=== PATIENT | female | born 1965 | race African-American/Black ===

== ENCOUNTER 2016-07-20 10:35 | Day surgery (SDC) | payer MEDICARE ==
[~2016-07-20] VITALS: Ht 175.3 cm; Wt 120.0 kg
[~2016-07-20 10:35] MED LIST: ADVAIR 100/501 DISK INH; BAYER CHEWABLE81 MG PO; CARDIZEM CD240 MG PO; CATAPRES0.1 MG PO; CELEXA20 MG PO; COLCRYS0.6 MG PO; COREG25 MG PO; CRESTOR10 MG PO; ELIQUIS2.5 MG PO; FUROSEMIDE40 MG PO; HYDROCODONE-APA1 TAB PO; ISOSORBIDE MONO60 M1 PO; LANTUS SOL100 UNIT/1 SC; LANTUS SOL100 UNIT/1 SQ; LASIX40 MG PO; METOLAZONE2.5 MG PO; MIRALAX17 GM PO; NASONEX NASAL S17 GM NS; NOVOLOG100 U/M1 SC; PEPCID20 MG PO; PHENERGAN DM SYR5 ML PO; POTASSIUM20 MEQ/11 PO; PROAIR HFA8.5 GM INH; PROTONIX40 MG PO; QUESTRAN PACK4 G/PKT PO; RENAGEL800 MG PO; ROCALTROL0.5 MCG PO; ZYLOPRIM100 MG PO
[2016-07-20 12:24] VITALS: BP 125/67; Ht 175.3 cm; Wt 120.0 kg
[2016-07-20 12:57] LABS: HCG SERUM NEGATIVE (NEGATIVE)
--- NOTE | 2016-07-20 14:13 | NUR ---
1335 BACK FROM EGD. WAKING UP AND RESP EVEN AND NONLABORED HOB ELEVATED NO COS OF PAIN.
--- NOTE | 2016-07-20 14:14 | NUR ---
1400 DR. BLACK ROUNDING ON PATIENT.
--- NOTE | 2016-07-20 15:27 | NUR ---
1435 DISCHARGE INSTRUCTIONS GIVEN AND VERBALLY UNDERSTANDS. IV DCD CATHETER INTACT.
--- NOTE | 2016-07-20 15:28 | NUR ---
1445 TO HOME VIA W/C WITH FAMILY.
--- NOTE | 2016-07-21 20:18 | OP ---
PATIENT NAME: MAKENNA WALLACE MEDICAL RECORD: [id number] :61 LOCATION:[place] ADMISSION DATE: SURGEON: JESSENIA BLACK MD DATE OF OPERATION: 07/20/2016 PROCEDURE: EGD with biopsy. REFERRING PHYSICIAN: Gil Cho MD INDICATIONS: Ms. Makenna Cho is a very pleasant 50-year-old woman who has had symptoms of heartburn, nausea, postprandial epigastric pain. She has had a cholecystectomy in the past. She had a colonoscopy to further evaluate symptoms of changes in bowel habits with alternating diarrhea, constipation, hematochezia. She had a colonoscopy on 06/16/2016 that showed a small transverse colon polyp (hyperplastic) minimal nonspecific erythema involving the ascending colon, mild sigmoid diverticulosis and mild internal hemorrhoids. She presents for outpatient EGD. PREMEDICATIONS: Total IV anesthesia (ASA 4, end-stage renal disease, obstructive sleep apnea on CPAP) propofol 160 mg. INSTRUMENT: Olympus video gastroscope. PROCEDURE AND FINDINGS: After receiving informed consent, Ms. Maribel Cho's posterior pharynx was anesthetized with Cetacaine spray. She was placed in left lateral decubitus position, sedated as per anesthesia. After achieving adequate level of sedation, gastroscope was introduced per orally and advanced to the duodenum without difficulty. The esophageal mucosa was without erythema, ulcers, strictures or masses, appeared normal down the GE junction. Small hiatal hernia was noted. Gastric mucosa was notable for [id number] patchy antral erythema and antral biopsies were obtained to rule out Helicobacter pylori. There were no lesions seen in the body of stomach or in the cardia or fundus. Pylorus was patent and competent. There was patchy erythema in the proximal duodenal bulb and biopsies were obtained. The second portion of duodenal mucosa appeared normal. Gastroscope was then withdrawn. Ms. Maribel Cho tolerated the procedure well, no immediate complications. ASSESSMENT: 1. Small hiatal hernia. 2. Mild to moderate gastritis, rule out Helicobacter pylori. 3. Duodenitis. RECOMMENDATIONS: 1. Follow up histopathology. 2. Reflux precautions. 3. Omeprazole 20 mg p.o. daily. TRANSINT:[id number] Voice Confirmation ID: [id number] DOCUMENT ID: [id number] CC: Rae Mane APN OPERATIVE REPORT [id number] MARIANA WALLACEJESSENIA DOMINGUEZ MD at 2018 CC: PAMELA CHO MD [id number] DICTATION DATE: 07/20/16 1337 HAUL DRIVER: 07/20/16 1357 DEP SDC 07/20/16 [id number] [place] [address]
== END 2016-07-20 14:45 | disposition home or self-care (01) ==
LOC: D.OPS 10:35
PROVIDERS: Anesthesiology
DX: K29.70 Gastritis, unspecified, without bleeding (principal); K44.9 Diaphragmatic hernia without obstruction or gangrene; K29.80 Duodenitis without bleeding; J44.9 Chronic obstructive pulmonary disease, unspecified; G47.30 Sleep apnea, unspecified; K21.9 Gastro-esophageal reflux disease without esophagitis; I12.0 Hypertensive chronic kidney disease with stage 5 chronic kidney disease or end stage renal disease; E11.22 Type 2 diabetes mellitus with diabetic chronic kidney disease; N18.6 End stage renal disease; J45.909 Unspecified asthma, uncomplicated

== ENCOUNTER 2016-07-30 13:13 | Emergency (ER) | payer MEDICARE ==
[2016-07-20 12:24] VITALS: BMI 39.0
[2016-07-30 14:44] LABS: BASOPHILS 0.3 % (0.0-2.0); EOSINOPHILS 0.5 % (0-7); HEMATOCRIT 46.9 % (36.0-48.0); HEMOGLOBIN 14.9 g/dL (12-16); IMMATURE GRANULOCYTES 0.3 % (0-5); LYMPHOCYTES 19.5 % (15-50); MCH 29.6 pg (26.0-34.0); MCHC 31.8 g/dL (31.0-37.0); MCV 93.1 fL (80.0-100.0); MONOCYTES 6.7 % (2-11); NEUTROPHILS 72.7 % (40-80); PLATELET COUNT 134 10x3/uL (130-400); RBC 5.04 10x6/uL (4.00-5.40); RDW 16.1 % (11.5-14.5); WBC 7.3 10x3/uL (4.8-10.8)
[2016-07-30 15:01] LABS: ALBUMIN 2.9 g/dL (3.4-5.0); BILIRUBIN - TOTAL 0.46 mg/dL (0.2-1.3); CALCIUM 9.4 mg/dL (8.5-10.1); CARBON DIOXIDE 27.1 mmol/L (21.0-32.0); CREATININE - SERUM 8.3 mg/dL (0.6-1.3); POTASSIUM - SERUM 4.1 mmol/L (3.5-5.1); PROTEIN - SERUM 6.9 g/dL (6.4-8.2)
[2016-07-30 16:08] LABS: MAGNESIUM - SERUM 1.9 mg/dL (1.8-2.4); TROPONIN-I 0.035 ng/mL (0.000-0.060)
== END 2016-07-30 17:41 | disposition home or self-care (01) ==
LOC: D.ER 13:13
PROVIDERS: Emergency Medicine
DX: F41.9 Anxiety disorder, unspecified (principal); I48.91 Unspecified atrial fibrillation; E66.09 Other obesity due to excess calories; I50.9 Heart failure, unspecified; E21.3 Hyperparathyroidism, unspecified; I12.9 Hypertensive chronic kidney disease with stage 1 through stage 4 chronic kidney disease, or unspecified chronic kidney disease; N18.9 Chronic kidney disease, unspecified; E11.9 Type 2 diabetes mellitus without complications; Z79.4 Long term (current) use of insulin; Z99.2 Dependence on renal dialysis

== ENCOUNTER 2016-08-03 13:01 | Inpatient (IN) | payer MEDICARE ==
[~2016-08-03] VITALS: Ht 175.3 cm; Wt 128.4 kg
--- NOTE | ~2016-08-03 | HEMODYNAMI ---
PATIENT:CASA WALLACE MEDICAL RECORD: [id number] : 61 LOCATION:[place] [address] ADMISSION DATE: 08/03/16 Generatedon:08/09/201612:53 Patient name: CASA LEYVA Patient #: [id number] SN: : 1965 Date of study: 08/09/2016 Page: Of Hemodynamic Procedure Report Patient Data Patient Demographics Procedure consent was obtained First Name: CASA Gender: Female Last Name: IGNACIO LEYVA : 1965 Patient #: [id number] Age: 50 year(s) Race: Black Additional ID: [id number] Contact details [address]: [address] [place] [address] DRIVE State: [place] City: [place] Zip code: [address] Past Medical History Allergies Allergen Reaction Date Comments Reported Penicillins 08/09/2016 Admission Admission Data Admission Date: 08/03/2016 Admission Time: 17:49 Room #: [facility] Weight (lbs.): 276 Weight (kg.): 125.19 Procedure Procedure Types Cath Procedure Peripheral Cath Diagnostic Procedure Cath Peripheral Fistula Mechanical Thrombectomy with Plasty Procedure Description Procedure Date Procedure Date: 08/09/2016 Procedure Start Time: 10:30 Procedure Staff Name Function Rosalind Savage RN Nurse Carolyn Covington RT Cable Tower Operator Carolyn Covington RT Monitor Sven Gallego RT Scrub Gil Jain MD Performing Physician Procedure Data Cath Procedure Fluoroscopy Diagnostic fluoroscopy Total fluoroscopy Time: time: 18.6 min 18.6 min Diagnostic fluoroscopy Total fluoroscopy dose: dose: 307.23 mGy 307.23 mGy Contrast Material Contrast Material Type Amount (ml) Isovue 300 100 Diagnostic catheters Device Type Used For End Catheter Placement Merit Impress KA2 5Fr 65CM catheter Procedure Medications Medication Administration Route Dosage Oxygen NC 3 l/min Lidocaine 1% added to field 20 Heparin Flush Bag added to field 2 bags (1000units/500ml NS) Versed I.V. 1 mg Fentanyl I.V. 50 mcg Versed I.V. 1 mg Fentanyl I.V. 50 mcg Versed I.V. 0.5 mg Fentanyl I.V. 50 mcg Versed I.V. 1 mg Heparin Bolus I.V. 3000 units Fentanyl I.V. 50 mcg Heparin Bolus I.V. 2000 units Versed I.V. 0.5 mg Fentanyl I.V. 50 mcg Versed I.V. 1 mg Hemodynamics Rest Heart Rate: 108 (bpm) Snapshots Pre Cath Intra NCS Post Cath Vital Signs Time Heart Resp SPO2 NIBP (mmHg) Rhythm Pain Sedation Rate (ipm) (%) Status Level (bpm) 10:16:09 110 19 98 140/105(127) A-Fib 0 (11) 10(A) , No pain 10:20:27 119 11 98 143/101(113) A-Fib 0 (11) 10(A) , No pain 10:25:55 121 20 97 133/91(125) A-Fib 0 (11) 10(A) , No pain 10:30:11 115 11 96 124/98(106) A-Fib 0 (11) 10(A) , No pain 10:34:25 124 10 94 117/84(97) A-Fib 0 (11) 9(A) , No pain 10:38:37 110 11 93 118/82(103) A-Fib 0 (11) 9(A) , No pain 10:42:51 117 11 94 116/81(101) A-Fib 0 (11) 9(A) , No pain 10:47:03 107 10 94 114/84(97) A-Fib 0 (11) 9(A) , No pain 10:51:13 107 14 95 113/89(110) A-Fib 0 (11) 9(A) , No pain 10:55:22 104 10 92 123/86(107) A-Fib 0 (11) 9(A) , No pain 10:59:36 97 10 93 113/89(95) A-Fib 0 (11) 9(A) , No pain 11:03:48 115 11 93 115/80(88) A-Fib 0 (11) 9(A) , No pain 11:07:58 120 11 93 107/81(93) A-Fib 0 (11) 9(A) , No pain 11:12:13 109 12 93 101/69(86) A-Fib 0 (11) 9(A) , No pain 11:16:18 115 11 93 112/81(98) A-Fib 0 (11) 9(A) , No pain 11:20:32 95 10 94 109/75(104) A-Fib 0 (11) 9(A) , No pain 11:24:40 96 10 92 108/85(92) A-Fib 0 (11) 9(A) , No pain 11:28:52 105 10 92 111/73(102) A-Fib 0 (11) 10(A) , No pain 11:33:04 113 10 92 117/79(85) A-Fib 0 (11) 9(A) , No pain 11:37:16 104 11 92 106/82(100) A-Fib 0 (11) 9(A) , No pain 11:41:24 94 11 93 114/84(97) A-Fib 0 (11) 9(A) , No pain 11:45:34 108 12 94 109/90(107) A-Fib 0 (11) 9(A) , No pain 11:49:41 104 10 93 117/85(111) A-Fib 0 (11) 9(A) , No pain 11:53:56 101 11 93 112/77(90) A-Fib 0 (11) 9(A) , No pain 11:58:01 104 11 95 118/94(114) A-Fib 0 (11) 9(A) , No pain 12:02:11 106 11 98 135/95(126) A-Fib 0 (11) 9(A) , No pain 12:06:27 108 10 96 136/95(101) A-Fib 0 (11) 10(A) , No pain 12:10:43 109 13 96 129/98(114) A-Fib 0 (11) 9(A) , No pain 12:14:57 114 11 94 129/91(107) A-Fib 0 (11) 9(A) , No pain 12:19:13 101 10 93 121/86(104) A-Fib 0 (11) 9(A) , No pain 12:23:25 100 11 94 120/80(98) A-Fib 0 (11) 9(A) , No pain 12:27:37 95 10 96 122/90(96) A-Fib 0 (11) 9(A) , No pain 12:31:51 111 11 94 117/84(101) A-Fib 0 (11) 10(A) , No pain 12:36:03 99 11 96 126/86(111) A-Fib 0 (11) 10(A) , No pain 12:40:15 107 10 97 124/94(112) A-Fib 0 (11) 10(A) , No pain Medications Time Medication Route Dose Verified Delivered Reason No jimena Effectiveness by by 10:21:46 Oxygen NC 3 l/min Rosalind Rosalind Per protocol King RUBEN Savage RN 10:21:56 Lidocaine 1% added 20ml vial Rosalind Rosalind for local to King RUBEN Savage RN anesthetic field 10:22:07 Heparin Flush added 2 bags Rosalind Rosalind used for Bag to King RUBEN Savaeg RN procedure (1000units/500ml field NS) 10:28:32 Versed I.V. 1 mg Rosalind Rosalind for sedation King RUBEN Savage RN 10:28:39 Fentanyl I.V. 50 mcg Rosalind Rosalind for sedation King RUBEN Savage RN 10:31:15 Versed I.V. 1 mg Rosalind Rosalind for sedation King RUBEN Savage RN 10:31:20 Fentanyl I.V. 50 mcg Rosalnid Rosalind for sedation King RUBEN Savage RN 10:38:28 Versed I.V. 0.5 mg Rosalind Rosalind for sedation King RUBEN Savage RN 10:48:59 Fentanyl I.V. 50 mcg Rosalind Rosalind for sedation King RUBEN Savage RN 10:49:44 Versed I.V. 1 mg Rosalind Rosalind for sedation King RUBEN Savage RN 10:57:56 Heparin Bolus I.V. 3000units Rosalind Rosalind for King RUBEN Savage RN anticoagulation 11:19:48 Fentanyl I.V. 50 mcg Rosalind Rosalind for sedation King RUBEN Savage RN 11:28:35 Heparin Bolus I.V. 2000units Rosalind Rosalind for King RUBEN Savage RN anticoagulation 11:33:04 Versed I.V. 0.5 mg Rosalind Rosalind for sedation King RUBEN Savage RN 12:01:15 Fentanyl I.V. 50 mcg Rosalind Rosalind for sedation King RUBEN Savage RN 12:10:08 Versed I.V. 1 mg Rosalind Rosalind for sedation King RUBEN Savage class a lineman Log Time Note 10:05:47 Time tracking: Regular hours 10:12:42 Patient Weight : 276 lbs 10:14:26 Plan of Care:Hemodynamics will remain stable., Cardiac rhythm will remain stable., Comfort level will be maintained., Respiratory function will remain adequate., Patient/ family verbilizes understanding of procedure., Procedure tolerated without complication., Recovers from procedure without complications.. 10:14:33 Patient received from Med II to IR Alert and oriented. Tansferred to table in Supine position. 10:14:37 Correct patient and procedure confirmed by team. 10:14:39 Signed procedure consent form obtained from patient. 10:14:42 ECG and BP/O2 sat monitors applied to patient. 10:14:45 Dr Jain arrived. Talking with patient and examining fistula 10:14:53 Vital chart was started 10:14:56 Baseline sample Acquired. 10:14:59 Full Disclosure recording started 10:15:01 - 10:15:07 H&P Date Dictated: 08/09/2016 Within 30 days and on chart.. 10:15:10 Pre-procedure instructions explained to patient. 10:15:11 Pre-op teaching completed and patient verbalized understanding. 10:15:13 Family unavailable. 10:15:18 Patient NPO since Midnight. 10:15:52 Patient allergic to Penicillins 10:16:51 Is the patient allergic to Iodine/contrast media? No. 10:16:53 Is patient on blood thinner?Yes 10:16:57 Patient diabetic? Yes. 10:17:01 - 10:17:04 ----Pre-sedation anethsthesia assessment.---- 10:17:08 Previous problem with sedation/anesthesia? No ? 10:17:12 Snore? Yes 10:17:14 Sleep apnea? Yes 10:17:16 Deviated septum? No 10:17:19 Opens mouth fully? Yes 10:17:22 Sticks out tongue? Yes 10:17:37 Airway obstruction? Yes copd, a fib 10:17:43 Dentures? No ? 10:17:46 - 10:17:59 IV patent on arrival in left IJ with 0.9% NaCl at O. 10:18:16 Right Arm area was prepped with chlora-prep and draped in sterile fashion 10:18:21 Alarms reviewed by Lydia Lima 10:18:23 - 10:18:29 Use device set IR Diagnostic 10:18:31 Sterile Angiographic Pack opened to sterile field. 10:18:33 Bag Decanter opened to sterile field. 10:19:09 Micropuncture VSI 4FR kit opened to sterile field. 10:19:10 Cook SYEDSON 145cm guide wire opened to sterile field. 10:19:30 Arrow 6Fr TREROTOLA thrombectomy opened to sterile field. 10:21:46 Oxygen 3 l/min NC was given by Rosalind Savage RN; Per protocol; 10:21:56 Lidocaine 1% 20ml vial added to field was given by Rosalind Savage RN; for local anesthetic; 10:22:07 Heparin Flush Bag (1000units/500ml NS) 2 bags added to field was given by Rosalind Savage RN; used for procedure; 10:23:40 BasixTOUCH Inflation Syringe opened to sterile field. 10:27:24 Physician arrived 10:27:25 --------ALL STOP TIME OUT------ 10:27:26 Final Timeout: patient, procedure, and site verified with staff and physician. All members of the team are in agreement. 10:27:31 Right Arm site verified by team. 10:27:37 Physical assessment completed. ASA score P 3 - A patient with severe systemic disease as per Gil Jain MD. 10:27:53 Sedation plan: IV Moderate Sedation Versed, Fentanyl, Lidocaine 10:28:32 Versed 1 mg I.V. was given by Rosalind Savage RN; for sedation; 10:28:39 Fentanyl 50 mcg I.V. was given by Rosalind Savage RN; for sedation; 10:30:19 Procedure started. 10:30:29 Local anesthetic to right arm with Lidocaine 1% by Gil Jain MD.INITIAL ACCESS ONLY 10:30:32 Venous access obtained using ultrasound guidance. 10:31:15 Versed 1 mg I.V. was given by Rosalind Savage RN; for sedation; 10:31:20 Fentanyl 50 mcg I.V. was given by Rosalind Savage RN; for sedation; 10:38:28 Versed 0.5 mg I.V. was given by Rosalind Savage RN; for sedation; 10:38:38 PERCUTANEOUS ENTRY 19GA needle opened to sterile field. 10:48:59 Fentanyl 50 mcg I.V. was given by oRsalind Savage RN; for sedation; 10:49:44 Versed 1 mg I.V. was given by Rosalind Savage RN; for sedation; 10:53:11 A Digital Trowel KA2 5Fr 65CM catheter was advanced over the wire and used for . 10:57:56 Heparin Bolus 3000units I.V. was given by Rosalind Savage RN; for anticoagulation; 10:59:00 Inflation number: 1 A Cordis Powerflex Pro 6.0 x 40 x 80cm balloon was prepped and advanced across the Undefined1, then inflated to 12 GRISELDA for 0:16 (min:sec). 11:04:52 Inflation number: 2 A Cordis Powerflex Pro 8.0 X 60 X 135 balloon was prepped and advanced across the Undefined1, then inflated to 10 GRISELDA for 0:11 (min:sec). 11:19:48 Fentanyl 50 mcg I.V. was given by Rosalind Savage RN; for sedation; 11:28:35 Heparin Bolus 2000units I.V. was given by Rosalind Savage RN; for anticoagulation; 11:33:04 Versed 0.5 mg I.V. was given by Rosalind Savage RN; for sedation; 11:37:56 Terumo TORQUE DEVICE PLASTIC .038 opened to sterile field. 11:38:08 Terumo ANGLE 180L glide wire opened to sterile field. 11:40:30 Live 5Fr OTW embolectomy catheter opened to sterile field. 11:51:46 Cook BENTSON 145cm guide wire opened to sterile field. 11:57:14 Live 5Fr OTW embolectomy catheter opened to sterile field. 12:01:15 Fentanyl 50 mcg I.V. was given by Rosalind Savage RN; for sedation; 12:10:08 Versed 1 mg I.V. was given by Rosalind Savage RN; for sedation; 12:19:26 SUTURE L27IN 2-0 MCRYL STEPHIE MO opened to sterile field. 12:25:22 Inflation number: 1 A Cordis Powerflex Pro 10.0 x 40 x 80cm balloon was prepped and advanced across the Undefined2, then inflated to 10 GRISELDA for 0:11 (min:sec). 12:33:08 Procedure ended.(Physican Out) 12:38:04 Fluoroscopy time 18.60 minutes. 12:38:12 Fluoroscopy dose: 307.23 mGy 12:38:12 Flurop Dose total: 307.23 12:38:18 Contrast amount:Isovue 300 100ml. 12:38:22 Sharps counted by scrub and verified by R.N. 12:38:42 Procedure and supply charges have been captured, reviewed, submitted an d are correct. 12:43:03 Vital chart was stopped 12:43:07 Full Disclosure recording stopped Intervention Summary Intervention Notes Time ActionType Lesion and Equipment Action# Pressure Duration Attributes Used 10:59:00 Inflate Undefined1 Cordis 1 12 00:16 balloon Powerflex Pro 6.0 x 40 x 80cm balloon 11:04:52 Inflate Undefined1 Cordis 2 10 00:11 balloon Powerflex Pro 8.0 X 60 X 135 balloon 12:25:22 Inflate Undefined2 Cordis 1 10 00:11 balloon Powerflex Pro 10.0 x 40 x 80cm balloon Device Usage Item Name Manufacture Quantity Catalog Hospital Part Current Mini mal Lot# / Number Charge Number Stock Stock Serial# Code Sterile Cardinal 1 [id number] 160251 251008 5 Angiographic Health Pack Bag Decanter Microtek 1 [id number] 74993 189373 5 Medical Inc. Micropuncture VSI VASCULAR 1 [id number] 041178 016937 5 VSI 4FR kit SOLUTIONS Cook [facility] Medical 2 [id number] 782145 5 [id number] 145cm guide [id number] wire Arrow 6Fr Teleflex 1 [id number] 575677 674904 793748 5 TREROTOLA thrombectomy BasixTOUCH Merit 1 [id number] 368147 325609 592110 5 Inflation Medical Syringe PERCUTANEOUS Cook Medical 1 [id number] 989748 893509 5 ENTRY 19GA needle Merit Impress Merit 1 [id number] 093201 822099 5 KA2 5Fr 65CM Medical catheter Cordis Cardinal 1 [id number] 199723 295058 798630 5 Powerflex Pro Health 6.0 x 40 x 80cm balloon Cordis Cardinal 1 [id number] 454286 144737 5 Powerflex Pro Health 8.0 X 60 X 135 balloon Terumo TORQUE [place] 1 [id number] 425339 485364 447863 5 DEVICE Scientific PLASTIC .038 Terumo ANGLE Terumo 1 [id number] 087094 129579 5 180L glide wire Live 5Fr Sebastian 1 [id number] 183826 749298 421120 5 [facility] [employer]iences embolectomy catheter SUTURE L27IN Ethicon 1 [id number] 076548 321512 5 2-0 MCRYL STEPHIE [place] Cordis Cardinal 1 [id number] 462421 800948 509529 5 Powerflex Pro Health 10.0 x 40 x 80cm balloon Signature Audit Leola Stage Time Signature Unsigned Intra-Procedure 08/09/2016 Carolyn Covington RT(R) 12:42:52 PM RT(R) 08/09/2016 12:50:14 PM Intra-Procedure 08/09/2016 Carolyn Covington 12:53:05 PM RT(R) Signatures Monitor : Carolyn Covington RT Signature : Date : Time : [facility] [address] [place] [address]
[2016-08-03 14:06] LABS: BASOPHILS 0.9 % (0.0-2.0); EOSINOPHILS 0.8 % (0-7); HEMATOCRIT 46.6 % (36.0-48.0); HEMOGLOBIN 14.9 g/dL (12-16); IMMATURE GRANULOCYTES 0.7 % (0-5); LYMPHOCYTES 26.3 % (15-50); MCH 29.7 pg (26.0-34.0); MEAN PLATELET VOLUME 10.6 fL (7.4-10.4); MONOCYTES 8.5 % (2-11); NEUTROPHILS 62.8 % (40-80); PLATELET COUNT 122 10x3/uL (130-400); RBC 5.01 10x6/uL (4.00-5.40); RDW 16.3 % (11.5-14.5); WBC 7.5 10x3/uL (4.8-10.8)
[2016-08-03 14:19] LABS: ALBUMIN 2.9 g/dL (3.4-5.0); ALKALINE PHOSPHATASE 160 U/L (46-116); ALT (SGPT) 28 U/L (10-68); BILIRUBIN - TOTAL 0.35 mg/dL (0.2-1.3); CALC OSMOLALITY 283 mosm/kg (275-300); CALCIUM 8.8 mg/dL (8.5-10.1); CARBON DIOXIDE 28.2 mmol/L (21.0-32.0); CHLORIDE - SERUM 94 mmol/L (98-107); CREATININE - SERUM 5.8 mg/dL (0.6-1.3); POTASSIUM - SERUM 4.2 mmol/L (3.5-5.1); PROTEIN - SERUM 6.9 g/dL (6.4-8.2); SODIUM 134 mmol/L (136-145); UREA NITROGEN 37 mg/dL (7-18); eGFR NON AFRICAN AMERICAN 8 mL/min (90-120)
[2016-08-03 14:21] LABS: CKMB 1.4 U/L (0.0-3.6); CREATINE KINASE 36 UL (21-215); MAGNESIUM - SERUM 1.7 mg/dL (1.8-2.4); PRO BNP 28804 pg/mL (0-125); TROPONIN-I 0.042 ng/mL (0.000-0.060)
[2016-08-03 14:25] LABS: GLUCOSE 224 mg/dL (74-106)
[2016-08-03 19:00] LABS: CREATINE KINASE 32 UL (21-215); TROPONIN-I 0.048 ng/mL (0.000-0.060)
[2016-08-03] MEDS ORDERED: LANOXIN125 MCG PO (21:35)
[2016-08-03 22:54] VITALS: BP 131/85
[2016-08-04 00:30] VITALS: BP 146/98
[2016-08-04 01:22] LABS: CKMB 1.1 U/L (0.0-3.6); CREATINE KINASE 38 UL (21-215); TROPONIN-I 0.037 ng/mL (0.000-0.060)
[2016-08-04 05:23] VITALS: BP 154/99
--- NOTE | 2016-08-04 07:20 | NUR ---
PT SITTING UP ON SIDE OF BED DENIES NEEDS WILL CONT TO MONITOR.
[2016-08-04 07:51] LABS: CKMB 1.2 U/L (0.0-3.6); CREATINE KINASE 34 UL (21-215)
[2016-08-04 08:00] VITALS: BP 135/46
--- NOTE | 2016-08-04 10:36 | NUR ---
PT CO PAIN 02/16. PT TAKES NORCO 10 Q4 HOURS AT HOME. HERE SHE IS ONLY ORDERED NORCO 5 Q8 HOURS. CALLED MAYITO SHE GAVE OK TO SWITCH IT BACK TO HER HOME MEDICATION NORCO 10 Q 4 HOURS. DONE.
[2016-08-04 12:00] VITALS: BP 148/93
--- NOTE | 2016-08-04 12:51 | NUR ---
TALKED WITH DR KIM ABOUT PT BS 391, NO MEDS HAVE BEEN RESTARTED FROM HOME MED LIST. ASKED HIM IF HE WANTED ME TO RESTART INSULINS HE GAVE OK. PT TAKES NOVOLOG AT HOME SLIDING SCALE. WE DONT DO SLIDING SCALE FOR NOVOLOG PER PHARM. DR KIM SAID TO DO HUMULIN LOW SCALE DONE AND ORDERED. TREATED PT FOR HIGH BLOOD SUGAR WITH HER LUNCH TRAY. PT DENIES NEEDS AT THIS TIME WILL CONTINUE TO MONITOR.
[2016-08-04 13:35] LABS: CKMB 1.7 U/L (0.0-3.6); CREATINE KINASE 53 UL (21-215)
--- NOTE | 2016-08-04 13:41 | NUR ---
PT SITTING UP IN BED DENIES NEEDS WILL CONT TO MONITOR.
[2016-08-04 13:48] VITALS: Ht 175.3 cm; Wt 128.4 kg
--- NOTE | 2016-08-04 14:32 | NUR ---
Patient Name: CASA LEYVA Admission Status: ER Accout number: [id number] Admission Date: 08-03-2016 : 1965 Admission Diagnosis: Attending: CARMENZA Current LOS: 1 Anticipated DC Date: 08-05-2016 Planned Disposition: Home Health Service Primary Insurance: MEDICARE A & B Discharge Planning Comments: CM MET WITH PATIENT REGARDING D/C NEEDS AND PLANS. PATIENT STATED HER DAUGHTER DENISE LIVES WITH PATIENT AND HELPS HER WHEN NEEDED. PATIENTS OTHER DAUGHTER (HOSSEIN) IS HER CAREGIVER THROUGH [facility]-SHE IS THERE M-F (2-3 HRS DAILY). PATIENT STATED ONE OF HER DAUGHTERS WILL DRIVE HER HOME AT DISCHARGE. PATIENT STATED SHE NEEDS HELP BATHING AND DRESSING AT TIMES. PATIENT HAS OXYGEN 24/7 ON 2L, NEBULIZER, PORTABLE 02, CPAP AT NIGHT, GLUCOMETER, BS COMMODE, SHOWER CHAIR, WALKER, AND HOSPITAL BED. PATIENT IS A DIABETIC AND CHECKS SUGAR REGULARLY. PATIENT HAS DIALYSIS M-W- AT [facility]. PATIENTS PCP IS DR. LEWIS BUT SEES THE [facility]. PATIENTS PHARMACY IS [facility] ON [address]. PATIENT REFUSED HOME HEALTH AT THIS TIME. CM WILL CONTINUE TO FOLLOW PATIENT WITH D/C NEEDS AND PLANS. PCP DR. LEWIS ([facility]) [facility] [address]- [phone][address][phone] HOSSEIN (DAUGHTER) [phone] DENISE (DAUGHTER) [phone] Shake Packer: Jennifer Clemons Is the patient Alert and Oriented? Yes 0 * How many steps to enter\exit or inside your home? 0 0 * PCP DR. LEWIS SEES [facility] 0 * Pharmacy [facility] [address] 0 * Preadmission Environment Home with Family 0 * ADLs Partial Dependent 0 * Partial ADLs (Assistance needed) Ambulation Bathing 0 * Equipment Bedside Commode CPAP Glucometer Hospital Bed Nebulizer Oxygen Shower Chair Walker 0 * List name and contact numbers for known caregivers / representatives who currently or will assist patient after discharge: DENISE (DAUGHTER) [phone] JENIFFER (DAUGHTER) [phone] 0 * Community resources currently utilized Meals on Wheels Private Duty Care 0 * Please name any agencies selected above. [facility] ([place]) 0 * Additional services required to return to the preadmission environment? Yes 0 * Can the patient safely return to the preadmission environment? Yes 0 * Has this patient been hospitalized within the prior 30 days at any hospital? No 0 Grand Total: 0
[2016-08-04 16:00] VITALS: BP 129/87
--- NOTE | 2016-08-04 16:36 | NUR ---
PT FSBS 449. TREATED WITH SLIDING SCALE. ORDERED STAT GLUCOSE AND PAGED MAYITO. PT ALERT AND ORIENTED NO ADVERSE S/S OF HIGH BLOOD SUGAR. WILL AWAIT CALL BACK
--- NOTE | 2016-08-04 16:41 | NUR ---
MAYITO CALLED BACK AND SAID TO CHANGE PT TO INTERMEDIATE SCALE DONE.
--- NOTE | 2016-08-04 17:48 | NUR ---
PT SITTING UP TO CHAIR WAITING ON DINNER TRAY. I HAVE CALLED DIETARY TWICE FOR IT?? THERE WAS ORDER ALREADY PUT IN FOR TRAY UNSURE WHERE TRAY WENT. THEY ARE SUPPOSED TO BE BRINGING IT UP.
[2016-08-04 21:18] VITALS: BP 133/87
[2016-08-05 01:12] VITALS: BP 164/73
[2016-08-05 04:58] LABS: BASOPHILS 0.1 % (0.0-2.0); EOSINOPHILS 0 % (0-7); HEMATOCRIT 42.6 % (36.0-48.0); IMMATURE GRANULOCYTES 0.3 % (0-5); LYMPHOCYTES 9.2 % (15-50); MCHC 32.9 g/dL (31.0-37.0); MCV 91.2 fL (80.0-100.0); MEAN PLATELET VOLUME 10.2 fL (7.4-10.4); MONOCYTES 3.4 % (2-11); PLATELET COUNT 134 10x3/uL (130-400); RBC 4.67 10x6/uL (4.00-5.40); RDW 15.7 % (11.5-14.5); WBC 9.1 10x3/uL (4.8-10.8)
[2016-08-05 05:01] VITALS: BP 125/67
--- NOTE | 2016-08-05 07:14 | NUR ---
0710-SITTING UP IN THE BED TALKING ON PHONE WHEN AM ROUNDS ARE MADE. DENIES NEEDS AT THIS TIME. QUESTIONING WHEN DIALYSIS IS GOING TO BE, UNABLE TO GIVE HER INFO AT THIS TIME. ON HEART MONITOR SHOWING UCAF, HR 127. RIGHT AVF TO UPPER ARM, + BRUIT AND THRILL. DIALYSIS IS ON MWF PER PATIENT. LEFT HAND SEEN WITH SALINE LOCK. ON 2L PER NC AT THIS TIME. WILL CONTINUE TO MONITOR.
[2016-08-05 07:25] LABS: ANION GAP 23.3 mmol/L (8-16); CALCIUM 9.4 mg/dL (8.5-10.1); CARBON DIOXIDE 23.8 mmol/L (21.0-32.0)
[2016-08-05 07:26] LABS: CREATININE - SERUM 9.4 mg/dL (0.6-1.3); POTASSIUM - SERUM 6.1 mmol/L (3.5-5.1)
[2016-08-05 08:00] VITALS: BP 132/94
--- NOTE | 2016-08-05 08:48 | NUR ---
TALKED TO RITA IN PHARMACY TO RE-TIME CRESTOR TO BEDTIME.
[2016-08-05 12:00] VITALS: BP 135/88
--- NOTE | 2016-08-05 15:22 | NUR ---
CALLED AND LEFT MAXX (WITH DIALYSIS) A VOICE MAIL ON HER PHONE AT [phone] TO SEE WHEN DIALYSIS WILL BE FOR PATIENT TODAY. AWAITING CALL BACK.
[2016-08-05 16:00] VITALS: BP 151/75
--- NOTE | 2016-08-05 18:02 | NUR ---
DENIES NEEDS AT PRESENT TIME. STILL AWAITING DIALYSIS. WILL CONTINUE TO MONITOR.
[2016-08-05 22:07] VITALS: BP 148/81
--- NOTE | 2016-08-05 22:16 | NUR ---
initial rounds completed at 1915 hrs. pt denied any discomfort. assesment completed AT 1940 HRS. VSS. IV TO L HADN SL. UPPER R ARM FISTUA WITH A FAINT BRUIT HEARD. O2 2LNC. LUNGS DIMINISHED INBASES BILAT. 1+ PEDAL EDEMA NOTED BILAT. DIALYSIS NURSE AT BEDSIDE. PM FSBS 331. INFORMED UNABLE TO ACCESS FISTULAR AND DR KIM NOTIFIED. PM MEDS GIVEN. WELL PM LANTUS AND INSULIN PER S/S. NORCO GIVEN FOR C/O CHRONIC PAIN. PT AJAYETNLY EATING A SNACK, CALL LIGHT WITHIN [facility]. SR UP X2, CALL LIGHT WITHIN [facility].
--- NOTE | 2016-08-06 00:49 | NUR ---
UCAF PER CM HR 116. PT RESTING WITH EYES CLOSED. RESP EVEN AND REGULAR. SR UP X2, CALL LIGHT WITHIN REACH.
[2016-08-06 01:00] VITALS: BP 103/45
--- NOTE | 2016-08-06 02:19 | NUR ---
PT RESTING WITH EYES CLOSED. RESP EVEN AND REGULAR. SR UP X2, CALL LIGHT WITHIN REACH.
--- NOTE | 2016-08-06 04:00 | NUR ---
PT AWAKE; DENIES ANY DISCOMFORT. WILL CONTINUE TO MONITOR.
[2016-08-06 04:31] VITALS: BP 186/116
[2016-08-06 06:30] VITALS: BP 157/104
--- NOTE | 2016-08-06 06:32 | NUR ---
UCAF PER CM DURING SHIFT. BP ELEVATED THIS AM. PT STATED ZINACO HELPD CHRONIC PAIN. AM FSBS 279. 10 UNITS REG INSULIN GIVEN PER S/S. NEEDS MET; WILL CONTINUE TO MONITOR.
--- NOTE | 2016-08-06 07:10 | NUR ---
LAB HERE TO DRAW BLOOD. ON 2L PER NC WITH LIGHT WHEEZES HEARD THROUGHOUT LUNG CHAPMAN. ON HEART MONITOR SHOWING UCAF, HR 118. LEFT HAND SEEN WITH SALINE LOCK, RT AVF WITH + BRUIT AND THRILL. IN REPORT, UNABLE TO DIALYSIS LAST NIGHT, WILL TRY TODAY THEY SAID. WILL CONTINUE TO MONITOR.
[2016-08-06 07:20] LABS: BASOPHILS 0 % (0.0-2.0); EOSINOPHILS 0 % (0-7); HEMOGLOBIN 14.4 g/dL (12-16); IMMATURE GRANULOCYTES 0.2 % (0-5); LYMPHOCYTES 7.3 % (15-50); MCH 30.3 pg (26.0-34.0); MCHC 33.5 g/dL (31.0-37.0); MCV 90.3 fL (80.0-100.0); MEAN PLATELET VOLUME 10.3 fL (7.4-10.4); MONOCYTES 3.1 % (2-11); NEUTROPHILS 89.4 % (40-80); PLATELET COUNT 139 10x3/uL (130-400); RBC 4.76 10x6/uL (4.00-5.40); RDW 15.7 % (11.5-14.5); WBC 9.4 10x3/uL (4.8-10.8)
[2016-08-06 07:30] LABS: ANION GAP 24.4 mmol/L (8-16); CALCIUM 8.4 mg/dL (8.5-10.1); CARBON DIOXIDE 22.9 mmol/L (21.0-32.0); CREATININE - SERUM 10.9 mg/dL (0.6-1.3)
[2016-08-06 07:32] LABS: POTASSIUM - SERUM 6.3 mmol/L (3.5-5.1)
[2016-08-06 08:00] VITALS: BP 158/99
--- NOTE | 2016-08-06 08:00 | NUR ---
LAB TO CALL FOR CRITICAL OF K+ 6.3. FOR DIALYSIS TODAY THIS WAS NOT DONE YESTERDAY.
--- NOTE | 2016-08-06 08:30 | NUR ---
0830-PER PATIENT THAT SHE WILL TAKE A SHOWER AND SHE REFUSED TO LET US CHANGE HER BED LINENS. SHE STATES "PLEASE DON'T TAKE THAT AWAY FROM ME, IT IS THE ONLY THING LEFT I CAN DO ON MY OWN".
--- NOTE | 2016-08-06 09:55 | NUR ---
0945-PATIENT PULLED OUT SALINE LOCK WHEN TAKING GLOVE OFF FROM SHOWER. 2 NURSES HAVE ATTEMPTED RE-SITING WITH NO LUCK. TALKED TO [facility] AND WILL LEAVE IV OUT AT PRESENT TIME AND SWITCH IV ANTIBIOTIC TO ORAL. MAY HAVE ICU NURSE ATTEMPT.
[2016-08-06 12:00] VITALS: BP 140/87
--- NOTE | 2016-08-06 12:24 | NUR ---
NEW ORDERS RECEIVED VIA DR THOMAS. DR ROJAS HERE FOR TRIALYSIS LINE PLACEMENT. CONSENT IS SIGNED.
--- NOTE | 2016-08-06 13:06 | NUR ---
PATIENT STARTED ON CARDIZEM 60MG PO ORDERED.
--- NOTE | 2016-08-06 13:15 | NUR ---
PORTABLE CXR DONE ORDERED.
--- NOTE | 2016-08-06 14:24 | NUR ---
1325-STILL NO REPORT FROM CXR AND CAN NOT GET ANYONE TO ANSWER IN RADIOLOGY. CALL PLACED TO [facility] TO SEE IF WE CAN GO AHEAD AND USE TRIALYSIS FOR DIALYSIS. AWAITING CALL BACK.
--- NOTE | 2016-08-06 14:39 | NUR ---
MI TO CALL BACK AND TELL ME TO GO AHEAD AND USE THE TRIALYSIS. TO DIALYSIS VIA WHEELCHAIR AND PORTABLE O2.
--- NOTE | 2016-08-06 17:57 | NUR ---
STILL IN DIALYSIS.
--- NOTE | 2016-08-06 19:28 | NUR ---
Mrs. Garcia had hemodialysis today via her Right IJ Trialysis from 1451 until 1851. Average blood flow was 300 mls. Kept blood flow lower to reduce chances of disequalibrium syndrome. Net fluid removed was 2500 mls. Post vital signs were: B/P: 109/59, HR:114, Temp: 98.0, Resps: 20.
--- NOTE | 2016-08-06 19:38 | NUR ---
PT BACK FOR DIALYSIS. NO DISTRESS NOTED. WILL CONITNUE TO MONITOR.
[2016-08-06 21:20] VITALS: BP 105/59
--- NOTE | 2016-08-06 23:32 | NUR ---
ASSESSMENT COMPLETED AT 2004 HRS. VSS. CAF PER CM HR 96. LIJ TRIALYSIS CLEAN, DRY AND INTACT. LUNGS DIMINISHED IN BASES BILAT. RAVF WITH NO BRUIT OR THRILL. PM FSBS 204. 8 UNITS REG INSULIN GIVEN SUB-Q PER S/S. SCHEDULED LANTUS GIVEN. PM MEDS INCLUDING NORCO FOR C/O L NECK PAIN ADMINISTERED. PT CURRENTLY PLAYIN A GAME ON HER PHONE. WILL CONTINUE TO MONITOR. SR UP X2, CALL LIGHT WITHIN REACH.
[2016-08-07 00:30] VITALS: BP 138/96
--- NOTE | 2016-08-07 01:18 | NUR ---
PT RESTING WITH EYES CLOSED. RESP EVEN AND REGULAR. SR UP X2, CALL LIGHT WITHIN REACH.
--- NOTE | 2016-08-07 02:34 | NUR ---
PT RESTINGWITH EYES CLOSED. RESP EVEN AND REGULAR. SR UP X2, CALL LIGHT WITHIN REACH.
[2016-08-07 04:30] VITALS: BP 155/94
--- NOTE | 2016-08-07 04:41 | NUR ---
PT AWAKE; DENIES ANY DISCOMFORT. WILL CONTINUE TO MONITOR.
[2016-08-07 05:35] LABS: BASOPHILS 0 % (0.0-2.0); EOSINOPHILS 0 % (0-7); HEMATOCRIT 46.4 % (36.0-48.0); HEMOGLOBIN 15.5 g/dL (12-16); IMMATURE GRANULOCYTES 1.2 % (0-5); LYMPHOCYTES 5.9 % (15-50); MCH 30.5 pg (26.0-34.0); MCHC 33.4 g/dL (31.0-37.0); MCV 91.2 fL (80.0-100.0); MEAN PLATELET VOLUME 10.7 fL (7.4-10.4); NEUTROPHILS 89.9 % (40-80); RBC 5.09 10x6/uL (4.00-5.40); WBC 9.1 10x3/uL (4.8-10.8)
[2016-08-07 05:46] LABS: PLATELET COUNT 187 10x3/uL (130-400)
[2016-08-07 06:00] LABS: ANION GAP 22.5 mmol/L (8-16); CARBON DIOXIDE 24.6 mmol/L (21.0-32.0)
[2016-08-07 06:07] LABS: CREATININE - SERUM 7.3 mg/dL (0.6-1.3); POTASSIUM - SERUM 5.1 mmol/L (3.5-5.1)
--- NOTE | 2016-08-07 06:36 | NUR ---
VSS THROUGHOUT NIGHT. CAF PER CM. PT STATED NORCO ALLEVIATED NECK PAIN. AM FSBS 340. 12 UNITS REG INSULIN GIVEN SUB-Q TO UPPER L ARM. NEES MET; WILL CONITNUE TO MONITOR.
--- NOTE | 2016-08-07 07:22 | NUR ---
AM ROUNDING DONE, PATIENT IS ON CELL PHONE PLAYING A GAME. STATES THAT SHE FEELS SO MUCH BETTER TODAY THAN YESTERDAY. ON HEART MONITOR SHOWING UCAF, HR 112. LEFT TRIALYSIS SEEN WITH DRY, INTACT DRESSING. ON 2L PER NC. WILL CONTINUE TO MONITOR.
--- NOTE | 2016-08-07 08:59 | NUR ---
PATIENT UP IN CHAIR WHILE AM MEDS GIVEN. REPORTS THAT SHE FEELS "SO MUCH BETTER". LEFT TRIALYSIS SEEN WTIH DRY, INTACT DRESSING. BILATERAL LUNGS ARE DIMINISHED, COUGHING SOME. REPORTS THAT HER THROAT FEELS "A LITTLE BETTER", ON NYSTATION S/S. WILL CONTINUE TO MONITOR.
[2016-08-07 09:10] VITALS: BP 145/101
[2016-08-07 12:00] VITALS: BP 124/60
--- NOTE | 2016-08-07 14:55 | NUR ---
I SPOKE WITH DR JUAREZ R/T CONSULT FOR THROMOECTOMY. HE STATES THAT HE TALKED TO MI [facility] APN THIS AM ABOUT THIS. HE SAID THAT HE TOLD HER THEY WOULD DO THIS IN THE AM BUT AT THIS PRESENT TIME I HAVE NO ORDERS.
[2016-08-07 16:00] VITALS: BP 157/95
--- NOTE | 2016-08-07 16:39 | OP ---
PATIENT NAME: CASA WALLACE MEDICAL RECORD: [id number] :61 LOCATION:D.M2 D.2133 ADMISSION DATE:08/03/16 SURGEON: ORLANDO ROJAS MD DATE OF OPERATION: 08/06/2016 SURGEON: Orlando Rojas MD PREOPERATIVE DIAGNOSIS: End-stage renal disease. POSTOPERATIVE DIAGNOSIS: End-stage renal disease. PROCEDURE PERFORMED Ultrasound-guided insertion of left internal jugular Trialysis catheter. ANESTHESIA: Local. COMPLICATIONS: None. SPECIMENS: None. ESTIMATED BLOOD LOSS: 10 cc. Case was clean. OPERATIVE COURSE: After consent was obtained, the patient was placed in the supine position on her hospital bed. A shoulder roll was placed. The bed was placed into Trendelenburg position. The left chest and neck were prepped and draped in typical sterile fashion. Timeout was taken to confirm the correct patient and procedure. A 10 cc of local anesthetic was injected in the subcutaneous tissue in the left neck. The left internal jugular vein and left common carotid artery were identified on the ultrasound. Under ultrasound guidance, the left internal jugular vein was cannulated, blood was aspirated. The wire was advanced and it was removed. A skin incision was made with an 11-blade scalpel. The dilator was then passed over the wire in a standard Seldinger fashion. The Trialysis catheter was then passed over the wire in a standard Seldinger fashion. The wire was removed. All 3 ports were accessed, were aspirated and flushed. The port was secured to the skin using 2-0 nylon suture and a sterile Tegaderm dressing. At the end of procedure, all needle and instrument counts were correct. No complications occurred. Immediate postoperative chest x-ray was performed, which showed no pneumothorax. The Trialysis catheter is in good position for use. TRANSINT:[id number] Voice Confirmation ID: [id number] DOCUMENT ID: [id number] ORLANDO ROJAS MD at 1639 CC: [id number] DICTATION DATE: 08/07/16 1152 FRONT OFFICE AGENT: 08/07/16 1229 [place] [address]
--- NOTE | 2016-08-07 16:39 | CN ---
PATIENT NAME:CASA WALLACE MEDICAL RECORD: [id number] : 61 LOCATION:D. D.2133 ADMIT DATE: 08/03/16 ACCOUNT: [id number] CONSULTING PHYSICIAN: ORLANDO ROJAS MD REFERRING PHYSICIAN: NATHANIEL KIM MD DATE OF CONSULTATION: 08/06/2016 Surgical Consultation SURGEON: Orlando Rojas MD REASON FOR CONSULTATION: Trialysis access. HISTORY OF PRESENT ILLNESS: A 50-year-old female, who was admitted to the hospital with end-stage renal disease, for hypotension and shortness of breath. She had been in the ER a couple of days ago and continued to feel worse. Her AV fistula had clotted off and she was sent over from the dialysis unit. She also has COPD. PAST MEDICAL HISTORY: End-stage renal disease, COPD, coronary artery disease, congestive heart failure, hypertension, morbid obesity, neuropathy, diabetes, congestive heart failure, home O2 dependent, sleep apnea. PAST SURGICAL HISTORY: Gallbladder, , multiple right upper extremity grafts and fistulas. ALLERGIES: PENICILLIN, CEPHALEXIN, LATEX AND JANUVIA. HOME MEDICATIONS: Include Imdur, Advair, aspirin, citalopram, Crestor, Eliquis, insulin, carvedilol, diltiazem, albuterol, insulin, clonidine, Protonix, sevelamer, and Lasix. FAMILY HISTORY: She has a family history of lung disease, diabetes, cardiovascular disease and stroke. SOCIAL HISTORY: Denies alcohol or smoking. REVIEW OF SYSTEMS: A 12-point review of systems was obtained, pertinent positives and negatives as per the HPI. PHYSICAL EXAMINATION: VITAL SIGNS: Temperature 97.5, heart rate 101, respirations 19, blood pressure 140/87, and saturating 93%. GENERAL: Well-developed, well-nourished, obese female in moderate distress. EYES: Extraocular muscles intact. EAR, NOSE, AND THROAT: Poor dentition. CARDIOVASCULAR: Normal sinus rhythm. PULMONARY: She has got decreased breath sounds bilaterally with wheezing. ABDOMEN: Soft, nontender, and nondistended. SKIN: Warm and dry with normal turgor. EXTREMITIES: She has got a clotted right upper extremity AV fistula. She got lower extremity edema. NEUROLOGIC: She is neurovascularly intact. GCS of 15 with no focal deficits. LABORATORY DATA: Reviewed. Please see the electronic medical record for full CONSULT REPORT [id number] CASA WALLACE list of laboratory results. IMPRESSION: A 50-year-old female with end-stage renal disease, has not received dialysis in the last 4-5 days with a clotted AV fistula access. PLAN: Obtain consent for ultrasound-guided Trialysis catheter placement. Risks and benefits were discussed with the patient. I will talk to Dr. Spear and/or Dr. Evangelista concerning AV fistula revision on Monday or Monday. TRANSINT:[id number] Voice Confirmation ID: [id number] DOCUMENT ID: [id number] ORLANDO ROJAS MD at 1639 CC: [id number] DICTATION DATE: 08/07/16 1152 UPPER LINING CEMENTER: 08/07/16 1222 ADM IN [place] [id number]
[2016-08-07 20:19] VITALS: BP 139/90
--- NOTE | 2016-08-07 22:57 | NUR ---
INITIAL ROUNDS COMPLETED AT 1920 HRS. PT DENIED ANY DISCOMFORT. ASSESSMENT COMPLETED AT 2010 HRS. VSS. CAF PER CM HR 92. LIJ TRIALYSIS NOTED. O2 2LNC. RAVF WITH NO BRUIT OR THRILL. LUNGS DIMINISHED IN BASES BILAT. PM FSBS 343. 12 UNITS REGULAR INSULIN GIVEN PER S/S. NPH HELD PT NPO AFTER MIDNIGHT. NORCO GIVEN WITH PM MEDS FOR C/O NECK PAIN. PT CURRENTLY RESTING WITH EYES CLOSED. RESP EVEN AND REGULAR. SR UP X2, CALL LIGHT WITHIN REACH.
[2016-08-08 00:06] VITALS: BP 163/100
--- NOTE | 2016-08-08 00:47 | NUR ---
PT ESTING WITH EYES CLOSED. RESP EVEN AND REGULAR. SR UP X2, CALL LIGHT WITHIN REACH.
--- NOTE | 2016-08-08 01:49 | NUR ---
PT RESTING WITH EYES CLOSED. RESP EVEN AND REGULAR. SR UP X2, CALL LIGHT WITHIN REACH.
--- NOTE | 2016-08-08 04:19 | NUR ---
PT RESTING WITH EYES CLOSED. RESP EVEN AND REGULAR. SR UP X2, CALL LIGHT WITHIN REACH AND BED ALARM ON.
--- NOTE | 2016-08-08 04:20 | NUR ---
PT WASHING UP. DENIES ANY DISCOMFORT. WILL CONTINUE TO MONITOR.
--- NOTE | 2016-08-08 05:09 | NUR ---
BEDBATH DONE; BED LINENS CHANGED. PT NPO FOR SURGERY TODAY. WILL CONTINUE TO MONITOR.
[2016-08-08 05:36] LABS: BASOPHILS 0.1 % (0.0-2.0); EOSINOPHILS 0 % (0-7); HEMATOCRIT 46.7 % (36.0-48.0); HEMOGLOBIN 15.4 g/dL (12-16); IMMATURE GRANULOCYTES 0.9 % (0-5); LYMPHOCYTES 6.9 % (15-50); MCH 29.7 pg (26.0-34.0); MEAN PLATELET VOLUME 10.6 fL (7.4-10.4); MONOCYTES 5.7 % (2-11); NEUTROPHILS 86.4 % (40-80); PLATELET COUNT 173 10x3/uL (130-400); RBC 5.19 10x6/uL (4.00-5.40); RDW 15.5 % (11.5-14.5); WBC 9.6 10x3/uL (4.8-10.8)
[2016-08-08 05:55] VITALS: BP 134/79
[2016-08-08 05:56] LABS: ANION GAP 24.8 mmol/L (8-16); CALCIUM 9.4 mg/dL (8.5-10.1); CARBON DIOXIDE 21.4 mmol/L (21.0-32.0); CREATININE - SERUM 8.9 mg/dL (0.6-1.3); POTASSIUM - SERUM 5.2 mmol/L (3.5-5.1)
--- NOTE | 2016-08-08 06:25 | NUR ---
AM FSBS 271. NO COVERAGE PT NPO. VSS THROUGJOUT NIGHT. NEEDS MET; WILL CONTINUE TO MONITOR.
--- NOTE | 2016-08-08 07:54 | NUR ---
VELMA FROM IR CALLED STATING PT WILL NOT BE HAVING HER PROCEDURE DONE WITH THEM R/T BEING ON ASA AND ELIQUIS AND THAT THEY WILL THEN DEFER PROCEDURE BACK TO WHOM IT WAS ORIGINALLY SCHEDULED WITH.
[2016-08-08 08:24] LABS: INR 1.05 (0.85-1.17); PROTIME 13.6 SECONDS (11.6-15.0)
[2016-08-08 08:25] VITALS: BP 157/82
--- NOTE | 2016-08-08 10:43 | NUR ---
PATIENT PATHWAYS - Patient admitted for intervention of clotted access. Trialysis placed last week, patient wait on surgical intervention. Patient's home unit of [facility] on MWF @ 6:30am (first shift) updated regarding patient's admission. Medical records regarding admit forwarded to the unit for their records. IRENE PRL
--- NOTE | 2016-08-08 11:28 | NUR ---
FSBS 402. PT REC'D 20 UNITS PER SS. PT MOST LIKELY THIS HIGH R/T NOT RECIEVING MORNING COVERAGE. PT C/O GENERALIZED CHRONIC PAIN REQUESTING AND PROVIDED WITH PRN PAIN MEDICATION. PT SITTING UP IN BED RESTING QUIETLY WITH DAUGHTER AT BEDSIDE. RR NONLABORED. CL IN REACH. WILL CPOC.
[2016-08-08 12:53] VITALS: BP 156/66
--- NOTE | 2016-08-08 15:39 | NUR ---
PT RECIEVING DIALYSIS AT BEDSIDE. RR NONLABORED. PT C/O PAIN THAT IS GENERALIZED REQUESTED AND PROVIDED WITH PRN PAIN MED. PT DENIES ANY FURTHER NEEDS AT THIS TIME. CL IN REACH. WILL CPOC.
--- NOTE | 2016-08-08 16:32 | NUR ---
FSBS 268. PT REC'D 10 UNITS PER SS INSULIN. PT RESTING QUIETLY IN BED WITH DIALYSIS NURSE AT BEDSIDE. NO CURRENT NEEDS. WILL CTM.
[2016-08-08 16:49] VITALS: BP 127/71
--- NOTE | 2016-08-08 19:30 | NUR ---
SITTING UP IN BED EATING SNACK. UNDERSTANDING VERBALIZED ABOUT NPO STATUS AFTER MN FOR AM PROCEDURE. HOB UP SR UP X2, C/L IN REACH, TELEMETRY SHOWING CAF TO UNCAF. RESP UNLAB WITH O2 @ 2L NC IN PLACE. RESERVING RIGHT ARM PER ORDERS. UP AD ADAM W/O DIFF. CONTINUE TO MONITOR.
[2016-08-08 21:47] VITALS: BP 149/95
[2016-08-09 01:44] VITALS: BP 164/103
--- NOTE | 2016-08-09 02:20 | NUR ---
EYES CLOSED, RESP EVEN AND UNLAB WITH NO S/S OF ACUTE DISTRESS NOTED. C/L IN REACH.
[2016-08-09 06:07] LABS: BASOPHILS 0 % (0.0-2.0); EOSINOPHILS 0 % (0-7); HEMATOCRIT 43.6 % (36.0-48.0); HEMOGLOBIN 14.3 g/dL (12-16); LYMPHOCYTES 3.5 % (15-50); MCH 29.5 pg (26.0-34.0); MCHC 32.8 g/dL (31.0-37.0); MCV 89.9 fL (80.0-100.0); MEAN PLATELET VOLUME 10.9 fL (7.4-10.4); MONOCYTES 4.9 % (2-11); NEUTROPHILS 90.6 % (40-80); PLATELET COUNT 163 10x3/uL (130-400); RBC 4.85 10x6/uL (4.00-5.40); RDW 15.5 % (11.5-14.5); WBC 7.9 10x3/uL (4.8-10.8)
[2016-08-09 06:10] VITALS: BP 163/101
[2016-08-09 06:19] LABS: ANION GAP 17.2 mmol/L (8-16); CALCIUM 9.6 mg/dL (8.5-10.1); CARBON DIOXIDE 26.7 mmol/L (21.0-32.0); POTASSIUM - SERUM 4.9 mmol/L (3.5-5.1)
[2016-08-09 06:22] LABS: CREATININE - SERUM 5.7 mg/dL (0.6-1.3)
--- NOTE | 2016-08-09 07:15 | NUR ---
RECEIVED REPORT. ASSUMED CARE OF PATIENT. CALL LIGHT WITH IN REACH. AWAKE, ALERT. RESP EVEN AND UNLABORED. KASEY FROM IR AT BEDSIDE. NO DISTRESS. DENIES NEEDS.
[2016-08-09 08:08] VITALS: BP 163/88
--- NOTE | 2016-08-09 08:33 | NUR ---
MEDICATED FOR PAIN AT THIS TIME. NO DISTRESS. AWAITING TO BE TAKEN TO IR FOR PROCEDURE.
--- NOTE | 2016-08-09 09:00 | NUR ---
PATIENT LEFT UNIT VIA BED WITH IR FOR PROCEDURE AT THIS TIME. NO DISTRESS UPON LEAVING UNIT.
--- NOTE | 2016-08-09 11:31 | NUR ---
REMAINS OFF UNIT IN IR FOR PROCEDURE.
--- NOTE | 2016-08-09 13:10 | NUR ---
PATIENT BROUGHT BACK TO ROOM FROM IR AT THIS TIME. CALL LIGHT WITHIN REACH. FEMALE VISITOR AT BEDSIDE. DRESSING CLEAN, DRY AND INTACT TO RIGHT UPPER ARM/SHOULDER AREA. THRILL AND BRUIT PALPATED AND AUSCULTATED TO RIGHT ARM. PATIENT READY FOR FOOD NOW. TRAY ORDERED FROM DIETARY. NO DISTRESS. RECEIVED REPORT FROM KASEY. KASEY STATES THAT FISTULA IS GOOD TO USE AND NEEDS TO BE USED BEFORE PATIENT IS DISCHARGED TO MAKE SURE THAT IT WORKS.
--- NOTE | 2016-08-09 15:24 | NUR ---
MEDICATED FOR PAIN AT THIS TIME. NO DISTRESS.
[2016-08-09 15:42] VITALS: BP 136/78
--- NOTE | 2016-08-09 16:22 | NUR ---
PATIENTS FSBS 458. SPOKE TO ZEE PERRY AND TOLD HER THAT PATIENT DID NOT GET HER LANTUS, HAD BEEN GONE ALL DAY FOR A PROCEDURE, EAT AND NOW HER FSBS IS ELEVATED AND ITS MEAL TIME AGAIN. ZEE GAVE ORDERS TO ADMINISTER 28 UNITS INSTEAD OF THE 20 UNITS FOR FSBS >400. ORDERS NOTED.
--- NOTE | 2016-08-09 18:48 | NUR ---
RECEIVED NEW ORDERS TO GIVE 15 UNITS NOW FOR CONTINUED ELEVATED FSBS OF 410. ORDERS NOTED AND PLACED IN COMPUTER AT THIS TIME.
--- NOTE | 2016-08-09 19:05 | NUR ---
REPORT GIVEN TO ONCOMING NURSE. NO DISTRESS.
--- NOTE | 2016-08-09 19:30 | NUR ---
ASSESSMENT COMPLETE, DENIES NEEDS AT THIS TIME. HIOB UP SRUP X2, C/L IN REACH. UP AD ADAM W/O DIFF. RESP UNLAB WITH O2 @ 2L NC IN PLACE. TELEMETRY SHOWING HR CAF. RT UPPER ARM FISTULA WITH + BRUIT AND THRILL NOTED,DRSG CDI. LEFT IJ TRIALYSIS INTACT AND LOCKED WITH DRSG CDI. CONTINUE TO MONITOR.
[2016-08-09 20:11] VITALS: BP 140/78
--- NOTE | 2016-08-10 01:27 | NUR ---
EYES CLOSED, RESP UNLAB WITH TELEMETRY IN PLACE SHOWING HR CAF PER PRESS OPERATOR [employer]. HOB UP SR UP X2, C/L IN REACH. CONTINUE TO MONITOR.
[2016-08-10 02:18] VITALS: BP 127/74
[2016-08-10 06:33] LABS: BASOPHILS 0 % (0.0-2.0); EOSINOPHILS 0 % (0-7); HEMATOCRIT 41.7 % (36.0-48.0); HEMOGLOBIN 13.6 g/dL (12-16); IMMATURE GRANULOCYTES 0.8 % (0-5); LYMPHOCYTES 3.7 % (15-50); MCH 29.5 pg (26.0-34.0); MCHC 32.6 g/dL (31.0-37.0); MCV 90.5 fL (80.0-100.0); MEAN PLATELET VOLUME 11.1 fL (7.4-10.4); MONOCYTES 3.1 % (2-11); NEUTROPHILS 92.4 % (40-80); PLATELET COUNT 158 10x3/uL (130-400); RBC 4.61 10x6/uL (4.00-5.40); RDW 15.5 % (11.5-14.5)
[2016-08-10 06:42] VITALS: BP 154/71
[2016-08-10 06:47] LABS: WBC 10.6 10x3/uL (4.8-10.8)
[2016-08-10 06:55] LABS: ANION GAP 19.6 mmol/L (8-16); MAGNESIUM - SERUM 1.9 mg/dL (1.8-2.4); POTASSIUM - SERUM 5.6 mmol/L (3.5-5.1)
[2016-08-10 06:56] LABS: CREATININE - SERUM 7.7 mg/dL (0.6-1.3)
[2016-08-10 08:56] VITALS: BP 125/87
--- NOTE | 2016-08-10 09:54 | NUR ---
PT CURRENTLY IN DIALYSIS
--- NOTE | 2016-08-10 10:17 | NUR ---
Patient Name: CASA LEYVA Encounter No: [id number] : 1965 Primary Insurance: MEDICARE A & B Anticipated DC Date: 08-05-2016 Planned Disposition: Home Health Service External Planned Provider: [facility] DCP follow-up note: CM SPOKE TO PT AT HER REQUEST IN THE DIALYSIS UNIT. PT REPORTS SHE IS GOING HOME TODAY AFTER DIALYSIS. PT WOULD LIKE TO RETURN AT SOME POINT, WHEN THE DOCTOR IS READY, TO OUTPATIENT CARDIAC REHAB. PT WILL RETURN HOME TODAY, FAMILY TO TRANSPORT. IMPORTANT MESSAGE FROM [employer] PROVIDED AND EXPLAINED. CM CALLED [facility], , SPOKE TO TIAN WHO REPORTS [facility] WILL ACCEPT PT BACK FOR NURSING AND CONTACT PT'S PRIMARY DOCTOR, DR. LEWIS, FOR ORDERS. CM TO FAX DISCHARGE INFORMATION TO [place] WHEN COMPLETED AT [phone]. Otilio Villarreal, CASE MANAGEMENT
--- NOTE | 2016-08-10 11:27 | NUR ---
PT STILL GONE TO DIALYSIS
--- NOTE | 2016-08-10 13:15 | NUR ---
PT BACK FROM DIALYSIS. ALERT ORIENTED CONVERSANT. PROVIDING NORCO PER REQUEST. WANTS TO GO HOME.
[2016-08-10] MEDS ORDERED: STERAPRED DS 1010 MG PO (15:15)
[2016-08-10] MEDS ORDERED: CARDIZEM60 MG PO (15:15)
[2016-08-10 15:44] VITALS: BP 117/76
--- NOTE | 2016-08-10 16:32 | NUR ---
Patient Name: CASA LEYVA Encounter No: [id number] : 1965 Primary Insurance: MEDICARE A & B Anticipated DC Date: 08-10-2016 Planned Disposition: Home Health Service External Planned Provider: [facility] DCP follow-up note: CM RECEIVED CALL FROM ELANA OF [facility], , PT ON FOLLOW UP FOR TOMORROW BY [facility]. CM FAXED DISCHARGE INFORMATION TO [place] AT [phone]. PT NOTIFIED. DAUGHTER HERE TO TRANSPORT PT HOME. PT'S DAUGHTER INFORMED CM THAT SHE HAS CHECKED INTO THE CARDIAC REHAB FOR PT BUT THEY NEED THE HOME HEALTH AT THIS TIME AND THEY ARE AWARE THAT INSURANCE WILL NOT COVER BOTH AT HOME TIME. NO FURHTER DISCHARGE NEEDS, FAMILY TO TRANSPORT HOME AT DISCHARGE, HOME HEALTH TO RESUME TOMORROW. Otilio Villarreal, CASE MANAGEMENT
--- NOTE | 2016-08-10 16:39 | NUR ---
DOMINIQUE DCD BY DARVIN OLMSTEAD DC.
== END 2016-08-10 17:15 | disposition home health service (06) | DRG 252 ==
LOC: D.ER 13:01 → D.M2 17:49 → D.SDCHOLD 08-04 14:55 → D.M2 08-10 17:15
PROVIDERS: Emergency Medicine; Internal Medicine Nephrology; Nurse Practitioner Acute Care; ADMIT Internal Medicine Nephrology
PROC: 05HN33Z Insertion of Infusion Device into Left Internal Jugular Vein, Percutaneous Approach (ICD-10-PCS; principal; 2016-08-06)
PROC: B544ZZA Ultrasonography of Left Jugular Veins, Guidance (ICD-10-PCS; 2016-08-06)
PROC: 05CD3ZZ Extirpation of Matter from Right Cephalic Vein, Percutaneous Approach (ICD-10-PCS; 2016-08-09)
PROC: 057D3ZZ Dilation of Right Cephalic Vein, Percutaneous Approach (ICD-10-PCS; 2016-08-09)
DX: I13.2 Hypertensive heart and chronic kidney disease with heart failure and with stage 5 chronic kidney disease, or end stage renal disease (principal); N18.6 End stage renal disease; E87.1 Hypo-osmolality and hyponatremia; T82.818A Embolism due to vascular prosthetic devices, implants and grafts, initial encounter; E11.22 Type 2 diabetes mellitus with diabetic chronic kidney disease; E11.65 Type 2 diabetes mellitus with hyperglycemia; I50.9 Heart failure, unspecified; J44.9 Chronic obstructive pulmonary disease, unspecified; I48.91 Unspecified atrial fibrillation; E66.01 Morbid (severe) obesity due to excess calories; E87.5 Hyperkalemia; I25.10 Atherosclerotic heart disease of native coronary artery without angina pectoris; Y83.8 Other surgical procedures as the cause of abnormal reaction of the patient, or of later complication, without mention of misadventure at the time of the procedure

== ENCOUNTER 2017-01-17 05:11 | Day surgery (SDC) | payer MEDICARE ==
[2017-01-16 16:47] LABS: BASOPHILS 0.1 % (0-2); EOSINOPHILS 0.4 % (0-7); HEMATOCRIT 41.3 % (36.0-48.0); HEMOGLOBIN 12.7 g/dL (12-16); IMMATURE GRANULOCYTES 0.4 % (0-5); LYMPHOCYTES 9.1 % (15-50); MCH 26.2 pg (26.0-34.0); MCHC 30.8 g/dL (31.0-37.0); MCV 85.2 fL (80.0-100.0); MEAN PLATELET VOLUME 9.3 fL (7.4-10.4); MONOCYTES 4.8 % (2-11); NEUTROPHILS 85.2 % (40-80); PLATELET COUNT 177 10x3/uL (130-400); RBC 4.85 10x6/uL (4.00-5.40)
[2017-01-16 16:51] LABS: INR 1.53 (0.85-1.17); PROTIME 18.4 SECONDS (11.6-15.0)
[2017-01-16 17:02] LABS: ALBUMIN 3.2 g/dL (3.4-5.0); BILIRUBIN - TOTAL 0.72 mg/dL (0.2-1.3); CALCIUM 8.1 mg/dL (8.5-10.1); CARBON DIOXIDE 26.4 mmol/L (21.0-32.0); CREATININE - SERUM 6.4 mg/dL (0.6-1.3); POTASSIUM - SERUM 3.4 mmol/L (3.5-5.1); PROTEIN - SERUM 7.5 g/dL (6.4-8.2)
[~2017-01-17] VITALS: Ht 175.3 cm; Wt 112.5 kg
[~2017-01-17 05:11] MED LIST changes: +CARDIZEM60 MG PO; +LANOXIN125 MCG PO; +LEVAQUIN250 MG PO; +MIDODRINE HCL5 MG PO; +SENSIPAR30 MG PO; +STERAPRED DS 1010 MG PO; +ZOFRAN4 MG PO
[2017-01-17] MEDS ORDERED: RENVELA800 MG PO (06:15)
[2017-01-17 06:23] VITALS: BP 88/53; Ht 175.3 cm; Wt 112.5 kg
[2017-01-17] MEDS ORDERED: HYDROCODON-ACE1 EAC7 PO (10:49)
--- NOTE | 2017-01-20 10:14 | OP ---
PATIENT NAME: CASA WALLACE MEDICAL RECORD: [id number] :61 LOCATION:D.OPS ADMISSION DATE: SURGEON: ORLANDO HARRINGTON MD OPERATION DATE: 01/17/17 SURGEON: Orlando Harrington MD REFERRING PHYSICIAN: Gil Cho MD PREOPERATIVE DIAGNOSIS: End-stage renal disease and dependence upon renal dialysis and other mechanical complication of surgically implanted AV shunt (graft). POSTOPERATIVE DIAGNOSIS: End-stage renal disease and dependence upon renal dialysis and other mechanical complication of surgically implanted AV shunt (graft). OPERATION PERFORMED: Open revision of right arm AV graft without thrombectomy. ANESTHESIA: General with LMA and local regional nerve block per Dr. Hand and COPY DIRECTOR. PREOPERATIVE NOTE: The patient is very pleasant 51-year-old -[place]ib[place] female with end-stage renal disease, coronary artery disease, and history of congestive heart failure. She is on chronic hemodialysis now via a right arm brachiocephalic AV graft. 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 She is brought to the hospital and to the operating room today as an outpatient with plans to revise her fistula with a new jump graft. The patient is hypercoagulable and is on Eliquis and Plavix routinely though she has been off of those drugs now for several days preoperatively. PROCEDURE: Under anesthesia in the supine position, the patient is prepped and draped in a sterile manner. An incision was made over the cephalic vein at the graft anastomosis in the upper arm and deltopectoral groove and the cephalic vein and the deltopectoral groove dissected and controlled with elastic loops and basically prepared for a new graft of end-to-end anastomosis. A distal incision was made to expose the cephalic vein AV graft anastomosis just above the antecubital space and here as well the vein was dissected and prepared for a new end-to-end graft to vein anastomosis. The patient was systemically heparinized and a 6 millimeter diameter new ACUSEAL graft was placed in a more lateral subcutaneous tunnel immediately beneath the skin so that it would be easily accessible. It was shortened and end-to-end anastomosis performed to the cephalic vein just above the antecubital space with running 6-0 Prolene. When completed, the suture line was hemostatic. The graft and artery where then flushed with heparinized saline and the graft clamped. The graft was then shortened and anastomosed end-to-end to the proximal cephalic vein in the deltopectoral groove again using running 6-0 Prolene and when that anastomosis was complete the occluding clamps and loops were released and excellent flow was established in the fistula and the suture line was hemostatic. Both suture lines had a small amount of fibrillar hemostatic material applied for good measure and I did not reverse the patient's 5000 units of heparin anticoagulation. The wounds were irrigated with Ancef/gentamicin solution and infiltrated and irrigated with 0.25% Marcaine with epinephrine. The wounds were closed with interrupted inverted 3-0 Vicryl and running intracuticular 4- 0 Monocryl and Dermabond glue. They were dressed with Maxorb AG, Tegaderm, and Cavilon skin prep. The patient was then taken to the recovery room in stable condition. OPERATIVE REPORT [id number] CASA WALLACE The patient will resume all of her usual home medications and resume her Plavix and Eliquis tomorrow. She will go home today, she lives in [place]. She will report for dialysis routinely tomorrow. Her new graft may be accessed tomorrow using ACUSEAL protocol. That involves the use of sterile gloves during the access and insertion of 17 gauge needles and flow kept under 400 milliliters per minute. This protocol should be followed for two weeks. Because the patient is on Eliquis as well as Plavix, extra care should be taken with local pressure following decannulation to prevent formation of perigraft hematoma. I will see her back in my office next week. She is given a prescription for hydrocodone 5/325, #20 one by mouth every four to six hours as needed for pain, no refills. CC: ORLANDO Celaya MD at 1014 CC: ORLANDO HARRINGTON MD [phone] DICTATION DATE: 01/17/17 1400 SANDFILL OPERATOR SURFACE: PAULA 01/18/17 0945 [facility] 01/17/17 [facility] [address] [place] [address]
== END 2017-01-17 12:53 | disposition home or self-care (01) ==
LOC: D.OPS 05:11 → D.PAN 07:30 → D.OPS 07:30 → D.PAN 08:00 → D.OPS 08:00
PROVIDERS: Anesthesiology; Surgery
DX: T82.590A Other mechanical complication of surgically created arteriovenous fistula, initial encounter (principal); N18.6 End stage renal disease; Z99.2 Dependence on renal dialysis; Z01.812 Encounter for preprocedural laboratory examination

== ENCOUNTER 2017-01-19 12:09 | Inpatient (IN) | payer MEDICARE ==
[~2017-01-19] VITALS: Ht 175.3 cm; Wt 115.2 kg
--- NOTE | ~2017-01-19 | HEMODYNAMI ---
PATIENT:CASA WALLACE MEDICAL RECORD: [id number] : 61 [id number] ADMISSION DATE: 01/19/17 Generatedon:01/20/201716:19 Patient name: CASA LEYVA Patient #: [id number] SN: : 1965 Date of study: 01/20/2017 Page: Of Hemodynamic Procedure Report Patient Data Patient Demographics Procedure consent was obtained First Name: CASA Gender: Female Last Name: IGNACIO LEYVA : 1965 [facility] Initial: JOSEPHINE Age: 51 year(s) Patient #: [id number] Race: Black Additional ID: [id number] Contact details Address: [address] [place] [address] [address]IVE State: [place] City: [place] Zip code: [address] Past Medical History Allergies Allergen Reaction Date Comments Reported Penicillins 08/09/2016 Natural rubber 01/20/2017 and latex Other allergy 01/20/2017 Lesley De Souza Admission Admission Data Admission Date: 01/19/2017 Admission Time: 17:52 Room #: D.2108 Lab Results Lab Result Date: 01/20/2017 Lab Result Time: 0:00 Biochemistry Name Units Result Min Max Creatinine mg/dl 7.2 --(----)-* 0.6 1.3 CBC Name Units Result Min Max Hemoglobin g/dl 11.5 *-(----)-- 13.5 17.5 Procedure Procedure Types Cath Procedure PCI Procedure Coronary Stent Initial Miscellaneous Procedures Moderate Sedation up to 15 minutes Procedure Description Procedure Date Procedure Date: 01/20/2017 Procedure Start Time: 16:03 Procedure End Time: 16:19 Procedure Staff Name Function Shawn Regalado MD Performing Physician Zac Ruiz RT Scrub Angeline Srivastava RN Nurse Mirian Raman RT Monitor Procedure Data Cath Procedure Fluoroscopy Diagnostic fluoroscopy Total fluoroscopy Time: 1.5 time: 1.5 min min Diagnostic fluoroscopy Total fluoroscopy dose: 345 dose: 345 mGy mGy Contrast Material Contrast Material Type Amount (ml) Isovue 300 44 Entry Location Entry Primary Successful Side Size Upsize Upsize Entry Closure Succes sful Closure Location (Fr) 1 (Fr) 2 (Fr) Remarks Device Remarks Femoral Right 6 Fr 7 Fr Exoseal artery Short Short Estimated blood loss: 10 ml Procedure Complications No complications Procedure Medications Medication Administration Route Dosage Oxygen NC 2 l/min Heparin Flush Bag added to field 2 bags (1000units/500ml NS) Lidocaine 2% added to field 20 Versed I.V. 1 mg Fentanyl I.V. 50 mcg Versed I.V. 1 mg Fentanyl I.V. 50 mcg Heparin Bolus I.V. 4000 units Integrilin (Bolus I.V. 10.2 ml 2mg/ml) Fentanyl I.V. 50 mcg Plavix P.O. 600 mg Hemodynamics Rest HGB: 11.5 (g/dl) Heart Rate: 63 (bpm) Snapshots Pre Cath Intra NCS Post Cath Vital Signs Time Heart Resp SPO2 NIBP Rhythm Pain Sedation Rate (ipm) (%) (mmHg) Status Level (bpm) 15:52:09 64 17 98 113/73(89) NSR 0 (11) 10(A) , No pain 15:56:25 77 19 98 116/70(90) NSR 0 (11) 10(A) , No pain 16:00:39 72 16 98 108/67(86) NSR 0 (11) 10(A) , No pain 16:04:55 79 15 99 99/59(77) NSR 0 (11) 10(A) , No pain 16:09:07 74 16 97 84/52(68) NSR 0 (11) 9(A) , No pain 16:13:13 77 16 99 95/57(76) NSR 0 (11) 9(A) , No pain 16:15:18 81 16 99 93/55(71) NSR 0 (11) 10(A) , No pain 16:19:28 80 17 100 103/63(83) NSR 0 (11) 10(A) , No pain Medications Time Medication Route Dose Verified Delivered Reason Notes Effectiveness by by 15:51:08 Oxygen NC 2 Shawn Angeline Per physician l/min Fabricio Srivastava RN 15:51:16 Heparin Flush added 2 Shawn Escobar used for Bag to bags Fabricio Regalado MD procedure (1000units/500ml field NS) 15:51:24 Lidocaine 2% added 20ml Shawn Escobar used for to vial Fabricio Regalado MD procedure field 15:58:00 Versed I.V. 1 mg Shawn Angeline for sedation Fabricio Srivastava RN 15:58:13 Fentanyl I.V. 50 Shawn Angeline for sedation mcg Fabricio Srivastava RN 16:01:04 Versed I.V. 1 mg Shawn Angeline for sedation Fabricio Srivastava RN 16:01:06 Fentanyl I.V. 50 Shawn Angeline for sedation mcg Fabricio Srivastava RN 16:04:45 Fentanyl I.V. 50 Shawn Angeline for sedation mcg Fabricio Srivastava RN 16:06:00 Heparin Bolus I.V. 4000 Shawn Salazarecca for dose units Fabricio Srivastava RN anticoagulation verified with dr regalado 16:10:05 Integrilin I.V. 10.2 Shawn Angeline for wasted (Bolus 2mg/ml) ml Fabricio Srivastava RN antiplatelet 9.8mL therapy 16:18:38 Plavix P.O. 600 Shawn Angeline for mg Fabricio Srivastava RN antiplatelet therapy Procedure Log Time Note 15:32:39 Zac Ruiz RT(R) sent for patient. Start room use. 15:32:40 Time tracking: Regular hours 15:32:44 Plan of Care:Hemodynamics will remain stable., Cardiac rhythm will remain stable., Comfort level will be maintained., Respiratory function will remain adequate., Patient/ family verbilizes understanding of procedure., Procedure tolerated without complication., Recovers from procedure without complications.. 15:47:47 Patient received from Pre/Post Procedure Room to CCL 2 Alert and oriented. Tansferred to table in Supine position. 15:47:48 Warm blankets applied, and cruzito hugger turned on for patient comfort. 15:47:48 Correct patient and procedure confirmed by team. 15:47:49 Signed procedure consent form obtained from patient. 15:47:50 ECG and BP/O2 sat monitors applied to patient. 15:51:00 Vital chart was started 15:51:08 Oxygen 2 l/min NC was administered by Angeline Srivastava RN; Per physician; 15:51:16 Heparin Flush Bag (1000units/500ml NS) 2 bags added to field was administered by Shawn Regalado MD; used for procedure; 15:51:24 Lidocaine 2% 20ml vial added to field was administered by Shawn Regalado MD; used for procedure; 15:52:06 Full Disclosure recording started 15:52:14 Rhythm: atrial fibrillation 15:52:42 H&P Date Dictated: 01/19/2017 Within 30 days and on chart., H&P Addendum completed by physician on day of procedure. (MUST COMPLETE FOR ALL OUTPATIENTS). 15:52:43 Pre-procedure instructions explained to patient. 15:52:44 Pre-op teaching completed and patient verbalized understanding. 15:52:45 Family in patients room. 15:52:50 Patient NPO since Midnight. 15:53:08 Patient allergic to Natural rubber and latex 15:53:21 Patient allergic to Other allergyJanuvia, Keflex 15:53:24 Is the patient allergic to Iodine/contrast media? No. 15:53:27 Is patient on blood thinner?Yes 15:53:33 ACC The patient was administered the following blood thiners within the last 24 hours: Eliquis 15:54:14 Patient diabetic? Yes. 15:54:22 If diabetic: On Metformin? No 15:54:26 Previous problem with sedation/anesthesia? No ? 15:54:26 Snore? Yes 15:54:27 Sleep apnea? Yes 15:54:28 Deviated septum? No 15:54:30 Opens mouth fully? Yes 15:54:30 Sticks out tongue? Yes 15:54:32 Airway obstruction? No ? 15:54:35 Dentures? Yes In 15:54:38 Pre procedure: right dorsailis pedis pulse 2+ Normal; easily identifiable; not easily obliterated 15:54:39 Patient pain scale 0/10 ?. 15:54:48 IV patent on arrival in left forearm with 0.9% NaCl at [facility]. 15:55:14 Lab Result : Creatinine 7.2 mg/dl 15:55:14 Lab Result : Hemoglobin 11.5 g/dl 15:55:42 Lab results completed and on chart. 15:55:45 Right groin area was prepped with chlora-prep and draped in sterile fashion 15:55:45 Alarms reviewed by R. N. 15:55:46 Sharps counted by scrub and verified by R.N. 15:55:50 Use device set Femoral Dx 15:55:51 Acist Syringe opened to sterile field. 15:55:52 Bag Decanter opened to sterile field. 15:55:52 Medline Cath Pack opened to sterile field. 15:55:54 St Vernon 260cm J .035 wire opened to sterile field. 15:55:55 Acist Hand Control opened to sterile field. 15:55:55 Acist Manifold opened to sterile field. 15:55:56 Tegaderm 4 x 4 opened to sterile field. 15:56:05 Terumo 6Fr Kent Sheath opened to sterile field. 15:57:07 Final Timeout: patient, procedure, and site verified with staff and physician. All members of the team are in agreement. 15:57:09 Right groin site verified by team. 15:57:11 Physical assessment completed. ASA score P 2 - A patient with mild systemic disease as per Shawn Regalado MD. 15:57:14 Sedation plan: IV Moderate Sedation Versed, Fentanyl 15:57:24 Baseline sample Acquired. 15:58:00 Versed 1 mg I.V. was administered by Angeline Srivastava RN; for sedation; 15:58:13 Fentanyl 50 mcg I.V. was administered by Angeline Srivastava RN; for sedation; 16:01:04 Versed 1 mg I.V. was administered by Angeline Srivastava RN; for sedation; 16:01:06 Fentanyl 50 mcg I.V. was administered by Angeline Srivastava RN; for sedation; 16:03:23 Procedure started. 16:03:25 Zero performed for pressure channel P1 16:03:35 Zero performed for pressure channel P1 16:03:40 Local anesthetic to right femoral artery with Lidocaine 2% by Shawn Regalado MD.INITIAL ACCESS ONLY 16:04:20 A 6 Fr Short sheath was inserted into the Right Femoral artery 16:04:45 Fentanyl 50 mcg I.V. was administered by Angeline Srivastava RN; for sedation; 16:05:36 6 Fr XBLAD 4.0 guide catheter was inserted over the wire 16:05:39 Guide Catheter removed. unable to cannulate vessel. 16:06:00 Heparin Bolus 4000 units I.V. was administered by Angeline Cross RN; for anticoagulation; dose verified with dr regalado 16:06:42 Sheath upsized to a 7 Fr Short. 16:06:52 7 Fr EBU 4.0 guide catheter was inserted over the wire 16:09:40 Choice PT ES wire advanced. 16:09:42 Inflation Number: 1 A Medtronic Integrity 4.0 X 12 stent was prepped and advanced across the Mid CX. The stent was deployed at 13 GRISELDA for 0:02 (min:sec). 16:10:05 Integrilin (Bolus 2mg/ml) 10.2 ml I.V. was administered by Angeline Srivastava RN; for antiplatelet therapy; wasted 9.8mL 16:10:29 Stent catheter was removed intact over wire. 16:10:30 Wire removed. 16:10:30 Guide catheter removed. 16:10:37 Sheath removed intact; hemostasis achieved with Exoseal to the Right Femoral artery. 16:10:50 Procedure ended.(Physican Out) 16:11:15 Cordis 7Fr Exoseal opened to sterile field. 16:12:58 Fluoroscopy time 01.50 minutes. 16:13:02 Flurop Dose total: 345 16:13:02 Fluoroscopy dose: 345 mGy 16:13:24 Contrast amount:Isovue 300 44ml. 16:13:25 Sharps counted by scrub and verified by R.N. 16:13:27 Insertion/operative site no bleeding no hematoma. 16:13:29 Post-op/insertion site Right Femoral artery dressed using a 4 x 4 and Tegaderm. 16:13:33 Post right femoral artery:stable, clean and dry 16:13:34 Post Procedure Pulses reassessed and unchanged 16:13:37 Post-procedure physical assessment completed. ASA score P 2 - A patient with mild systemic disease as per Shawn Regalado MD. 16:13:40 Post procedure rhythm: unchanged. 16:13:44 Estimated blood loss: 10 ml 16:13:45 Post procedure instruction explained to patient.Patient verbalizes understanding. 16:13:45 Patient needs reinforcement of post procedure teaching. 16:14:02 Procedure type changed to Cath procedure, PCI procedure, Coronary Stent Initial, Miscellaneous Procedures, Moderate Sedation up to 15 minutes 16:14:07 Procedure Complication : No complications 16:14:09 See physician's report for complete and final results. 16:14:35 Terumo 7Fr Kent Sheath opened to sterile field. 16:14:49 [place] Sci Choice PT Extra Support J 300cm .014 gu opened to sterile field. 16:15:07 Merit BasixCompak Inflation Kit opened to sterile field. 16:15:24 Medtronic Launcher 7Fr EBU 4.0 guide catheter opened to sterile field. 16:15:25 Cordis 6FR XBLAD 4.0 guide catheter opened to sterile field. 16:16:23 Procedure and supply charges have been captured, reviewed, submitted and are correct. 16:18:38 Plavix 600 mg P.O. was administered by Angeline Srivastava RN; for antiplatelet therapy; 16:19:06 Vital chart was stopped 16:19:09 Report given to PCU. 16:19:13 Patient transfered to PCU with Bed. 16:19:26 Procedure ended. 16:19:26 Full Disclosure recording stopped 16:19:30 End room use (Document Last) Intervention Summary Intervention Notes Time ActionType Lesion and Equipment Action# Pressure Duration Attributes Used 16:09:42 Place stent Mid CX Medtronic 1 13 00:02 Integrity 4.0 X 12 stent Device Usage Item Name Manufacture Quantity Catalog Number Hospital Part Current Minim al Lot# / Charge Number Stock Stock Serial# Code Acist Acist 1 30417 [id number] 722371 [id number] 20 Syringe Medical Systems Inc Bag Microtek 1 2002S [id number] 42080 [id number] 5 DecAPEPTICO [employer]orschung [employer] Entwick[employer] Medical Inc. Medline Cardinal 1 [id number] 824805 36461 756072 [address] [facility] [address] Vernon 1 384185 596588 057326 210133 30 260cm J .035 wire Acist Hand Acist 1 84855 539585 527851 631942 5 Control Medical Systems Inc Acist Acist 1 81170 718385 472775 340268 5 Manifold Medical Systems Inc Tegaderm 4 3M 1 1626W 468842 447718 505666 5 x 4 Terumo 6Fr Terumo 1 [id number] 292446 693722 121561 40 Kent Sheath Medtronic Medtronic 1 [id number] 840093 133439 4 [id number] Integrity 4.0 X 12 stent Cordis 7Fr Cardinal 1 EX700 325977 214361 347558 5 Exoseal Health Terumo 7Fr Terumo 1 [id number] 865634 051120 728994 5 Kent Sheath [place] [employer] [place] 1 [id number] 275231 996590 239213 5 Choice PT Scientific Extra Support J 300cm .014 gu Merit Merit 1 [id number] 225896 965695 122736 15 [facility] Medical Inflation Kit Medtronic Medtronic 1 [id number] 997633 354603 272551 0 Launcher 7Fr EBU 4.0 guide catheter Cordis 6FR Cardinal 1 [id number] 506645 641418 637832 3 XBLAD 4.0 Health guide catheter Signature Audit [place] Stage Time Signature Unsigned Intra-Procedure 01/20/2017 Mirian 4:19:41 PM Counts RT(R) Signatures Monitor : Mirian Signature : Counts RT Date : Time : [address] [place] [address]
--- NOTE | ~2017-01-19 | PRO ---
PATIENT:CASA WALLACE MEDICAL RECORD: [id number] : 61 LOCATION:D.M2 D.2108 ADMISSION DATE: 01/19/17 PROCEDURE PERFORMED BY: HANNA THOMAS MD PROCEDURE DATE: 01/20/17 PROCEDURES: 1. Percutaneous transluminal coronary angioplasty stent left circumflex. 2. Selective coronary angiography. INDICATION: 1. Angina. 2. Coronary artery disease. PROCEDURE IN DETAIL: After informed consent was obtained and after detailed explanation of risks, benefits, as well as alternative therapies, the patient elected to proceed with angiogram and angioplasty. The right femoral area was prepped and draped in a normal sterile fashion. The right femoral artery was cannulated via modified Seldinger technique with placement of 7-Martiniquais sheath. All catheters exchanged through this sheath. FINDINGS: The left circumflex has a 70-80% stenosis in the mid vessel. This was addressed with a 4.0 X 12 millimeter Integrity stent. The result was 0% residual stenosis. OVERALL IMPRESSION: Successful percutaneous transluminal coronary angioplasty stent of the left circumflex going from 70-80% initial stenosis to 0% residual stenosis. HANNA THOMAS MD CC: [id number] DICTATION DATE: 01/20/172212 DATA MANAGEMENT CONSULTANT: JNALLELY 01/20/172212 ADM IN [facility] [address] [id number]
[~2017-01-19 12:09] MED LIST changes: +HYDROCODON-ACE1 EAC7 PO; +RENVELA800 MG PO
[2017-01-19 13:44] LABS: BASOPHILS 0 % (0-2); EOSINOPHILS 0.2 % (0-7); HEMOGLOBIN 11.5 g/dL (12-16); IMMATURE GRANULOCYTES 0.5 % (0-5); LYMPHOCYTES 11.7 % (15-50); MCH 26.1 pg (26.0-34.0); MCHC 31.1 g/dL (31.0-37.0); MCV 84.1 fL (80.0-100.0); MEAN PLATELET VOLUME 9.1 fL (7.4-10.4); MONOCYTES 4.4 % (2-11); NEUTROPHILS 83.2 % (40-80); PLATELET COUNT 153 10x3/uL (130-400); RDW 17.3 % (11.5-14.5); WBC 12.9 10x3/uL (4.8-10.8)
[2017-01-19 14:02] LABS: ALBUMIN 2.8 g/dL (3.4-5.0); ANION GAP 15.5 mmol/L (8-16); BILIRUBIN - TOTAL 0.43 mg/dL (0.2-1.3); CALCIUM 8.6 mg/dL (8.5-10.1); CARBON DIOXIDE 27.9 mmol/L (21.0-32.0); CREATININE - SERUM 7.2 mg/dL (0.6-1.3); POTASSIUM - SERUM 3.4 mmol/L (3.5-5.1); PROTEIN - SERUM 7.4 g/dL (6.4-8.2)
[2017-01-19 14:27] LABS: TROPONIN-I 0.06 ng/mL (0.000-0.060)
--- NOTE | 2017-01-19 18:19 | NUR ---
TRANSFER FROM ER BY W/C. MARTININTED TO ROOM. CALL LIGHT IN REACH. WILL CONT. PLAN OF CARE.
[2017-01-19 19:00] VITALS: BP 100/69
--- NOTE | 2017-01-19 19:20 | NUR ---
RECEIVED REPORT, WILL ASSUME CARE OF PT, PT DENIES ANY NEEDS, BED IS LOW, CALL LIGHT IN REACH, WILL REVIEW HOME MEDS, WILL CONTINUE PLAN OF CARE
[2017-01-20] VITALS: BP 85/47
[2017-01-20 04:00] VITALS: BP 94/49
[2017-01-20 05:36] LABS: CALCIUM 8.2 mg/dL (8.5-10.1); CARBON DIOXIDE 28.4 mmol/L (21.0-32.0); CREATININE - SERUM 8.2 mg/dL (0.6-1.3); POTASSIUM - SERUM 3.4 mmol/L (3.5-5.1)
--- NOTE | 2017-01-20 07:17 | NUR ---
PT LAYING IN BED ON CELLPHONE. STATES "BERNARD BEEN HURTING ALL NIGHT. CAN YOU GET ME SOMETHING FOR PAIN?" NO MEDS ARE ORDERED PAGED MAYITO TRAFFIC ANALYSIS TECHNICIAN BLANKBOOK FORWARDER.
[2017-01-20 08:12] VITALS: BP 110/54
[2017-01-20 08:47] LABS: BASOPHILS 0.1 % (0-2); EOSINOPHILS 0.6 % (0-7); HEMATOCRIT 35.3 % (36.0-48.0); HEMOGLOBIN 10.9 g/dL (12-16); IMMATURE GRANULOCYTES 0.4 % (0-5); LYMPHOCYTES 13.6 % (15-50); MCHC 30.9 g/dL (31.0-37.0); MCV 84.2 fL (80.0-100.0); MEAN PLATELET VOLUME 9.9 fL (7.4-10.4); NEUTROPHILS 79.3 % (40-80); PLATELET COUNT 172 10x3/uL (130-400); RBC 4.19 10x6/uL (4.00-5.40); RDW 17.6 % (11.5-14.5); WBC 10.1 10x3/uL (4.8-10.8)
--- NOTE | 2017-01-20 09:36 | NUR ---
PT COMPLAINS OF CHEST PAIN AT 02/16 BP 104/60 PULSE 67 V FIB ON THE MONITOR UPON TAKING BLOOD PRESSURE PT STATES "I DONT FEEL THE PAIN ANYMORE" INSTRUCTED PATIENT TO PUSH BUTTON ON TELEMTRY AND TO CALL IF SHE FEELS ANY FURTHER CHEST DISCOMFORT PT SCHEDULED FOR HEART CATH TODAY
--- NOTE | 2017-01-20 10:32 | NUR ---
PT CURRENTLY IN DIALYSIS DIALYSIS NURSE TRISHA CALLED AND SAID PT COMPLAINING OF MORE CHEST PAIN PT CURRENTLY RUNNING AFIB 55 BPM MAYITO RENAL INSTITUTION DIRECTOR ON FLOOR SPOKE WITH TRISHA AND INSTRUCTED HER TO INCREASE K BATH TO INCRESE POTASSIUM LEVEL (K=3.4) IF PT CONTINUES TO HAVE CHEST PAIN FOLLWING K BATH WILL DC DIALYSIS
[2017-01-20 12:11] VITALS: Ht 175.3 cm; Wt 115.2 kg
[2017-01-20 12:23] LABS: CALC OSMOLALITY 292 mosm/kg (275-300); CALCIUM 8.6 mg/dL (8.5-10.1); CARBON DIOXIDE 29.7 mmol/L (21.0-32.0); CHLORIDE - SERUM 100 mmol/L (98-107); CKMB 0.6 U/L (0.0-3.6); CREATINE KINASE 36 UL (21-215); CREATININE - SERUM 8.1 mg/dL (0.6-1.3); POTASSIUM - SERUM 3.5 mmol/L (3.5-5.1); SODIUM 138 mmol/L (136-145); TROPONIN-I 0.055 ng/mL (0.000-0.060); UREA NITROGEN 46 mg/dL (7-18); eGFR NON AFRICAN AMERICAN 5 mL/min (90-120)
[2017-01-20 12:29] LABS: GLUCOSE 191 mg/dL (74-106)
--- NOTE | 2017-01-20 16:50 | NUR ---
PT BACK FROM BENCH WORKER BINDING ALERT AND ORIENTED VS ARE WNL. R GROIN SITE IS WNL. PT DENIES ANY NEEDS.
--- NOTE | 2017-01-20 16:57 | NUR ---
pt back from laboratory scientist right groin site wnl pt alert and oriented laying flat vitals wnl family at bedside will continue to monitor
[2017-01-20 19:00] VITALS: BP 89/51
--- NOTE | 2017-01-20 19:25 | NUR ---
RECEIVED REPORT, WILL ASSUME CARE OF PT, PT LAYING FLAT POST CATH, DRESSING TO R. GROIN, DCI,SOFT, BED IS LOW, SRX2, CALL LIGHT IN REACH, DAUGHTER AT BED SIDE, WILL CONTINUE PLAN OF CARE
--- NOTE | 2017-01-20 21:06 | NUR ---
PT REQUESTING NORCO FOR GENERLIZED PAIN, WILL GIVE
[2017-01-21] VITALS: BP 100/56
--- NOTE | 2017-01-21 00:16 | NUR ---
ASSESSMENT REMAINS UNCHANGED. PT RESTING SOUNDLY WITHOUT C/O OR DISTRESS NOTED. DENIES ANY CURRENT C/O PAIN. WILL CONT TO MONITOR
[2017-01-21 04:06] VITALS: BP 111/67
[2017-01-21 06:05] LABS: BASOPHILS 0.2 % (0-2); EOSINOPHILS 0.8 % (0-7); HEMATOCRIT 33.6 % (36.0-48.0); HEMOGLOBIN 10.4 g/dL (12-16); IMMATURE GRANULOCYTES 0.2 % (0-5); LYMPHOCYTES 14.8 % (15-50); MCH 25.7 pg (26.0-34.0); MEAN PLATELET VOLUME 9.1 fL (7.4-10.4); MONOCYTES 7.2 % (2-11); NEUTROPHILS 76.8 % (40-80); PLATELET COUNT 148 10x3/uL (130-400); RBC 4.05 10x6/uL (4.00-5.40); RDW 17.6 % (11.5-14.5); WBC 8.7 10x3/uL (4.8-10.8)
[2017-01-21 06:23] LABS: ANION GAP 16.5 mmol/L (8-16); CALCIUM 8.3 mg/dL (8.5-10.1); CARBON DIOXIDE 27.1 mmol/L (21.0-32.0); CREATININE - SERUM 9.4 mg/dL (0.6-1.3); POTASSIUM - SERUM 3.6 mmol/L (3.5-5.1)
--- NOTE | 2017-01-21 07:15 | NUR ---
PT SITTING UP IN BED ON CELL PHONE LOOKING AT PICTURES OF GRANDSON. DENIES ANY NEEDS AT THIS TIME WILL CONT TO MONITOR
[2017-01-21 07:42] VITALS: BP 96/59
--- NOTE | 2017-01-21 10:45 | NUR ---
PT ARRIVED TO HD SUITE VIA BED FROM MED 2. AAOX3. ACCESSED R AVG WITH SOME DIFFICULTY. WENT TO PRIM LINES TO GET TX STARTED AND ARTERIAL LINE WOULDN'T FLUSH. REMOVED TAPE AND TRIED TO REPOSITION NEEDLE. UNABLE TO GET INTO PROPER ALIGNMENT. RESTUCK X2 TO ARTERIAL SITE. PT NEARLY IN TEARS FROM PAIN FROM SITE. DID NOT WANT TO BE RECANNULATED AND STATED THAT "SHE COULD WAIT UNTIL MONDAY". LET IMPREGNATING MACHINE OPERATOR GENERAL DUTY NURSE KNOW OF SITUATION.
--- NOTE | 2017-01-21 11:05 | NUR ---
MAME FROM DIALYSIS CALLED AND SAID THAT SHE WAS UNABLE TO DRAW FROM ARTERIAL LINE. RESTUCK PT WITH NO SUCCESS. WENT TO PICK PT BACK UP PT IS SAYING "THAT NURSE DOES NOT NEED TO BE DOWN THERE, SHE DOES NOT KNOW WHAT SHE IS DOING! I WOULD RATHER GO HOME AND WAIT FOR DIALYSIS ON MONDAY!" DURING AM ASSESSMENT THIS AM BEFORE DIALYSIS BRUIT AND THRILL WAS PRESENT. AFTER I PICKED PT BACK UP SHE STILL HAD BRUIT AND THRILL PRESENT. MAME FROM DIALYSIS IS CALLING DR KIM
[2017-01-21 12:20] VITALS: BP 104/86
[2017-01-21] MEDS ORDERED: MIDODRINE HCL10 MG PO (15:43)
[2017-01-21 15:52] VITALS: BP 125/50
[2017-01-21] MEDS ORDERED: PLAVIX75 MG PO (16:36)
--- NOTE | 2017-01-21 16:56 | NUR ---
WENT OVER DC PAPERWORK WITH PT PT VERBALIZES UNDERSTANDING. DC PIV WITH CATH TIP INTACT. DC TELE AND RETURNED TO DIRECTOR BUSINESS TRAVEL. GIVEN PT SCRIPT FOR PLAVIX AND HEART STENT CARDS. WHEELED PT DOWN TO FRONT ENTRANCE. PICKED HER UP
== END 2017-01-21 16:58 | disposition home or self-care (01) | DRG 248 ==
LOC: D.ER 12:09 → D.M2 17:52
PROVIDERS: Emergency Medicine; Internal Medicine Interventional Cardiology; ADMIT Internal Medicine Nephrology
PROC: 4A023N7 Measurement of Cardiac Sampling and Pressure, Left Heart, Percutaneous Approach (ICD-10-PCS; 2017-01-20)
PROC: B2111ZZ Fluoroscopy of Multiple Coronary Arteries using Low Osmolar Contrast (ICD-10-PCS; 2017-01-20)
PROC: 5A1D60Z (ICD-10-PCS; 2017-01-20)
PROC: 02703DZ Dilation of Coronary Artery, One Artery with Intraluminal Device, Percutaneous Approach (ICD-10-PCS; principal; 2017-01-20 12:15)
DX: I25.119 Atherosclerotic heart disease of native coronary artery with unspecified angina pectoris (principal); N18.6 End stage renal disease; I13.2 Hypertensive heart and chronic kidney disease with heart failure and with stage 5 chronic kidney disease, or end stage renal disease; I95.9 Hypotension, unspecified; I42.9 Cardiomyopathy, unspecified; E11.22 Type 2 diabetes mellitus with diabetic chronic kidney disease; I50.9 Heart failure, unspecified; Z99.2 Dependence on renal dialysis; E66.01 Morbid (severe) obesity due to excess calories; Z68.36 Body mass index [BMI] 36.0-36.9, adult; I48.2 Chronic atrial fibrillation; J44.9 Chronic obstructive pulmonary disease, unspecified; E87.6 Hypokalemia

== ENCOUNTER 2017-03-03 06:39 | Emergency (ER) | payer MEDICARE ==
[2017-01-20 12:11] VITALS: BMI 36.8
[~2017-03-03 06:39] MED LIST changes: +MIDODRINE HCL10 MG PO; +PLAVIX75 MG PO
[2017-03-03 08:26] LABS: HEMATOCRIT 40.9 % (36.0-48.0); HEMOGLOBIN 12.4 g/dL (12-16); LYMPHOCYTES 11.6 % (15-50); MCH 24.2 pg (26.0-34.0); MCHC 30.3 g/dL (31.0-37.0); MCV 79.7 fL (80.0-100.0); MEAN PLATELET VOLUME 8.5 fL (7.4-10.4); PLATELET COUNT 244 10x3/uL (130-400); RBC 5.13 10x6/uL (4.00-5.40); RDW 20.3 % (11.5-14.5); WBC 12.7 10x3/uL (4.8-10.8)
[2017-03-03 08:44] LABS: ALBUMIN 3.2 g/dL (3.4-5.0); ANION GAP 19.3 mmol/L (8-16); BILIRUBIN - TOTAL 0.5 mg/dL (0.2-1.3); CARBON DIOXIDE 24.8 mmol/L (21.0-32.0); CREATININE - SERUM 8.5 mg/dL (0.6-1.3); POTASSIUM - SERUM 3.1 mmol/L (3.5-5.1); PROTEIN - SERUM 7.3 g/dL (6.4-8.2)
== END 2017-03-03 10:18 | disposition home or self-care (01) ==
LOC: D.ER 06:39
PROVIDERS: Emergency Medicine
DX: K52.9 Noninfective gastroenteritis and colitis, unspecified (principal); I50.9 Heart failure, unspecified; J44.9 Chronic obstructive pulmonary disease, unspecified; I12.9 Hypertensive chronic kidney disease with stage 1 through stage 4 chronic kidney disease, or unspecified chronic kidney disease; N18.9 Chronic kidney disease, unspecified; E11.9 Type 2 diabetes mellitus without complications; Z79.4 Long term (current) use of insulin; R19.7 Diarrhea, unspecified

== ENCOUNTER → 2017-04-27 18:47 | Outpatient (CLI) | payer MEDICARE ==
[2017-01-20 12:11] VITALS: BMI 36.8
[~2017-04-27 18:47] MED LIST changes: +CLEOCIN HCL300 MG PO; +Levaquin PREMIX IV; +TAMIFLU30 MG PO
== END | disposition home or self-care (01) ==
LOC: D.MAMMO 04-17 14:30
DX: Z12.31 Encounter for screening mammogram for malignant neoplasm of breast (principal)

== ENCOUNTER 2017-05-06 13:01 | Emergency (ER) | payer MEDICARE ==
[2017-01-20 12:11] VITALS: BMI 36.8
[~2017-05-06 13:01] MED LIST changes: -CLEOCIN HCL300 MG PO; -Levaquin PREMIX IV; -TAMIFLU30 MG PO
[2017-05-06 14:17] LABS: BASOPHILS 0.3 % (0-2); EOSINOPHILS 0.4 % (0-7); HEMATOCRIT 50.3 % (36.0-48.0); HEMOGLOBIN 15.9 g/dL (12-16); IMMATURE GRANULOCYTES 0.6 % (0-5); LYMPHOCYTES 16.9 % (15-50); MCHC 31.6 g/dL (31.0-37.0); MCV 88.6 fL (80.0-100.0); MEAN PLATELET VOLUME 10.1 fL (7.4-10.4); MONOCYTES 5.8 % (2-11); PLATELET COUNT 206 10x3/uL (130-400); RBC 5.68 10x6/uL (4.00-5.40); RDW 20.7 % (11.5-14.5); WBC 11.9 10x3/uL (4.8-10.8)
[2017-05-06 14:34] LABS: ALBUMIN 3.9 g/dL (3.4-5.0); BILIRUBIN - TOTAL 0.41 mg/dL (0.2-1.3); CALCIUM 8.5 mg/dL (8.5-10.1); CARBON DIOXIDE 26.5 mmol/L (21.0-32.0); CREATININE - SERUM 7.6 mg/dL (0.6-1.3); POTASSIUM - SERUM 5.5 mmol/L (3.5-5.1); PROTEIN - SERUM 8.7 g/dL (6.4-8.2)
[2017-05-06 14:43] LABS: MAGNESIUM - SERUM 2.3 mg/dL (1.8-2.4); TROPONIN-I 0.027 ng/mL (0.000-0.060)
== END 2017-05-06 15:45 | disposition home or self-care (01) ==
LOC: D.ER 13:01
PROVIDERS: Emergency Medicine
DX: R55 Syncope and collapse (principal); I95.1 Orthostatic hypotension; I50.9 Heart failure, unspecified; I12.9 Hypertensive chronic kidney disease with stage 1 through stage 4 chronic kidney disease, or unspecified chronic kidney disease; N18.9 Chronic kidney disease, unspecified; E11.9 Type 2 diabetes mellitus without complications; Z79.4 Long term (current) use of insulin; I48.91 Unspecified atrial fibrillation

== ENCOUNTER 2017-06-02 08:39 | Inpatient (IN) | payer MEDICARE ==
[~2017-06-02] VITALS: Ht 175.3 cm; Wt 104.3 kg
[2017-06-02 09:31] LABS: BASOPHILS 0.2 % (0-2); EOSINOPHILS 0.6 % (0-7); HEMATOCRIT 45.5 % (36.0-48.0); HEMOGLOBIN 14.7 g/dL (12-16); IMMATURE GRANULOCYTES 0.2 % (0-5); LYMPHOCYTES 17.1 % (15-50); MCH 28.9 pg (26.0-34.0); MCHC 32.3 g/dL (31.0-37.0); MCV 89.6 fL (80.0-100.0); MEAN PLATELET VOLUME 9.7 fL (7.4-10.4); MONOCYTES 5.1 % (2-11); NEUTROPHILS 76.8 % (40-80); PLATELET COUNT 165 10x3/uL (130-400); RBC 5.08 10x6/uL (4.00-5.40); RDW 18.1 % (11.5-14.5); WBC 12.2 10x3/uL (4.8-10.8)
[2017-06-02 09:35] LABS: ALBUMIN 3.2 g/dL (3.4-5.0); ALKALINE PHOSPHATASE 169 U/L (46-116); BILIRUBIN - TOTAL 0.45 mg/dL (0.2-1.3); CALC OSMOLALITY 287 mosm/kg (275-300); CARBON DIOXIDE 24.4 mmol/L (21.0-32.0); CHLORIDE - SERUM 96 mmol/L (98-107); CREATININE - SERUM 7.1 mg/dL (0.6-1.3); GLUCOSE 169 mg/dL (74-106); POTASSIUM - SERUM 4.1 mmol/L (3.5-5.1); PROTEIN - SERUM 7.9 g/dL (6.4-8.2); SODIUM 134 mmol/L (136-145); UREA NITROGEN 57 mg/dL (7-18); eGFR NON AFRICAN AMERICAN 6 mL/min (90-120)
[2017-06-02 09:44] LABS: ALT (SGPT) 5 U/L (10-68)
[2017-06-02 09:47] LABS: AMYLASE - SERUM 291 U/L (25-115); CKMB 1.2 U/L (0.0-3.6); CREATINE KINASE 39 UL (21-215); LIPASE 1001 U/L (73-393); TROPONIN-I 0.034 ng/mL (0.000-0.060)
--- NOTE | 2017-06-02 13:00 | NUR ---
REC'D PT FROM ER VIA . PT IS A STANDBY ASSIST FROM TO BED. PT IS NPO. PT HAS A 20G LFA SL. PT HAS A SMALL SACRAL ABRASION. PT IS A&O X3 AND DENIES NEEDS AT THIS TIME. TM.
[2017-06-02 13:21] VITALS: BP 90/50; BMI 32.8
[2017-06-02 16:15] VITALS: BP 90/54
[2017-06-02 21:38] VITALS: BP 91/49
--- NOTE | 2017-06-03 00:26 | NUR ---
PT IN BED RESTING QUIETLY. BREATHING EVEN AND UNLABORED. BED IN LOW POSITION, CALL LIGHT WITHIN REACH. WILL CPOC.
[2017-06-03 01:53] VITALS: BP 74/37
[2017-06-03 04:59] VITALS: BP 94/59
[2017-06-03 06:07] LABS: BASOPHILS 0.4 % (0-2); EOSINOPHILS 1.1 % (0-7); HEMATOCRIT 44.8 % (36.0-48.0); HEMOGLOBIN 14.5 g/dL (12-16); IMMATURE GRANULOCYTES 0.4 % (0-5); LYMPHOCYTES 23.7 % (15-50); MCH 29.2 pg (26.0-34.0); MCHC 32.4 g/dL (31.0-37.0); MCV 90.1 fL (80.0-100.0); MEAN PLATELET VOLUME 9.7 fL (7.4-10.4); MONOCYTES 5.8 % (2-11); NEUTROPHILS 68.6 % (40-80); PLATELET COUNT 141 10x3/uL (130-400); RBC 4.97 10x6/uL (4.00-5.40); RDW 17.9 % (11.5-14.5)
[2017-06-03 06:10] LABS: WBC 7.2 10x3/uL (4.8-10.8)
[2017-06-03 07:00] LABS: BILIRUBIN - TOTAL 0.55 mg/dL (0.2-1.3); CALCIUM 8.4 mg/dL (8.5-10.1); CARBON DIOXIDE 23.4 mmol/L (21.0-32.0); PROTEIN - SERUM 7.5 g/dL (6.4-8.2)
[2017-06-03 07:02] LABS: ANION GAP 20.6 mmol/L (8-16); CREATININE - SERUM 9.5 mg/dL (0.6-1.3)
--- NOTE | 2017-06-03 07:16 | NUR ---
RECIEVED REPORT ON PATIENT, PATIENT IS ALERT AND ORIENTED AT THIS TIME. PATIENT HAS A L FA IV WITH NS INFUSING AT KVO. PATIENT IS REQUESTING FOOD, PATIENT EDUCATED THAT SHE IS NPO DUE TO THE PANCREATITIS. PATIENT STATED THAT SHE IS WANTING TO TRY FOOD. WILL SPEAK WITH DOCTOR WHEN ROUNDS ARE MADE. PATIENT DENIES ANY OTHER NEEDS. BED LOW AND LOCKED. CPOC
[2017-06-03 08:35] VITALS: BP 90/56
--- NOTE | 2017-06-03 09:00 | NUR ---
MEPLIX DRESSING APPLIED TO COCCYX. PATIENT HAS 2 STAGE 2, PENCIL ERASER SIZE. WILL MONITOR. CPOC
--- NOTE | 2017-06-03 11:22 | NUR ---
PATIENT FSBS 65, PATIENT REFUSING TO TAKE THE GLUCOSE GEL. REQUESTING SURAGR PACKETS. WILL GIVE CPOC
[2017-06-03 12:12] VITALS: BP 90/50
[2017-06-03 12:21] VITALS: Ht 175.3 cm; Wt 104.3 kg
--- NOTE | 2017-06-03 13:00 | NUR ---
SPOKE WITH DR KIM, HE OKAYED FOR PATIENT TO EAT, SAID TO START WITH CLEAR LIQUIDS AND ADVANCE TOLERATED. CPOC
--- NOTE | 2017-06-03 14:43 | NUR ---
PATIENT EATING POPCICLES AND TOLERATING AT THIS TIME, WILL CONT TO MONITOR. CPOC
[2017-06-03 16:36] VITALS: BP 98/61
--- NOTE | 2017-06-03 17:27 | NUR ---
PATIENT IS EATING, TOLERATING SOFT FOODS. DENIES ANY NEEDS. CPOC
--- NOTE | 2017-06-03 17:40 | NUR ---
PATIENT SHOWERING AT THIS TIME. CPOC
--- NOTE | 2017-06-03 18:33 | NUR ---
INFORMED PATIENT, MY SHIFT IS ENDING. PATIENT DENIES ANY NEEDS AT THIS TIME. CPOC
[2017-06-03 21:15] VITALS: BP 110/61
[2017-06-04 00:50] VITALS: BP 94/46
[2017-06-04 05:16] VITALS: BP 103/76
[2017-06-04 05:40] LABS: ALBUMIN 2.7 g/dL (3.4-5.0); BILIRUBIN - DIRECT 0.11 mg/dL (0.00-0.30); BILIRUBIN - INDIRECT 0.19 mg/dL (0.00-1.00); BILIRUBIN - TOTAL 0.3 mg/dL (0.2-1.3); PROTEIN - SERUM 5.9 g/dL (6.4-8.2)
--- NOTE | 2017-06-04 06:45 | NUR ---
PT RESTING WELL, NO CHANGES NOTED. ASSESSMENTS UNCHANGED. CALL LIGHT WITHIN REACH. WILL MONITOR.
[2017-06-04 08:50] VITALS: BP 107/62
--- NOTE | 2017-06-04 09:28 | NUR ---
IV RESTARTED TO LEFT AC WITH 22 GAUGE CATH X 2 STICKS BY CATHERINE OBREGON. LINE IS PATENT.
[2017-06-04] MEDS ORDERED: CLEOCIN HCL300 MG PO (09:40)
[2017-06-04 09:42] LABS: ANION GAP 21.8 mmol/L (8-16); CALCIUM 7.3 mg/dL (8.5-10.1); CARBON DIOXIDE 22.6 mmol/L (21.0-32.0); CREATININE - SERUM 10.7 mg/dL (0.6-1.3); POTASSIUM - SERUM 5.4 mmol/L (3.5-5.1)
[2017-06-04 12:20] VITALS: BP 145/91
--- NOTE | 2017-06-04 12:25 | NUR ---
IV AND TELEMETRY DCD. DC PLANS GIVEN. UNDERSTADING VOICED. LEAVING HOSP WITH FAMILY MEMBER.
== END 2017-06-04 12:27 | disposition home or self-care (01) | DRG 438 ==
LOC: D.ER 08:39 → D.M2 12:19
PROVIDERS: Family Medicine; ADMIT Internal Medicine Nephrology
DX: K85.90 Acute pancreatitis without necrosis or infection, unspecified (principal); N18.6 End stage renal disease; K61.1 Rectal abscess; I13.2 Hypertensive heart and chronic kidney disease with heart failure and with stage 5 chronic kidney disease, or end stage renal disease; E11.40 Type 2 diabetes mellitus with diabetic neuropathy, unspecified; E11.22 Type 2 diabetes mellitus with diabetic chronic kidney disease; I50.9 Heart failure, unspecified; Z99.2 Dependence on renal dialysis; J44.9 Chronic obstructive pulmonary disease, unspecified; I48.91 Unspecified atrial fibrillation; E66.01 Morbid (severe) obesity due to excess calories; Z68.32 Body mass index [BMI] 32.0-32.9, adult; L29.9 Pruritus, unspecified

== ENCOUNTER 2017-08-15 14:08 | Inpatient (IN) | payer MEDICARE ==
[2017-08-15] VITALS (10 sets, daily range): BP systolic 81–102; BP diastolic 56–65; BMI 35.5
[~2017-08-15] VITALS: Ht 175.3 cm; Wt 107.5 kg
[~2017-08-15 14:08] MED LIST changes: +CLEOCIN HCL300 MG PO
[2017-08-15 15:22] LABS: HEMATOCRIT 45.2 % (36.0-48.0); HEMOGLOBIN 14.8 g/dL (12-16); MCH 29.8 pg (26.0-34.0); MCHC 32.7 g/dL (31.0-37.0); MCV 91.1 fL (80.0-100.0); MEAN PLATELET VOLUME 10.4 fL (7.4-10.4); PLATELET COUNT 141 10x3/uL (130-400); RBC 4.96 10x6/uL (4.00-5.40); RDW 15.7 % (11.5-14.5)
[2017-08-15 15:31] LABS: ALBUMIN 3.1 g/dL (3.4-5.0); ANION GAP 19.2 mmol/L (8-16); BILIRUBIN - TOTAL 0.71 mg/dL (0.2-1.3); CALCIUM 8.1 mg/dL (8.5-10.1); CARBON DIOXIDE 26.1 mmol/L (21.0-32.0); CREATININE - SERUM 11.6 mg/dL (0.6-1.3); POTASSIUM - SERUM 5.3 mmol/L (3.5-5.1); PROTEIN - SERUM 7.5 g/dL (6.4-8.2)
[2017-08-15 16:22] LABS: LYMPHOCYTES 8 % (15-50); MONOCYTES 2 % (2-11); NEUTROPHILS 90 % (40-80); PLATELET ESTIMATE NORMAL
[2017-08-16] VITALS (21 sets, daily range): BP systolic 84–117; BP diastolic 60–88; Ht 175.3 cm; Wt 107.5 kg
[2017-08-16 05:21] LABS: BASOPHILS 0.1 % (0-2); EOSINOPHILS 0 % (0-7); HEMATOCRIT 42.5 % (36.0-48.0); HEMOGLOBIN 13.9 g/dL (12-16); IMMATURE GRANULOCYTES 0.8 % (0-5); LYMPHOCYTES 4.8 % (15-50); MCH 29.8 pg (26.0-34.0); MCHC 32.7 g/dL (31.0-37.0); MCV 91.2 fL (80.0-100.0); MEAN PLATELET VOLUME 10.2 fL (7.4-10.4); MONOCYTES 4.1 % (2-11); NEUTROPHILS 90.2 % (40-80); PLATELET COUNT 134 10x3/uL (130-400); RBC 4.66 10x6/uL (4.00-5.40); RDW 15.9 % (11.5-14.5); WBC 24.4 10x3/uL (4.8-10.8)
[2017-08-16 05:40] LABS: CALCIUM 7.5 mg/dL (8.5-10.1); CARBON DIOXIDE 19.6 mmol/L (21.0-32.0); CREATININE - SERUM 12.2 mg/dL (0.6-1.3); POTASSIUM - SERUM 5.6 mmol/L (3.5-5.1)
[2017-08-17 05:44] LABS: BASOPHILS 0.1 % (0-2); EOSINOPHILS 0.6 % (0-7); HEMATOCRIT 41.7 % (36.0-48.0); HEMOGLOBIN 13.9 g/dL (12-16); IMMATURE GRANULOCYTES 0.4 % (0-5); LYMPHOCYTES 5.6 % (15-50); MCH 29.8 pg (26.0-34.0); MCHC 33.3 g/dL (31.0-37.0); MCV 89.3 fL (80.0-100.0); MEAN PLATELET VOLUME 11.6 fL (7.4-10.4); MONOCYTES 5.4 % (2-11); NEUTROPHILS 87.9 % (40-80); RBC 4.67 10x6/uL (4.00-5.40); RDW 15.8 % (11.5-14.5)
[2017-08-17 06:13] LABS: PLATELET COUNT 163 10x3/uL (130-400); WBC 17.8 10x3/uL (4.8-10.8)
[2017-08-17 06:17] VITALS: BP 118/81
[2017-08-17 06:22] LABS: ANION GAP 22.8 mmol/L (8-16); CALCIUM 8.2 mg/dL (8.5-10.1); CREATININE - SERUM 10.3 mg/dL (0.6-1.3); DIGOXIN 1.04 ng/mL (0.90-2.00); PHOSPHOROUS 8.5 mg/dL (2.5-4.9)
[2017-08-17 06:25] LABS: CARBON DIOXIDE 25.2 mmol/L (21.0-32.0)
[2017-08-17 07:50] VITALS: BP 122/76
[2017-08-17 15:19] VITALS: BP 120/78
[2017-08-17 20:00] VITALS: BP 122/75
[2017-08-18] VITALS: BP 108/75
[2017-08-18 04:00] VITALS: BP 119/77
[2017-08-18 05:07] LABS: BASOPHILS 0.2 % (0-2); EOSINOPHILS 1.4 % (0-7); HEMATOCRIT 42.5 % (36.0-48.0); HEMOGLOBIN 14.2 g/dL (12-16); IMMATURE GRANULOCYTES 0.5 % (0-5); LYMPHOCYTES 14.1 % (15-50); MCH 29.5 pg (26.0-34.0); MCHC 33.4 g/dL (31.0-37.0); MCV 88.4 fL (80.0-100.0); MEAN PLATELET VOLUME 11.1 fL (7.4-10.4); NEUTROPHILS 77.8 % (40-80); PLATELET COUNT 157 10x3/uL (130-400); RBC 4.81 10x6/uL (4.00-5.40); RDW 15.6 % (11.5-14.5)
[2017-08-18 05:08] LABS: WBC 11.5 10x3/uL (4.8-10.8)
[2017-08-18 05:22] LABS: ANION GAP 23.2 mmol/L (8-16); CALCIUM 8.5 mg/dL (8.5-10.1); CARBON DIOXIDE 24.1 mmol/L (21.0-32.0); CREATININE - SERUM 11.8 mg/dL (0.6-1.3); POTASSIUM - SERUM 5.3 mmol/L (3.5-5.1); VANCOMYCIN - RANDOM 11.1 ug/mL (10.0-20.0)
[2017-08-18 05:26] LABS: PHOSPHOROUS 9.6 mg/dL (2.5-4.9)
[2017-08-18] MEDS ORDERED: Levaquin PREMIX IV (07:49)
[2017-08-18] MEDS ORDERED: TAMIFLU30 MG PO (07:49)
[2017-08-18 09:10] VITALS: BP 112/66
[2017-08-18] MEDS ORDERED: LEVAQUIN250 MG PO (09:58)
== END 2017-08-18 16:21 | disposition home or self-care (01) | DRG 193 ==
LOC: D.ER 14:08 → D.ICU 17:22 → D.M2 08-16 22:50
PROVIDERS: Family Medicine; Internal Medicine Nephrology
DX: J11.08 Influenza due to unidentified influenza virus with specified pneumonia (principal); N18.6 End stage renal disease; I13.2 Hypertensive heart and chronic kidney disease with heart failure and with stage 5 chronic kidney disease, or end stage renal disease; J11.1 Influenza due to unidentified influenza virus with other respiratory manifestations; J12.9 Viral pneumonia, unspecified; E11.40 Type 2 diabetes mellitus with diabetic neuropathy, unspecified; E11.22 Type 2 diabetes mellitus with diabetic chronic kidney disease; I50.9 Heart failure, unspecified; Z99.2 Dependence on renal dialysis; I48.2 Chronic atrial fibrillation; J44.9 Chronic obstructive pulmonary disease, unspecified; F41.8 Other specified anxiety disorders; D63.1 Anemia in chronic kidney disease; E66.01 Morbid (severe) obesity due to excess calories; Z68.35 Body mass index [BMI] 35.0-35.9, adult; E83.39 Other disorders of phosphorus metabolism; I95.9 Hypotension, unspecified; Z87.891 Personal history of nicotine dependence

== ENCOUNTER 2017-09-04 09:08 | Observation (INO) | payer MEDICARE ==
--- NOTE | ~2017-09-04 | OP ---
PATIENT NAME: CASA WALLACE MEDICAL RECORD: [id number] :61 LOCATION:D.M2 D.2113 ADMISSION DATE:09/04/17 SURGEON: HANNA THOMAS MD DATE OF OPERATION: 09/05/2017 PROCEDURES: 1. Left heart catheterization. 2. Selective coronary angiography. 3. Left ventriculogram. 4. Intravascular ultrasound. INDICATION: Angina and coronary artery disease. PROCEDURE IN DETAIL: After informed consent was obtained and after a detailed explanation of risks, benefits as well as alternative therapies, the patient elected to proceed with angiogram and heart catheterization. The right femoral area was prepped and draped in normal sterile fashion. The right femoral artery was cannulated via modified Seldinger technique with placement of a 6-Mohawk sheath. All catheters exchanged through this sheath. FINDINGS: The left ventriculogram was performed in standard 30-degree ROGERS view, reveals good cardiac wall motion throughout all segments. Overall ejection fraction estimated at 60%. SELECTIVE CORONARY ANGIOGRAPHY: 1. Left main showed no significant angiographic disease. 2. Left anterior descending has mild irregularities, but no flow-limiting stenosis. Intravascular ultrasound reveals nothing greater than 30%. 3. Left circumflex has moderate irregularities, but no flow-limiting stenosis. 4. Right coronary artery has moderate irregularities, but no flow-limiting stenosis. OVERALL IMPRESSION: Minimal coronary artery disease is present. No flow limiting stenosis. Most likely symptomatology is secondary to the atrial fibrillation with rapid ventricular response. Center medical management on treatment of the atrial fibrillation. TRANSINT:[id number] Voice Confirmation ID: [id number] DOCUMENT ID: [id number] HANNA THOMAS MD at 1153 CC: [id number] DICTATION DATE: 09/05/17 1156 OIL LEASE BROKER: 09/05/17 1330 DIS IN 09/05/17 [id number] [place] [address]
--- NOTE | ~2017-09-04 | HEMODYNAMI ---
PATIENT:CASA WALLACE MEDICAL RECORD: [id number] : 61 [id number] ADMISSION DATE: 09/04/17 Generatedon:09/05/201711:53 Patient name: CASA LEYVA Patient #: [id number] SN: : 1965 Date of study: 09/05/2017 Page: Of Hemodynamic Procedure Report Patient Data Patient Demographics Procedure consent was obtained First Name: CASA Gender: Female Last Name: IGNACIO LEYVA : 1965 [facility] Initial: JOSEPHINE Age: 52 year(s) Patient #: [id number] Race: Black Additional ID: [id number] Contact details [address]: [address] [place] [address] [address]IVE State: [place] City: [place] Zip code: [address] Past Medical History Allergies Allergen Reaction Date Comments Reported Penicillins 08/09/2016 Natural rubber 01/20/2017 and latex Other allergy 01/20/2017 Lesley De Souza Admission Admission Data Admission Date: 09/04/2017 Admission Time: 16:07 Room #: D.2113 Procedure Procedure Types Cath Procedure Diagnostic Procedure [facility] w/Coronaries FFR/IVUS Intra-Coronary IVUS Initial Miscellaneous Procedures Moderate Sedation up to 15 minutes Procedure Description Procedure Date Procedure Date: 09/05/2017 Procedure Start Time: 11:34 Procedure End Time: 11:50 Procedure Staff Name Function Shawn Regalado MD Performing Physician Mirian Raman RT Monitor Jackson Lara RT Scrub Ronny Burris RN Nurse Procedure Data Cath Procedure Fluoroscopy Diagnostic fluoroscopy Total fluoroscopy Time: 3.2 time: 3.2 min min Diagnostic fluoroscopy Total fluoroscopy dose: dose: 417.58 mGy 417.58 mGy Contrast Material Contrast Material Type Amount (ml) Isovue 300 89 Entry Location Entry Primary Successful Side Size Upsize Upsize Entry Closure Succes sful Closure Location (Fr) 1 (Fr) 2 (Fr) Remarks Device Remarks Femoral Right 5 Fr 6 Fr Exoseal artery Short Estimated blood loss: 5 ml Diagnostic catheters Device Type Used For End Catheter Placement MULTIPACK Pigtail 5 Fr LV Angiography catheter MULTIPACK JL 4.0 5Fr Left Coronary catheter Angiography MULTIPACK 3DRC 5Fr Right Coronary catheter Angiography Procedure Complications No complications Procedure Medications Medication Administration Route Dosage Oxygen NC 2 l/min Lidocaine 2% added to field 20 Heparin Flush Bag added to field 2 bags (1000units/500ml NS) 0.9% NaCl I.V. 100 ml/hr Versed I.V. 1 mg Fentanyl I.V. 50 mcg Digoxin I.V. 0.5 mg Versed I.V. 1 mg Fentanyl I.V. 50 mcg Hemodynamics Rest Heart Rate: 106 (bpm) Snapshots Pre Cath Intra NCS Post Cath Vital Signs Time Heart Resp SPO2 etCO2 NIBP Rhythm Pain Sedation Rate (ipm) (%) (mmHg) (mmHg) Status Level (bpm) 11:08:26 102 20 96 35.4 111/73(99) A-Fib 0 (11) 10(A) , No pain 11:12:32 96 15 96 39.2 101/77(88) A-Fib 0 (11) 10(A) , No pain 11:16:41 110 13 96 30.2 94/65(74) A-Fib 0 (11) 10(A) , No pain 11:20:43 101 23 95 34.6 102/76(88) A-Fib 0 (11) 10(A) , No pain 11:24:53 111 13 94 37.7 88/64(76) A-Fib 0 (11) 10(A) , No pain 11:29:03 86 16 95 37.7 90/59(73) A-Fib 0 (11) 10(A) , No pain 11:33:21 108 16 95 1.5 71/51(60) A-Fib 0 (11) 10(A) , No pain 11:37:27 120 10 93 33.9 87/56(68) A-Fib 0 (11) 9(A) , No pain 11:41:37 103 16 95 32.4 94/61(77) A-Fib 0 (11) 9(A) , No pain 11:45:49 100 14 94 37.7 81/60(73) A-Fib 0 (11) 9(A) , No pain 11:49:28 103 12 94 27.1 79/64(72) A-Fib 0 (11) 9(A) , No pain Medications Time Medication Route Dose Verified Delivered Reason Notes Effe ctiveness by by 11:21:47 Oxygen NC 2 Shawn Buffie used for l/min Fabricio Burris RN procedure 11:22:13 Lidocaine 2% added 20ml Shawn Shawn for local to vial Fabricio Regalado MD anesthetic field 11:22:20 Heparin Flush added 2 Shawn Shawn used for Bag to bags Fabricio Regalado MD procedure (1000units/500ml field NS) 11:22:29 0.9% NaCl I.V. 100 Shawn Buffie Per ml/hr Fabricio Burris RN physician 11:30:30 Versed I.V. 1 mg Shawn Buffie for Fabricio Burris RN sedation 11:31:38 Fentanyl I.V. 50 Shawn Buffie for mcg Fabricio Burris RN sedation 11:35:31 Digoxin I.V. 0.5 Shawn Armasie for mg Fabricio Burris RN arrhythmia 11:40:51 Versed I.V. 1 mg Shawn Buffie for Fabricio Burris RN sedation 11:40:55 Fentanyl I.V. 50 Shawnruslan Armasie for mcg Fabricio Burris RN sedation Procedure Log Time Note 10:24:10 Jackson Lara RT(R) (CV) sent for patient. Start room use. 10:24:11 Time tracking: Regular hours 10:24:15 Plan of Care:Hemodynamics will remain stable., Cardiac rhythm will remain stable., Comfort level will be maintained., Respiratory function will remain adequate., Patient/ family verbilizes understanding of procedure., Procedure tolerated without complication., Recovers from procedure without complications.. 10:47:20 Patient received from PCU to CCL 3 Alert and oriented. Tansferred to table in Supine position. 10:47:21 Warm blankets applied, and cruzito hugger turned on for patient comfort. 10:47:21 Correct patient and procedure confirmed by team. 10:47:22 Signed procedure consent form obtained from patient. 10:47:23 ECG and BP/O2 sat monitors applied to patient. 10:47:25 Full Disclosure recording started 10:59:06 Zero performed for pressure channel P1 11:01:29 Vital chart was started 11:01:34 Rhythm: atrial fibrillation 11:02:17 Previous problem with sedation/anesthesia? No ? 11:02:17 Snore? Yes 11:02:18 Sleep apnea? Yes 11:02:19 Deviated septum? No 11:02:20 Opens mouth fully? Yes 11:02:21 Sticks out tongue? Yes 11:02:24 Airway obstruction? Yes COPD 11:02:27 Dentures? No ? 11:02:36 H&P Date Dictated: 09/04/2017 Within 30 days and on chart.. 11:02:37 Pre-procedure instructions explained to patient. 11:02:37 Pre-op teaching completed and patient verbalized understanding. 11:02:39 Family in patients room. 11:02:40 Patient NPO since Midnight. 11:02:46 Is the patient allergic to Iodine/contrast media? No. 11:02:50 Is patient on blood thinner?Yes 11:03:04 Eder 09-03-17 11:03:06 Patient diabetic? Yes. 11:03:08 If diabetic: On Metformin? No 11:03:12 Pre procedure: right dorsailis pedis pulse 2+ Normal; easily identifiable; not easily obliterated 11:03:14 Patient pain scale 0/10 ?. 11:03:21 IV patent on arrival in left forearm with 0.9% NaCl at O. 11:03:25 Lab results completed and on chart. 11:03:29 Right groin area was prepped with chlora-prep and draped in sterile fashion 11:12:36 Baseline sample Acquired. 11:12:40 Use device set Femoral Dx 11:12:41 ACIST Syringe (17492) opened to sterile field. 11:12:42 Bag Decanter (2002) opened to sterile field. 11:12:43 Medline Cath Pack ([id number]) opened to sterile field. 11:12:43 SHEATH 5FR [place] (KBH949) opened to sterile field. 11:12:44 DIAGNOSTIC WIRE .035 260cm J wire (042534) opened to sterile field. 11:12:45 ACIST Hand Control (50136) opened to sterile field. 11:12:46 ACIST Manifold (12756) opened to sterile field. 11:12:46 DIAGNOSTIC Multipack 5Fr catheter set (SM9935) opened to sterile field. 11:12:47 Tegaderm 4 x 4 (1626W) opened to sterile field. 11:12:48 PERCUTANEOUS ENTRY 19GA needle opened to sterile field. 11:12:49 Zero performed for pressure channel P1 11:12:53 Zero performed for pressure channel P1 11:21:47 Oxygen 2 l/min NC was administered by Ronny Burris RN; used for procedure; 11:22:13 Lidocaine 2% 20ml vial added to field was administered by Shawn Regalado MD; for local anesthetic; 11:22:20 Heparin Flush Bag (1000units/500ml NS) 2 bags added to field was administered by Shawn Regalado MD; used for procedure; 11:22:29 0.9% NaCl 100 ml/hr I.V. was administered by Ronny Burris RN; Per physician; 11:29:49 Final Timeout: patient, procedure, and site verified with staff and physician. All members of the team are in agreement. 11:29:51 Right groin site verified by team. 11:29:55 Physical assessment completed. ASA score P 2 - A patient with mild systemic disease as per Shawn Regalado MD. 11:29:58 Sedation plan: IV Moderate Sedation Medication:Versed, Fentanyl 11:30:30 Versed 1 mg I.V. was administered by Ronny Burris RN; for sedation; 11:31:38 Fentanyl 50 mcg I.V. was administered by Ronny Burris RN; for sedation; 11:34:50 Procedure started. 11:34:54 Local anesthetic to right femoral artery with Lidocaine 2% by Shawn Regalado MD.INITIAL ACCESS ONLY 11:35:05 A 5 Fr sheath was inserted into the Right Femoral artery 11:35:29 A MULTIPACK Pigtail 5 Fr catheter was advanced over the wire and used for LV Angiography. 11:35:31 Digoxin 0.5 mg I.V. was administered by Ronny Burris RN; for arrhythmia; 11:35:59 LV gram done using ROGERS 11:36:03 EF : 60 % 11:36:06 Injector settings: Ml/sec: 10, Volume: 20, 11:36:08 Catheter removed. 11:36:22 A MULTIPACK JL 4.0 5Fr catheter was advanced over the wire and used for Left Coronary Angiography. 11:37:39 Catheter removed. 11:37:53 A MULTIPACK 3DRC 5Fr catheter was advanced over the wire and used for Right Coronary Angiography. 11:38:29 Catheter removed. 11:38:43 Use device set TAU PCI 11:38:46 INFLATOR Merit BasixCompak (XA0558) opened to sterile field. 11:38:47 SHEATH 6FR [place] (MZY344) opened to sterile field. 11:38:53 WHISPER 300cm guide wire ([id number]) opened to sterile field. 11:39:54 [place] Eag[place] IVUS Catheter (61891Y) opened to sterile field. 11:40:00 GUIDE 6FR XBLAD 3.5 catheter ([id number]) opened to sterile field. 11:40:10 Sheath upsized to a 6 Fr Short. 11:40:39 6 Fr XBLAD 3.5 guide catheter was inserted over the wire 11:40:51 Versed 1 mg I.V. was administered by Ronny Burris RN; for sedation; 11:40:55 Fentanyl 50 mcg I.V. was administered by Ronny Burris RN; for sedation; 11:41:36 Guide Catheter removed. unable to cannulate vessel. 11:41:42 6 Fr XBLAD 4.0 guide catheter was inserted over the wire 11:41:45 GUIDE 6FR XBLAD 4.0 catheter ([id number]) opened to sterile field. 11:42:07 Whisper wire advanced. 11:43:47 IVUS catheter advanced over wire. 11:45:07 IVUS pass to LAD lesion performed. 11:45:07 IVUS catheter removed over wire. 11:45:19 Wire removed. 11:45:20 Guide catheter removed. 11:45:26 Sheath removed intact; hemostasis achieved with Exoseal to the Right Femoral artery. 11:45:28 Procedure ended.(Physican Out) 11:45:31 EXOSEAL 6Fr (EX600) opened to sterile field. 11:45:37 Fluoroscopy time 03.20 minutes. 11:45:43 Fluoroscopy dose: 417.58 mGy 11:45:43 Flurop Dose total: 417.58 11:45:46 Contrast amount:Isovue 300 89ml. 11:45:48 Sharps counted by scrub and verified by R.N. 11:45:49 Insertion/operative site no bleeding no hematoma. 11:45:51 Post-op/insertion site Right Femoral artery dressed using a 4 x 4 and Tegaderm. 11:45:55 Post right femoral artery:stable, clean and dry 11:45:56 Post Procedure Pulses reassessed and unchanged 11:45:58 Post-procedure physical assessment completed. ASA score P 2 - A patient with mild systemic disease as per Shawn Regalado MD. 11:46:01 Post procedure rhythm: unchanged. 11:46:04 Estimated blood loss: 5 ml 11:46:05 Post procedure instruction explained to patient.Patient verbalizes understanding. 11:46:06 Patient needs reinforcement of post procedure teaching. 11:47:39 Procedure type changed to Cath procedure, Diagnostic procedure, LHC, LHC w/Coronaries, FFR/IVUS, Intra-Coronary IVUS Initial, Miscellaneous Procedures, Moderate Sedation up to 15 minutes 11:48:02 Procedure Complication : No complications 11:48:04 See physician's report for complete and final results. 11:50:26 Procedure and supply charges have been captured, reviewed, submitted and are correct. 11:50:44 Vital chart was stopped 11:50:46 Report given to PCU. 11:50:56 Patient transfered to PCU with Bed. 11:50:58 Procedure ended. 11:50:58 Full Disclosure recording stopped 11:51:01 End room use (Document Last) Device Usage Item Name Manufacture Quantity Catalog Hospital Part Current Minimal Lot# / Number Charge Number Stock Stock Serial# Code ACIST Acist 1 05021 704828 032577 806005 20 Syringe Medical (68286) Systems Inc Bag Decanter Microtek 1 2001S 495233 11807 713798 5 () Medical Inc. Medline Cath Cardinal 1 [id number] 024235 88663 403832 5 Pack Health ([id number]) SHEATH 5FR Terumo 1 XHL936 243635 500646 841992 40 [place] (PFK794) DIAGNOSTIC [facility] [place] 1 302377 292683 656748 396165 30 WIRE .035 260cm J wire (717718) ACIST Hand Acist 1 75528 808486 174210 767141 5 Control Medical (01518) Systems Inc ACIST Acist 1 01806 237530 223677 126282 5 Manifold Medical (70735) Systems Inc DIAGNOSTIC Cardinal 1 SM7777 688095 36506 538638 30 Multipack Health 5Fr catheter set (RL7270) Tegaderm 4 x 3M 1 1626W 315354 401967 432576 5 4 (1626W) PERCUTANEOUS [place] Medical 1 O90702 021434 377500 5 ENTRY 19GA needle MULTIPACK Cardinal 1 379549 5 Pigtail 5 Fr Health catheter MULTIPACK JL Cardinal 1 433660 5 4.0 5Fr Health catheter MULTIPACK Cardinal 1 213086 5 3DRC 5Fr Health catheter INFLATOR Merit 1 SV7697 938436 942456 978322 15 [facility] Medical BasixCompak (UG0061) SHEATH 6FR Terumo 1 PET803 167306 595432 749192 40 [place] (GXH421) WHISPER Castañeda 1 [id number] 090801 899709 159357 5 300cm guide Vascular wire (7634304ZY) [place] 1 06656A 526043 039135 718935 8 [place] Eagleye IVUS Catheter (02279C) GUIDE 6FR Cardinal 1 96175584 015181 988543 801903 10 XBLAD 3.5 Health catheter (23755332) GUIDE 6FR Cardinal 1 [id number] 160071 882227 349913 3 XBLAD 4.0 Health catheter (02412540) EXOSEAL 6Fr Cardinal 1 EX600 850317 654224 774722 10 (EX600) Health Signature Audit [place] Stage Time Signature Unsigned Intra-Procedure 09/05/2017 Mirian 11:52:57 AM Counts RT(R) Signatures Monitor : Mirian Signature : Counts RT Date : Time : [facility] [address] [place] [address]
--- NOTE | ~2017-09-04 | DS ---
PATIENT:CASA WALLACE :61 MEDICAL RECORD: [id number] DISCHARGE SUMMARY ADMISSION DATE: 09/04/17 DISCHARGE DATE: 09/05/17 DATE OF DISCHARGE: 09/05/2017. DIAGNOSES: 1. Atrial fibrillation, chronic. 2. Eliquis anticoagulation. 3. Hypertension. 4. Hyperlipidemia. 5. End-stage renal failure on dialysis. 6. Angina. 7. Coronary artery disease. HOSPITAL COURSE: Ms. Maribel Cho presented with anginal symptomatology, on dialysis. Her atrial fibrillation rate was definitely over 100 and at times in the 130 range. She is on digoxin 0.125 Monday, Monday, and Monday. We increased this to 0.25, gave her a bolus of digoxin. She underwent cardiac catheterization revealing no significant new disease. Her symptomatology is secondary to the heart rate. She has a baseline low blood pressure, precluding other AV blocking agents that would lower the blood pressure further. She was discharged home with this change in her digoxin. Follow up with [facility] in 1 month. TRANSINT:[id number] Voice Confirmation ID: [id number] DOCUMENT ID: [id number] HANNA THOMAS MD at 1153 CC: [id number] DICTATION DATE: 09/05/17 1154 CONCERT PIANIST: 09/06/17 0025 DIS IN 09/05/[address] [address]
[~2017-09-04 09:08] MED LIST changes: +Levaquin PREMIX IV; +TAMIFLU30 MG PO
[2017-09-04 09:42] LABS: BASOPHILS 0.2 % (0-2); HEMATOCRIT 42.8 % (36.0-48.0); IMMATURE GRANULOCYTES 0.4 % (0-5); LYMPHOCYTES 16.5 % (15-50); MCH 29.1 pg (26.0-34.0); MCHC 32.7 g/dL (31.0-37.0); MEAN PLATELET VOLUME 10.1 fL (7.4-10.4); MONOCYTES 5.9 % (2-11); PLATELET COUNT 167 10x3/uL (130-400); RBC 4.81 10x6/uL (4.00-5.40); RDW 15.1 % (11.5-14.5)
[2017-09-04 09:55] LABS: ALBUMIN 2.8 g/dL (3.4-5.0); ALKALINE PHOSPHATASE 155 U/L (46-116); ALT (SGPT) 15 U/L (10-68); BILIRUBIN - TOTAL 0.49 mg/dL (0.2-1.3); CALC OSMOLALITY 297 mosm/kg (275-300); CALCIUM 8.2 mg/dL (8.5-10.1); CARBON DIOXIDE 27.1 mmol/L (21.0-32.0); CHLORIDE - SERUM 98 mmol/L (98-107); CREATININE - SERUM 8.5 mg/dL (0.6-1.3); POTASSIUM - SERUM 4.4 mmol/L (3.5-5.1); PROTEIN - SERUM 7.7 g/dL (6.4-8.2); SODIUM 137 mmol/L (136-145); UREA NITROGEN 65 mg/dL (7-18); eGFR NON AFRICAN AMERICAN 5 mL/min (90-120)
[2017-09-04 09:56] LABS: GLUCOSE 183 mg/dL (74-106)
[2017-09-04 10:07] LABS: CHOL - HDL RATIO 2.5 ratio (2.3-4.1); CHOLESTEROL, TOTAL 158 mg/dL (0-200); CKMB 1.1 U/L (0.0-3.6); CREATINE KINASE 24 UL (21-215); HDL CHOLESTEROL 64 mg/dL (32-96); LDL CHOLESTEROL 76 mg/dL (0-100); LDL-HDL RATIO 1.2 ratio (1.5-3.5); TRIGLYCERIDE 94 mg/dL (30-200); TROPONIN-I 0.017 ng/mL (0.000-0.060)
[2017-09-05] MEDS ORDERED: ATARAX 25 MG TA25 MG PO (00:10)
[2017-09-05 02:07] VITALS: BP 118/71; BMI 34.9
[2017-09-05 04:00] VITALS: BP 84/53
[2017-09-05 08:46] VITALS: BP 119/78
[2017-09-05 09:48] LABS: BASOPHILS 0.4 % (0-2); EOSINOPHILS 0.4 % (0-7); HEMATOCRIT 46.8 % (36.0-48.0); HEMOGLOBIN 15.2 g/dL (12-16); IMMATURE GRANULOCYTES 0.3 % (0-5); LYMPHOCYTES 15.6 % (15-50); MCH 28.8 pg (26.0-34.0); MCHC 32.5 g/dL (31.0-37.0); MCV 88.8 fL (80.0-100.0); MEAN PLATELET VOLUME 10.5 fL (7.4-10.4); MONOCYTES 5.7 % (2-11); NEUTROPHILS 77.6 % (40-80); PLATELET COUNT 127 10x3/uL (130-400); RBC 5.27 10x6/uL (4.00-5.40); RDW 15.2 % (11.5-14.5); WBC 7.8 10x3/uL (4.8-10.8)
[2017-09-05 09:57] LABS: ANION GAP 20.2 mmol/L (8-16); CALCIUM 7.7 mg/dL (8.5-10.1); CARBON DIOXIDE 24.7 mmol/L (21.0-32.0); POTASSIUM - SERUM 4.9 mmol/L (3.5-5.1)
[2017-09-05 10:06] LABS: CREATININE - SERUM 10.8 mg/dL (0.6-1.3)
[2017-09-05 10:36] LABS: INR 0.99 (0.85-1.17); PROTIME 12.7 SECONDS (11.6-15.0)
[2017-09-05 12:23] VITALS: BMI 34.8
== END 2017-09-05 18:45 | disposition home or self-care (01) ==
LOC: D.ER 09:08 → OBSVTIME 16:07 → D.M2 16:07 → D.EDHOLD 16:07 → D.M2 22:42
PROVIDERS: Family Medicine; Internal Medicine Interventional Cardiology
DX: I48.2 Chronic atrial fibrillation (principal); Z79.01 Long term (current) use of anticoagulants; I25.10 Atherosclerotic heart disease of native coronary artery without angina pectoris; E11.22 Type 2 diabetes mellitus with diabetic chronic kidney disease; I13.2 Hypertensive heart and chronic kidney disease with heart failure and with stage 5 chronic kidney disease, or end stage renal disease; I50.9 Heart failure, unspecified; N18.6 End stage renal disease; E78.5 Hyperlipidemia, unspecified; E66.01 Morbid (severe) obesity due to excess calories; Z68.35 Body mass index [BMI] 35.0-35.9, adult

== ENCOUNTER 2017-09-08 09:47 | Day surgery (SDC) | payer MEDICARE ==
--- NOTE | ~2017-09-08 | OP ---
PATIENT NAME: CASA WALLACE MEDICAL RECORD: [id number] :61 LOCATION:[facility] ADMISSION DATE: SURGEON: ORLANDO HARRINGTON MD DATE OF OPERATION: 09/08/2017 REFERRED BY: Rick Kim MD PREOPERATIVE DIAGNOSIS: Recurrent thrombosis of right upper extremity, proximal radial artery to proximal cephalic vein AV graft. POSTOPERATIVE DIAGNOSIS: Recurrent thrombosis of right upper extremity, proximal radial artery to proximal cephalic vein AV graft. OPERATION PERFORMED: Percutaneous fistulogram with AngioJet mechanical thrombolysis and balloon angioplasty of 60% vein stenosis in the mid or graft stenosis in the mid humeral area and dilatation of a series of 70% to 80% stenosis in juxta anastomotic segment and separate selectively catheterization of the superior vena cava and a pullback SVCO gram, and also selective catheterization of the proximal brachial artery with angiogram in the left upper extremity. SURGEON: Orlando Harrington MD ANESTHESIA: General per TWISTER IN with LMA. PREOPERATIVE NOTE: Ms. Cho is a 52-year-old -[place]ir[place] female with numerous medical problems, not the least of which has end-stage renal disease and required hemodialysis. She I think for a long while had a successful proximal brachial artery cephalic vein AV fistula, but then developed problems with aneurysms and stenoses and eventually the mid portion of the cephalic vein was replaced with an AV graft, later it was necessary to resect more of the aneurysmal JA segment and implant a new PTFE graft from the old cephalic vein fistula just above the antecubital space to the cephalic vein in the lateral deltopectoral groove. I believe, she may have had difficulties since that last operation and had at least 1 probably more interventions at [facility]. She is now on aspirin and Eliquis twice daily, has results of her recurrent problems, I am afraid I cannot get records of that outpatient treatment at [facility] because of now late Monday afternoon. At any rate, she presented for dialysis today and was found to thrombosed her graft again and Dr. Kim had her come to the operating room today with plans for me to perform a fistulogram with mechanical thrombolysis and other indicated procedures and also possible insertion of the dialysis catheter. DESCRIPTION OF PROCEDURE: Under general anesthesia per TWISTER IN, the patient was placed in supine position and the right arm prepped and draped in a sterile manner. I accessed her graft near the arterial anastomosis with micropuncture technique and this led up to placement of a 6-Stateless introducer. I then used a Glidewire and AngioJet to lyse thrombus in the body and venous outflow of the graft. Contrast injection demonstrated some mild perhaps stenosis, portion of the vein at the mid humeral level and with repeated contrast injections at that level, there was a possible stenosis of the brachiocephalic vein noted. I had given the patient 5000 units of heparin. I advanced a guidewire and glide catheter proximally into the brachiocephalic vein and superior vena cava and then performed a pullback superior venacavogram which demonstrated normal wide patency of the superior vena cava and brachiocephalic OPERATIVE REPORT [id number] CASA WALLACE. I introduced a second introducer sheath, another 6-Stateless introducer. This was introduced up in the proximal third of the humerus and directed towards the arterial anastomosis. I used a Glidewire and Roadrunner wire to pass a diagnostic catheter into the brachial artery and advanced the catheter up into the proximal brachial artery in upper third of the humerus. Contrast injection revealed free flow through the proximal brachial artery down to the bifurcation. The ulnar artery was large and carries the majority of blood distally to the forearm and hand, the radial artery appears to be chronically occluded just distal to the anastomosis. I used the AngioJet and a Live embolectomy catheter to remove thrombus from the arterial anastomosis and JA segment and repeated contrast injections revealed approximately 3 stenoses of the JA segment 70% to 80% diameter in a series, the body of the graft was dilated with a 7-mm diameter balloon. The JA stenoses were dilated first with the 5-mm balloon and later with the 7 mm balloon and repeated contrast injections revealed no residual stenosis and considerably improved flow now in the patent AV graft. The patient's heparin was not reversed. The hardware was removed and hemostasis obtained at the puncture sites with [id number] 4-0 Prolene sutures and some gentle direct pressure. When hemostasis was achieved, the puncture sites were dressed with Ultrafoam, Tegaderm, and Cavilon skin prep. Color duplex ultrasound examination was then performed, which revealed a good turbulent flow color pattern throughout the graft from the antecubital space to the deltopectoral groove. The patient was awakened and taken to the recovery room. PLAN: The patient will be discharged today and she will either have dialysis this evening or a probably more likely tomorrow at [facility]. If nephrology think she needs to be dialyzed sooner, she may need to be admitted to the hospital for dialysis here this evening. I have asked that she be continued on her aspirin and Eliquis and otherwise continue all of her same home medications. I have given her no new prescriptions. I will see if we can get her scheduled for followup angiogram in 3-4 weeks at [facility], hopefully on Monday so that I can perform the procedure. Blood loss during the operation was about 10 mL, none was replaced. All sponges, instruments, and needles were accounted for. No drain was used and no surgical specimen was submitted for histopathology. TRANSINT:[id number] Voice Confirmation ID: [id number] DOCUMENT ID: [id number] ORLANDO HARRINGTON MD at 1459 CC: RICK KIM [id number] DICTATION DATE: 09/08/17 1554 DELIVERY TECHNICIAN: 09/08/17 1923 [facility] 09/08/[address] [facility] [address] [place] [address]
[~2017-09-08 09:47] MED LIST changes: +ATARAX 25 MG TA25 MG PO
[2017-09-08] MEDS ORDERED: LANOXIN250 MCG (10:22)
[2017-09-08] MEDS ORDERED: FLUTICASONE PRO16 GM NASAL (10:25)
[2017-09-08 10:27] LABS: BASOPHILS 0.3 % (0-2); EOSINOPHILS 1.5 % (0-7); HEMOGLOBIN 14.8 g/dL (12-16); IMMATURE GRANULOCYTES 0.2 % (0-5); LYMPHOCYTES 24.8 % (15-50); MCH 29.2 pg (26.0-34.0); MCHC 32.2 g/dL (31.0-37.0); MCV 90.7 fL (80.0-100.0); MEAN PLATELET VOLUME 9.8 fL (7.4-10.4); MONOCYTES 6.6 % (2-11); NEUTROPHILS 66.6 % (40-80); RBC 5.07 10x6/uL (4.00-5.40); RDW 15.2 % (11.5-14.5); WBC 8.7 10x3/uL (4.8-10.8)
[2017-09-08] MEDS ORDERED: FLORINEF 0.1 M0.1 MG PO (10:27)
[2017-09-08 10:29] LABS: PLATELET COUNT 158 10x3/uL (130-400)
[2017-09-08 11:01] VITALS: BP 118/75; BMI 34.0
[2017-09-08 11:06] LABS: ALBUMIN 3.3 g/dL (3.4-5.0); ANION GAP 19.6 mmol/L (8-16); BILIRUBIN - TOTAL 0.4 mg/dL (0.2-1.3); CALCIUM 7.9 mg/dL (8.5-10.1); CARBON DIOXIDE 28.4 mmol/L (21.0-32.0); CREATININE - SERUM 10.4 mg/dL (0.6-1.3); DIGOXIN 2.34 ng/mL (0.90-2.00); PROTEIN - SERUM 7.9 g/dL (6.4-8.2)
== END 2017-09-08 16:50 | disposition home or self-care (01) ==
LOC: D.OPS 09:47
PROVIDERS: Anesthesiology
DX: T82.868A Thrombosis due to vascular prosthetic devices, implants and grafts, initial encounter (principal); E11.22 Type 2 diabetes mellitus with diabetic chronic kidney disease; I13.2 Hypertensive heart and chronic kidney disease with heart failure and with stage 5 chronic kidney disease, or end stage renal disease; N18.6 End stage renal disease; Z99.2 Dependence on renal dialysis; G47.30 Sleep apnea, unspecified; K21.9 Gastro-esophageal reflux disease without esophagitis; Z01.812 Encounter for preprocedural laboratory examination

== ENCOUNTER 2017-09-27 07:58 | Emergency (ER) | payer MEDICARE ==
[~2017-09-27 07:58] MED LIST changes: +FLORINEF 0.1 M0.1 MG PO; +FLUTICASONE PRO16 GM NASAL; +LANOXIN250 MCG
== END 2017-09-27 10:35 | disposition home or self-care (01) ==
LOC: D.ER 07:58
DX: R06.00 Dyspnea, unspecified (principal); J20.9 Acute bronchitis, unspecified; J44.1 Chronic obstructive pulmonary disease with (acute) exacerbation; I50.9 Heart failure, unspecified; I48.2 Chronic atrial fibrillation; N18.9 Chronic kidney disease, unspecified; E11.9 Type 2 diabetes mellitus without complications; Z79.4 Long term (current) use of insulin; F17.200 Nicotine dependence, unspecified, uncomplicated

== ENCOUNTER → 2018-04-02 15:02 | Inpatient (IN) | payer MEDICARE ==
[2018-03-30 11:43] LABS: BASOPHILS 0.3 % (0-2); EOSINOPHILS 0.9 % (0-7); HEMATOCRIT 49.9 % (36.0-48.0); HEMOGLOBIN 16.4 g/dL (12-16); IMMATURE GRANULOCYTES 0.9 % (0-5); MCH 28.2 pg (26.0-34.0); MCHC 32.9 g/dL (31.0-37.0); MCV 85.9 fL (80.0-100.0); MEAN PLATELET VOLUME 10.6 fL (7.4-10.4); MONOCYTES 5.9 % (2-11); PLATELET COUNT 187 10x3/uL (130-400); RBC 5.81 10x6/uL (4.00-5.40); RDW 15.8 % (11.5-14.5); WBC 9.7 10x3/uL (4.8-10.8)
[2018-03-30 11:52] LABS: APTT 32.3 SECONDS (22.8-39.4); INR 1.07 (0.85-1.17); PROTIME 13.5 SECONDS (11.6-15.0)
[2018-03-30 11:53] LABS: D-DIMER-QUANTITATIVE 0.59 ug/mLFEU (0.20-0.54)
[2018-03-30 11:59] LABS: ALBUMIN 3.1 g/dL (3.4-5.0); ALKALINE PHOSPHATASE 154 U/L (46-116); ALT (SGPT) 16 U/L (10-68); BILIRUBIN - TOTAL 0.44 mg/dL (0.2-1.3); CALC OSMOLALITY 286 mosm/kg (275-300); CARBON DIOXIDE 28.5 mmol/L (21.0-32.0); CHLORIDE - SERUM 96 mmol/L (98-107); CREATININE - SERUM 5.4 mg/dL (0.6-1.3); GLUCOSE 271 mg/dL (74-106); POTASSIUM - SERUM 4.7 mmol/L (3.5-5.1); PROTEIN - SERUM 8.4 g/dL (6.4-8.2); SODIUM 137 mmol/L (136-145); UREA NITROGEN 21 mg/dL (7-18); eGFR NON AFRICAN AMERICAN 9 mL/min (90-120)
[2018-03-30 12:09] LABS: CKMB 0.9 U/L (0.0-3.6); CREATINE KINASE 53 UL (21-215); MAGNESIUM - SERUM 1.8 mg/dL (1.8-2.4); TROPONIN-I 0.037 ng/mL (0.000-0.060)
[2018-03-30 14:47] VITALS: BP 101/63; Ht 175.3 cm; Wt 107.7 kg
[2018-03-30 17:13] VITALS: BP 104/58
[2018-03-30 20:00] VITALS: BP 96/48
[2018-03-31] VITALS: BP 83/50
[2018-03-31 04:00] VITALS: BP 118/60
[2018-03-31 05:36] LABS: BASOPHILS 0.5 % (0-2); EOSINOPHILS 1.7 % (0-7); HEMATOCRIT 47.2 % (36.0-48.0); HEMOGLOBIN 15.2 g/dL (12-16); LYMPHOCYTES 29.4 % (15-50); MCH 27.7 pg (26.0-34.0); MCHC 32.2 g/dL (31.0-37.0); MEAN PLATELET VOLUME 10.1 fL (7.4-10.4); MONOCYTES 5.6 % (2-11); NEUTROPHILS 61.8 % (40-80); PLATELET COUNT 157 10x3/uL (130-400); RBC 5.49 10x6/uL (4.00-5.40); RDW 15.7 % (11.5-14.5); WBC 8.2 10x3/uL (4.8-10.8)
[2018-03-31 05:48] LABS: ALBUMIN 2.9 g/dL (3.4-5.0); ANION GAP 16.9 mmol/L (8-16); BILIRUBIN - TOTAL 0.27 mg/dL (0.2-1.3); CALCIUM 7.8 mg/dL (8.5-10.1); CARBON DIOXIDE 26.5 mmol/L (21.0-32.0); POTASSIUM - SERUM 5.4 mmol/L (3.5-5.1); PROTEIN - SERUM 7.4 g/dL (6.4-8.2)
[2018-03-31 05:51] LABS: CREATININE - SERUM 7.3 mg/dL (0.6-1.3)
[2018-03-31 08:30] VITALS: BP 103/54
[2018-03-31 10:04] LABS: CKMB 1.2 U/L (0.0-3.6); CREATINE KINASE 54 UL (21-215)
[2018-03-31 10:05] LABS: TROPONIN-I 0.086 ng/mL (0.000-0.060)
[2018-03-31 12:58] VITALS: BP 105/57
[2018-03-31 21:12] VITALS: BP 86/46
[2018-04-01 00:20] VITALS: BP 99/57
[2018-04-01 05:44] VITALS: BP 101/61
[2018-04-01 09:38] LABS: BASOPHILS 0.3 % (0-2); EOSINOPHILS 1.4 % (0-7); HEMATOCRIT 45.2 % (36.0-48.0); HEMOGLOBIN 14.9 g/dL (12-16); IMMATURE GRANULOCYTES 0.8 % (0-5); LYMPHOCYTES 19.3 % (15-50); MCH 28.1 pg (26.0-34.0); MCV 85.3 fL (80.0-100.0); MEAN PLATELET VOLUME 10.2 fL (7.4-10.4); MONOCYTES 5.5 % (2-11); NEUTROPHILS 72.7 % (40-80); PLATELET COUNT 187 10x3/uL (130-400); RDW 15.6 % (11.5-14.5)
[2018-04-01 09:40] LABS: WBC 11.8 10x3/uL (4.8-10.8)
[2018-04-01 10:10] LABS: ALKALINE PHOSPHATASE 123 U/L (46-116); ALT (SGPT) 16 U/L (10-68); BILIRUBIN - TOTAL 0.33 mg/dL (0.2-1.3); CALC OSMOLALITY 279 mosm/kg (275-300); CALCIUM 7.7 mg/dL (8.5-10.1); CHLORIDE - SERUM 92 mmol/L (98-107); CKMB 1.8 U/L (0.0-3.6); CREATINE KINASE 39 UL (21-215); CREATININE - SERUM 7.4 mg/dL (0.6-1.3); GLUCOSE 240 mg/dL (74-106); MAGNESIUM - SERUM 1.7 mg/dL (1.8-2.4); PHOSPHOROUS 8.1 mg/dL (2.5-4.9); PROTEIN - SERUM 7.1 g/dL (6.4-8.2); SODIUM 132 mmol/L (136-145); TROPONIN-I 0.236 ng/mL (0.000-0.060); UREA NITROGEN 32 mg/dL (7-18); eGFR NON AFRICAN AMERICAN 6 mL/min (90-120)
[2018-04-01 13:33] VITALS: BP 136/72
[2018-04-01 16:28] VITALS: BP 125/80
[2018-04-01 21:17] VITALS: BP 92/59
[~2018-04-02] VITALS: Ht 175.3 cm; Wt 107.7 kg
--- NOTE | ~2018-04-02 | HP ---
PATIENT: CASA WALLACE MEDICAL RECORD: [id number] ACCOUNT: [id number] LOCATION:.[facility].2115 : 61 ADMISSION DATE: 03/30/18 PCP: No PCP HISTORY AND PHYSICAL EXAMINATION DIAGNOSES: 1. Unstable angina. 2. Coronary artery disease. 3. Previous PTCA stent. 4. Smoking history. 5. COPD. 6. Atrial fibrillation. 7. Hyperlipidemia. 8. End-stage renal failure, on dialysis. HISTORY OF PRESENT ILLNESS: Ms. Maribel Cho presents with chest pain started in dialysis today. She continues to have the chest pain, it is like that of her previous angina. She does have a history of coronary artery disease, previous PTCA stent approximately 6 months ago. PHYSICAL EXAMINATION: GENERAL APPEARANCE: Well-nourished, well-developed, appears stated age. Level of distress, comfortable. PSYCHIATRIC: Mental status, alert, normal affect. Orientation, oriented to time, place and person. EYES: Lids and conjunctiva, noninjected. No discharge, no pallor. ENT: Lips, teeth, gums, normal dentition. Oropharynx, no cyanosis, no pallor. NECK: Carotid arteries, bilateral normal upstroke, no bruits, no thrills. JUGULAR VEINS: No jugular venous pressure or distention. CERVICAL LYMPH NODES: Nontender, nonenlarged. THYROID: Not enlarged. Nontender. No nodules. LUNGS: Respiratory effort, unlabored. CHEST: Normal curvature. No thoracic deformity. No chest wall tenderness. Percussion, resonant. Auscultation, clear. No wheezes, no rales, no rhonchi. CARDIOVASCULAR: Precordial exam, nondisplaced. No heaves or pericardial thrills. Rate and rhythm, regular. Heart sounds, normal S1, normal S2. No S3, no gallop, no rub. Systolic murmur, not heard. Diastolic murmur, not heard. EXTREMITIES: No cyanosis, no edema. Peripheral pulses, full and equal in all extremities, except as noted. No bruits appreciated. ABDOMEN: Soft, nondistended. Normal aorta. No bruit. Nontender. No masses. Liver, nontender, no hepatomegaly. Spleen, nontender, no splenomegaly. MUSCULOSKELETAL: No joint tenderness. No joint swelling. No erythema. NEUROLOGICAL: Normal gait, normal strength, normal tone. SKIN: Warm and dry. REVIEW OF SYSTEMS: The patient reports easy bruising but reports no swollen glands. The patient reports no fever, no night sweats, no significant weight gain, no significant weight loss. No significant exercise tolerance. The patient reports no dry eyes, no irritation, no vision change. Patient reports no difficulty hearing and no ear pain. Patient reports no frequent nose bleeds or nose and sinus problems. Patient reports on arm pain on exertion. No shortness of breath while lying down. No history of heart murmur. Patient reports no cough, no wheezing or coughing up blood. Patient reports no abdominal pain, no vomiting. Normal appetite. No diarrhea and not vomiting blood. No nausea and no constipation. Patient reports no incontinence. No HISTORY AND PHYSICAL [id number] CASA WALLACE difficulty urinating. No hematuria. No increased frequency. Patient reports no muscle aches. No weakness, no arthralgias, no back pain. No swelling of the extremities. Patient reports no abnormal mole, no jaundice, no rashes. Reports no loss of consciousness. No weakness and no numbness. No seizures, dizziness, or headaches. The patient reports no depression, no sleep disturbance, feeling safe in a relationship and no alcohol abuse. Patient reports on fatigue. Reports no runny nose or sinus pressure. No itching, no hives, and no frequent sneezing. OVERALL IMPRESSION: Unstable angina with continued chest pain, abnormal ECG suggestive of ongoing ischemia. We will proceed with coronary angiography. Further care depends upon the findings of the angiography. TRANSINT:[id number] Voice Confirmation ID: [id number] DOCUMENT ID: [id number] HANNA THOMAS MD at 1616 CC: [id number] DICTATION DATE: 03/30/18 1336 [employer] SUPERVISOR: 03/30/18 1342 REG [facility] [address] [place] [address]
--- NOTE | ~2018-04-02 | OP ---
PATIENT NAME: CASA WALLACE MEDICAL RECORD: [id number] :61 LOCATION:D.M2 D.2115 ADMISSION DATE: SURGEON: HANNA THOMAS MD DATE OF OPERATION: 03/30/2018 PROCEDURES: 1. PTCA stent left circumflex. 2. Left heart catheterization. 3. Selective coronary angiography. 4. Left ventriculogram. PROCEDURE IN DETAIL: After informed consent was obtained and after detailed description of risks, benefits as well as alternative therapies, the patient elected to proceed with angiogram and angioplasty. The right femoral area was prepped and draped in normal sterile fashion. Right femoral artery was cannulated via modified Seldinger technique with placement of 7-Rwandan sheath. All catheters exchanged through this sheath. FINDINGS: The left ventriculogram was performed in standard 30-degree ROGERS view, reveals good cardiac wall motion throughout all segments. Overall ejection fraction estimated 60%. SELECTIVE CORONARY ANGIOGRAPHY: 1. Left main is with no significant angiographic disease. 2. Left anterior descending has moderate irregularities, but no flow-limiting stenosis. 3. The left circumflex has a previously placed stent. This is widely patent; however, there is a new area of 70% to 75% stenosis in the distal vessel. 4. Right coronary has moderate irregularities, but no flow-limiting stenosis. PTCA STENT OF THE LEFT CIRCUMFLEX: The stent used was a 3.0 x 12 mm [place]. Result was 0% residual stenosis. OVERALL IMPRESSION: Successful percutaneous transluminal coronary angioplasty stent of the left circumflex going from 75% initial stenosis to 0% residual. TRANSINT:[id number] Voice Confirmation ID: [id number] DOCUMENT ID: [id number] HANNA THOMAS MD at 1616 CC: [id number] DICTATION DATE: 03/30/18 1410 [employer] SYSTEM[employer] DEVELOPER: 03/30/18 [address] [place] [address]
--- NOTE | ~2018-04-02 | HEMODYNAMI ---
PATIENT:CASA WALLACE MEDICAL RECORD: [id number] : 61 LOCATION:[facility] ADMISSION DATE: 03/30/18 Generatedon:03/30/201814:16 Patient name: CASA LEYVA Patient #: [id number] SN: : 1965 Date of study: 03/30/2018 Page: Of Hemodynamic Procedure Report Patient Data Patient Demographics Procedure consent was obtained First Name: CASA Gender: Female Last Name: IGNACIO LEYVA : 1965 Middle Initial: JOSEPHINE Age: 52 year(s) Patient #: [id number] Race: Black Additional ID: [id number] Contact details [address]: [address] [place] [address] [address]IVE State: [place] City: [place] Zip code: [address] Past Medical History Allergies Allergen Reaction Date Comments Reported Penicillins 08/09/2016 Natural rubber 01/20/2017 and latex Other allergy 01/20/2017 Lesley De Souza Admission Admission Data Admission Date: 03/30/2018 Admission Time: 13:21 Weight (lbs.): 211.64 Weight (kg.): 96 Procedure Procedure Types Cath Procedure Diagnostic Procedure LHC LHC w/Coronaries Sedation Charges Moderate Sedation up to 30 minutes PCI Procedure Coronary Stent Coronary Stent Initial Procedure Description Procedure Date Procedure Date: 03/30/2018 Procedure Start Time: 13:43 Procedure End Time: 14:16 Procedure Staff Name Function Shawn Regalado MD Performing Physician Mayda Kaufman RT Scrub Stephan Cesar RT Monitor Jackson Lara RT Cup Setter Lockstitch Louise Coe RN Nurse Johnathan Gorman RN Nurse Procedure Data Cath Procedure Fluoroscopy Diagnostic fluoroscopy Total fluoroscopy Time: 9.5 time: 9.5 min min Diagnostic fluoroscopy Total fluoroscopy dose: dose: 2042 mGy 2042 mGy Contrast Material Contrast Material Type Amount (ml) Isovue 300 199 Entry Location Entry Primary Successful Side Size Upsize Upsize Entry Closure Succes sful Closure Location (Fr) 1 (Fr) 2 (Fr) Remarks Device Remarks Femoral Right 6 Fr 7 Fr Exoseal artery Short Short Estimated blood loss: 10 ml Diagnostic catheters Device Type Used For End Catheter Placement MULTIPACK Pigtail 5 Fr Procedure catheter MULTIPACK JL 4.0 5Fr Procedure catheter MULTIPACK 3DRC 5Fr Procedure catheter Procedure Complications No complications Procedure Medications Medication Administration Route Dosage Oxygen etCO2 Nasal cannula 2 l/min Heparin Flush Bag added to field 2 bags (1000units/500ml NS) 0.9% NaCl I.V. 100 ml/hr Heparin Bolus I.V. 4000 units Integrilin (Bolus I.V. 8.5 ml 2mg/ml) Fentanyl I.V. 50 mcg Versed I.V. 1 mg Fentanyl I.V. 50 mcg Versed I.V. 1 mg Plavix P.O. 600 mg Integrilin (Bolus wasted 1.5 ml 2mg/ml) Hemodynamics Rest Heart Rate: 70 (bpm) Snapshots Pre Cath Intra NCS Post Cath Vital Signs Time Heart Resp SPO2 etCO2 NIBP (mmHg) Rhythm Pain Sedation Rate (ipm) (%) (mmHg) Status Level (bpm) 13:34:28 81 17 99 23.2 133/87(119) NSR 0 (11) 10(A) , No pain 13:38:36 69 17 99 37.5 117/68(94) NSR 0 (11) 10(A) , No pain 13:42:34 70 16 100 39.7 107/80(85) NSR 0 (11) 9(A) , No pain 13:46:33 69 17 96 38.9 106/61(79) NSR 0 (11) 9(A) , No pain 13:50:33 66 16 97 27.7 96/60(77) NSR 0 (11) 9(A) , No pain 13:54:28 66 17 98 43.4 109/64(89) NSR 0 (11) 9(A) , No pain 13:58:32 66 16 98 34.4 97/55(75) NSR 0 (11) 9(A) , No pain 14:02:30 66 17 100 26.9 107/60(74) NSR 0 (11) 9(A) , No pain 14:06:29 65 17 99 41.9 115/63(91) NSR 0 (11) 10(A) , No pain 14:09:22 66 16 99 40.4 103/63(83) NSR 0 (11) 10(A) , No pain 14:13:21 66 15 29.9 109/65(86) NSR 0 (11) 10(A) , No pain Medications Time Medication Route Dose Verified Delivered Reason Note s Effectiveness by by 13:33:10 Oxygen etCO2 2 Louisebenito Cartyrey Per physician Nasal l/min Saravanan Regalado MD cannula RN 13:33:17 Heparin Flush added 2 Louise Shawn used for Bag to bags Saravanan Regalado MD procedure (1000units/500ml field RN NS) 13:33:25 0.9% NaCl I.V. 100 Louise Shawn Per physician ml/hr Saravanan Regalado MD RN 13:38:39 Fentanyl I.V. 50 Louise Shawn for sedation mcg Saravanan Regalado MD RN 13:38:48 Versed I.V. 1 mg Louise Shawn for sedation Saravanan Regalado MD RN 13:54:29 Heparin Bolus I.V. 4000 Louisebenito Cartyrey for units Saravanan Regalado MD anticoagulation RN 13:54:42 Integrilin I.V. 8.5 Louise Shawn Per physician (Bolus 2mg/ml) ml Saravanan Regalado MD RN 13:56:13 Fentanyl I.V. 50 Louise Shawn for sedation mcg Saravanan Regalado MD RN 13:56:17 Versed I.V. 1 mg Louise Shawn for sedation Saravanan Regalado MD RN 14:08:02 Plavix P.O. 600 Louisebenito Cartyrey for mg Saravanan Regalado MD antiplatelet RN therapy 14:12:05 Integrilin wasted 1.5 Shawn Louise Per physician (Bolus 2mg/ml) ml Fabricio Tompkinselor mortgage servicing specialist Log Time Note 13:12:22 Jackson BAILEY(R) (CV) sent for patient. Start room use. 13:12:26 Time tracking: Regular hours (M-F 7:00 - 5:00) 13:12:31 Plan of Care:Hemodynamics will remain stable., Cardiac rhythm will remain stable., Comfort level will be maintained., Respiratory function will remain adequate., Patient/ family verbilizes understanding of procedure., Procedure tolerated without complication., Recovers from procedure without complications.. 13:12:33 Signed procedure consent form obtained from patient. 13:28:59 Patient received from ED to CCL 1 Alert and oriented. Tansferred to table in Supine position. 13:29:00 Warm blankets applied, and cruzito hugger turned on for patient comfort. 13:29:00 Correct patient and procedure confirmed by team. 13:29:01 ECG and BP/O2 sat monitors applied to patient. 13:29:41 Patient Weight : 211.64 lbs 13:30:04 H&P Date Dictated: 03/30/2018 Emergent; H&P N/A. 13:30:05 Pre-procedure instructions explained to patient. 13:30:05 Pre-op teaching completed and patient verbalized understanding. 13:30:08 Family in waiting room. 13:30:10 Patient NPO since Midnight. 13:30:13 Is the patient allergic to Iodine/contrast media? No. 13:30:15 Is patient on blood thinner?Yes 13:30:20 ACC The patient was administered the following blood thiners within the last 24 hours: Eliquis 13:30:21 Patient diabetic? Yes. 13:30:23 If diabetic: On Metformin? No 13:30:26 Previous problem with sedation/anesthesia? No ? 13:30:26 Snore? Yes 13:30:30 Sleep apnea? No 13:30:31 Deviated septum? No 13:30:33 Sticks out tongue? Yes 13:30:35 Opens mouth fully? Yes 13:30:39 Airway obstruction? Yes COPD 13:30:43 Dentures? No ? 13:30:47 Pre procedure: right dorsailis pedis pulse 1+ Palpable, but thready & weak; easily obliterated 13:30:49 Patient pain scale 0/10 ?. 13:31:22 IV patent on arrival in left antecubital with 0.9% NaCl at O. 13:31:33 Lab results completed and on chart. 13:31:56 Right groin area was prepped with chlora-prep and draped in sterile fashion 13:32:06 Alarms reviewed by R. N. 13:32:06 Sharps counted by scrub and verified by R.N. 13:32:16 Full Disclosure recording started 13:32:21 Use device set Femoral Dx 13:32:23 ACIST Manifold (92067) opened to sterile field. 13:32:23 ACIST Hand Control (54993) opened to sterile field. 13:32:25 ACIST Syringe (64116) opened to sterile field. 13:32:25 Bag Decanter (2002S) opened to sterile field. 13:32:26 Medline Cath Pack ([id number]) opened to sterile field. 13:32:35 Tegaderm 4 x 4 (1626W) opened to sterile field. 13:32:37 DIAGNOSTIC WIRE .035 260cm J wire (375807) opened to sterile field. 13:32:38 DIAGNOSTIC Multipack 5Fr catheter set (YU7777) opened to sterile field. 13:32:39 SHEATH Prelude 6Fr 0.035 (TTB-9H-10-035) opened to sterile field. 13:33:10 Oxygen 2 l/min etCO2 Nasal cannula was administered by Shawn Regalado MD; Per physician; 13:33:17 Heparin Flush Bag (1000units/500ml NS) 2 bags added to field was administered by Shawn Regalado MD; used for procedure; 13:33:25 0.9% NaCl 100 ml/hr I.V. was administered by Shawn Regalado MD; Per physician; 13:34:01 Vital chart was started 13:34:11 Baseline sample Acquired. 13:34:16 Rhythm: sinus rhythm 13:37:17 Physician arrived 13:37:17 --------ALL STOP TIME OUT------ 13:37:18 Final Timeout: patient, procedure, and site verified with staff and physician. All members of the team are in agreement. 13:37:20 Right groin site verified by team. 13:37:23 Physical assessment completed. ASA score P 3 - A patient with severe systemic disease as per Shawn Regalado MD. 13:37:26 Sedation plan: IV Moderate Sedation Medication:Versed, Fentanyl 13:38:39 Fentanyl 50 mcg I.V. was administered by Shawn Regalado MD; for sedation; 13:38:48 Versed 1 mg I.V. was administered by Shawn Regalado MD; for sedation; 13:43:31 Procedure started. 13:43:33 Local anesthetic to right femoral artery with Lidocaine 2% by Shawn Regalado MD.INITIAL ACCESS ONLY 13:43:49 A 6 Fr Short sheath was inserted into the Right Femoral artery 13:44:18 Zero performed for pressure channel P1 13:44:38 Zero performed for pressure channel P1 13:45:34 A MULTIPACK Pigtail 5 Fr catheter was advanced over the wire and used for Procedure. 13:45:57 LV gram done using ROGERS 13:45:59 Injector settings: Ml/sec: 10, Volume: 20, 13:46:07 EF : 60 % 13:46:13 Catheter exchanged over wire. 13:46:20 A MULTIPACK JL 4.0 5Fr catheter was advanced over the wire and used for Procedure. 13:46:36 LCA angiography performed. 13:48:22 A MULTIPACK 3DRC 5Fr catheter was advanced over the wire and used for Procedure. 13:48:23 RCA angiography performed. 13:48:36 GUIDE 6FR XBLAD 3.5 catheter ([id number]) opened to sterile field. 13:49:28 Catheter removed. 13:49:34 6 Fr xblad 3.5 guide catheter was inserted over the wire 13:50:44 CHOICE PT Extra Support 182cm wire ([id number]) opened to sterile field. 13:50:52 choice pt es wire advanced. 13:50:53 Wire advanced across lesion. 13:52:22 Wire removed. unable to get back-up support 13:52:27 Guide Catheter removed. unable to get back-up support 13:52:38 GUIDE 6FR XBLAD 4.0 catheter ([id number]) opened to sterile field. 13:52:49 6 Fr xblad 4 guide catheter was inserted over the wire 13:53:10 WHISPER 300cm guide wire ([id number]) opened to sterile field. 13:53:39 whisper wire advanced. 13:54:29 Heparin Bolus 4000 units I.V. was administered by Shawn Regalado MD; for anticoagulation; 13:54:42 Integrilin (Bolus 2mg/ml) 8.5 ml I.V. was administered by Shawn Regalado MD; Per physician; 13:56:13 Fentanyl 50 mcg I.V. was administered by Shawn Regalado MD; for sedation; 13:56:17 Versed 1 mg I.V. was administered by Shawn Regalado MD; for sedation; 13:57:40 The EMERGE OTW 2.5 x 15 balloon ([id number]) was advanced and then removed because of failure to cross lesion 13:57:47 Wire removed. unable to get back-up support 13:57:57 Guide catheter removed. 13:58:53 SHEATH 7FR Elmore (LOL575) opened to sterile field. 13:59:05 Sheath upsized to a 7 Fr Short. 13:59:24 GUIDE 7FR EBU 4.0 catheter ([id number]) opened to sterile field. 13:59:37 7 Fr ebu 4 guide catheter was inserted over the wire 13:59:40 whisper wire advanced. 13:59:45 Wire advanced across lesion. 14:01:18 Inflate balloon Inflation number: 1 A EMERGE OTW 2.5 x 15 balloon ([id number]) was prepped and advanced across the Mid CX, then inflated to 13 GRISELDA for 0:10 (min:sec). 14:01:51 Balloon removed over the wire. 14:03:05 Wire removed. 14:03:42 whisper wire advanced. 14:03:43 Wire advanced across lesion. 14:04:37 Place stent Inflation Number: 2 A AZUL RX 3.0 x 12 stent ([id number]) was prepped and advanced across the Mid CX. The stent was deployed at 9 GRISELDA for 0:10 (min:sec). 14:04:38 Stent catheter was removed intact over wire. 14:04:39 Wire removed. 14:04:40 Guide catheter removed. 14:04:45 EXOSEAL 7Fr (EX700) opened to sterile field. 14:05:13 Sheath removed intact; hemostasis achieved with Exoseal to the Right Femoral artery. 14:05:14 Procedure ended.(Physican Out) 14:05:47 Fluoroscopy time 09.50 minutes. 14:05:50 Fluoroscopy dose: 2042 mGy 14:05:50 Flurop Dose total: 2041 14:08:02 Plavix 600 mg P.O. was administered by Shawn Regalado MD; for antiplatelet therapy; 14:12:05 Integrilin (Bolus 2mg/ml) 1.5 ml wasted was administered by Louise Coe RN; Per physician; 14:12:33 Contrast amount:Isovue 300 199ml. 14:12:34 Sharps counted by scrub and verified by R.N. 14:12:35 Insertion/operative site no bleeding no hematoma. 14:12:38 Post-op/insertion site Right Femoral artery dressed using a 4 x 4 and Tegaderm. 14:12:41 Post right femoral artery:stable, soft, clean and dry 14:12:42 Post Procedure Pulses reassessed and unchanged 14:12:44 Post-procedure physical assessment completed. ASA score P 3 - A patient with severe systemic disease as per Shawn Regalado MD. 14:12:51 Post procedure rhythm: unchanged. 14:12:54 Estimated blood loss: 10 ml 14:12:55 Post procedure instruction explained to patient.Patient verbalizes understanding. 14:12:55 Patient needs reinforcement of post procedure teaching. 14:15:04 Procedure type changed to Cath procedure, Diagnostic procedure, LHC, LHC w/Coronaries, Sedation Charges, Moderate Sedation up to 30 minutes, PCI procedure, Coronary Stent, Coronary Stent Initial 14:15:57 Procedure and supply charges have been captured, reviewed, submitted and are correct. 14:15:59 Procedure Complication : No complications 14:16:01 Vital chart was stopped 14:16:01 See physician's report for complete and final results. 14:16:03 Report given to PCU. 14:16:06 Patient transfered to PCU with Stretcher. 14:16:08 Procedure ended. 14:16:08 Full Disclosure recording stopped 14:16:14 End room use (Document Last) Intervention Summary Intervention Notes Time ActionType Lesion and Equipment Used Action# Pressure Duration Attributes 13:57:40 Discard EMERGE OTW 2.5 Balloon x 15 balloon ([id number]) 14:01:18 Inflate Mid CX EMERGE OTW 2.5 1 13 00:10 balloon x 15 balloon ([id number]) 14:04:37 Place stent Mid CX AZUL RX 3.0 x 2 9 00:10 12 stent ([id number]) Device Usage Item Name Manufacture Quantity Catalog Number Hospital Part Current Minimal Lot# / Charge Number Stock Stock Serial# Code ACIST Manifold Acist 1 79647 [id number] 172006 778818 5 (36084) [employer] Inc ACIST Hand Acist 1 85102 345969 293614 759130 5 Control (59769) [employer] Inc ACIST Syringe Acist 1 26309 005797 328696 673452 20 (58038) [employer] Inc Bag Decanter Microtek 1 2001S 152803 95074 978597 5 (2001S) Medical Inc. Medline Cath Cardinal 1 [id number] 736696 25642 840081 5 Pack Health ([id number]) Tegaderm 4 x 4 3M 1 1626W 332492 570751 027404 5 (1626W) DIAGNOSTIC WIRE St [place] 1 751352 300073 019800 352377 30 .035 260cm J wire (867956) DIAGNOSTIC Cardinal 1 IU2610 356973 39875 663148 30 Multipack 5Fr Health catheter set (WZ0414) MULTIPACK Cardinal 1 937887 5 Pigtail 5 Fr Health catheter MULTIPACK JL Cardinal 1 269835 5 4.0 5Fr Health catheter MULTIPACK 3DRC Cardinal 1 233038 5 5Fr catheter Health GUIDE 6FR XBLAD Cardinal 1 [id number] 453414 741007 784893 10 3.5 [place] ([id number]) SHEATH Prelude Merit 1 UAC-4M-41-35 461941 8797982 596468 5 6Fr 0.035 Medical (RHQ-0M-82-035) CHOICE PT Extra Dunlap 1 [id number] 328987 931178 824440 5 Support 182cm Scientific wire ([id number]) GUIDE 6FR XBLAD Cardinal 1 [id number] 380162 315081 779019 3 4.0 catheter Akella (00523938) WHISPER 300cm Castañeda 1 [id number] 602940 455977 261699 5 guide wire Vascular ([id number]) EMERGE OTW 2.5 Dunlap 1 [id number] 090277 660125 270019 5 [id number] x 15 balloon Scientific ([id number]) SHEATH 7FR Terumo 1 QUW839 245411 873803 193843 5 Elmore (XEN066) GUIDE 7FR EBU Medtronic 1 [id number] 050228 231736 637328 0 4.0 catheter (AA3SND89) AZUL RX 3.0 x Medtronic 1 [id number] 260594 7558229 506363 5 [id number] 12 stent ([id number]) EXOSEAL 7Fr Cardinal 1 EX700 087910 324213 209964 5 (EX700) Health Signature Audit Tyler Stage Time Signature Unsigned Intra-Procedure 03/30/2018 Stephan Cesar 2:16:52 PM RT(R) Signatures Monitor : Stephan Cesar RT Signature : Date : Time : [address] [place] [address]
[2018-04-02 01:32] VITALS: BP 110/53
[2018-04-02 05:10] LABS: BASOPHILS 1.5 % (0-2); EOSINOPHILS 1.8 % (0-7); HEMATOCRIT 42.5 % (36.0-48.0); HEMOGLOBIN 13.7 g/dL (12-16); IMMATURE GRANULOCYTES 0.8 % (0-5); LYMPHOCYTES 22.8 % (15-50); MCH 27.8 pg (26.0-34.0); MCHC 32.2 g/dL (31.0-37.0); MCV 86.2 fL (80.0-100.0); MEAN PLATELET VOLUME 10.6 fL (7.4-10.4); NEUTROPHILS 66.1 % (40-80); PLATELET COUNT 184 10x3/uL (130-400); RBC 4.93 10x6/uL (4.00-5.40); RDW 15.9 % (11.5-14.5); WBC 9.8 10x3/uL (4.8-10.8)
[2018-04-02 05:52] VITALS: BP 94/64
[2018-04-02 05:58] LABS: ALBUMIN 2.7 g/dL (3.4-5.0); ALKALINE PHOSPHATASE 115 U/L (46-116); ALT (SGPT) 15 U/L (10-68); AMYLASE - SERUM 179 U/L (25-115); BILIRUBIN - TOTAL 0.33 mg/dL (0.2-1.3); CALCIUM 7.8 mg/dL (8.5-10.1); CARBON DIOXIDE 26.4 mmol/L (21.0-32.0); CHLORIDE - SERUM 92 mmol/L (98-107); CHOL - HDL RATIO 3.3 ratio (2.3-4.1); CHOLESTEROL, TOTAL 194 mg/dL (0-200); CKMB 1.3 U/L (0.0-3.6); CREATINE KINASE 52 UL (21-215); CREATININE - SERUM 9.1 mg/dL (0.6-1.3); DIGOXIN 3.39 ng/mL (0.90-2.00); GLUCOSE 198 mg/dL (74-106); HDL CHOLESTEROL 59 mg/dL (32-96); LDL CHOLESTEROL 101 mg/dL (0-100); LDL-HDL RATIO 1.7 ratio (1.5-3.5); LIPASE 383 U/L (73-393); PROTEIN - SERUM 7.2 g/dL (6.4-8.2); SODIUM 133 mmol/L (136-145); TRIGLYCERIDE 171 mg/dL (30-200); eGFR NON AFRICAN AMERICAN 5 mL/min (90-120)
[2018-04-02 06:11] LABS: CALC OSMOLALITY 283 mosm/kg (275-300); PHOSPHOROUS 9.1 mg/dL (2.5-4.9); UREA NITROGEN 46 mg/dL (7-18)
[2018-04-02 06:12] LABS: POTASSIUM - SERUM 5.5 mmol/L (3.5-5.1); TROPONIN-I 0.174 ng/mL (0.000-0.060)
[2018-04-02 08:38] VITALS: BP 129/71
[2018-04-02 13:49] VITALS: BP 100/80
[~2018-04-02 15:02] MED LIST changes: +BUPROPION XL150 MG PO; +GABAPENTIN100 MG PO; -LANOXIN250 MCG; +LEVEMIR IN100 UNITS/ SC; +MYSOLINE 50 MG50 MG PO; +XANAX0.25 MG PO
== END | disposition home health service (06) | DRG 246 ==
LOC: D.ER 03-30 11:06 → D.M2 03-30 13:21 → D.CATH 03-30 13:21 → EDSTATUS 03-30 13:46 → D.M2 03-30 14:25 → D.CATH 03-30 14:25 → D.M2 03-31 07:22 → D.SDCHOLD 03-31 07:22 → D.M2 03-31 07:30 → D.CATH 04-01 10:54 → D.M2 04-01 10:54 → D.CATH 04-01 10:56 → D.M2 15:02 → EDSTATUS 04-03 09:12
PROVIDERS: Family Medicine; Internal Medicine; Internal Medicine Interventional Cardiology
PROC: 4A023N7 Measurement of Cardiac Sampling and Pressure, Left Heart, Percutaneous Approach (ICD-10-PCS; 2018-03-30)
PROC: B2111ZZ Fluoroscopy of Multiple Coronary Arteries using Low Osmolar Contrast (ICD-10-PCS; 2018-03-30)
PROC: B2151ZZ Fluoroscopy of Left Heart using Low Osmolar Contrast (ICD-10-PCS; 2018-03-30)
PROC: 027034Z Dilation of Coronary Artery, One Artery with Drug-eluting Intraluminal Device, Percutaneous Approach (ICD-10-PCS; 2018-03-30 13:15)
PROC: 5A1D70Z Performance of Urinary Filtration, Intermittent, Less than 6 Hours Per Day (ICD-10-PCS; principal; 2018-03-31)
DX: I25.110 Atherosclerotic heart disease of native coronary artery with unstable angina pectoris (principal); N18.6 End stage renal disease; I13.2 Hypertensive heart and chronic kidney disease with heart failure and with stage 5 chronic kidney disease, or end stage renal disease; E11.22 Type 2 diabetes mellitus with diabetic chronic kidney disease; I50.9 Heart failure, unspecified; Z99.2 Dependence on renal dialysis; E66.01 Morbid (severe) obesity due to excess calories; Z68.31 Body mass index [BMI] 31.0-31.9, adult; R94.31 Abnormal electrocardiogram [ECG] [EKG]; I95.9 Hypotension, unspecified; I48.2 Chronic atrial fibrillation; E78.5 Hyperlipidemia, unspecified; F41.9 Anxiety disorder, unspecified; F32.9 Major depressive disorder, single episode, unspecified; E87.5 Hyperkalemia; Z95.5 Presence of coronary angioplasty implant and graft

== ENCOUNTER 2018-04-23 10:31 | Inpatient (IN) | payer MEDICARE ==
[~2018-04-23] VITALS: Ht 175.3 cm; Wt 96.6 kg
--- NOTE | ~2018-04-23 | HEMODYNAMI ---
PATIENT:CASA WALLACE MEDICAL RECORD: [id number] : 61 LOCATION:[facility] ADMISSION DATE: 04/23/18 Generatedon:04/23/201812:46 Patient name: CASA LEYVA Patient #: [id number] SN: : 1965 Date of study: 04/23/2018 Page: Of Hemodynamic Procedure Report Patient Data Patient Demographics Procedure consent was obtained First Name: CASA Gender: Female Last Name: IGNACIO LEYVA : 1965 Middle Initial: JOSEPHINE Age: 52 year(s) Patient #: [id number] Race: Black Additional ID: [id number] Contact details [address]: [address] [place] [address] [address]IVE State: [place] City: [place] Zip code: [address] Past Medical History Allergies Allergen Reaction Date Comments Reported Penicillins 08/09/2016 Natural rubber 01/20/2017 and latex Other allergy 01/20/2017 Januvia, Keflex Other allergy 04/23/2018 PCN, Morphine,baclofen, cephalexin, latex Admission Admission Data Admission Date: 04/23/2018 Admission Time: 11:29 Admit Source: Other Room #: DCL01 Lab Results Lab Result Date: 04/23/2018 Lab Result Time: 11:10 Biochemistry Name Units Result Min Max BUN mg/dl 27 --(----)-* 7 18 Creatinine mg/dl 6.2 --(----)-* 0.6 1.3 CBC Name Units Result Min Max Hematocrit % 46.6 --(-*--)-- 42 54 Hemoglobin g/dl 15.2 --(-*--)-- 13.5 17.5 Procedure Procedure Types Cath Procedure Diagnostic Procedure [facility] w/Coronaries Sedation Charges Moderate Sedation up to 15 minutes Procedure Description Procedure Date Procedure Date: 04/23/2018 Procedure Start Time: 12:14 Procedure End Time: 12:40 Procedure Staff Name Function Shawn Regalado MD Performing Physician Zac Ruiz RT Monitor Stephan Cesar RT Scrub Ronny Burris RN Nurse Joaquin Del Valle RT Copper Tapper Procedure Data Cath Procedure Fluoroscopy Diagnostic fluoroscopy Total fluoroscopy Time: 7.5 time: 7.5 min min Diagnostic fluoroscopy Total fluoroscopy dose: dose: 1538 mGy 1538 mGy Contrast Material Contrast Material Type Amount (ml) Isovue 300 107 Entry Location Entry Primary Successful Side Size Upsize Upsize Entry Closure Succes sful Closure Location (Fr) 1 (Fr) 2 (Fr) Remarks Device Remarks Femoral Right 6 Fr 7 Fr Exoseal artery Short Short Estimated blood loss: 10 ml Diagnostic catheters Device Type Used For End Catheter Placement MULTIPACK Pigtail 5 Fr Procedure catheter MULTIPACK 3DRC 5Fr Procedure catheter Procedure Complications No complications Procedure Medications Medication Administration Route Dosage Oxygen etCO2 Nasal cannula 2 l/min Lidocaine 2% added to field 20 Heparin Flush Bag added to field 2 bags (1000units/500ml NS) 0.9% NaCl I.V. Versed I.V. 1 mg Fentanyl I.V. 50 mcg Versed I.V. 1 mg Fentanyl I.V. 50 mcg Heparin Bolus I.V. 4000 units Fentanyl I.V. 50 mcg Fentanyl I.V. 50 mcg Hemodynamics Rest HGB: 15.2 (g/dl) Heart Rate: 61 (bpm) Snapshots Pre Cath Intra NCS Post Cath Vital Signs Time Heart Resp SPO2 etCO2 NIBP Rhythm Pain Status Sedation Rate (ipm) (%) (mmHg) (mmHg) Level (bpm) 11:53:37 61 25 99 30.2 112/75(86) NSR 8 (11) , 10(A) Utterly horrible 11:57:47 61 27 98 37.1 114/73(93) NSR 8 (11) , 10(A) Utterly horrible 12:01:55 61 10 100 37.8 105/69(85) NSR 8 (11) , 10(A) Utterly horrible 12:06:07 60 14 99 34 101/61(79) NSR 8 (11) , 10(A) Utterly horrible 12:10:17 58 12 99 40.8 93/63(70) NSR 8 (11) , 10(A) Utterly horrible 12:14:22 60 14 99 28.7 96/65(78) NSR 5 (11) , 10(A) Very distressing 12:18:30 59 16 100 40 102/60(83) NSR 5 (11) , 10(A) Very distressing 12:22:42 57 17 100 39.3 103/58(80) NSR 1 (11) , 10(A) Very mild 12:26:54 53 16 98 14.3 91/52(73) NSR 1 (11) , 10(A) Very mild 12:31:00 54 16 98 43.1 99/61(76) NSR 1 (11) , 10(A) Very mild 12:35:08 59 15 98 42.4 110/67(90) NSR 1 (11) , 10(A) Very mild 12:39:22 61 26 42.4 67/40(48) NSR 1 (11) , 10(A) Very mild Medications Time Medication Route Dose Verified Delivered Reason Notes Effectiveness by by 11:56:46 Oxygen etCO2 2 Shawn Buffie used for Nasal l/min Fabricio Burris RN procedure cannula 11:57:04 Lidocaine 2% added 20ml Shawn Shawn for local to vial Fabricio Regalado MD anesthetic field 11:57:10 Heparin Flush added 2 Shawn Shawn used for Bag to bags Fabricio Regalado MD procedure (1000units/500ml field NS) 11:57:20 0.9% NaCl I.V. kvo Shawn Armasie Per physician ml/hr Fabricio Burris RN 12:11:57 Versed I.V. 1 mg Shawn Buffie for sedation Fabricio Burris RN 12:12:03 Fentanyl I.V. 50 Shawn Buffie for sedation mcg Fabricio Burris RN 12:16:01 Versed I.V. 1 mg Shawn Buffie for sedation Fabricio Burris RN 12:16:04 Fentanyl I.V. 50 Shawn Buffie for sedation mcg Fabriico Burris RN 12:20:57 Heparin Bolus I.V. 4000 Shawn Buffie for verif ied units Fabricio Burris RN anticoagulation with dr regalado 12:23:33 Fentanyl I.V. 50 Shawn Buffie for sedation mcg Fabricio Burris RN 12:26:34 Fentanyl I.V. 50 Shawn Buffie for sedation mcg Tauth MD Burris dry room attendant Log Time Note 11:35:32 Informed consent obtained and on chart 11:35:35 Admit Source: Other 11:35:55 Diagnostic Cath status Elective 11:35:56 Joaquin Del Valle RT(R) sent for patient. Start room use. 11:35:57 Time tracking: Regular hours (M-F 7:00 - 5:00) 11:36:01 Plan of Care:Hemodynamics will remain stable., Cardiac rhythm will remain stable., Comfort level will be maintained., Respiratory function will remain adequate., Patient/ family verbilizes understanding of procedure., Procedure tolerated without complication., Recovers from procedure without complications.. 11:36:11 H&P Date Dictated: 04/23/2018 Within 30 days and on chart.. 11:42:28 Patient received from ED to CCL 2 Alert and oriented. Tansferred to table in Supine position. 11:42:29 Warm blankets applied, and cruzito hugger turned on for patient comfort. 11:42:30 Correct patient and procedure confirmed by team. 11:43:09 ECG and BP/O2 sat monitors applied to patient. 11:43:11 Pre-procedure instructions explained to patient. 11:43:11 Pre-op teaching completed and patient verbalized understanding. 11:43:13 Family in waiting room. 11:43:14 Patient NPO since Midnight. 11:52:32 Vital chart was started 11:56:46 Oxygen 2 l/min etCO2 Nasal cannula was administered by Ronny Burris RN; used for procedure; 11:57:04 Lidocaine 2% 20ml vial added to field was administered by Shawn Regalado MD; for local anesthetic; 11:57:10 Heparin Flush Bag (1000units/500ml NS) 2 bags added to field was administered by Shawn Regalado MD; used for procedure; 11:57:20 0.9% NaCl kvo ml/hr I.V. was administered by Ronny Burris RN; Per physician; 11:59:07 Patient allergic to Other allergyPCN, Morphine,baclofen, cephalexin, latex 11:59:09 Is the patient allergic to Iodine/contrast media? No. 11:59:10 Is patient on blood thinner?Yes 11:59:12 ACC The patient was administered the following blood thiners within the last 24 hours: ACCPlavix 11:59:13 Patient diabetic? Yes. 11:59:14 If diabetic: On Metformin? No 11:59:20 Previous problem with sedation/anesthesia? No ? 11:59:22 Snore? Yes 11:59:22 Sleep apnea? Yes 11:59:23 Deviated septum? No 11:59:23 Opens mouth fully? Yes 11:59:24 Sticks out tongue? Yes 11:59:27 Airway obstruction? Yes COPD 11:59:30 Dentures? No ? 11:59:33 Pre procedure: right dorsailis pedis pulse 1+ Palpable, but thready & weak; easily obliterated 11:59:35 Patient pain scale 8/10 ?. 11:59:39 IV patent on arrival in left forearm with 0.9% NaCl at [facility]. 12:00:09 Lab Result : Creatinine 6.2 mg/dl 12:00:09 Lab Result : BUN 27 mg/dl 12:00:09 Lab Result : Hemoglobin 15.2 g/dl 12:00:10 Lab Result : Hematocrit 46.6 % 12:00:11 Lab results completed and on chart. 12:00:14 Right groin area was prepped with chlora-prep and draped in sterile fashion 12:00:15 Alarms reviewed by R. N. 12:00:15 Sharps counted by scrub and verified by R.N. 12:00:17 Use device set Femoral Dx 12:00:18 ACIST Syringe (73931) opened to sterile field. 12:00:18 Bag Decanter (2002S) opened to sterile field. 12:00:19 Medline Cath Pack ([id number]) opened to sterile field. 12:00:19 ACIST Hand Control (20112) opened to sterile field. 12:00:20 ACIST Manifold (28689) opened to sterile field. 12:00:21 Tegaderm 4 x 4 (1626W) opened to sterile field. 12:00:25 DIAGNOSTIC Multipack 5Fr catheter set (UV9670) opened to sterile field. 12:00:26 DIAGNOSTIC WIRE .035 260cm J wire (728307) opened to sterile field. 12:00:31 Baseline sample Acquired. 12:00:35 Rhythm: sinus rhythm 12:00:36 Full Disclosure recording started 12:10:23 Physician arrived 12:: --------ALL STOP TIME OUT------ 12:10:23 Final Timeout: patient, procedure, and site verified with staff and physician. All members of the team are in agreement. 12:10:25 Right groin site verified by team. 12:10:28 Physical assessment completed. ASA score P 3 - A patient with severe systemic disease as per Shawn Regalado MD. 12:10:31 Sedation plan: IV Moderate Sedation Medication:Versed, Fentanyl 12:11:57 Versed 1 mg I.V. was administered by Ronny Burris RN; for sedation; 12:12:03 Fentanyl 50 mcg I.V. was administered by Ronny Burris RN; for sedation; 12:14:46 Procedure started. 12:14:49 Local anesthetic to right femoral artery with Lidocaine 2% by Shawn Regalado MD.INITIAL ACCESS ONLY 12:14:55 SHEATH Prelude 6Fr 0.035 ([id number]-9E-93-035) opened to sterile field. 12:15:00 GUIDE 6FR XBLAD 4.0 catheter ([id number]) opened to sterile field. 12:15:09 A 6 Fr Short sheath was inserted into the Right Femoral artery 12:15:16 6 Fr XBLAD 4 guide catheter was inserted over the wire 12:15:26 Zero performed for pressure channel P1 12:15:29 Zero performed for pressure channel P1 12:15:32 Zero performed for pressure channel P1 12:15:36 Zero performed for pressure channel P1 12:15:39 Zero performed for pressure channel P1 12:15:42 Zero performed for pressure channel P1 12:15:45 Zero performed for pressure channel P1 12:15:47 Zero performed for pressure channel P1 12:16:01 Versed 1 mg I.V. was administered by Ronny Burris RN; for sedation; 12:16:04 Fentanyl 50 mcg I.V. was administered by Ronny Burris RN; for sedation; 12:16:21 A MULTIPACK Pigtail 5 Fr catheter was advanced over the wire and used for Procedure. 12:16:27 LV gram done using ROGERS 12:16:29 Injector settings: Ml/sec: 10, Volume: 20, 12:16:38 EF : 60 % 12:16:40 Catheter exchanged over wire. 12:16:45 A MULTIPACK 3DRC 5Fr catheter was advanced over the wire and used for Procedure. 12:16:50 RCA angiography performed. 12:17:25 Catheter exchanged over wire. 12:17:31 6 Fr XBLAD 4 guide catheter was inserted over the wire 12:19:13 LCA angiography performed. 12:20:57 Heparin Bolus 4000 units I.V. was administered by Ronny Burris RN; for anticoagulation; verified with dr regalado 12:21:51 Guide catheter removed. 12:22:14 GUIDE 7FR EBU 4.0 catheter ([id number]) opened to sterile field. 12:22:28 CHOICE PT Extra Support J 300cm guide wire ([id number]) opened to sterile field. 12:22:28 INFLATOR Merit BasixCompak (WO3525) opened to sterile field. 12:22:29 SHEATH 7FR [place] (VMF525) opened to sterile field. 12:22:30 Sheath upsized to a 7 Fr Short. 12:22:39 7 Fr EBU 4 guide catheter was inserted over the wire 12:22:43 CHOICE PT ES wire advanced. 12:22:45 Wire advanced across lesion. 12:23:33 Fentanyl 50 mcg I.V. was administered by Ronny Burris RN; for sedation; 12:25:59 Wire removed. 12:26:09 CHOICE PT Floppy J 300cm guide wire ([id number]) opened to sterile field. 12:26:17 CHOICE PT FLOPPY wire advanced. 12:26:34 Fentanyl 50 mcg I.V. was administered by Ronny Burris RN; for sedation; 12:27:24 Wire advanced across lesion. 12:27:49 Wire removed. 12:27:50 Stent catheter was removed intact over wire. 12:29:27 CHOICE FLOPPY wire advanced. 12:32:05 The AZUL OTW 2.25 x 08 stent ([id number]) was advanced then removed because of failure to cross lesion 12:32:07 Wire removed. 12:32:07 Guide catheter removed. 12:32:15 EXOSEAL 7Fr (EX700) opened to sterile field. 12:32:23 Sheath removed intact; hemostasis achieved with Exoseal to the Right Femoral artery. 12:32:25 Procedure ended.(Physican Out) 12:35:50 Fluoroscopy time 07.50 minutes. 12:35:55 Flurop Dose total: 1538 12:35:55 Fluoroscopy dose: 1538 mGy 12:36:25 Contrast amount:Isovue 300 107ml. 12:36:26 Sharps counted by scrub and verified by R.N. 12:36:29 Insertion/operative site no bleeding no hematoma. 12:36:31 Post-op/insertion site Right Femoral artery dressed using a 4 x 4 and Tegaderm. 12:36:35 Post right femoral artery:stable, soft, clean and dry 12:36:36 Post Procedure Pulses reassessed and unchanged 12:36:38 Post-procedure physical assessment completed. ASA score P 3 - A patient with severe systemic disease as per Shawn Regalado MD. 12:37:00 Post procedure rhythm: unchanged. 12:37:03 Estimated blood loss: 10 ml 12:37:04 Post procedure instruction explained to patient.Patient verbalizes understanding. 12:37:05 Patient needs reinforcement of post procedure teaching. 12:37:49 Procedure type changed to Cath procedure, Diagnostic procedure, LHC, LHC w/Coronaries, Sedation Charges, Moderate Sedation up to 15 minutes 12:40:14 Procedure and supply charges have been captured, reviewed, submitted and are correct. 12:40:16 Procedure Complication : No complications 12:40:17 Vital chart was stopped 12:40:17 See physician's report for complete and final results. 12:40:19 Report given to PCU. 12:40:21 Patient transfered to PCU with Stretcher. 12:40:24 Procedure ended. 12:40:24 Full Disclosure recording stopped Intervention Summary Intervention Notes Time ActionType Lesion and Equipment Action# Pressure Duration Attributes Used 12:32:05 Discard AZUL OTW 2.25 Stent x 08 stent ([id number]) Device Usage Item Name Manufacture Quantity Catalog Number Hospital Part Current Minimal Lot# / Charge Number Stock Stock Serial# Code ACIST Syringe Acist 1 81864 060099 663400 829357 20 (91371) Medical Systems Inc Bag Decanter Microtek 1 590731 99114 007843 5 () Medical Inc. Medline Cath Cardinal 1 [id number] 082092 09989 157794 5 Pack Health ([id number]) ACIST Hand Acist 1 64281 682324 344230 745258 5 Control (10680) Medical Systems Inc ACIST Manifold Acist 1 64206 039731 505629 472772 5 (38348) Medical Systems Inc Tegaderm 4 x 4 3M 1 1626W 221196 790246 768223 5 (1626W) DIAGNOSTIC Cardinal 1 QV9347 293211 03221 714414 30 Multipack 5Fr Health catheter set (KM9457) DIAGNOSTIC WIRE [place] 1 522127 508589 720506 259658 30 .035 260cm J wire (328721) SHEATH Prelude Merit 1 QUE-8A-57-35 272871 6409328 695607 5 6Fr 0.035 Medical (SEL-2M-15-035) GUIDE 6FR XBLAD Cardinal 1 [id number] 899725 445439 468239 3 4.0 catheter Health ([id number]) MULTIPACK Cardinal 1 667492 5 Pigtail 5 Fr Health catheter MULTIPACK 3DRC Cardinal 1 952473 5 5Fr catheter Health GUIDE 7FR EBU Medtronic 1 [id number] 708081 508212 373110 0 4.0 catheter (JJ6AJI28) CHOICE PT Extra [place] 1 [id number] 552924 526643 305622 5 Support J 300cm Scientific guide wire ([id number]) INFLATOR Merit Merit 1 SF9941 337129 294989 568632 15 BasixCompak Medical (DZ8452) SHEATH 7FR Terumo 1 STN848 106819 724047 986974 5 Brodhead (YAL984) CHOICE PT [place] 1 [id number] 066599 695078 325950 5 Floppy J 300cm Scientific guide wire ([id number]) AZUL OTW 2.25 x Medtronic 1 [id number] 739196 26009 258525 5 [id number] 08 stent ([id number]) EXOSEAL 7Fr Cardinal 1 EX700 815896 990603 320160 5 (EX700) Health Signature Audit [place] Stage Time Signature Unsigned Intra-Procedure 04/23/2018 Stephan Cesar 12:46:11 PM RT(R) Signatures Monitor : Zac Ruiz RT Signature : Date : Time : [facility] [address] [place] [address]
--- NOTE | ~2018-04-23 | MORECARE ---
CASE MANAGEMENT DISCHARGE SUMMARY PATIENT: CASA WALLACE UNIT: [id number] ADM DATE: 04/23/18 AGE: 52 : 61 SEX: F ROOM/BED: D.2117 AUTHOR: DAMEON PASTRANA PHYSICIAN: REFERRING PHYSICIAN: NATHANIEL KIM MD DATE OF SERVICE: 04/24/18 Discharge Plan Patient Name: CASA WALLACE Facility: [facility]:[place] : 1965 Planned Disposition: Home with Home Health Anticipated Discharge Date: 04/24/18 Discharge Date: Expected LOS: 1 Initial Reviewer: [email or web address] Initial Review Date: 04/24/2018 Generated: 04/24/18 2:13 pm External Providers External Provider: [facility] Next Contact Date: 04/24/2018 Service Request Date: Service Type: Resolution: Reviewer: Comments: Patient Name: CASA WALLACE Page [phone] at 1313 All edits/amendments must be made on the electronic document DICTATION DATE: 04/24/18 1313 BUYER INTERNSHIP: PAULA 04/24/18 1313 RPT#: [id number] CO DATE: STATUS: ADM IN [facility] [address] [place] [address] END OF REPORT
--- NOTE | ~2018-04-23 | CN ---
PATIENT NAME:CASA WALLACE MEDICAL RECORD: [id number] : 61 LOCATION:D. D.2117 ADMIT DATE: 04/23/18 ACCOUNT: [id number] CONSULTING PHYSICIAN: HANNA THOMAS MD REFERRING PHYSICIAN: NATHANIEL KIM MD DATE OF CONSULTATION: 04/23/2018 DIAGNOSES: 1. Unstable angina. 2. Coronary artery disease. 3. Recent PTCA and stent. 4. End-stage renal failure, on dialysis. 5. Hypertension. 6. Hyperlipidemia. HISTORY OF PRESENT ILLNESS: Ms. Cho presents from dialysis with severe chest pain. She had hypotension and dialysis supposedly. She continues to have chest pain, status post PTCA and stent in the recent past. REVIEW OF SYSTEMS: The patient reports easy bruising but reports no swollen glands. The patient reports no fever, no night sweats, no significant weight gain, no significant weight loss. No significant exercise tolerance. The patient reports no dry eyes, no irritation, no vision change. Patient reports no difficulty hearing and no ear pain. Patient reports no frequent nose bleeds or nose and sinus problems. Patient reports on arm pain on exertion. No shortness of breath while lying down. No history of heart murmur. Patient reports no cough, no wheezing or coughing up blood. Patient reports no abdominal pain, no vomiting. Normal appetite. No diarrhea and not vomiting blood. No nausea and no constipation. Patient reports no incontinence. No difficulty urinating. No hematuria. No increased frequency. Patient reports no muscle aches. No weakness, no arthralgias, no back pain. No swelling of the extremities. Patient reports no abnormal mole, no jaundice, no rashes. Reports no loss of consciousness. No weakness and no numbness. No seizures, dizziness, or headaches. The patient reports no depression, no sleep disturbance, feeling safe in a relationship and no alcohol abuse. Patient reports on fatigue. Reports no runny nose or sinus pressure. No itching, no hives, and no frequent sneezing. PHYSICAL EXAMINATION: GENERAL APPEARANCE: Well-nourished, well-developed, appears stated age. Level of distress, comfortable. PSYCHIATRIC: Mental status, alert, normal affect. Orientation, oriented to time, place and person. EYES: Lids and conjunctiva, noninjected. No discharge, no pallor. ENT: Lips, teeth, gums, normal dentition. Oropharynx, no cyanosis, no pallor. NECK: Carotid arteries, bilateral normal upstroke, no bruits, no thrills. JUGULAR VEINS: No jugular venous pressure or distention. CERVICAL LYMPH NODES: Nontender, nonenlarged. THYROID: Not enlarged. Nontender. No nodules. LUNGS: Respiratory effort, unlabored. CHEST: Normal curvature. No thoracic deformity. No chest wall tenderness. Percussion, resonant. Auscultation, clear. No wheezes, no rales, no rhonchi. CARDIOVASCULAR: Precordial exam, nondisplaced. No heaves or pericardial thrills. Rate and rhythm, regular. Heart sounds, normal S1, normal S2. No S3, no gallop, no rub. Systolic murmur, not heard. Diastolic murmur, not heard. CONSULT REPORT [id number] CASA WALLACE EXTREMITIES: No cyanosis, no edema. Peripheral pulses, full and equal in all extremities, except as noted. No bruits appreciated. ABDOMEN: Soft, nondistended. Normal aorta. No bruit. Nontender. No masses. Liver, nontender, no hepatomegaly. Spleen, nontender, no splenomegaly. MUSCULOSKELETAL: No joint tenderness. No joint swelling. No erythema. NEUROLOGICAL: Normal gait, normal strength, normal tone. SKIN: Warm and dry. OVERALL IMPRESSION: Unstable angina. She has no acute changes on her EKG, but she does have ST depression in the inferolateral leads. We will proceed with repeat coronary angiography. Further care depends upon findings of the angiography. TRANSINT:[id number] Voice Confirmation ID: [id number] DOCUMENT ID: [id number] HANNA THOMAS MD at 0924 CC: [id number] DICTATION DATE: 04/23/18 1114 FORM TAMPER: 04/23/18 1241 DIS IN 04/24/18 [place] [place] [address]
--- NOTE | ~2018-04-23 | MORECARE ---
CASE MANAGEMENT DISCHARGE SUMMARY PATIENT: CASA WALLACE UNIT: [id number] ADM DATE: 04/23/18 AGE: 52 : 61 SEX: F ROOM/BED: D.7358 AUTHOR: VICTORIANO,DOC PHYSICIAN: REFERRING PHYSICIAN: NATHANIEL KIM MD DATE OF SERVICE: 04/24/18 Discharge Plan Patient Name: CASA WALLACE Facility: [facility]:[place] : 1965 Planned Disposition: Home with Home Health Anticipated Discharge Date: 04/24/18 Discharge Date: 04/24/2018 Expected LOS: 1 Initial Reviewer: [email or web address] Initial Review Date: 04/24/2018 Generated: 04/24/18 2:23 pm Comments DCP- Discharge Planning Updated by [email or web address]: Otilio Villarreal on 04/24/18 12:[address] Patient Name: CASA LEYVA Encounter No: [id number] : 1965 Primary Insurance: MEDICARE A & B Anticipated DC Date: 04-24-2018 Planned Disposition: Home with Home Health External Planned Provider: [facility] DISCHARGE PLANNING COMMENTS: CM MET WITH PT IN ROOM TO DISCUSS DISCHARGE PLANNING AND NEEDS. PT REPORTS LIVING AT HOME DEPENDENT ON CAREGIVERS FOR BATHING WHEN ASSISTANCE IS NEEDED AND DRIVING; PT'S ADULT DAUGHTER IS PAID CAREGIVER THROUGH [facility] FOR 22 HOURS PER WEEK. PT HAS MOM'S MEALS ON WHEELS AND GOES TO [facility]. PT REPORTS HAVING ALL NEEDED MEDICAL EQUIPMENT FROM [facility]. CM DISCUSSED AVAILABILITY OF HOME HEALTH, REHAB SERVICES AND MEDICAL EQUIPMENT. PT DENIES DISCHARGE NEEDS OTHER THAN TO RESUME HER HOME HEALTH FOR NURSING, OCCUPATIONAL AND PHYSICAL THERAPY. PT REPORTS HER DAUGHTER WILL PICK HER UP FOR DISCHARGE HOME TODAY. TEST FACILITY ENGINEER NOTIFIED. CM CALLED [facility], , SPOKE TO ELANA WHO PLACED PT BACK ON SCHEDULE FOR RESUMPTION OF HOME HEALTH CARE. CM FAXED HOSPITAL STAY INFORMATION AND DISCHARGE INFORMATION TO [facility] AT [phone]. Otilio Villarreal, CASE MANAGEMENT DCPIA - Discharge Planning Initial Assessment Updated by [email or web address]: Otilio Villarreal on 04/24/18 1:13 pm * Is the patient Alert and Oriented? Yes * How many steps to enter\exit or inside your home? NONE * [facility] * Pharmacy [facility] [address] * Preadmission Environment Home with Family * ADLs Partial Dependent * Partial ADLs (Assistance needed) Bathing * Equipment Bedside Commode CPAP Glucometer Hospital Bed Nebulizer Oxygen Shower Chair Walker * Other Equipment HOME AND PORTABLE OXYGEN [facility] - PROVIDER * List name and contact numbers for known caregivers / representatives who currently or will assist patient after discharge: DENISE HAUSER, DAUGHTER, * Verbal permission to speak to the caregivers and representatives has been obtained from the patient. N/A * Community resources currently utilized Home Health Other Private Duty Care * Please name any agencies selected above. [facility] [place] [facility], MWF, 0630AM, FAMILY TRANSPORT MEALS ON WHEELS - [facility]S OUT OF [facility], 22 HRS WEEKLY , DTR IS CAREGIVER * Additional services required to return to the preadmission environment? No * Can the patient safely return to the preadmission environment? Yes * Has this patient been hospitalized within the prior 30 days at any hospital? Yes Last DP export: 04/24/18 12:13 Patient Name: CASA WALLACE Page [id number] at 1324 All edits/amendments must be made on the electronic document DICTATION DATE: 04/24/181322 WASTE TRANSPORTATION TECHNICIAN: PAULA 04/24/181322 RPT#: [id number] DC DATE:04/24/18 STATUS: DIS IN [facility] [address] [place] [address] END OF REPORT
[2018-04-23 11:28] LABS: BASOPHILS 0.3 % (0-2); EOSINOPHILS 1.1 % (0-7); HEMATOCRIT 46.6 % (36.0-48.0); HEMOGLOBIN 15.2 g/dL (12-16); IMMATURE GRANULOCYTES 0.7 % (0-5); LYMPHOCYTES 16.7 % (15-50); MCH 28.1 pg (26.0-34.0); MCHC 32.6 g/dL (31.0-37.0); MCV 86.3 fL (80.0-100.0); MONOCYTES 4.3 % (2-11); NEUTROPHILS 76.9 % (40-80); PLATELET COUNT 173 10x3/uL (130-400); RDW 16.2 % (11.5-14.5); WBC 10.7 10x3/uL (4.8-10.8)
[2018-04-23 11:37] LABS: APTT 27.6 SECONDS (22.8-39.4); INR 0.9 (0.85-1.17); PROTIME 11.8 SECONDS (11.6-15.0)
[2018-04-23 11:44] LABS: ALBUMIN 3.5 g/dL (3.4-5.0); ALKALINE PHOSPHATASE 156 U/L (46-116); ALT (SGPT) 12 U/L (10-68); BILIRUBIN - TOTAL 0.52 mg/dL (0.2-1.3); CALC OSMOLALITY 279 mosm/kg (275-300); CALCIUM 8.2 mg/dL (8.5-10.1); CHLORIDE - SERUM 94 mmol/L (98-107); CREATININE - SERUM 6.2 mg/dL (0.6-1.3); POTASSIUM - SERUM 4.2 mmol/L (3.5-5.1); PROTEIN - SERUM 8.8 g/dL (6.4-8.2); SODIUM 133 mmol/L (136-145); UREA NITROGEN 27 mg/dL (7-18); eGFR NON AFRICAN AMERICAN 7 mL/min (90-120)
[2018-04-23 11:45] LABS: GLUCOSE 267 mg/dL (74-106)
[2018-04-23 11:55] LABS: CKMB 1.3 U/L (0.0-3.6); CREATINE KINASE 30 UL (21-215); MAGNESIUM - SERUM 1.9 mg/dL (1.8-2.4); PRO BNP 12646 pg/mL (0-125)
[2018-04-23] MEDS ORDERED: MULTAQ400 MG PO (13:19)
[2018-04-23] MEDS ORDERED: LEVEMIR IN100 UNITS/ SC (13:22)
[2018-04-23] MEDS ORDERED: NORCO 10-325 TA1 TAB PO (13:53)
[2018-04-23] MEDS ORDERED: KENALOG 0.1 % 115 GM TOPICAL (13:54)
[2018-04-23 14:06] VITALS: BP 135/79; Ht 175.3 cm; Wt 96.6 kg
[2018-04-23 15:42] VITALS: BP 113/71
[2018-04-23 20:44] VITALS: BP 75/40
[2018-04-24 00:25] VITALS: BP 90/49
[2018-04-24 04:00] VITALS: BP 93/54
[2018-04-24 07:01] LABS: BASOPHILS 0.5 % (0-2); EOSINOPHILS 0.9 % (0-7); HEMATOCRIT 45.8 % (36.0-48.0); HEMOGLOBIN 14.5 g/dL (12-16); IMMATURE GRANULOCYTES 0.7 % (0-5); LYMPHOCYTES 23.8 % (15-50); MCH 27.8 pg (26.0-34.0); MCHC 31.7 g/dL (31.0-37.0); MCV 87.9 fL (80.0-100.0); MEAN PLATELET VOLUME 9.4 fL (7.4-10.4); MONOCYTES 5.2 % (2-11); NEUTROPHILS 68.9 % (40-80); RBC 5.21 10x6/uL (4.00-5.40); RDW 16.1 % (11.5-14.5); WBC 8.5 10x3/uL (4.8-10.8)
[2018-04-24 07:03] LABS: PLATELET COUNT 137 10x3/uL (130-400)
[2018-04-24 07:12] LABS: ALBUMIN 3.4 g/dL (3.4-5.0); BILIRUBIN - TOTAL 0.39 mg/dL (0.2-1.3); CALCIUM 8.4 mg/dL (8.5-10.1); CARBON DIOXIDE 27.9 mmol/L (21.0-32.0); CHOL - HDL RATIO 3.1 ratio (2.3-4.1); LDL-HDL RATIO 1.6 ratio (1.5-3.5); PROTEIN - SERUM 8.4 g/dL (6.4-8.2)
[2018-04-24 07:13] LABS: ANION GAP 19.2 mmol/L (8-16); POTASSIUM - SERUM 5.1 mmol/L (3.5-5.1)
[2018-04-24 07:56] VITALS: BP 100/57
[2018-04-24] MEDS ORDERED: ISOSORBIDE MONO30 M1 PO (10:36)
[2018-04-24] MEDS ORDERED: ELIQUIS2.5 MG PO (10:37)
[2018-04-24 10:57] VITALS: BP 104/61
== END 2018-04-24 13:17 | disposition home health service (06) | DRG 250 ==
LOC: D.ER 10:31 → D.M2 11:29 → D.EDHOLD 11:29 → D.CLR 11:36 → D.M2 13:27
PROVIDERS: Emergency Medicine; Internal Medicine Interventional Cardiology; Internal Medicine Nephrology
PROC: 4A023N7 Measurement of Cardiac Sampling and Pressure, Left Heart, Percutaneous Approach (ICD-10-PCS; 2018-04-23)
PROC: B2111ZZ Fluoroscopy of Multiple Coronary Arteries using Low Osmolar Contrast (ICD-10-PCS; 2018-04-23)
PROC: B2151ZZ Fluoroscopy of Left Heart using Low Osmolar Contrast (ICD-10-PCS; 2018-04-23)
PROC: 02703ZZ Dilation of Coronary Artery, One Artery, Percutaneous Approach (ICD-10-PCS; principal; 2018-04-23 11:35)
DX: I25.110 Atherosclerotic heart disease of native coronary artery with unstable angina pectoris (principal); N18.6 End stage renal disease; I13.2 Hypertensive heart and chronic kidney disease with heart failure and with stage 5 chronic kidney disease, or end stage renal disease; E11.22 Type 2 diabetes mellitus with diabetic chronic kidney disease; I50.9 Heart failure, unspecified; Z99.2 Dependence on renal dialysis; E66.01 Morbid (severe) obesity due to excess calories; Z68.31 Body mass index [BMI] 31.0-31.9, adult; E11.40 Type 2 diabetes mellitus with diabetic neuropathy, unspecified; I48.91 Unspecified atrial fibrillation; E78.5 Hyperlipidemia, unspecified; I95.9 Hypotension, unspecified; J43.9 Emphysema, unspecified; F32.9 Major depressive disorder, single episode, unspecified; F41.9 Anxiety disorder, unspecified; Z95.5 Presence of coronary angioplasty implant and graft

== ENCOUNTER 2018-04-27 10:03 | Inpatient (IN) | payer MEDICARE ==
[~2018-04-27] VITALS: Ht 175.3 cm; Wt 101.2 kg
--- NOTE | ~2018-04-27 | CN ---
PATIENT NAME:CASA WALLACE MEDICAL RECORD: [id number] : 61 LOCATION:D.M2 D.2132 ADMIT DATE: 04/27/18 ACCOUNT: [id number] CONSULTING PHYSICIAN: HANNA THOMAS MD REFERRING PHYSICIAN: NATHANIEL KIM MD DATE OF CONSULTATION: 04/29/2018 DIAGNOSES: 1. End-stage renal failure, on dialysis. 2. Fistula failure. 3. Coronary disease. 4. Previous PTCA and stent. 5. Bradycardia. 6. Sick sinus syndrome. 7. Paroxysmal atrial fibrillation. 8. COPD. 9. Hyperlipidemia. HISTORY: Mrs. Cho presents for noncardiac issues with a problem with her fistula, set for fistulogram and possible revision, who has been having bradycardia. Her heart rate has been in the high 30s to 40s. She does have a history of atrial fibrillation, for which she is on Multaq. She is not in atrial fibrillation. This has been in sinus bradycardia. She is on no other AV blocking medication. Her blood pressure is not affected by this. PHYSICAL EXAMINATION: GENERAL APPEARANCE: Well-nourished, well-developed, appears stated age. Level of distress, comfortable. PSYCHIATRIC: Mental status, alert, normal affect. Orientation, oriented to time, place and person. EYES: Lids and conjunctiva, noninjected. No discharge, no pallor. ENT: Lips, teeth, gums, normal dentition. Oropharynx, no cyanosis, no pallor. NECK: Carotid arteries, bilateral normal upstroke, no bruits, no thrills. JUGULAR VEINS: No jugular venous pressure or distention. CERVICAL LYMPH NODES: Nontender, nonenlarged. THYROID: Not enlarged. Nontender. No nodules. LUNGS: Respiratory effort, unlabored. CHEST: Normal curvature. No thoracic deformity. No chest wall tenderness. Percussion, resonant. Auscultation, clear. No wheezes, no rales, no rhonchi. CARDIOVASCULAR: Precordial exam, nondisplaced. No heaves or pericardial thrills. Rate and rhythm, regular. Heart sounds, normal S1, normal S2. No S3, no gallop, no rub. Systolic murmur, not heard. Diastolic murmur, not heard. EXTREMITIES: No cyanosis, no edema. Peripheral pulses, full and equal in all extremities, except as noted. No bruits appreciated. ABDOMEN: Soft, nondistended. Normal aorta. No bruit. Nontender. No masses. Liver, nontender, no hepatomegaly. Spleen, nontender, no splenomegaly. MUSCULOSKELETAL: No joint tenderness. No joint swelling. No erythema. NEUROLOGICAL: Normal gait, normal strength, normal tone. SKIN: Warm and dry. OVERALL IMPRESSION: Bradycardia. At this time, we will discontinue her Multaq. She very well may have recurrent atrial fibrillation. If that is the case, then she needs pharmacologic therapy to maintain sinus rhythm. I would consider permanent pacemaker as well. CONSULT REPORT [id number] CASA WALLACE TRANSINT:[id number] Voice Confirmation ID: [id number] DOCUMENT ID: [id number] HANNA THOMAS MD at 1914 CC: [id number] DICTATION DATE: 04/29/18 1126 PIGMENT SUPPLIER: 04/29/18 1222 DIS IN 04/30/18 [place] [place] [id number] [place] [address]
--- NOTE | ~2018-04-27 | OP ---
PATIENT NAME: CASA WALLACE MEDICAL RECORD: [id number] :61 LOCATION:D.M2 D.2132 ADMISSION DATE:04/27/18 SURGEON: ORLANDO HARRINGTON MD DATE OF OPERATION: 04/29/2018 PREOPERATIVE DIAGNOSIS: 1. Thrombosed AV graft. 2. End-stage renal disease. 3. Dependence on hemodialysis. POSTOPERATIVE DIAGNOSIS: 1. Thrombosed AV graft. 2. End-stage renal disease. 3. Dependence on hemodialysis. PROCEDURE: Ultrasound-guided access with fluoroscopic guidance placement of a right internal jugular central venous line Trialysis dialysis catheter followed by right arm ultrasound-guided access times 2 and a fistulogram with AngioJet thrombolysis and balloon angioplasty of proximal in-stent stenosis and distal arterial anastomotic and juxta-arterial anastomotic segment stenosis. Also, selective right brachial and right radial artery arteriograms. I&D of abscess of skin and subcutaneous tissue in the right groin. SURGEON: Orlando Harrington MD ANESTHESIA: TIVA per APPRAISAL COORDINATOR and local 1% lidocaine. PREOPERATIVE NOTE: Ms. López is a 52-year-old female with end-stage renal disease on chronic hemodialysis, who has most recently been dialyzing with a right proximal radial artery to cephalic vein AV graft. This actually was first day an AV fistula and required conversion to a graft and has had several interventions since. She has recently had a couple of episodes of thrombosis. On Monday last week, I did a fistulogram and dilated and smoothed the roughened graft and recurrent in-stent stenosis in the cephalic arch. That study was prompted by development of a high-pitched bruit over the deltopectoral groove. In any rate, she went on to clot despite being on Plavix and Eliquis 2.5 mg b.i.d. She was admitted to the hospital here on Monday in hopes that I will be able to get her to the operating room on Monday evening to restore flow in her graft; however, there was no available operating time and there was no time available Monday morning when I was available and so fortunately, the patient has been stable and able to wait until Monday morning and she is brought to the operating room now to do the procedure. I will plan to likely place a dialysis catheter just because this graft has been failing and she does have a problem with chronic hypotension and this morning, I learned that she has junctional bradycardia with heart rate in the 40s. I do not know whether that is chronic or not. She also has a draining infected skin lesion, carbuncle in the right groin and I planned to I&D that as well. The patient had no IV and so she was brought to the operating room and placed on the operating table in supine position. The right neck was first examined with ultrasound and saw that the internal jugular vein was in normal position, fully compressible and was of normal caliber, a bit distended actually. She was prepped and draped and then local anesthetic 1% lidocaine without epinephrine was infiltrated into the skin and subcutaneous tissues at the base of the neck over the internal jugular vein. A small incision was made there and then with OPERATIVE REPORT [id number] CASA WALLACE ultrasound guidance, a needle and then a guidewire were inserted into the internal jugular vein. Under fluoroscopy, the guidewire was positioned in the inferior vena cava. Dilators were passed and lastly a 15 cm Trialysis acute dialysis central venous catheter was placed. All 3 lumens were accessed and aspirated, they returned blood easily. They were then flushed with saline and then heparin-locked with heparin 100 units per cc. The catheter was sutured to the adjacent skin at the entry site with 2-0 Prolene and a sterile dressing applied including a chlorhexidine Biopatch. The patient was then administered TIVA per APPRAISAL COORDINATOR and she was reprepped and redraped with the right arm free in the operative field. I accessed the right arm AV graft with ultrasound guidance near the arterial anastomosis and then again proximally, the latter being directed distally towards the arterial anastomosis. A Glidewire was advanced from the distal port into the central veins and an AngioJet catheter used to lyse thrombus within the body of the graft and the stented venous outflow. The patient was systemically heparinized with 5000 units of heparin. Contrast injection demonstrated a stenosis or recurring stenosis at the proximal end of the outflow stent. This was dilated successfully with an 8-mm diameter angioplasty balloon and that balloon was then used to dilate and smooth the rest of the stented segment and the body of the graft itself. Repeated contrast injection showed definite improvement. Through the distal sheath, a guidewire was passed distally across the arterial anastomosis. A glide catheter was advanced into the brachial artery and selective right brachial and right radial artery arteriograms were performed. Clot was present in the proximal radial artery, which was successfully removed with a Live catheter embolectomy. Contrast injection demonstrated a severe arterial anastomotic stenosis and stenosis of the JA segment which I believe is vein actually. This was dilated repeatedly with a 6 mm angioplasty balloon. The entire graft was angioplastied again with a 6 or 8 mm balloon and contrast injection revealed satisfactory result with good flow in the graft and good flow into the distal radial artery and preservation of good flow in the brachial and ulnar arteries. The introducers, an 8-Mauritanian and a 6-Mauritanian were removed and hemostasis was obtained with hrczrm-gm-hgdzl 4-0 Prolene sutures and sterile dressings. The right groin was then exposed, prepped and draped in a sterile manner and I opened the abscess cavity through its draining sinus using an 11-blade and explored it and obtained material for culture and sensitivity for aerobic and anaerobic cultures. The wound did not bleed extensively. It was easily irrigated and then packed with Betadine-soaked gauze and further sterile dry dressing applied over that. The patient was then awakened from her anesthetic and returned to the recovery room. Blood loss during the operation about 50 cc was unreplaced. Sponges, instruments and needles were accounted for. No drain was used other than the quarter-inch NuGauze packing in her abscess cavity. No surgical specimen was submitted for histopathology. PLAN: The patient will go on to dialysis today and probably remain in hospital and have dialysis repeated tomorrow. If her graft stays open and after dialysis at [facility] on Monday, the Trialysis catheter can be removed or if her graft occludes again, the Trialysis catheter can be used for dialysis and can be switched out for a tunneled catheter again at [facility] on Monday. In future, the patient may require open surgical revision and what I recommend OPERATIVE REPORT [id number] CASA WALLACE LAV would be to move the arterial anastomosis to the brachial artery rather than the distal radial artery and have a somewhat larger channel as a result of extending it as a PTFE graft without a venous segment and also consider placing a stent in the outflow recurring in-stent stenosis in the cephalic arch. I think perhaps more importantly, the patient's bradycardia is contributing to hypotension and thrombosis of her graft. She may need a pacemaker. Dr. Regalado has been consulted. I think that she may be able to go home tomorrow as I have said, I would like her to continue daily Hibiclens baths and to wash the groin abscess site thoroughly with Hibiclens b.i.d. and to dress it with a dry gauze and some Bactroban ointment. The packing should be removed at the first dressing change. ADDENDUM: In order to complete this procedure and remove thrombus from the proximal radial artery, it was necessary to do a selective radial artery arteriogram, this was in addition to the selective right brachial artery arteriogram. TRANSINT:[id number] Voice Confirmation ID: [id number] DOCUMENT ID: [id number] ORLANDO HARRINGTON MD at 1623 CC: NATHANIEL KIM [id number] DICTATION DATE: 04/29/18 1211 COMPRESSED GAS TESTER: 04/30/18 0020 DIS IN 04/30/18 [facility] [address] [place] [address]
--- NOTE | ~2018-04-27 | MORECARE ---
CASE MANAGEMENT DISCHARGE SUMMARY PATIENT: CASA WALLACE UNIT: [id number] ADM DATE: 04/27/18 AGE: 52 : 61 SEX: F ROOM/BED: D.3842 AUTHOR: DAMEON PASTRANA PHYSICIAN: REFERRING PHYSICIAN: NATHANIEL KIM MD DATE OF SERVICE: 04/30/18 Discharge Plan Patient Name: CASA WALLACE Facility: [facility]:[place] : 1965 Planned Disposition: Home with Home Health Anticipated Discharge Date: 04/30/18 Discharge Date: 04/30/2018 Expected LOS: 3 Initial Reviewer: [id number] Initial Review Date: 04/30/2018 Generated: 04/30/18 6:12 pm Comments DCP- Discharge Planning Updated by [email or web address]: Otilio Villarreal on 04/30/18 4:[address] Patient Name: CASA LEYVA Admission Status: Urgent Accout number: [id number] Admission Date: 04-27-2018 : 1965 Admission Diagnosis: Attending: NATHANIEL KIM Current LOS: 3 Anticipated DC Date: 04-30-2018 Planned Disposition: Home with Home Health Primary Insurance: MEDICARE A & B PLANNED EXTERNAL PROVIDER: [facility] Discharge Planning Comments: CM MET WITH PT IN ROOM TO DISCUSS DISCHARGE NEEDS AND PLANNING. PT REPORTS LIVING AT HOME, HER DAUGHTER DENISE PIERRE, IS HER PAID CAREGIVER THROUGH MEDICAID/[facility] FOR 22 HOURS PER WEEK; PT ALSO HAS MOMS MEALS ON WHEELS. PT GOES TO DIALYSIS MWF AT [facility] AT 0630 HOURS, FAMILY TRANSPORTS HER TO AND FROM SERVICE. CM DISCUSSED AVAILABILITY OF HOME HEALTH, REHAB SERVICES AND MEDICAL EQUIPMENT. PT DENIES DISCHARGE NEEDS OTHER THAN RESUMPTION OF [facility]. DAUGHTER TO TRANSPORT HOME AT DISCHARGE TODAY. IMPORTANT MESSAGE FROM MEDICARE PROVIDED AND EXPLAINED. CM CALLED [facility], , SPOKE TO SHORTY WHO VERIFIED PT IS ACTIVE AND WILL BE PLACED ON RESUMPTION SCHEDULE. CM FAXED DISCHARGE AND HOSPITAL STAY INFORMATION TO [facility] AT [phone]. SHEET METAL ROOFER NURSE NOTIFIED. Bleach Tester: Otilio Villarreal DCPIA - Discharge Planning Initial Assessment Updated by [email or web address]: Otilio Villarreal on 04/30/18 5:08 pm * Is the patient Alert and Oriented? Yes * How many steps to enter\exit or inside your home? NONE * PCP DR. LEWIS * Pharmacy [facility] [address] * Preadmission Environment Home with Family * ADLs Partial Dependent * Partial ADLs (Assistance needed) Bathing * Equipment Bedside Commode CPAP Glucometer Hospital Bed Nebulizer Oxygen Shower Chair Walker * Other Equipment HOME AND PORTABLE OXYGEN [facility] - PROVIDER * List name and contact numbers for known caregivers / representatives who currently or will assist patient after discharge: DENISE PIERRE DTR, * Verbal permission to speak to the caregivers and representatives has been obtained from the patient. Yes * Community resources currently utilized Home Health * Please name any agencies selected above. [facility] * Additional services required to return to the preadmission environment? No * Can the patient safely return to the preadmission environment? Yes * Has this patient been hospitalized within the prior 30 days at any hospital? Yes External Providers External Provider: [facility] Next Contact Date: 04/30/2018 Service Request Date: Service Type: Resolution: Reviewer: Comments: Coverage Notice Reviewer: [email or web address] - Otilio Villarreal Notice Issued Date-Time: 04/30/2018 15:45 Notice Type: IM Discharge Notice Notice Delivered To: Patient Relationship to Patient: Ocean Biologist Name: Delivery Method: HAND - Hand Delivered Selma Days: Prior Verbal Notification: Recipient Understood Notice: Yes Recipient Signature: Yes Med Rec Note Co-signed by Attending: Coverage Notice Comment: Patient Name: CASA WALLACE Page 37797 at 1712 All edits/amendments must be made on the electronic document DICTATION DATE: 04/30/181711 WATER SOFTENER INSTALLER: PAULA 04/30/181711 RPT#: [id number] DC DATE:04/30/18 STATUS: DIS IN [facility] [address] [place] [address] END OF REPORT
[~2018-04-27 10:03] MED LIST changes: +ISOSORBIDE MONO30 M1 PO; +KENALOG 0.1 % 115 GM TOPICAL; +MULTAQ400 MG PO; +NORCO 10-325 TA1 TAB PO
[2018-04-27 10:22] VITALS: BP 140/65; BMI 32.2
[2018-04-27 11:01] LABS: BASOPHILS 0.2 % (0-2); EOSINOPHILS 0.9 % (0-7); HEMATOCRIT 42.2 % (36.0-48.0); HEMOGLOBIN 13.5 g/dL (12-16); IMMATURE GRANULOCYTES 0.8 % (0-5); LYMPHOCYTES 18.5 % (15-50); MCH 27.7 pg (26.0-34.0); MCV 86.5 fL (80.0-100.0); MEAN PLATELET VOLUME 10.1 fL (7.4-10.4); MONOCYTES 5.3 % (2-11); NEUTROPHILS 74.3 % (40-80); PLATELET COUNT 136 10x3/uL (130-400); RBC 4.88 10x6/uL (4.00-5.40); WBC 8.8 10x3/uL (4.8-10.8)
[2018-04-27 11:10] LABS: INR 1.03 (0.85-1.17); PROTIME 13.1 SECONDS (11.6-15.0)
[2018-04-27 11:17] LABS: ANION GAP 22.5 mmol/L (8-16); CALCIUM 7.4 mg/dL (8.5-10.1); CARBON DIOXIDE 24.6 mmol/L (21.0-32.0); CREATININE - SERUM 10.2 mg/dL (0.6-1.3); POTASSIUM - SERUM 5.1 mmol/L (3.5-5.1)
[2018-04-27 11:52] VITALS: BP 120/60
[2018-04-27] MEDS ORDERED: BACTRIM 400-801 TAB PO (13:16)
[2018-04-27 15:58] VITALS: BP 142/71
[2018-04-27 20:00] VITALS: BP 127/71
[2018-04-28] VITALS: BP 135/73
[2018-04-28 06:04] VITALS: BP 130/77; BP 150/77
[2018-04-28 08:00] VITALS: BP 139/77
[2018-04-28 08:48] LABS: ANION GAP 21.8 mmol/L (8-16); CALCIUM 7.3 mg/dL (8.5-10.1); CARBON DIOXIDE 25.1 mmol/L (21.0-32.0); CREATININE - SERUM 11.7 mg/dL (0.6-1.3); POTASSIUM - SERUM 4.9 mmol/L (3.5-5.1)
[2018-04-28 13:18] VITALS: Ht 175.3 cm; Wt 101.2 kg
[2018-04-28 16:02] VITALS: BP 107/66
[2018-04-28 20:12] VITALS: BP 104/61
[2018-04-29 00:20] VITALS: BP 127/43
[2018-04-29 04:49] VITALS: BP 88/48
[2018-04-29 06:40] LABS: BASOPHILS 0.2 % (0-2); EOSINOPHILS 0.6 % (0-7); HEMATOCRIT 38.4 % (36.0-48.0); HEMOGLOBIN 12.5 g/dL (12-16); IMMATURE GRANULOCYTES 0.3 % (0-5); LYMPHOCYTES 14.4 % (15-50); MCH 27.8 pg (26.0-34.0); MCHC 32.6 g/dL (31.0-37.0); MCV 85.3 fL (80.0-100.0); MEAN PLATELET VOLUME 10.6 fL (7.4-10.4); MONOCYTES 7.3 % (2-11); NEUTROPHILS 77.2 % (40-80); PLATELET COUNT 151 10x3/uL (130-400); RDW 15.8 % (11.5-14.5)
[2018-04-29 06:48] LABS: ANION GAP 25.3 mmol/L (8-16); CARBON DIOXIDE 22.5 mmol/L (21.0-32.0); CREATININE - SERUM 12.9 mg/dL (0.6-1.3)
[2018-04-29 06:49] LABS: POTASSIUM - SERUM 5.8 mmol/L (3.5-5.1)
[2018-04-29 06:55] LABS: WBC 12.5 10x3/uL (4.8-10.8)
[2018-04-29 08:52] VITALS: BP 102/60
[2018-04-29 15:44] VITALS: BP 108/58
[2018-04-29 21:59] VITALS: BP 111/69
[2018-04-30 02:24] VITALS: BP 112/49
[2018-04-30 05:45] VITALS: BP 101/55
[2018-04-30 06:36] LABS: BASOPHILS 0.3 % (0-2); EOSINOPHILS 1.2 % (0-7); HEMATOCRIT 35.8 % (36.0-48.0); HEMOGLOBIN 11.8 g/dL (12-16); IMMATURE GRANULOCYTES 0.4 % (0-5); LYMPHOCYTES 16.4 % (15-50); MCH 27.8 pg (26.0-34.0); MCV 84.2 fL (80.0-100.0); MEAN PLATELET VOLUME 10.3 fL (7.4-10.4); MONOCYTES 9.2 % (2-11); NEUTROPHILS 72.5 % (40-80); PLATELET COUNT 157 10x3/uL (130-400); RBC 4.25 10x6/uL (4.00-5.40)
[2018-04-30 06:42] LABS: WBC 9.3 10x3/uL (4.8-10.8)
[2018-04-30 06:50] LABS: ANION GAP 18.2 mmol/L (8-16); CALCIUM 7.5 mg/dL (8.5-10.1); CARBON DIOXIDE 26.7 mmol/L (21.0-32.0); CREATININE - SERUM 10.3 mg/dL (0.6-1.3)
[2018-04-30 06:51] LABS: POTASSIUM - SERUM 4.9 mmol/L (3.5-5.1)
[2018-04-30] MEDS ORDERED: ELIQUIS5 MG PO (07:42)
[2018-04-30] MEDS ORDERED: BRILINTA90 MG PO (07:43)
[2018-04-30 09:05] VITALS: BP 106/55
[2018-04-30 11:08] VITALS: BP 102/58
[2018-04-30] MEDS ORDERED: MUPIROCIN22 GM TOPICAL (14:44)
[2018-04-30 16:16] VITALS: BP 139/79
== END 2018-04-30 16:20 | disposition home health service (06) | DRG 252 ==
LOC: D.M2 10:03 → EDSTATUS 13:45 → D.OPS 13:45 → D.SDCHOLD 04-30 15:20 → D.M2 04-30 15:27
PROVIDERS: Internal Medicine Nephrology; Surgery
PROC: 5A1D70Z Performance of Urinary Filtration, Intermittent, Less than 6 Hours Per Day (ICD-10-PCS; 2018-04-27)
PROC: 0J9C3ZZ Drainage of Pelvic Region Subcutaneous Tissue and Fascia, Percutaneous Approach (ICD-10-PCS; 2018-04-29)
PROC: B31H1ZZ Fluoroscopy of Right Upper Extremity Arteries using Low Osmolar Contrast (ICD-10-PCS; 2018-04-29)
PROC: 06H033Z Insertion of Infusion Device into Inferior Vena Cava, Percutaneous Approach (ICD-10-PCS; 2018-04-29)
PROC: B5191ZA Fluoroscopy of Inferior Vena Cava using Low Osmolar Contrast, Guidance (ICD-10-PCS; 2018-04-29)
PROC: 03CY3ZZ Extirpation of Matter from Upper Artery, Percutaneous Approach (ICD-10-PCS; principal; 2018-04-29 08:00)
PROC: 03773ZZ Dilation of Right Brachial Artery, Percutaneous Approach (ICD-10-PCS; 2018-04-29 08:00)
DX: T82.868A Thrombosis due to vascular prosthetic devices, implants and grafts, initial encounter (principal); N18.6 End stage renal disease; I12.0 Hypertensive chronic kidney disease with stage 5 chronic kidney disease or end stage renal disease; L02.214 Cutaneous abscess of groin; Y83.8 Other surgical procedures as the cause of abnormal reaction of the patient, or of later complication, without mention of misadventure at the time of the procedure; E11.22 Type 2 diabetes mellitus with diabetic chronic kidney disease; Z99.2 Dependence on renal dialysis; I25.10 Atherosclerotic heart disease of native coronary artery without angina pectoris; I48.0 Paroxysmal atrial fibrillation; J44.9 Chronic obstructive pulmonary disease, unspecified; E78.5 Hyperlipidemia, unspecified; I95.9 Hypotension, unspecified; E66.01 Morbid (severe) obesity due to excess calories; Z68.32 Body mass index [BMI] 32.0-32.9, adult; F41.9 Anxiety disorder, unspecified; F32.9 Major depressive disorder, single episode, unspecified; Z95.5 Presence of coronary angioplasty implant and graft; Z87.891 Personal history of nicotine dependence

== ENCOUNTER 2018-05-06 00:07 | Inpatient (IN) | payer MEDICARE ==
[~2018-05-06] VITALS: Ht 175.3 cm; Wt 91.6 kg
--- NOTE | ~2018-05-06 | MORECARE ---
CASE MANAGEMENT DISCHARGE SUMMARY PATIENT: CASA WALLACE UNIT: [id number] ADM DATE: 05/06/18 AGE: 52 : 61 SEX: F ROOM/BED: D.0962 AUTHOR: VICTORIANO,DOC PHYSICIAN: REFERRING PHYSICIAN: NATHANIEL KIM MD DATE OF SERVICE: 05/06/18 Discharge Plan Patient Name: CASA WALLACE Facility: [facility]:[place] : 1965 Planned Disposition: Home Health Service Anticipated Discharge Date: Discharge Date: Expected LOS: Initial Reviewer: [email or web address] Initial Review Date: 05/06/2018 Generated: 05/06/18 8:49 pm Comments DCP- Discharge Planning Updated by [email or web address]: Ade Connell on 05/06/18 6:[address] MET PATIENT AT THE BEDSIDE. SHE HAS HAD 2 RECENT ADMISSIONS. SOMEWHAT DISCOURAGED BY NEW ADMIT. STATES SHE WAS JUST DISCHARGED MONDAY OF LAST WEEK. WHEN QUESTIONED , STATED THIS IS A DIFFERENT PROBLEM. LIVES AT HOME W/ DAUGHTER PROVIDING ASSISTANCE. DTR IS JENIFFER PIERRE W/ CONTACT PHONE NUMBER OF [phone]. PATIENT HAS HD M/W/F ON FIRST SHIFT, 0600, AT [facility]. HER FAMILY PROVIDES TRANSPORTATION AT DISCHARGE. PCP- [facility]- [address] MANAGER STATE- DR KIM AND DR MIGUEL CARDIOLOGY- DR ANTUNEZ AND DR THOMAS DME PROVIDER- [facility]. HOME HEALTH PROVIDERS [facility] AND [facility]. COMMUNITY SERVICES - MOM'S MEALS WILL REQUIRE SERVICES IS ABOVE AT DISCHARGE. WILL NEED TO CHECK WITH [facility] REGARDING STATUS OF HOME HEALTH. PATIENT ADMITTED 05/06. CM WILL FOLLOW TO ASSIST IS APPROPRIATE. EXPLAINED WEEKDAY CM WILL FOLLOW TO ASSIST W/ DISCHARGE NEEDS. DCPIA - Discharge Planning Initial Assessment Updated by [email or web address]: Ade Connell on 05/06/18 7:36 pm * Is the patient Alert and Oriented? Yes * How many steps to enter\exit or inside your home? NONE * PCP [facility] * Pharmacy [address] * Preadmission Environment Home with Family * ADLs Partial Dependent * Partial ADLs (Assistance needed) Bathing Dressing * Equipment CPAP Glucometer Nebulizer Oxygen Shower Chair * Other Equipment OXYGEN STATIONARY / PORTABLE, CPAP, SHOWER CHAIR , COMMODE * List name and contact numbers for known caregivers / representatives who currently or will assist patient after discharge: JENIFFER PIERRE- [phone] * Verbal permission to speak to the caregivers and representatives has been obtained from the patient. No * Community resources currently utilized Other * Please name any agencies selected above. [facility] MOM'[facility] * Additional services required to return to the preadmission environment? Yes * Can the patient safely return to the preadmission environment? Yes * Has this patient been hospitalized within the prior 30 days at any hospital? Yes Last DP export: 05/06/18 6:37 Patient Name: CASA WALLACE Page [id number] at 194 All edits/amendments must be made on the electronic document DICTATION DATE: 05/06/181948 MANAGER POKER: PAULA 05/06/181948 RPT#: [id number] DC DATE: STATUS: ADM IN [facility] [address] [place] [address] END OF REPORT
--- NOTE | ~2018-05-06 | MORECARE ---
CASE MANAGEMENT DISCHARGE SUMMARY PATIENT: CASA WALLACE UNIT: [id number] ADM DATE: 05/06/18 AGE: 52 : 61 SEX: F ROOM/BED: D.6568 AUTHOR: VICTORIANO,DOC PHYSICIAN: REFERRING PHYSICIAN: NATHANIEL KIM MD DATE OF SERVICE: 05/08/18 Discharge Plan Patient Name: CASA WALLACE Facility: [facility]:[place] : 1965 Planned Disposition: Home Health Service Anticipated Discharge Date: 05/08/18 Discharge Date: Expected LOS: 2 Initial Reviewer: [email or web address] Initial Review Date: 05/06/2018 Generated: 05/08/18 10:39 am Comments DCP- Discharge Planning Updated by [email or web address]: Otilio Villarreal on 05/08/18 8:[address] Patient Name: CASA LEYVA Encounter No: [id number] : 1965 Primary Insurance: MEDICARE A & B Anticipated DC Date: 05-08-2018 Planned Disposition: Home Health Service External Planned Provider: [facility] DCP follow-up note: CM RECEIVED DISCHARGE ORDER, SPOKE TO PT IN ROOM REGARDING DISCHARGE NEEDS; CM DISCUSSED AVAILABILITY OF HOME HEALTH, REHAB SERVICES AND MEDICAL EQUIPMENT. PT DENIES DISCHARGE NEEDS OTHER THAN HOME HEALTH RESUMPTION WITH [facility], PT WANTS TO GO HOME SOON POSSIBLE TODAY. PT'S DAUGHTER TO CRUSHER SETTER AT DISCHARGE. IMPORTANT MESSAGE FROM MEDICARE PROVIDED AND EXPLAINED. CM REVIEWED CHART WHICH INDICATED PT HAS ORDER FOR GI CONSULT AND MAY NOT DISCHARGE TODAY. CM NOTIFIED PT. CM SPOKE TO BEDSIDE NURSE WHO WAS AWARE. CM CALLED [facility], , SPOKE TO ELANA, NOTIFIED OF ABOVE INFORMATION. ELANA INFORMED CM THAT CARE WOULD BE A RESUMPTION OF HOME HEALTH SERVICES. CM FAXED DISCHARGE ORDER AND DC MED LIST TO [facility] AT [phone]. FOR DISCHARGE, NOTIFY [facility] AT [phone], FAX DISCHARGE INFORMATION TO [facility] AT [phone]. CM TO FOLLOW AND ASSIST IF NEEDED. Otilio Villarreal, CASE MANAGEMENT DCP- Discharge Planning Updated by [email or web address]: Ade Connell on 05/06/18 6:[address] MET PATIENT AT THE BEDSIDE. SHE HAS HAD 2 RECENT ADMISSIONS. SOMEWHAT DISCOURAGED BY NEW ADMIT. STATES SHE WAS JUST DISCHARGED MONDAY OF LAST WEEK. WHEN QUESTIONED , STATED THIS IS A DIFFERENT PROBLEM. LIVES AT HOME W/ DAUGHTER PROVIDING ASSISTANCE. DTR IS JENIFFER PIERRE W/ CONTACT PHONE NUMBER OF [phone]. PATIENT HAS HD M/W/F ON FIRST SHIFT, 0600, AT [facility]. HER FAMILY PROVIDES TRANSPORTATION AT DISCHARGE. PCP- [facility]- [address] RN ADMISSION- DR KIM AND DR MIGUEL CARDIOLOGY- DR ANTUNEZ AND DR THOMAS DME PROVIDER- [facility]. HOME HEALTH PROVIDERS [facility] AND [facility]. COMMUNITY SERVICES - MOM'S MEALS WILL REQUIRE SERVICES IS ABOVE AT DISCHARGE. WILL NEED TO CHECK WITH [facility] REGARDING STATUS OF HOME HEALTH. PATIENT ADMITTED 05/06. CM WILL FOLLOW TO ASSIST IS APPROPRIATE. EXPLAINED WEEKDAY CM WILL FOLLOW TO ASSIST W/ DISCHARGE NEEDS. DCPIA - Discharge Planning Initial Assessment Updated by [email or web address]: Ade Connell on 05/06/18 7:36 pm * Is the patient Alert and Oriented? Yes * How many steps to enter\exit or inside your home? NONE * PCP [facility] * Pharmacy [address] * Preadmission Environment Home with Family * ADLs Partial Dependent * Partial ADLs (Assistance needed) Bathing Dressing * Equipment CPAP Glucometer Nebulizer Oxygen Shower Chair * Other Equipment OXYGEN STATIONARY / PORTABLE, CPAP, SHOWER CHAIR , COMMODE * List name and contact numbers for known caregivers / representatives who currently or will assist patient after discharge: JENIFFER PIERRE- [phone] * Verbal permission to speak to the caregivers and representatives has been obtained from the patient. No * Community resources currently utilized Other * Please name any agencies selected above. [facility] MOM'S MEALS * Additional services required to return to the preadmission environment? Yes * Can the patient safely return to the preadmission environment? Yes * Has this patient been hospitalized within the prior 30 days at any hospital? Yes Coverage Notice Reviewer: [id number] - Otilio Villarreal Notice Issued Date-Time: 05/08/2018 8:50 Notice Type: IM Discharge Notice Notice Delivered To: Patient Relationship to Patient: Refinery Superintendent Name: Delivery Method: HAND - Hand Delivered Selma Days: Prior Verbal Notification: Recipient Understood Notice: Yes Recipient Signature: Yes Med Rec Note Co-signed by Attending: Coverage Notice Comment: Last DP export: 05/08/18 8:16 Patient Name: CASA WALLACE Page 45021 at 0939 All edits/amendments must be made on the electronic document DICTATION DATE: 05/08/18937 PROCESS TANK TENDER: PAULA 05/08/18937 RPT#: [id number] DC DATE: STATUS: ADM IN [facility] [address] [place] [address] END OF REPORT
--- NOTE | ~2018-05-06 | MORECARE ---
CASE MANAGEMENT DISCHARGE SUMMARY PATIENT: CASA WALLACE UNIT: [id number] ADM DATE: 05/06/18 AGE: 52 : 61 SEX: F ROOM/BED: D.2109 AUTHOR: DAMEON PASTRANA PHYSICIAN: REFERRING PHYSICIAN: NATHANIEL KIM MD DATE OF SERVICE: 05/06/18 Discharge Plan Patient Name: CASA WALLACE Facility: [facility]:[place] : 1965 Planned Disposition: Home Health Service Anticipated Discharge Date: Discharge Date: Expected LOS: Initial Reviewer: [email or web address] Initial Review Date: 05/06/2018 Generated: 05/06/18 8:30 pm Patient Name: CASA WALLACE Page 22419 at 1930 All edits/amendments must be made on the electronic document DICTATION DATE: 05/06/181929 ADMINISTRATIVE PERSONAL ASSISTANT: PAULA 05/06/181929 RPT#: [id number] DC DATE: STATUS: ADM IN [facility] [address] [place] [address] END OF REPORT
--- NOTE | ~2018-05-06 | MORECARE ---
CASE MANAGEMENT DISCHARGE SUMMARY PATIENT: CASA WALLACE UNIT: [id number] ADM DATE: 05/06/18 AGE: 52 : 61 SEX: F ROOM/BED: D.2107 AUTHOR: DAMEON PASTRANA PHYSICIAN: REFERRING PHYSICIAN: NATHANIEL KIM MD DATE OF SERVICE: 05/06/18 Discharge Plan Patient Name: CASA WALLACE [facility] [facility] 1965 Planned Disposition: Home Health Service Anticipated Discharge Date: Discharge Date: Expected LOS: Initial Reviewer: [email or web address] Initial Review Date: 05/06/2018 Generated: 05/06/18 8:37 pm DCPIA - Discharge Planning Initial Assessment Updated by [email or web address]: Ade Connell on 05/06/18 7:36 pm * Is the patient Alert and Oriented? Yes * How many steps to enter\exit or inside your home? NONE * [facility] * [facility]acy [facility] [address] [place] [address] * Preadmission Environment Home with Family * ADLs Partial Dependent * Partial ADLs (Assistance needed) Bathing Dressing * Equipment CPAP Glucometer Nebulizer Oxygen Shower Chair * Other Equipment OXYGEN STATIONARY / PORTABLE, CPAP, SHOWER CHAIR , COMMODE * List name and contact numbers for known caregivers / representatives who currently or will assist patient after discharge: JENIFFER PIERRE- [phone] * Verbal permission to speak to the caregivers and representatives has been obtained from the patient. No * Community resources currently utilized Other * Please name any agencies selected above. [facility]ARE MOM'S [facility]ALS * Additional services required to return to the preadmission environment? Yes * Can the patient safely return to the preadmission environment? Yes * Has this patient been hospitalized within the prior 30 days at any hospital? Yes Last DP export: 05/06/18 6:30 Patient Name: CASA WALLACE Page [id number] at 1937 All edits/amendments must be made on the electronic document DICTATION DATE: 05/06/181935 PACKAGING COORDINATOR: PAULA 05/06/181935 RPT#: [id number] DC DATE: STATUS: ADM IN [facility] [address] [place] [address] END OF REPORT
--- NOTE | ~2018-05-06 | OP ---
PATIENT NAME: CASA WALLACE MEDICAL RECORD: [id number] :61 LOCATION:D.M2 D.2109 ADMISSION DATE:05/06/18 SURGEON: AFUA DAVIS MD DATE OF OPERATION: 05/06/2018 PREOPERATIVE DIAGNOSES: 1. Need for IV access. 2. End-stage renal disease. 3. Coronary artery disease. 4. Acute pancreatitis. 5. Diabetes mellitus. 6. COPD. 7. CHF, undifferentiated. POSTOPERATIVE DIAGNOSES: 1. Need for IV access. 2. End-stage renal disease. 3. Coronary artery disease. 4. Acute pancreatitis. 5. Diabetes mellitus. 6. COPD. 7. CHF, undifferentiated. PROCEDURE: Right IJ triple-lumen central venous line placement. SURGEON: Afua Davis MD REPORT OF PROCEDURE: The patient's left neck and chest were prepped and draped in sterile fashion. Under ultrasound guidance, we infused a total of 5 mL of 1% lidocaine to the left neck. Again using ultrasound guidance, an Angiocath needle was used to access the left internal jugular vein and a guidewire was advanced with ease. Over this wire, dilator was placed followed by triple lumen catheter. The catheter aspirated nonpulsatile dark blood and flushed easily in all 3 ports. This was sutured into place with 3-0 silk ties and dressed appropriately. COMPLICATIONS: None. CONDITION: Stable. ANESTHESIA: Local. BLOOD LOSS: Minimal. Procedure done at the bedside. TRANSINT:[id number] Voice Confirmation ID: [id number] DOCUMENT ID: [id number] OPERATIVE REPORT [id number] CASA WALLACE AFUA DAVIS MD at 0916 CC: [id number] DICTATION DATE: 05/06/18 1211 WATER TAXI DRIVER: 05/06/18 1338 ADM IN [facility] [address] [place] [address]
--- NOTE | ~2018-05-06 | MORECARE ---
CASE MANAGEMENT DISCHARGE SUMMARY PATIENT: CASA WALLACE UNIT: [id number] ADM DATE: 05/06/18 AGE: 52 : 61 SEX: F ROOM/BED: D.2161 AUTHOR: VICTORIANO,DOC PHYSICIAN: REFERRING PHYSICIAN: NATHANIEL KIM MD DATE OF SERVICE: 05/07/18 Discharge Plan Patient Name: CASA WALLACE Facility[facility]:[place] : 1965 Planned Disposition: Home Health Service Anticipated Discharge Date: Discharge Date: Expected LOS: Initial Reviewer: [email or web address] Initial Review Date: 05/06/2018 Generated: 05/07/18 9:46 am Comments DCP- Discharge Planning Updated by [id number]: Ade Connell on 05/06/18 6:[address] MET PATIENT AT THE BEDSIDE. SHE HAS HAD 2 RECENT ADMISSIONS. SOMEWHAT DISCOURAGED BY NEW ADMIT. STATES SHE WAS JUST DISCHARGED MONDAY OF LAST WEEK. WHEN QUESTIONED , STATED THIS IS A DIFFERENT PROBLEM. LIVES AT HOME W/ DAUGHTER PROVIDING ASSISTANCE. DTR IS JENIFFER PIERRE W/ CONTACT PHONE NUMBER OF [phone]. PATIENT HAS HD M/W/F ON FIRST SHIFT, 0600, AT [facility]. HER FAMILY PROVIDES TRANSPORTATION AT DISCHARGE. PCP- [facility]- [address] SURGERY AIDE- DR KIM AND DR MIGUEL CARDIOLOGY- DR ANTUNEZ AND DR THOMAS DME PROVIDER- [facility]. HOME HEALTH PROVIDERS [facility] AND [facility]. COMMUNITY SERVICES - MOM'S MEALS WILL REQUIRE SERVICES IS ABOVE AT DISCHARGE. WILL NEED TO CHECK WITH [facility] REGARDING STATUS OF HOME HEALTH. PATIENT ADMITTED 05/06. CM WILL FOLLOW TO ASSIST IS APPROPRIATE. EXPLAINED WEEKDAY CM WILL FOLLOW TO ASSIST W/ DISCHARGE NEEDS. DCPIA - Discharge Planning Initial Assessment Updated by [id number]: Ade Connell on 05/06/18 7:36 pm * Is the patient Alert and Oriented? Yes * How many steps to enter\exit or inside your home? NONE * [facility] * Pharmacy [address] * Preadmission Environment Home with Family * ADLs Partial Dependent * Partial ADLs (Assistance needed) Bathing Dressing * Equipment CPAP Glucometer Nebulizer Oxygen Shower Chair * Other Equipment OXYGEN STATIONARY / PORTABLE, CPAP, SHOWER CHAIR , COMMODE * List name and contact numbers for known caregivers / representatives who currently or will assist patient after discharge: JENIFFER PIERRE- [phone] * Verbal permission to speak to the caregivers and representatives has been obtained from the patient. No * Community resources currently utilized Other * Please name any agencies selected above. [facility] CARE MOM'S MEALS * Additional services required to return to the preadmission environment? Yes * Can the patient safely return to the preadmission environment? Yes * Has this patient been hospitalized within the prior 30 days at any hospital? Yes Last DP export: 05/06/18 6:49 Patient Name: CASA WALLACE Page 73822 at 0846 All edits/amendments must be made on the electronic document DICTATION DATE: 05/07/18844 ASSISTANT ATTORNEY GENERAL: PAULA 05/07/18844 RPT#: [id number] DC DATE: STATUS: ADM IN [facility] [address] [place] [address] END OF REPORT
--- NOTE | ~2018-05-06 | MORECARE ---
CASE MANAGEMENT DISCHARGE SUMMARY PATIENT: CASA WALLACE UNIT: [id number] ADM DATE: 05/06/18 AGE: 52 : 61 SEX: F ROOM/BED: D.2101 AUTHOR: DAMEON PASTRANA PHYSICIAN: REFERRING PHYSICIAN: NATHANIEL KIM MD DATE OF SERVICE: 05/09/18 Discharge Plan Patient Name: CASA WALLACE Facility[facility]:[place] : 1965 Planned Disposition: Home Health Service Anticipated Discharge Date: 05/08/18 Discharge Date: Expected LOS: 2 Initial Reviewer: [id number] Initial Review Date: 05/06/2018 Generated: 05/09/18 12:43 pm Comments DCP- Discharge Planning Updated by [id number]: Otilio Villarreal on 05/09/18 10:[address] Patient Name: CASA LEYVA Encounter No: [id number] : 1965 Primary Insurance: MEDICARE A & B Anticipated DC Date: 05-08-2018 Planned Disposition: Home Health Service External Planned Provider: [facility] DCP follow-up note: CM REVIEWED CHART, PT DID NOT DISCHARGE HOME LAST EVENING. CM RECEIVED CALL FROM [facility], , SPOKE TO ELANA, NOTIFIED OF ABOVE INFORMATION. CM FAXED UPDATED DR. DAVISON AND DAILY REVIEW TO [place] AT [phone]. FOR DISCHARGE, NOTIFY [facility] AT [phone], FAX DISCHARGE INFORMATION TO [facility] AT [phone]. CM TO FOLLOW AND ASSIST IF NEEDED. Otilio Villarreal CASE MANAGEMENT DCP- Discharge Planning Updated by [id number]: Otilio Villarreal on 05/08/18 8:[address] Patient Name: CASA LEYVA Encounter No: [id number] : 1965 Primary Insurance: MEDICARE A & B Anticipated DC Date: 05-08-2018 Planned Disposition: Home Health Service External Planned Provider: [facility] DCP follow-up note: CM RECEIVED DISCHARGE ORDER, SPOKE TO PT IN ROOM REGARDING DISCHARGE NEEDS; CM DISCUSSED AVAILABILITY OF HOME HEALTH, REHAB SERVICES AND MEDICAL EQUIPMENT. PT DENIES DISCHARGE NEEDS OTHER THAN HOME HEALTH RESUMPTION WITH [facility], PT WANTS TO GO HOME SOON POSSIBLE TODAY. PT'S DAUGHTER TO SENIOR DB2 SYSTEMS PROGRAMMER AT DISCHARGE. IMPORTANT MESSAGE FROM MEDICARE PROVIDED AND EXPLAINED. CM REVIEWED CHART WHICH INDICATED PT HAS ORDER FOR GI CONSULT AND MAY NOT DISCHARGE TODAY. CM NOTIFIED PT. CM SPOKE TO BEDSIDE NURSE WHO WAS AWARE. CM CALLED [facility], , SPOKE TO ELANA, NOTIFIED OF ABOVE INFORMATION. ELANA INFORMED CM THAT CARE WOULD BE A RESUMPTION OF HOME HEALTH SERVICES. CM FAXED DISCHARGE ORDER AND DC MED LIST TO [facility] AT [phone]. FOR DISCHARGE, NOTIFY [facility] AT [phone], FAX DISCHARGE INFORMATION TO [facility] AT [phone]. CM TO FOLLOW AND ASSIST IF NEEDED. Otilio Villarreal, CASE MANAGEMENT DCP- Discharge Planning Updated by [id number]: Ade Connell on 05/06/18 6:[address] MET PATIENT AT THE BEDSIDE. SHE HAS HAD 2 RECENT ADMISSIONS. SOMEWHAT DISCOURAGED BY NEW ADMIT. STATES SHE WAS JUST DISCHARGED MONDAY OF LAST WEEK. WHEN QUESTIONED , STATED THIS IS A DIFFERENT PROBLEM. LIVES AT HOME W/ DAUGHTER PROVIDING ASSISTANCE. DTR IS JENIFFER PIERRE W/ CONTACT PHONE NUMBER OF [phone]. PATIENT HAS HD M/W/F ON FIRST SHIFT, 0600, AT [facility]. HER FAMILY PROVIDES TRANSPORTATION AT DISCHARGE. PCP- [facility]- [address] ASSISTANT WOMENS VOLLEYBALL COACH- DR KIM AND DR MIGUEL CARDIOLOGY- DR ANTUNEZ AND DR THOMAS DME PROVIDER- [facility]. HOME HEALTH PROVIDERS [facility] AND [facility]. COMMUNITY SERVICES - MOM'S MEALS WILL REQUIRE SERVICES IS ABOVE AT DISCHARGE. WILL NEED TO CHECK WITH [facility] REGARDING STATUS OF HOME HEALTH. PATIENT ADMITTED 05/06. CM WILL FOLLOW TO ASSIST IS APPROPRIATE. EXPLAINED WEEKDAY CM WILL FOLLOW TO ASSIST W/ DISCHARGE NEEDS. DCPIA - Discharge Planning Initial Assessment Updated by [id number]: Ade Connell on 05/06/18 7:36 pm * Is the patient Alert and Oriented? Yes * How many steps to enter\exit or inside your home? NONE * [facility]CP [facility] * Pharmacy [facility] [address] [place] [address] * Preadmission Environment Home with Family * ADLs Partial Dependent * Partial ADLs (Assistance needed) Bathing Dressing * Equipment CPAP Glucometer Nebulizer Oxygen Shower Chair * Other Equipment OXYGEN STATIONARY / PORTABLE, CPAP, SHOWER CHAIR , COMMODE * List name and contact numbers for known caregivers / representatives who currently or will assist patient after discharge: JENIFFER PIERRE- [phone] * Verbal permission to speak to the caregivers and representatives has been obtained from the patient. No * Community resources currently utilized Other * Please name any agencies selected above. [facility] CARE MOM'S MEALS * Additional services required to return to the preadmission environment? Yes * Can the patient safely return to the preadmission environment? Yes * Has this patient been hospitalized within the prior 30 days at any hospital? Yes Coverage Notice Reviewer: [id number] Tammy Villarreal Notice Issued Date-Time: 05/08/2018 8:50 Notice Type: IM Discharge Notice Notice Delivered To: Patient Relationship to Patient: Hearing Aid Repairer Name: Delivery Method: HAND - Hand Delivered Selma Days: Prior Verbal Notification: Recipient Understood Notice: Yes Recipient Signature: Yes Med Rec Note Co-signed by Attending: Coverage Notice Comment: Last DP export: 05/08/18 8:39 Patient Name: CASA WALLACE Page 38298 at 1144 All edits/amendments must be made on the electronic document DICTATION DATE: 05/09/181142 ASSET MANAGEMENT ANALYST: PAULA 05/09/181142 RPT#: [id number] DC DATE: STATUS: ADM IN [facility] [address] [place] [address] END OF REPORT
--- NOTE | ~2018-05-06 | MORECARE ---
CASE MANAGEMENT DISCHARGE SUMMARY PATIENT: CASA WALLACE UNIT: [id number] ADM DATE: 05/06/18 AGE: 52 : 61 SEX: F ROOM/BED: D.7221 AUTHOR: VICTORIANO,DOC PHYSICIAN: REFERRING PHYSICIAN: NATHANIEL KIM MD DATE OF SERVICE: 05/10/18 Discharge Plan Patient Name: CASA WALLACE [facility]:[place] : 1965 Planned Disposition: Home Health Service Anticipated Discharge Date: 05/10/18 Discharge Date: 05/10/2018 Expected LOS: 4 Initial Reviewer: [email or web address] Initial Review Date: 05/06/2018 Generated: 05/10/18 1:09 pm Comments DCP- Discharge Planning Updated by [email or web address]: Otilio Villarreal on 05/10/18 11:[address] Patient Name: CASA LEYVA Encounter No: [id number] : 1965 Primary Insurance: MEDICARE A & B Anticipated DC Date: 05-10-2018 Planned Disposition: Home Health Service External Planned Provider: [facility] DCP follow-up note: CM RECEIVED DISCHARGE ORDERS, NOTIFIED ELANA AT [place] AT [phone]; FAXED DISCHARGE INFORMATION TO [place] AT [phone]. SHEKHAR Slater. DCP- Discharge Planning Updated by [id number]: Otilio Villarreal on 05/09/18 10:[address] Patient Name: CASA LEYVA Encounter No: [id number] : 1965 Primary Insurance: MEDICARE A & B Anticipated DC Date: 05-08-2018 Planned Disposition: Home Health Service External Planned Provider: [facility] DCP follow-up note: CM REVIEWED CHART, PT DID NOT DISCHARGE HOME LAST EVENING. CM RECEIVED CALL FROM [facility], , SPOKE TO ELANA, NOTIFIED OF ABOVE INFORMATION. CM FAXED UPDATED DR. DAVISON AND DAILY REVIEW TO [place] AT [phone]. FOR DISCHARGE, NOTIFY [facility] AT [phone], FAX DISCHARGE INFORMATION TO [place] AT [phone]. CM TO FOLLOW AND ASSIST IF NEEDED. Otilio Arcade, CASE MANAGEMENT DCP- Discharge Planning Updated by [id number]: Otilio Villarreal on 05/08/18 8:[address] Patient Name: CASA LEYVA Encounter No: [id number] : 1965 Primary Insurance: MEDICARE A & B Anticipated DC Date: 05-08-2018 Planned Disposition: Home Health Service External Planned Provider: [facility] DCP follow-up note: CM RECEIVED DISCHARGE ORDER, SPOKE TO PT IN ROOM REGARDING DISCHARGE NEEDS; CM DISCUSSED AVAILABILITY OF HOME HEALTH, REHAB SERVICES AND MEDICAL EQUIPMENT. PT DENIES DISCHARGE NEEDS OTHER THAN HOME HEALTH RESUMPTION WITH [facility], PT WANTS TO GO HOME SOON POSSIBLE TODAY. PT'S DAUGHTER TO FARM EQUIPMENT OPERATOR AT DISCHARGE. IMPORTANT MESSAGE FROM MEDIC[employer] PROVIDED AND EXPLAINED. CM REVIEWED CHART WHICH INDICATED PT HAS ORDER FOR GI CONSULT AND MAY NOT DISCHARGE TODAY. CM NOTIFIED PT. CM SPOKE TO BEDSIDE NURSE WHO WAS AWARE. CM CALLED [facility], , SPOKE TO ELANA, NOTIFIED OF ABOVE INFORMATION. ELANA INFORMED CM THAT CARE WOULD BE A RESUMPTION OF HOME HEALTH SERVICES. CM FAXED DISCHARGE ORDER AND DC MED LIST TO [place] AT [phone]. FOR DISCHARGE, NOTIFY [place] AT [phone], FAX DISCHARGE INFORMATION TO [place] AT [phone]. CM TO FOLLOW AND ASSIST IF NEEDED. Otilio Villarreal, CASE MANAGEMENT DCP- Discharge Planning Updated by [email or web address]: Adehuy Connell on 05/06/18 6:[address] MET PATIENT AT THE BEDSIDE. SHE HAS HAD 2 RECENT ADMISSIONS. SOMEWHAT DISCOURAGED BY NEW ADMIT. STATES SHE WAS JUST DISCHARGED MONDAY OF LAST WEEK. WHEN QUESTIONED , STATED THIS IS A DIFFERENT PROBLEM. LIVES AT HOME W/ DAUGHTER PROVIDING ASSISTANCE. DTR IS JENIFFER PIERRE W/ CONTACT PHONE NUMBER OF [phone]. PATIENT HAS HD M/W/F ON FIRST SHIFT, 0600, AT [facility]. HER FAMILY PROVIDES TRANSPORTATION AT DISCHARGE. PCP- [facility]- [facility] MEDICAL ILLUSTRATOR- DR KIM AND DR MIGUEL CARDIOLOGY- DR ANTUNEZ AND DR THOMAS DME PROVIDER- [facility] [place]. HOME HEALTH PROVIDERS [facility] AND [facility]. COMMUNITY SERVICES - MOM'S MEALS WILL REQUIRE SERVICES IS ABOVE AT DISCHARGE. WILL NEED TO CHECK WITH [facility] REGARDING STATUS OF HOME HEALTH. PATIENT ADMITTED 05/06. CM WILL FOLLOW TO ASSIST IS APPROPRIATE. EXPLAINED WEEKDAY CM WILL FOLLOW TO ASSIST W/ DISCHARGE NEEDS. DCPIA - Discharge Planning Initial Assessment Updated by [id number]: Ade Connell on 05/06/18 7:36 pm * Is the patient Alert and Oriented? Yes * How many steps to enter\exit or inside your home? NONE * [facility] * Pharmacy [facility] [address] [place] [address] * Preadmission Environment Home with Family * ADLs Partial Dependent * Partial ADLs (Assistance needed) Bathing Dressing * Equipment CPAP Glucometer Nebulizer Oxygen Shower Chair * Other Equipment OXYGEN STATIONARY / PORTABLE, CPAP, SHOWER CHAIR , COMMODE * List name and contact numbers for known caregivers / representatives who currently or will assist patient after discharge: JENIFFER PIERRE- [phone] * Verbal permission to speak to the caregivers and representatives has been obtained from the patient. No * Community resources currently utilized Other * Please name any agencies selected above. [facility] CARE MOM'S MEALS * Additional services required to return to the preadmission environment? Yes * Can the patient safely return to the preadmission environment? Yes * Has this patient been hospitalized within the prior 30 days at any hospital? Yes Coverage Notice Reviewer: [id number] - Otilio Villarreal Notice Issued Date-Time: 05/08/2018 8:50 Notice Type: IM Discharge Notice Notice Delivered To: Patient Relationship to Patient: Receiving Specialist Name: Delivery Method: HAND - Hand Delivered Selma Days: Prior Verbal Notification: Recipient Understood Notice: Yes Recipient Signature: Yes Med Rec Note Co-signed by Attending: Coverage Notice Comment: Last DP export: 05/09/18 10:43 Patient Name: CASA WALLACE Page 42661 at 1209 All edits/amendments must be made on the electronic document DICTATION DATE: 05/10/181208 CIO: PAULA 05/10/181208 RPT#: [id number] DC DATE:05/10/18 STATUS: DIS IN [facility] [address] [place] [address] END OF REPORT
--- NOTE | ~2018-05-06 | MORECARE ---
CASE MANAGEMENT DISCHARGE SUMMARY PATIENT: CASA WALLACE UNIT: [id number] ADM DATE: 05/06/18 AGE: 52 : 61 SEX: F ROOM/BED: D.9560 AUTHOR: VICTORIANO,DOC PHYSICIAN: REFERRING PHYSICIAN: NATHANIEL KIM MD DATE OF SERVICE: 05/08/18 Discharge Plan Patient Name: CASA WALLACE Facility: [facility]:[place] : 1965 Planned Disposition: Home Health Service Anticipated Discharge Date: 05/08/18 Discharge Date: Expected LOS: 2 Initial Reviewer: [email or web address] Initial Review Date: 05/06/2018 Generated: 05/08/18 10:16 am Comments DCP- Discharge Planning Updated by [email or web address]: Ade Connell on 05/06/18 6:[address] MET PATIENT AT THE BEDSIDE. SHE HAS HAD 2 RECENT ADMISSIONS. SOMEWHAT DISCOURAGED BY NEW ADMIT. STATES SHE WAS JUST DISCHARGED MONDAY OF LAST WEEK. WHEN QUESTIONED , STATED THIS IS A DIFFERENT PROBLEM. LIVES AT HOME W/ DAUGHTER PROVIDING ASSISTANCE. DTR IS JENIFFER PIERRE W/ CONTACT PHONE NUMBER OF [phone]. PATIENT HAS HD M/W/F ON FIRST SHIFT, 0600, AT [facility]. HER FAMILY PROVIDES TRANSPORTATION AT DISCHARGE. PCP- [facility]- [address] CHAIN MAKER- DR KIM AND DR MIGUEL CARDIOLOGY- DR ANTUNEZ AND DR THOMAS DME PROVIDER- [facility]. HOME HEALTH PROVIDERS [facility]. COMMUNITY SERVICES - MOM'S MEALS WILL REQUIRE SERVICES IS ABOVE AT DISCHARGE. WILL NEED TO CHECK WITH [facility] REGARDING STATUS OF HOME HEALTH. PATIENT ADMITTED 05/06. CM WILL FOLLOW TO ASSIST IS APPROPRIATE. EXPLAINED WEEKDAY CM WILL FOLLOW TO ASSIST W/ DISCHARGE NEEDS. DCPIA - Discharge Planning Initial Assessment Updated by [email or web address]: Ade Connell on 05/06/18 7:36 pm * Is the patient Alert and Oriented? Yes * How many steps to enter\exit or inside your home? NONE * [facility] * Pharmacy [facility] [address] [place] [address] * Preadmission Environment Home with Family * ADLs Partial Dependent * Partial ADLs (Assistance needed) Bathing Dressing * Equipment CPAP Glucometer Nebulizer Oxygen Shower Chair * Other Equipment OXYGEN STATIONARY / PORTABLE, CPAP, SHOWER CHAIR , COMMODE * List name and contact numbers for known caregivers / representatives who currently or will assist patient after discharge: JENIFFER PIERRE- [phone] * Verbal permission to speak to the caregivers and representatives has been obtained from the patient. No * Community resources currently utilized Other * Please name any agencies selected above. [facility] CARE MOM'S MEALS * Additional services required to return to the preadmission environment? Yes * Can the patient safely return to the preadmission environment? Yes * Has this patient been hospitalized within the prior 30 days at any hospital? Yes External Providers External Provider: [facility] Next Contact Date: 05/08/2018 Service Request Date: Service Type: Resolution: Reviewer: Comments: Coverage Notice Reviewer: [email or web address] Tammy Villarreal Notice Issued Date-Time: 05/08/2018 8:50 Notice Type: IM Discharge Notice Notice Delivered To: Patient Relationship to Patient: Licensed Practical Nurse Instructor Name: Delivery Method: HAND - Hand Delivered Selma Days: Prior Verbal Notification: Recipient Understood Notice: Yes Recipient Signature: Yes Med Rec Note Co-signed by Attending: Coverage Notice Comment: Last DP export: 05/07/18 7:46 Patient Name: CASA WALLACE Page 92047 at 0916 All edits/amendments must be made on the electronic document DICTATION DATE: 05/08/18915 WELDER APPRENTICE: PAULA 05/08/18915 RPT#: [id number] DC DATE: STATUS: ADM IN [facility] [address] [place] [address] END OF REPORT
[~2018-05-06 00:07] MED LIST changes: +BACTRIM 400-801 TAB PO; +BRILINTA90 MG PO; +ELIQUIS5 MG PO; +MUPIROCIN22 GM TOPICAL
[2018-05-06 01:17] LABS: BASOPHILS 0.2 % (0-2); EOSINOPHILS 1.3 % (0-7); HEMATOCRIT 43.6 % (36.0-48.0); IMMATURE GRANULOCYTES 0.5 % (0-5); LYMPHOCYTES 19.2 % (15-50); MCH 27.9 pg (26.0-34.0); MCHC 32.1 g/dL (31.0-37.0); MCV 86.9 fL (80.0-100.0); MEAN PLATELET VOLUME 9.6 fL (7.4-10.4); MONOCYTES 9.2 % (2-11); NEUTROPHILS 69.6 % (40-80); PLATELET COUNT 185 10x3/uL (130-400); RBC 5.02 10x6/uL (4.00-5.40); RDW 15.5 % (11.5-14.5); WBC 10.3 10x3/uL (4.8-10.8)
[2018-05-06 01:32] LABS: ALBUMIN 3.2 g/dL (3.4-5.0); ANION GAP 17.7 mmol/L (8-16); BILIRUBIN - TOTAL 0.34 mg/dL (0.2-1.3); CALCIUM 8.1 mg/dL (8.5-10.1); CARBON DIOXIDE 28.3 mmol/L (21.0-32.0); CREATININE - SERUM 9.2 mg/dL (0.6-1.3); PROTEIN - SERUM 8.3 g/dL (6.4-8.2)
[2018-05-06] MEDS ORDERED: BAYER CHEWABLE81 MG PO (05:15)
[2018-05-06] MEDS ORDERED: FLAGYL500 MG PO (05:17)
[2018-05-06] MEDS ORDERED: CIPRO250 MG PO (05:18)
[2018-05-06 05:39] VITALS: BP 155/79; BMI 31.4
[2018-05-06 08:37] VITALS: BP 101/65
[2018-05-06 13:33] VITALS: BP 119/67
[2018-05-06 16:04] VITALS: BP 108/62
[2018-05-06 20:19] VITALS: BP 101/66
[2018-05-07] VITALS: BP 112/57
[2018-05-07 04:00] VITALS: BP 112/68
[2018-05-07 04:58] LABS: BASOPHILS 0.3 % (0-2); EOSINOPHILS 1.5 % (0-7); HEMATOCRIT 41.5 % (36.0-48.0); HEMOGLOBIN 13.1 g/dL (12-16); IMMATURE GRANULOCYTES 0.7 % (0-5); LYMPHOCYTES 24.5 % (15-50); MCH 27.5 pg (26.0-34.0); MCHC 31.6 g/dL (31.0-37.0); MONOCYTES 6.9 % (2-11); NEUTROPHILS 66.1 % (40-80); PLATELET COUNT 207 10x3/uL (130-400); RBC 4.77 10x6/uL (4.00-5.40); RDW 15.7 % (11.5-14.5); WBC 9.1 10x3/uL (4.8-10.8)
[2018-05-07 05:08] LABS: ANION GAP 17.3 mmol/L (8-16); CALCIUM 7.2 mg/dL (8.5-10.1); CARBON DIOXIDE 28.3 mmol/L (21.0-32.0); CREATININE - SERUM 11.4 mg/dL (0.6-1.3); POTASSIUM - SERUM 5.6 mmol/L (3.5-5.1)
[2018-05-07 08:50] VITALS: BP 113/66
[2018-05-07 11:23] VITALS: BP 146/73
[2018-05-07 12:08] VITALS: Ht 175.3 cm; Wt 91.6 kg
[2018-05-07 15:33] VITALS: BP 83/47
[2018-05-07 20:34] VITALS: BP 98/65
[2018-05-08 01:25] VITALS: BP 90/52
[2018-05-08 05:03] VITALS: BP 118/69
[2018-05-08 06:15] LABS: CALCIUM 7.7 mg/dL (8.5-10.1); CARBON DIOXIDE 27.4 mmol/L (21.0-32.0); CREATININE - SERUM 9.2 mg/dL (0.6-1.3); PHOSPHOROUS 6.7 mg/dL (2.5-4.9)
[2018-05-08 06:18] LABS: POTASSIUM - SERUM 4.4 mmol/L (3.5-5.1)
[2018-05-08 09:02] VITALS: BP 98/56
[2018-05-08 11:20] VITALS: BP 102/52
[2018-05-08 15:45] VITALS: BP 102/54
[2018-05-08 20:26] VITALS: BP 113/52
[2018-05-09 01:01] VITALS: BP 96/57
[2018-05-09 04:48] VITALS: BP 118/62
[2018-05-09 05:42] LABS: BASOPHILS 0.2 % (0-2); EOSINOPHILS 2.1 % (0-7); HEMATOCRIT 39.3 % (36.0-48.0); HEMOGLOBIN 12.6 g/dL (12-16); IMMATURE GRANULOCYTES 0.5 % (0-5); LYMPHOCYTES 20.7 % (15-50); MCH 27.6 pg (26.0-34.0); MCHC 32.1 g/dL (31.0-37.0); MCV 86.2 fL (80.0-100.0); MEAN PLATELET VOLUME 9.7 fL (7.4-10.4); MONOCYTES 7.2 % (2-11); NEUTROPHILS 69.3 % (40-80); PLATELET COUNT 197 10x3/uL (130-400); RBC 4.56 10x6/uL (4.00-5.40); RDW 15.9 % (11.5-14.5); WBC 9.2 10x3/uL (4.8-10.8)
[2018-05-09 06:01] LABS: ANION GAP 19.2 mmol/L (8-16); CALCIUM 7.3 mg/dL (8.5-10.1); CARBON DIOXIDE 27.1 mmol/L (21.0-32.0); CREATININE - SERUM 10.7 mg/dL (0.6-1.3); PHOSPHOROUS 7.5 mg/dL (2.5-4.9); POTASSIUM - SERUM 4.3 mmol/L (3.5-5.1)
[2018-05-09 07:01] LABS: HELICOBACTER PYLORI IGG NEGATIVE (NEGATIVE)
[2018-05-09 08:23] VITALS: BP 126/74
[2018-05-09 16:59] VITALS: BP 80/59
[2018-05-09 20:00] VITALS: BP 94/63
[2018-05-10 04:00] VITALS: BP 91/56
[2018-05-10 04:58] LABS: BASOPHILS 0.4 % (0-2); EOSINOPHILS 1.7 % (0-7); HEMATOCRIT 40.8 % (36.0-48.0); IMMATURE GRANULOCYTES 0.6 % (0-5); LYMPHOCYTES 20.7 % (15-50); MCH 27.6 pg (26.0-34.0); MCHC 31.9 g/dL (31.0-37.0); MCV 86.6 fL (80.0-100.0); MEAN PLATELET VOLUME 9.8 fL (7.4-10.4); MONOCYTES 9.8 % (2-11); NEUTROPHILS 66.8 % (40-80); PLATELET COUNT 208 10x3/uL (130-400); RBC 4.71 10x6/uL (4.00-5.40); RDW 15.8 % (11.5-14.5); WBC 9.1 10x3/uL (4.8-10.8)
[2018-05-10 05:22] LABS: ANION GAP 17.7 mmol/L (8-16); CARBON DIOXIDE 28.5 mmol/L (21.0-32.0); PHOSPHOROUS 6.6 mg/dL (2.5-4.9); POTASSIUM - SERUM 4.2 mmol/L (3.5-5.1)
[2018-05-10 05:24] LABS: CREATININE - SERUM 7.5 mg/dL (0.6-1.3)
[2018-05-10] MEDS ORDERED: CREON PO (08:00)
== END 2018-05-10 08:52 | disposition home health service (06) | DRG 438 ==
LOC: D.ER 00:07 → D.M2 04:35
PROVIDERS: Emergency Medicine; Internal Medicine Gastroenterology; Internal Medicine Nephrology
PROC: 02HV33Z Insertion of Infusion Device into Superior Vena Cava, Percutaneous Approach (ICD-10-PCS; principal; 2018-05-06)
PROC: 5A1D70Z Performance of Urinary Filtration, Intermittent, Less than 6 Hours Per Day (ICD-10-PCS; 2018-05-07)
DX: K85.00 Idiopathic acute pancreatitis without necrosis or infection (principal); N18.6 End stage renal disease; I13.2 Hypertensive heart and chronic kidney disease with heart failure and with stage 5 chronic kidney disease, or end stage renal disease; E11.22 Type 2 diabetes mellitus with diabetic chronic kidney disease; Z99.2 Dependence on renal dialysis; I25.10 Atherosclerotic heart disease of native coronary artery without angina pectoris; E11.43 Type 2 diabetes mellitus with diabetic autonomic (poly)neuropathy; K31.84 Gastroparesis; E11.40 Type 2 diabetes mellitus with diabetic neuropathy, unspecified; I50.9 Heart failure, unspecified; E87.5 Hyperkalemia; I95.9 Hypotension, unspecified; I48.91 Unspecified atrial fibrillation; F41.9 Anxiety disorder, unspecified; Z87.891 Personal history of nicotine dependence

== ENCOUNTER 2018-05-16 20:24 | Inpatient (IN) | payer MEDICARE ==
[~2018-05-16] VITALS: Ht 175.3 cm; Wt 96.5 kg
--- NOTE | ~2018-05-16 | MORECARE ---
CASE MANAGEMENT DISCHARGE SUMMARY PATIENT: CASA WALLACE UNIT: [id number] ADM DATE: 05/16/18 AGE: 52 : 61 SEX: F ROOM/BED: D.2106 AUTHOR: DAMEON PASTRANA PHYSICIAN: REFERRING PHYSICIAN: LASHONDA MCPHERSON MD DATE OF SERVICE: 05/21/18 Discharge Plan Patient Name: CASA WALLACE Facility: [facility]:[place] : 1965 Planned Disposition: Home with Home Health Anticipated Discharge Date: 05/19/18 Discharge Date: 05/19/2018 Expected LOS: 3 Initial Reviewer: [email or web address] Initial Review Date: 05/21/2018 Generated: 05/21/18 9:19 am Comments DCP- Discharge Planning Updated by [email or web address]: Otilio Villarreal on 05/21/18 7:[address] Patient Name: CASA LEYVA Admission Status: ER Accout number: [id number] Admission Date: 05-16-2018 : 1965 Admission Diagnosis:UNSPECIFIED ATRIAL FIBRILLATION Attending: LASHONDA MCPHERSON Current LOS: 3 Anticipated DC Date: 05-19-2018 Planned Disposition: Home with Home Health Primary Insurance: MEDICARE A & B Planned external provider: [facility] Discharge Planning Comments: CM reviewed chart, patient discharged on Monday. CM spoke to [place] [facility] who informed CM that patient is active with [place] for home health services. CM reviewed previous hospital stay, patient was active with [place] after last admission. CM faxed discharge information to [facility] at [phone] for resumption of home health services. Snuff Blender: Otilio Villarreal Last DP export: 05/21/18 7:06 Patient Name: CASA WALLACE Page 44461 at 0819 All edits/amendments must be made on the electronic document DICTATION DATE: 05/21/18818 INSPECTION ENGINEER: PAULA 05/21/18818 RPT#: [id number] DC DATE:05/19/18 STATUS: DIS IN [address] [place] [address] END OF REPORT
--- NOTE | ~2018-05-16 | MORECARE ---
CASE MANAGEMENT DISCHARGE SUMMARY PATIENT: CASA WALLACE UNIT: [id number] ADM DATE: 05/16/18 AGE: 52 : 61 SEX: F ROOM/BED: D.2106 AUTHOR: DAMEON PASTRANA PHYSICIAN: REFERRING PHYSICIAN: LASHONDA MCPHERSON MD DATE OF SERVICE: 05/21/18 Discharge Plan Patient Name: CASA WALLACE Facility: [facility]:[place] : 1965 Planned Disposition: Home with Home Health Anticipated Discharge Date: 05/19/18 Discharge Date: 05/19/2018 Expected LOS: 3 Initial Reviewer: [email or web address] Initial Review Date: 05/21/2018 Generated: 05/21/18 9:06 am External Providers External Provider: [facility] Next Contact Date: 05/21/2018 Service Request Date: Service Type: Resolution: Reviewer: Comments: Patient Name: CASA WALLACE Page [phone] at 0806 All edits/amendments must be made on the electronic document DICTATION DATE: 05/21/18804 CASINO FLOOR PERSON: PAULA 05/21/18804 RPT#: [id number] DC DATE:05/19/18 STATUS: DIS IN [facility] [address] [place] [address] END OF REPORT
[~2018-05-16 20:24] MED LIST changes: +CIPRO250 MG PO; +CREON PO; +FLAGYL500 MG PO
[2018-05-16] MEDS ORDERED: FLORINEF 0.1 M0.1 MG PO (20:36)
[2018-05-16 21:11] LABS: BASOPHILS 0.4 % (0-2); EOSINOPHILS 1.4 % (0-7); HEMATOCRIT 45.2 % (36.0-48.0); HEMOGLOBIN 14.5 g/dL (12-16); LYMPHOCYTES 28.1 % (15-50); MCHC 32.1 g/dL (31.0-37.0); MCV 87.3 fL (80.0-100.0); MEAN PLATELET VOLUME 9.9 fL (7.4-10.4); MONOCYTES 8.5 % (2-11); NEUTROPHILS 60.6 % (40-80); PLATELET COUNT 244 10x3/uL (130-400); RBC 5.18 10x6/uL (4.00-5.40); RDW 16.5 % (11.5-14.5)
[2018-05-16 21:22] LABS: INR 1.21 (0.85-1.17); PROTIME 14.9 SECONDS (11.6-15.0)
[2018-05-16 21:27] LABS: ALBUMIN 3.1 g/dL (3.4-5.0); ANION GAP 15.7 mmol/L (8-16); BILIRUBIN - TOTAL 0.32 mg/dL (0.2-1.3); CALCIUM 8.2 mg/dL (8.5-10.1); CARBON DIOXIDE 26.6 mmol/L (21.0-32.0); CREATININE - SERUM 5.9 mg/dL (0.6-1.3); POTASSIUM - SERUM 3.3 mmol/L (3.5-5.1); PROTEIN - SERUM 7.9 g/dL (6.4-8.2)
[2018-05-17 12:23] VITALS: Ht 175.3 cm; Wt 96.5 kg
[2018-05-17 20:52] VITALS: BP 97/64
[2018-05-18] VITALS: BP 112/55
[2018-05-18 03:00] VITALS: BP 138/73
[2018-05-18 04:00] VITALS: BP 129/75
[2018-05-18 06:22] LABS: BASOPHILS 0.5 % (0-2); EOSINOPHILS 3.6 % (0-7); HEMATOCRIT 42.1 % (36.0-48.0); HEMOGLOBIN 14.5 g/dL (12-16); IMMATURE GRANULOCYTES 0.5 % (0-5); LYMPHOCYTES 39.8 % (15-50); MCH 29.1 pg (26.0-34.0); MCHC 34.4 g/dL (31.0-37.0); MEAN PLATELET VOLUME 9.8 fL (7.4-10.4); MONOCYTES 6.8 % (2-11); NEUTROPHILS 48.8 % (40-80); RBC 4.98 10x6/uL (4.00-5.40); RDW 13.3 % (11.5-14.5)
[2018-05-18 06:28] LABS: MCV 84.5 fL (80.0-100.0); PLATELET COUNT 325 10x3/uL (130-400)
[2018-05-18 08:56] VITALS: BP 145/90
[2018-05-18 10:47] LABS: ANION GAP 22.2 mmol/L (8-16); CALCIUM 7.6 mg/dL (8.5-10.1); CARBON DIOXIDE 20.6 mmol/L (21.0-32.0); CREATININE - SERUM 8.8 mg/dL (0.6-1.3); PHOSPHOROUS 5.5 mg/dL (2.5-4.9); POTASSIUM - SERUM 3.8 mmol/L (3.5-5.1)
[2018-05-18 11:00] VITALS: BP 106/86
[2018-05-18 21:22] VITALS: BP 92/60
[2018-05-19 02:11] VITALS: BP 103/54
[2018-05-19 05:23] LABS: BASOPHILS 0.3 % (0-2); EOSINOPHILS 1.4 % (0-7); HEMATOCRIT 41.6 % (36.0-48.0); HEMOGLOBIN 13.2 g/dL (12-16); IMMATURE GRANULOCYTES 0.5 % (0-5); LYMPHOCYTES 25.5 % (15-50); MCH 27.4 pg (26.0-34.0); MCHC 31.7 g/dL (31.0-37.0); MCV 86.3 fL (80.0-100.0); MEAN PLATELET VOLUME 9.8 fL (7.4-10.4); MONOCYTES 9.3 % (2-11); RBC 4.82 10x6/uL (4.00-5.40); RDW 16.9 % (11.5-14.5); WBC 8.8 10x3/uL (4.8-10.8)
[2018-05-19 05:24] LABS: PLATELET COUNT 192 10x3/uL (130-400)
[2018-05-19 05:33] LABS: CALCIUM 7.7 mg/dL (8.5-10.1); CARBON DIOXIDE 24.4 mmol/L (21.0-32.0); CREATININE - SERUM 8.6 mg/dL (0.6-1.3); PHOSPHOROUS 5.8 mg/dL (2.5-4.9)
[2018-05-19 05:43] LABS: POTASSIUM - SERUM 4.4 mmol/L (3.5-5.1)
[2018-05-19 06:40] VITALS: BP 93/60
[2018-05-19 08:42] VITALS: BP 106/71
[2018-05-19] MEDS ORDERED: PLAVIX75 MG PO ×2 (12:31→14:14)
[2018-05-19] MEDS ORDERED: BRILINTA90 MG PO (13:56)
== END 2018-05-19 14:40 | disposition home health service (06) | DRG 314 ==
LOC: D.ER 20:24 → D.M2 23:03
PROVIDERS: Emergency Medicine; Internal Medicine Nephrology
PROC: 5A1D70Z Performance of Urinary Filtration, Intermittent, Less than 6 Hours Per Day (ICD-10-PCS; principal; 2018-05-18)
DX: I95.9 Hypotension, unspecified (principal); N18.6 End stage renal disease; K85.90 Acute pancreatitis without necrosis or infection, unspecified; I13.2 Hypertensive heart and chronic kidney disease with heart failure and with stage 5 chronic kidney disease, or end stage renal disease; E11.22 Type 2 diabetes mellitus with diabetic chronic kidney disease; I50.9 Heart failure, unspecified; Z99.2 Dependence on renal dialysis; I25.10 Atherosclerotic heart disease of native coronary artery without angina pectoris; E11.51 Type 2 diabetes mellitus with diabetic peripheral angiopathy without gangrene; F32.9 Major depressive disorder, single episode, unspecified; J44.9 Chronic obstructive pulmonary disease, unspecified; D63.1 Anemia in chronic kidney disease; E66.01 Morbid (severe) obesity due to excess calories; Z68.30 Body mass index [BMI] 30.0-30.9, adult; I44.0 Atrioventricular block, first degree; I48.2 Chronic atrial fibrillation

== ENCOUNTER 2018-06-14 10:59 | Outpatient (CLI) | payer MEDICARE ==
[2018-06-14 12:05] LABS: APTT 28.2 SECONDS (22.8-39.4); INR 1.02 (0.85-1.17); PROTIME 12.9 SECONDS (11.6-15.0)
[2018-06-14 19:55] LABS: CARBON DIOXIDE 16.5 mmol/L (21.0-32.0); CREATININE - SERUM 9.1 mg/dL (0.6-1.3)
[2018-06-14 19:57] LABS: ANION GAP 31.6 mmol/L (8-16); CALCIUM 6.8 mg/dL (8.5-10.1)
[2018-06-14 19:58] LABS: POTASSIUM - SERUM 7.1 mmol/L (3.5-5.1)
== END 2018-06-15 14:15 | disposition home or self-care (01) ==
LOC: D.CATH 10:59 → D.M2 13:37
PROVIDERS: Internal Medicine Interventional Cardiology
DX: I49.5 Sick sinus syndrome (principal); I10 Essential (primary) hypertension; E78.5 Hyperlipidemia, unspecified; I25.10 Atherosclerotic heart disease of native coronary artery without angina pectoris; Z01.812 Encounter for preprocedural laboratory examination

== ENCOUNTER 2018-06-22 06:24 | Emergency (ER) | payer MEDICARE ==
[~2018-06-22] VITALS: Ht 175.3 cm; Wt 104.5 kg
[2018-06-22 06:30] VITALS: Ht 175.3 cm; Wt 104.5 kg
[2018-06-22] MEDS ORDERED: CYCLOBENZAPRINE10 MG PO (07:07)
[2018-06-22 09:00] LABS: BILIRUBIN - TOTAL 0.37 mg/dL (0.2-1.3); CARBON DIOXIDE 18.6 mmol/L (21.0-32.0); PROTEIN - SERUM 7.6 g/dL (6.4-8.2)
[2018-06-22 09:07] VITALS: BP 106/64
[2018-06-22 09:08] LABS: ANION GAP 35.5 mmol/L (8-16); CALCIUM 6.9 mg/dL (8.5-10.1); POTASSIUM - SERUM 7.1 mmol/L (3.5-5.1)
[2018-06-22 09:39] LABS: BASOPHILS 0.2 % (0-2); EOSINOPHILS 1.3 % (0-7); HEMATOCRIT 36.3 % (36.0-48.0); HEMOGLOBIN 11.9 g/dL (12-16); IMMATURE GRANULOCYTES 0.5 % (0-5); LYMPHOCYTES 19.7 % (15-50); MCH 27.2 pg (26.0-34.0); MCHC 32.8 g/dL (31.0-37.0); MCV 82.9 fL (80.0-100.0); MONOCYTES 5.7 % (2-11); NEUTROPHILS 72.6 % (40-80); RBC 4.38 10x6/uL (4.00-5.40); RDW 16.3 % (11.5-14.5); WBC 11.1 10x3/uL (4.8-10.8)
[2018-06-22 09:40] LABS: PLATELET COUNT 243 10x3/uL (130-400)
== END 2018-06-22 09:11 | disposition home or self-care (01) ==
LOC: D.ER 06:24
PROVIDERS: Family Medicine
DX: S00.12XA Contusion of left eyelid and periocular area, initial encounter (principal); W06.XXXA Fall from bed, initial encounter; Y93.89 Activity, other specified; Y92.013 Bedroom of single-family (private) house as the place of occurrence of the external cause; M79.18 Myalgia, other site; E11.9 Type 2 diabetes mellitus without complications; I50.9 Heart failure, unspecified; I25.10 Atherosclerotic heart disease of native coronary artery without angina pectoris; I73.9 Peripheral vascular disease, unspecified; Z95.0 Presence of cardiac pacemaker; N18.9 Chronic kidney disease, unspecified

== ENCOUNTER 2018-06-23 05:33 | Emergency (ER) | payer MEDICARE ==
[~2018-06-23] VITALS: Ht 175.3 cm; Wt 100.0 kg
[~2018-06-23 05:33] MED LIST changes: +CYCLOBENZAPRINE10 MG PO
[2018-06-23 05:37] VITALS: Ht 175.3 cm; Wt 100.0 kg
[2018-06-23 07:09] VITALS: BP 107/47
== END 2018-06-23 07:11 | disposition home or self-care (01) ==
LOC: D.ER 05:33
DX: R53.1 Weakness (principal); R25.1 Tremor, unspecified; E11.9 Type 2 diabetes mellitus without complications; J44.9 Chronic obstructive pulmonary disease, unspecified; Z99.81 Dependence on supplemental oxygen; N18.9 Chronic kidney disease, unspecified; Z99.2 Dependence on renal dialysis

== ENCOUNTER 2018-10-01 00:33 | Emergency (ER) | payer MEDICARE ==
[~2018-10-01] VITALS: Ht 175.3 cm; Wt 108.2 kg
[2018-10-01 00:37] VITALS: Ht 175.3 cm; Wt 108.2 kg
[2018-10-01] MEDS ORDERED: EMLA CREAM 30 G30 G1 (00:40)
[2018-10-01] MEDS ORDERED: MULTAQ400 MG PO (00:41)
[2018-10-01] MEDS ORDERED: FLORINEF 0.1 M0.1 MG PO (00:41)
[2018-10-01] MEDS ORDERED: MIDODRINE HCL10 MG PO (00:44)
[2018-10-01] MEDS ORDERED: VENTOLIN HFA (00:45)
[2018-10-01] MEDS ORDERED: ULTRAM50 MG PO (01:53)
[2018-10-01 02:33] VITALS: BP 135/74
== END 2018-10-01 02:34 | disposition home or self-care (01) ==
LOC: D.ER 00:33
DX: S16.1XXA Strain of muscle, fascia and tendon at neck level, initial encounter (principal); V49.9XXA Car occupant (driver) (passenger) injured in unspecified traffic accident, initial encounter; Y93.89 Activity, other specified; Y92.410 Unspecified street and highway as the place of occurrence of the external cause; R07.89 Other chest pain; S89.92XA Unspecified injury of left lower leg, initial encounter

== ENCOUNTER → 2018-11-13 14:50 | Outpatient (CLI) | payer MEDICARE ==
[2018-10-01 00:37] VITALS: BMI 35.2
[~2018-11-13 14:50] MED LIST changes: +EMLA CREAM 30 G30 G1; +ULTRAM50 MG PO; +VENTOLIN HFA
== END | disposition home or self-care (01) ==
LOC: D.RAD 14:50
PROVIDERS: ATTEND Nurse Practitioner Family
DX: M25.512 Pain in left shoulder (principal)

== ENCOUNTER 2019-04-21 20:08 | Emergency (ER) | payer MEDICARE ==
[~2019-04-21] VITALS: Ht 175.3 cm; Wt 104.5 kg
[2019-04-21 20:20] VITALS: Ht 175.3 cm; Wt 104.5 kg
[2019-04-21 21:32] VITALS: BP 129/76
== END 2019-04-21 21:32 | disposition home or self-care (01) ==
LOC: D.ER 20:08
DX: S83.92XA Sprain of unspecified site of left knee, initial encounter (principal); V49.40XA Driver injured in collision with unspecified motor vehicles in traffic accident, initial encounter; J06.9 Acute upper respiratory infection, unspecified; E11.22 Type 2 diabetes mellitus with diabetic chronic kidney disease; N18.9 Chronic kidney disease, unspecified; I50.9 Heart failure, unspecified; Z95.0 Presence of cardiac pacemaker; F17.210 Nicotine dependence, cigarettes, uncomplicated

== ENCOUNTER 2019-06-14 07:40 | Inpatient (IN) | payer MEDICARE ==
[~2019-06-14] VITALS: Ht 175.3 cm; Wt 104.3 kg
[2019-06-14 08:32] LABS: INR 1.02 (0.85-1.17); PROTIME 12.9 SECONDS (11.6-15.0)
[2019-06-14 08:39] LABS: ALBUMIN 2.9 g/dL (3.4-5.0); ANION GAP 15.9 mmol/L (8-16); BILIRUBIN - TOTAL 0.43 mg/dL (0.2-1.3); CALCIUM 8.4 mg/dL (8.5-10.1); CARBON DIOXIDE 29.3 mmol/L (21.0-32.0); CREATININE - SERUM 11.9 mg/dL (0.6-1.3); PROTEIN - SERUM 7.3 g/dL (6.4-8.2)
[2019-06-14 08:42] LABS: POTASSIUM - SERUM 6.2 mmol/L (3.5-5.1)
--- NOTE | 2019-06-14 08:42 | NUR ---
NOTIFIED BY LAB OF PT'S POTASSIUM OF 6.2 EDP NOTIFIED. CRITICAL LAB SHEET COMPLETED AND PLACED ON PT'S CHART.
[2019-06-14 08:43] LABS: BASOPHILS 0.2 % (0-2); HEMATOCRIT 42.8 % (36.0-48.0); HEMOGLOBIN 13.6 g/dL (12-16); IMMATURE GRANULOCYTES 0.4 % (0-5); MCH 28.3 pg (26.0-34.0); MCHC 31.8 g/dL (31.0-37.0); MEAN PLATELET VOLUME 10.1 fL (7.4-10.4); MONOCYTES 6.3 % (2-11); NEUTROPHILS 70.1 % (40-80); RBC 4.81 10x6/uL (4.00-5.40); RDW 15.8 % (11.5-14.5); WBC 9.1 10x3/uL (4.8-10.8)
[2019-06-14 08:46] LABS: PLATELET COUNT 163 10x3/uL (130-400)
--- NOTE | 2019-06-14 09:01 | NUR ---
UNABLE TO OBTAIN IV ACCESS FOR ORDERED MEDS, VASCULAR ACCESS NURSE CONTACTED.
--- NOTE | 2019-06-14 09:53 | NUR ---
VASCULAR ACCESS NURSE UNABLE TO ESTABLISH IV ACCESS, THIS RELAYED TO [place], RECEIVING NURSE. IV MEDICATIONS NOT GIVEN IN ED FOR THIS REASON.
--- NOTE | 2019-06-14 10:07 | NUR ---
PT TO ROOM FROM ER. PAIN COMPLAINT OF 01/16, TAKES NORCO AT HOME. FISTULA TO RIGHT ARM NOTED WITHOUT THRILL OR BRUIT. TENDER TO TOUCH. ORIENTED TO ROOM. CALL LIGHT CLOSE.
[2019-06-14 12:02] VITALS: BP 121/71
[2019-06-14 16:00] VITALS: BP 134/85
[2019-06-14 16:40] VITALS: BP 121/71; Ht 175.3 cm; Wt 104.3 kg
--- NOTE | 2019-06-14 16:53 | NUR ---
ER AND AND VASCULAR NURSE UNABLE TO OBTAIN IV ACCESS. INFORMED CLOD PULLER OF THIS AND SHE STATES DR HARRINGTON AWARE. CONSENT FOR POSSIBLE TRIALYSIS IF UNABLE TO GET ACCESS IN OR OR PREOP.
[2019-06-14 20:30] VITALS: BP 159/89
--- NOTE | 2019-06-14 22:15 | NUR ---
PT ARRIVED BACK FROM PROCEDURE ALERT AND ORIENTED X4. VITALS STABLE. DRESSING TO RIGHT ARM FISTULA SITE C/D/I. PT DENIWS ANY PAIN OR NEEDS AT THIS TIME. BED LOW CALL LIGHT WITHIN REACH. AMRITA CONTINUE TO MONITOR.
[2019-06-14 23:23] LABS: CALCIUM 8.3 mg/dL (8.5-10.1); CARBON DIOXIDE 27.2 mmol/L (21.0-32.0); CREATININE - SERUM 12.2 mg/dL (0.6-1.3)
[2019-06-14 23:24] LABS: ANION GAP 15.5 mmol/L (8-16); POTASSIUM - SERUM 4.7 mmol/L (3.5-5.1)
[2019-06-15] VITALS: BP 123/80
[2019-06-15 04:30] VITALS: BP 133/85
--- NOTE | 2019-06-15 05:39 | NUR ---
PT RESTING IN BED ALERT AND ORIENTED X4. NO S/S OF DISTRESS. VITALS STABLE AT THIS TIME. BED LOW CALL LIGHT WITHIN REACH. WILL CONTINUE TO MONITOR.
--- NOTE | 2019-06-15 07:25 | NUR ---
PT AWAKE AND ORIENTED, NO COMPLAINTS/CONCERNS WHEN ASKED. ALL QUESTIONS ANSWERED TO THE BEST OF MY ABILITY. CL IN REACH,SRX2. NO FAMILY PRESENT AT BEDSIDE.
[2019-06-15 08:00] VITALS: BP 108/69
[2019-06-15 12:00] VITALS: BP 105/74
--- NOTE | 2019-06-15 17:11 | NUR ---
PT AMBULATED OUT OF HER OWN ACCORD, DENIED SEVERAL OFFERS FOR WHEELCHAIR. POV, DAUGHTER DRIVING.
== END 2019-06-15 17:17 | disposition home or self-care (01) | DRG 252 ==
LOC: D.ER 07:40 → D.M2 09:04
PROVIDERS: Emergency Medicine; Surgery; ADMIT Internal Medicine; ATTEND Internal Medicine
PROC: 3E03317 Introduction of Other Thrombolytic into Peripheral Vein, Percutaneous Approach (ICD-10-PCS; 2019-06-14)
PROC: 5A1D70Z Performance of Urinary Filtration, Intermittent, Less than 6 Hours Per Day (ICD-10-PCS; 2019-06-14)
PROC: 057D3ZZ Dilation of Right Cephalic Vein, Percutaneous Approach (ICD-10-PCS; principal; 2019-06-14 13:15)
PROC: 05CD3ZZ Extirpation of Matter from Right Cephalic Vein, Percutaneous Approach (ICD-10-PCS; 2019-06-14 13:15)
PROC: B51W1ZZ Fluoroscopy of Dialysis Shunt/Fistula using Low Osmolar Contrast (ICD-10-PCS; 2019-06-14 13:15)
DX: T82.868A Thrombosis due to vascular prosthetic devices, implants and grafts, initial encounter (principal); N18.6 End stage renal disease; I48.20 Chronic atrial fibrillation, unspecified; Y83.9 Surgical procedure, unspecified as the cause of abnormal reaction of the patient, or of later complication, without mention of misadventure at the time of the procedure; E11.22 Type 2 diabetes mellitus with diabetic chronic kidney disease; Z99.2 Dependence on renal dialysis; I50.9 Heart failure, unspecified; J44.9 Chronic obstructive pulmonary disease, unspecified; Z95.0 Presence of cardiac pacemaker; I95.9 Hypotension, unspecified

== ENCOUNTER 2019-06-16 12:39 | Emergency (ER) | payer MEDICARE ==
[~2019-06-16] VITALS: Ht 175.3 cm; Wt 104.5 kg
[2019-06-16 13:02] VITALS: Ht 175.3 cm; Wt 104.5 kg
[2019-06-16 13:48] LABS: BASOPHILS 0.3 % (0-2); EOSINOPHILS 0.9 % (0-7); HEMATOCRIT 42.9 % (36.0-48.0); HEMOGLOBIN 13.6 g/dL (12-16); IMMATURE GRANULOCYTES 0.3 % (0-5); MCH 28.3 pg (26.0-34.0); MCHC 31.7 g/dL (31.0-37.0); MCV 89.2 fL (80.0-100.0); MEAN PLATELET VOLUME 10.2 fL (7.4-10.4); MONOCYTES 5.5 % (2-11); PLATELET COUNT 142 10x3/uL (130-400); RBC 4.81 10x6/uL (4.00-5.40); WBC 7.9 10x3/uL (4.8-10.8)
[2019-06-16 14:30] VITALS: BP 112/69
== END 2019-06-16 14:31 | disposition home or self-care (01) ==
LOC: D.ER 12:39
PROVIDERS: Emergency Medicine
DX: T82.9XXA Unspecified complication of cardiac and vascular prosthetic device, implant and graft, initial encounter (principal); Z95.0 Presence of cardiac pacemaker; E11.9 Type 2 diabetes mellitus without complications; I50.9 Heart failure, unspecified; J44.9 Chronic obstructive pulmonary disease, unspecified

== ENCOUNTER 2019-07-09 07:55 | Day surgery (SDC) | payer MEDICARE ==
[2019-07-08 14:24] LABS: BASOPHILS 0.3 % (0-2); EOSINOPHILS 1.1 % (0-7); HEMATOCRIT 44.6 % (36.0-48.0); HEMOGLOBIN 14.6 g/dL (12-16); IMMATURE GRANULOCYTES 0.4 % (0-5); LYMPHOCYTES 14.6 % (15-50); MCH 28.6 pg (26.0-34.0); MCHC 32.7 g/dL (31.0-37.0); MCV 87.3 fL (80.0-100.0); MONOCYTES 4.9 % (2-11); NEUTROPHILS 78.7 % (40-80); PLATELET COUNT 185 10x3/uL (130-400); RBC 5.11 10x6/uL (4.00-5.40); RDW 15.7 % (11.5-14.5); WBC 9.2 10x3/uL (4.8-10.8)
[2019-07-08 14:44] LABS: PROTIME 12.7 SECONDS (11.6-15.0)
[2019-07-08 14:49] LABS: ANION GAP 19.4 mmol/L (8-16); CALCIUM 8.4 mg/dL (8.5-10.1); CARBON DIOXIDE 24.8 mmol/L (21.0-32.0); CREATININE - SERUM 9.1 mg/dL (0.6-1.3); POTASSIUM - SERUM 5.2 mmol/L (3.5-5.1)
[~2019-07-09] VITALS: Ht 172.7 cm; Wt 98.9 kg
[~2019-07-09 07:55] MED LIST changes: -SENSIPAR30 MG PO; +SENSIPAR90 MG PO; +TUMS X-STR300 MG PO; -XANAX0.25 MG PO; +XANAX0.5 MG PO
[2019-07-09 08:23] VITALS: BP 105/75; Ht 172.7 cm; Wt 98.9 kg
[2019-07-09] MEDS ORDERED: HYDROCODON-ACE1 EAC7 PO (13:15)
--- NOTE | 2019-07-09 15:40 | NUR ---
1519 TESIO FLUSHED PER CATH INDICATED, ONE 1.6CC ONE 1.7CC, RECAPPED DC INSTS GIVEN RX GIVEN RELEASED IN WC DAUGHTER BUSINESS SOLUTIONS DIRECTOR HOME.
--- NOTE | 2019-07-10 17:06 | OP ---
PATIENT NAME: CASA GARCIA MEDICAL RECORD: [id number] :61 LOCATION:[facility] ADMISSION DATE: SURGEON: ORLANDO HARRINGTON MD DATE OF OPERATION: 07/09/2019 PREOPERATIVE DIAGNOSIS: End-stage renal disease, dependence on hemodialysis and thrombosed right upper extremity arteriovenous graft. POSTOPERATIVE DIAGNOSIS: End-stage renal disease, dependence on hemodialysis and thrombosed right upper extremity arteriovenous graft with additional diagnoses of diabetes, hypertension, coronary artery disease, chronic obstructive pulmonary disease, and atrial fibrillation. OPERATION PERFORMED: Implantation of a right arm Artegraft between the brachial artery just above the antecubital level and the basilic vein just lateral to the axilla implanting a 6 mm diameter Artegraft prosthetic. SURGEON: Orlando Harrington MD ANESTHESIA: General with LMA per POTATO LOADER plus regional nerve block. REFERRING PHYSICIAN: Adenike Zuniga DO and Angelique Barger MD PREOPERATIVE NOTE: Ms. Garcia is a 53-year-old female who has end-stage renal disease and is dependent on hemodialysis. She has been dialyzing for some time now with initially a proximal radial artery cephalic AV fistula and subsequently a radial artery to cephalic vein AV graft. Those have now thrombosed and are not salvageable. She has returned to the operating room for implantation of a graft or possible construction of a fistula on the right arm. She is at present dialyzing with a right internal jugular tunneled dialysis catheter, which she may continue to use as a bridging catheter until her new access has matured. Under general anesthesia via LMA and the regional nerve block, the patient was prepped and draped in a sterile manner. I examined her with Duplex ultrasound off the basilic vein, was possibly adequate, but I felt it would be better to go ahead and implant a graft in this patient. I used ultrasound to locate the incision over the proximal basilic vein and distally over the brachial artery. The brachial artery was atherosclerotic and partially calcific but had a good lumen. The proximal basilic vein was plump. These vessels were exposed and controlled proximally and distally with Silastic loops. The wounds were irrigated with gentamicin solution. I chose an Artegraft which was properly rinsed and prepared for use. It was then bevelled and anastomosed end-to-side to the proximal basilic vein, which was then flushed with heparinized saline and clamped. The graft was placed in a very superficial subcutaneous tunnel and brought down to the brachial artery where the graft was shortened and bevelled. The artery was occluded and opened. It was flushed proximally and distally with heparinized saline and an end-to-side, end of graft to side of artery anastomosis performed with running 6-0 Prolene. When completed, the occluding loops and clamps were released, excellent flow developed in the graft and the suture lines were hemostatic. The wounds were again irrigated with gentamicin solution and then closed with interrupted inverted 3-0 Vicryl and then running intracuticular 4-0 Stratafix. The incisions were sealed with glue and dressed with Maxorb AG and Tegaderm with Cavilon skin prep. The patient was awakened and taken to the recovery room. OPERATIVE REPORT [id number] CASA GARCIA The patient was in a sinus tachycardia preop and throughout the procedure. Blood pressure required pressors for maintenance intraoperatively. The patient had not taken her dose of digoxin this morning and she received a supplemental dose IV by the hardwood faller. In the recovery room, she is in a sinus rhythm with good vital signs. I plan to see her back in my office in 7-10 days after she goes home today. She will continue her same medications, activities and dialysis schedule and see me in a week. She is given a prescription for 14 [place] 5/325 tablets, she can take 1 p.o. q.4 hours p.r.n. pain. TRANSINT:[id number] Voice Confirmation ID: [id number] DOCUMENT ID: [id number] ORLANDO HARRINGTON MD at 1706 CC: ANGELIQUE BARGER MD and ADENIKE ZUNIGA DO [id number] DICTATION DATE: 07/09/19 1338 [facility] KOSHER KITCHEN: 07/09/19 2216 [facility] 07/09/19 [place] [id number] [place] [id number]
== END 2019-07-09 15:30 | disposition home or self-care (01) ==
LOC: D.OPS 07:55 → D.PAN 11:15 → D.OPS 15:30
PROVIDERS: Surgery; ATTEND Internal Medicine Nephrology
DX: N18.6 End stage renal disease (principal); Z99.2 Dependence on renal dialysis; L05.01 Pilonidal cyst with abscess; J44.9 Chronic obstructive pulmonary disease, unspecified; E11.22 Type 2 diabetes mellitus with diabetic chronic kidney disease; Z72.0 Tobacco use

== ENCOUNTER 2020-01-18 21:13 | Emergency (ER) | payer MEDICARE ==
[~2020-01-18] VITALS: Ht 172.7 cm; Wt 99.5 kg
[2020-01-18 21:18] VITALS: Ht 172.7 cm; Wt 99.5 kg
[2020-01-18] MEDS ORDERED: VIBRAMYCIN 100100 MG PO (22:51)
[2020-01-18] MEDS ORDERED: DIFLUCAN150 MG PO (22:51)
[2020-01-18] MEDS ORDERED: CLINDAMYCIN HC300 MG PO (22:51)
[2020-01-18 23:15] VITALS: BP 98/58
== END 2020-01-18 23:15 | disposition home or self-care (01) ==
LOC: D.ER 21:13
DX: E11.22 Type 2 diabetes mellitus with diabetic chronic kidney disease (principal); N18.9 Chronic kidney disease, unspecified; L08.89 Other specified local infections of the skin and subcutaneous tissue; E11.40 Type 2 diabetes mellitus with diabetic neuropathy, unspecified; J44.9 Chronic obstructive pulmonary disease, unspecified; Z99.81 Dependence on supplemental oxygen; K21.9 Gastro-esophageal reflux disease without esophagitis; Z79.4 Long term (current) use of insulin; M79.671 Pain in right foot

== ENCOUNTER 2020-01-27 10:58 | Inpatient (IN) | payer MEDICARE ==
[2020-01-27] VITALS (8 sets, daily range): BP systolic 82–117; BP diastolic 50–83; BMI 33.4
[~2020-01-27] VITALS: Ht 172.7 cm; Wt 106.1 kg
--- NOTE | ~2020-01-27 | HEMODYNAMI ---
PATIENT:CASA SPENCER MEDICAL RECORD: [id number] : 61 LOCATION:[facility] D.2112 [facility]# [id number] ADMISSION DATE: 01/27/20 Generatedon:01/31/202013:25 Patient name: CASA SPENCER Patient #: [id number] SS N: : 1965 Date of study: 01/31/2020 Page: Of Hemodynamic Procedure Report Patient Data Patient Demographics Procedure consent was obtained First Name: CASA Gender: Female Last Name: TJ : 1965 [facility] Initial: JOSEPHINE Age: 54 year(s) Patient #: [id number] Race: Black Additional ID: [id number] Contact details [address]: [address] [place] [address] [address]IVE State: [place] City: [place] Zip code: [address] Past Medical History Allergies Allergen Reaction Date Comments Reported Penicillins 08/09/2016 Natural 01/20/2017 rubber and latex Other 01/20/2017 Januvia, Keflex allergy Other 04/23/2018 PCN, allergy Morphine,baclofen, cephalexin, latex Penicillins 01/31/2020 Other 01/31/2020 lyrica,baclofen,latex, allergy keflex, januvia Admission Admission Data Admission Date: 01/27/2020 Admission Time: 13:09 Room #: D.2112 Height (in.): 68 BSA: 2.17 (m2) Height (cm.): 172.72 BMI: 34.97 (kg/m2) Weight (lbs.): 230 Weight (kg.): 104.33 Procedure Procedure Types Cath Procedure Peripheral Cath Diagnostic Procedure Hotel Custodian Peripheral Procedures Abd/Extremity Extremities Right Lower Ext Arterio Procedure Description Procedure Date Procedure Date: 01/31/2020 Procedure Start Time: 12:09 Procedure Staff Name Function Shawn Portillo MD Performing Physician Carolyn Covington RT Administrative Support Associate Gardenia Bradley RN Nurse Sven Gallego RT Scrub Procedure Data Cath Procedure Fluoroscopy Diagnostic fluoroscopy Total fluoroscopy Time: time: 12.2 min 12.2 min Diagnostic fluoroscopy Total fluoroscopy dose: 201 dose: 201 mGy mGy Contrast Material Contrast Material Type Amount (ml) Isovue 300 85 Diagnostic catheters Device Type Used For End Catheter Placement DIAGNOSTIC IMT 5Fr Catheter ([id number]) Procedure Medications Medication Administration Route Dosage Versed I.V. 0.5 mg Fentanyl I.V. 25 mcg Lidocaine 1% added to field 20 Heparin Flush Bag added to field 3 bags (1000units/500ml NS) Heparin Bolus I.V. 5000 units Versed I.V. 0.5 mg Fentanyl I.V. 25 mcg Versed I.V. 1 mg Fentanyl I.V. 50 mcg Heparin Bolus I.V. 2000 units Hemodynamics Rest BSA: 2.17 (m2) O2 Consumption: Estimated: 218.34 (ml/min) O2 Consumption indexed : Estimated:100.62 (ml/min/m) Heart Rate: 82 (bpm) Snapshots Pre Cath Intra NCS Post Cath Vital Signs Time Heart Resp SPO2 etCO2 NIBP Rhythm Pain Sedation Rate (ipm) (%) (mmHg) (mmHg) Status Level (bpm) 11:55:25 82 13 33.1 107/78(89) NSR 0 (11) 10(A) , No pain 11:59:29 82 10 36.8 100/77(87) NSR 0 (11) 10(A) , No pain 12:03:31 82 12 37.6 102/73(89) NSR 0 (11) 10(A) , No pain 12:07:34 81 19 35.3 95/71(84) NSR 0 (11) 10(A) , No pain 12:11:34 81 12 36.8 102/74(89) NSR 0 (11) 10(A) , No pain 12:15:38 81 9 36.1 91/71(81) NSR 0 (11) 8(A) , No pain 12:19:39 81 12 96 36.1 91/68(77) NSR 0 (11) 8(A) , No pain 12:23:41 81 12 99 36.8 87/66(75) NSR 0 (11) 8(A) , No pain 12:27:39 80 11 99 37.6 92/70(81) NSR 0 (11) 8(A) , No pain 12:31:38 80 10 97 36.1 94/70(77) NSR 0 (11) 8(A) , No pain 12:35:40 80 12 36.8 92/72(80) NSR 0 (11) 8(A) , No pain 12:39:42 80 11 34.6 90/69(80) NSR 0 (11) 8(A) , No pain 12:43:41 80 10 29.3 94/69(77) NSR 0 (11) 8(A) , No pain 12:47:43 80 10 30.8 90/69(80) NSR 0 (11) 8(A) , No pain 12:51:45 80 12 32.3 92/66(79) NSR 0 (11) 8(A) , No pain 12:55:44 80 11 34.6 93/70(79) NSR 0 (11) 8(A) , No pain 12:59:46 80 12 28.6 93/69(82) NSR 0 (11) 8(A) , No pain 13:03:46 80 11 38.3 94/72(80) NSR 0 (11) 8(A) , No pain 13:07:47 79 15 33.1 89/70(78) NSR 0 (11) 8(A) , No pain 13:11:47 79 12 35.3 97/71(85) NSR 0 (11) 8(A) , No pain 13:15:49 79 11 33 97/75(88) NSR 0 (11) 8(A) , No pain 13:19:49 80 17 36.8 98/72(84) NSR 0 (11) 8(A) , No pain 13:23:50 80 13 36.8 100/72(85) NSR 0 (11) 8(A) , No pain Medications Time Medication Route Dose Verified Delivered Reason Notes Effe ctiveness by by 12:10:57 Versed I.V. 0.5 Shawn Varner for mg Bandar Bradley RN sedation 12:11:08 Fentanyl I.V. 25 Shawn Varner for mcg Bandar Bradley RN sedation 12:11:22 Lidocaine 1% added 20ml Shawn Escobar for local to vial Bandar Portillo anesthetic field MD HUNG 12:11:38 Heparin Flush added 3 Shawn Escobar used for Bag to bags Bandar Portillo procedure (1000units/500ml field MD HUNG NS) 12:17:37 Heparin Bolus I.V. 5000 Shawn Varner Per units Bandar Bradley RN physician 12:17:46 Versed I.V. 0.5 Shawn Varner for mg Bandar Bradley RN sedation 12:17:53 Fentanyl I.V. 25 Shawn Varner for mcg Bandar Bradley RN sedation 12:36:05 Versed I.V. 1 mg Shawn Varner for Bandar Bradley RN sedation 12:36:16 Fentanyl I.V. 50 Shawn Gardenia for mcg Bandar Bradley RN sedation 12:51:34 Heparin Bolus I.V. 2000 Shawn Varner Per units Bandar Brdaley RN physician Procedure Log Time Note 11:41:59 Patient Height : 68 inches 11:42:03 Patient Weight : 230 lbs 11:43:09 Time tracking: Regular hours (M-F 7:00 - 5:00) 11:43:58 Plan of Care:Hemodynamics will remain stable., Cardiac rhythm will remain stable., Comfort level will be maintained., Respiratory function will remain adequate., Patient/ family verbilizes understanding of procedure., Procedure tolerated without complication., Recovers from procedure without complications.. 11:44:11 Patient received from [place] II to IR Alert and oriented. Tansferred to table in Supine position. 11:44:19 Signed procedure consent form obtained from patient. 11:44:27 H&P Date Dictated: 01/31/2020 Within 30 days and on chart.. 11:44:30 Pre-procedure instructions explained to patient. 11:44:30 Pre-op teaching completed and patient verbalized understanding. 11:44:33 Family unavailable. 11:44:36 Patient NPO since Midnight. 11:44:48 Patient allergic to Penicillins 11:46:05 Patient allergic to Other allergylyrica,baclofen,latex, keflex, januvia 11:46:12 Is patient on blood thinner?Yes 11:46:16 Patient diabetic? Yes. 11:46:18 If diabetic: On Metformin? No 11:46:23 - 11:46:23 ----Pre-sedation anethsthesia assessment.---- 11:46:27 Previous problem with sedation/anesthesia? No ? 11:46:31 Snore? Yes 11:46:40 Sleep apnea? Yes 11:46:44 Deviated septum? No 11:46:46 Opens mouth fully? Yes 11:46:50 Sticks out tongue? Yes 11:48:14 Airway obstruction? Yes copd 11:48:17 - 11:48:34 Pre procedure: right posterior tibial pulse 0-Absent 11:48:39 Pre procedure: left posterior tibial pulse Doppler 11:48:44 Pre procedure: right dorsailis pedis pulse Doppler 11:48:48 Pre procedure: left dorsailis pedis pulse Doppler 11:49:07 Left groin area was prepped with chlora-prep and draped in sterile fashion 11:49:38 Fire Safety Assessment: A--An alcohol-based skin anteseptic being used preoperatively., C--Open oxygen or nitrous oxide is being used. 11:50:13 5) <15 or on dialysis Very severe, or end stage kidney failure. 11:50:26 - 11:50:31 Use device set IR Diagnostic 11:50:32 Tegaderm 4 x 4 (1626W) opened to sterile field. 11:50:33 Sterile Angiographic Pack opened to sterile field. 11:50:34 Bag Decanter (2001S) opened to sterile field. 11:54:34 Vital chart was started 12:00:49 SHEATH 5FR [place] (QRI820) opened to sterile field. 12:00:50 SHEATH 6FR Destination (RSR01) opened to sterile field. 12:00:51 SHEATH 6FR Destination (RSR01) opened to sterile field. 12:00:51 LOPES 260 wire ([id number]) opened to sterile field. 12:00:52 BENTSON 145cm wire (W81280) opened to sterile field. 12:00:57 A DIAGNOSTIC IMT 5Fr Catheter ([id number]) was advanced over the wire an d used for . 12:01:05 - 12:01:12 ECG and BP/O2 sat monitors applied to patient. 12::14 Baseline sample Acquired. 12:01:15 Full Disclosure recording started 12:01:16 - 12:06:24 ROADRUNN .035 260 glide wire (J08792) opened to sterile field. 12:09:11 Physician arrived 12:09:12 Physician arrived 12::13 --------ALL STOP TIME OUT------ 12::14 Final Timeout: patient, procedure, and site verified with staff and physician. All members of the team are in agreement. 12:09:37 Procedure started. 12:09:44 Local anesthetic to left femerol artery with Lidocaine 1% by Shawn Portillo MD.INITIAL ACCESS ONLY 12:10:57 Versed 0.5 mg I.V. was administered by Gardenia Bradley RN; for sedation; Verbal order read back and verified. 12:11:08 Fentanyl 25 mcg I.V. was administered by Gardenia Bradley RN; for sedation ; Verbal order read back and verified. 12:11:22 Lidocaine 1% 20ml vial added to field was administered by Shawn garcia MD; for local anesthetic; Verbal order read back and verified. 12:11:38 Heparin Flush Bag (1000units/500ml NS) 3 bags added to field was administered by Shawn Portillo MD; used for procedure; Verbal order read back and verified. 12:17:37 Heparin Bolus 5000 units I.V. was administered by Gardenia Bradley RN; Per physician; Verbal order read back and verified. 12:17:46 Versed 0.5 mg I.V. was administered by Gardenia Bradley RN; for sedation; Verbal order read back and verified. 12:17:53 Fentanyl 25 mcg I.V. was administered by Gardenia Bradley RN; for sedation ; Verbal order read back and verified. 12:20:20 CHOICE PT Extra Support J 300cm guide wire ([id number]) opened to steril e field. 12:28:06 CXI SUPPORT .035 135 CM STR catheter ([id number]) opened to sterile field. 12:31:12 INFLATOR BasixTOUCH (BE4208) opened to sterile field. 12:36:05 Versed 1 mg I.V. was administered by Gardenia Bradley RN; for sedation; Verbal order read back and verified. 12:36:12 Inflate balloon Inflation number: 1 A NANOCROSS 2.5 X 80 BALLOON ([id number]) was prepped and advanced across the Undefined1 , then inflated . 12:36:16 Fentanyl 50 mcg I.V. was administered by Gardenia Bradley RN; for sedation ; Verbal order read back and verified. 12:49:30 Hawkone Medium Atherectomy System (H1-M) opened to sterile field. 12:51:34 Heparin Bolus 2000 units I.V. was administered by Gardenia Bradley RN; Per physician; Verbal order read back and verified. 13:03:11 Inflate balloon Inflation number: 1 A In.Pact Admiral 5 x 60 x 130 DCB ([id number]) was prepped and advanced across the Undefined2 , then inflated . 13:04:05 Inflate balloon Inflation number: 2 A IN.PACT Admiral 6 x 150 x 130 DCB balloon ([id number]) was prepped and advanced across the Undefined2 , then inflated . 13:10:48 SHEATH 6FR [place] (DNH537) opened to sterile field. 13:14:06 SHEATH 6FR [place] (SWH544) opened to sterile field. 13:14:14 MYNX SEARCH MARKETING ANALYST 6FR/7FR (LO4717) opened to sterile field. 13:15:57 Procedure ended.(Physican Out) 13:22:33 Fluoroscopy time 12.20 minutes. 13:22:38 Fluoroscopy dose: 201 mGy 13:22:38 Flurop Dose total: 201 13:22:46 Contrast amount:Isovue 300 85ml. 13:24:45 Procedure and supply charges have been captured, reviewed, submitted an d are correct. 13:24:49 Report given to [employer]. 13:25:17 Vital chart was stopped Intervention Summary Intervention Notes Time ActionType Lesion and Equipment Used Action# Pressure Duration Attributes 12:36:12 Inflate Undefined1 NANOCROSS 2.5 X 1 0 00:00 balloon 120 BALLOON ([id number]) 13:03:11 Inflate Undefined2 In.Pact Admiral 1 0 00:00 balloon 5 x 60 x 130 DCB ([id number]) 13:04:05 Inflate Undefined2 IN.PACT Admiral 2 0 00:00 balloon 6 x 150 x 130 DCB balloon ([id number]) Device Usage Item Name Manufacture Quantity Catalog Number Hospital Part Current Minimal Lot# / Charge Number Stock Stock Serial# Code Tegaderm 4 x 4 3M 1 [id number] [id number] [id number] 5 (1626W) Sterile Cardinal 1 [id number] 457731 799796 5 Angiographic Health Pack Bag Decanter Microtek 1 2001S 777015 02932 650227 5 (2001S) Medical Inc. SHEATH 5FR Terumo 1 DMT542 370336 798425 373467 5 [place] (WAR451) SHEATH 6FR Terumo 2 RSR01 946082 63350 072205 5 Destination (RSR01) LOPES 260 wire Cook Medical 1 T21269 695553 55428 767065 5 (Z81463) BENTSON 145cm [employer] 1 I22257 766384 705201 5 wire (J42101) DIAGNOSTIC IMT [place] 1 [id number] 822807 499304 73309 5 [id number] 5Fr Catheter Scientific ([id number]) ROADRUNNER .035 [employer] 1 U21270 116508 035314 852572 5 [id number] 260 glide wire (M18926) CHOICE PT Extra [place] 1 [id number] 897947 956107 612623 5 Support J 300cm Scientific guide wire ([id number]) CXI SUPPORT [employer] Medical 1 M85941 277279 307534 960829 5 [id number] .035 135 CM STR catheter (O75045) INFLATOR Merit 1 HZ7782 145824 677146 926120 5 Digital Ally (AH8196) NANOCROSS 2.5 X Medtronic 1 [id number] 106197 492528 479766 1 120 BALLOON ([id number] Hawkone Medium Medtronic 1 H1-M 482072 8396586 6 5 Atherectomy System (H1-M) In.Pact Admiral Medtronic 1 [id number] 505633 339628 810130 5 5 x 60 x 130 DCB ([id number]) IN.PACT Admiral Medtronic 1 [id number] 463623 9599853 594345 5 6 x 150 x 130 DCB balloon ([id number]) SHEATH 6FR Terumo 2 OWU731 712066 381728 867376 40 Mat[place]on (GCT318) MYNX SEARCH MARKETING ANALYST Access 1 RC1207 796030 666806 5 [id number] 6FR/7FR Closure (AY7741) Signature Audit [place] Stage Time Signature Unsigned Intra-Procedure 01/31/2020 Carolyn Covington 1:25:13 PM RT(R) [facility] [address] [place] [address]
--- NOTE | ~2020-01-27 | HEMODYNAMI ---
PATIENT:CASA SPENCER MEDICAL RECORD: [id number] : 61 LOCATION:[facility] D.2112 [facility]# [id number] ADMISSION DATE: 01/27/20 Generatedon:02/05/20209:51 Patient name: CASA SPENCER Patient #: [id number] SS N: : 1965 Date of study: 02/05/2020 Page: Of Hemodynamic Procedure Report Patient Data Patient Demographics Procedure consent was obtained First Name: CASA Gender: Female Last Name: TJ : 1965 [facility] Initial: JOSEPHINE Age: 54 year(s) Patient #: [id number] Race: Black Additional ID: [id number] Contact details [address]: [address] [place] [address] DRIVE State: [place] City: [place] Zip code: [address] Past Medical History Allergies Allergen Reaction Date Comments Reported Penicillins 08/09/2016 Natural 01/20/2017 rubber and latex Other 01/20/2017 Januvia, Keflex allergy Other 04/23/2018 PCN, allergy Morphine,baclofen, cephalexin, latex Penicillins 01/31/2020 Other 01/31/2020 lyrica,baclofen,latex, allergy keflex, januvia Other 02/05/2020 PCN, latex, baclofen, allergy morphine,cephalexin Admission Admission Data Admission Date: 01/27/2020 Admission Time: 13:09 Room #: D.2112 Height (in.): 68 BSA: 2.17 (m2) Height (cm.): 172.72 BMI: 34.97 (kg/m2) Weight (lbs.): 230 Weight (kg.): 104.33 Procedure Procedure Types Cath Procedure Peripheral Cath Diagnostic Procedure Abd/Extremity Extremities Left Lower Ext Arterio Procedure Description Procedure Date Procedure Date: 02/05/2020 Procedure Start Time: 8:50 Procedure Staff Name Function Shawn Portillo MD Performing Physician JUAN MCPHERSON RT Monitor Sven Gallego RT Scrub Minner ESMER RN Nurse Procedure Data Cath Procedure Fluoroscopy Diagnostic fluoroscopy Total fluoroscopy Time: time: 11.7 min 11.7 min Diagnostic fluoroscopy Total fluoroscopy dose: 134 dose: 134 mGy mGy Contrast Material Contrast Material Type Amount (ml) Isovue 300 55 Entry Location Entry Primary Successful Side Size Upsize Upsize Entry Closure Succes sful Closure Location (Fr) 1 (Fr) 2 (Fr) Remarks Device Remarks Femoral Right 5 Fr 6 Fr 6 Fr Mynx artery Long Short Juan 6Fr/7Fr Diagnostic catheters Device Type Used For End Catheter Placement DIAGNOSTIC IMT 5Fr Catheter ([id number]) Procedure Medications Medication Administration Route Dosage Lidocaine 1% added to field 20 Heparin Flush Bag added to field 2 bags (1000units/500ml NS) Versed I.V. 1 mg Fentanyl I.V. 50 mcg Heparin Bolus I.V. 4000 units Fentanyl I.V. 25 mcg Versed I.V. 0.5 mg Hemodynamics Rest BSA: 2.17 (m2) O2 Consumption: Estimated: 223.59 (ml/min) O2 Consumption indexed : Estimated:103.04 (ml/min/m) Heart Rate: 89 (bpm) Snapshots Pre Cath Intra NCS Post Cath Vital Signs Time Heart Resp SPO2 etCO2 NIBP (mmHg) Rhythm Pain Sedation Rate (ipm) (%) (mmHg) Status Level (bpm) 8:14:54 35.9 No Cuff NSR 0 (11) 9(A) , No pain 8:18:53 33.7 No Cuff NSR 0 (11) 9(A) , No pain 8:23:11 87 23 27 117/75(92) NSR 0 (11) 9(A) , No pain 8:27:21 89 30 33.7 119/81(94) NSR 0 (11) 9(A) , No pain 8:31:31 88 28 115/82(102) NSR 0 (11) 9(A) , No pain 8:35:39 87 12 31.5 117/80(102) NSR 0 (11) 9(A) , No pain 8:39:49 88 16 36.7 114/79(97) NSR 0 (11) 9(A) , No pain 8:43:55 88 13 39.7 116/83(98) NSR 0 (11) 9(A) , No pain 8:48:02 87 28 33.8 111/81(98) NSR 0 (11) 9(A) , No pain 8:52:10 87 12 100 33.8 112/79(91) NSR 0 (11) 9(A) , No pain 8:56:18 88 11 98 42.7 104/74(87) NSR 0 (11) 8(A) , No pain 9:00:24 87 12 98 38.2 103/71(84) NSR 0 (11) 8(A) , No pain 9:04:30 88 10 98 35.2 105/71(85) NSR 0 (11) 8(A) , No pain 9:08:35 86 10 96 37.5 104/74(87) NSR 0 (11) 8(A) , No pain 9:12:41 87 9 93 39.8 104/73(88) NSR 0 (11) 8(A) , No pain 9:16:47 86 12 91 30 106/76(90) NSR 0 (11) 8(A) , No pain 9:20:53 87 12 30.8 101/75(85) NSR 0 (11) 8(A) , No pain 9:24:56 86 12 23.2 106/74(89) NSR 0 (11) 8(A) , No pain 9:29:02 86 11 24.7 102/77(85) NSR 0 (11) 9(A) , No pain 9:33:06 86 13 97 15 104/74(87) NSR 0 (11) 8(A) , No pain 9:37:12 86 16 30.8 104/72(87) NSR 0 (11) 8(A) , No pain 9:41:18 86 9 28.5 106/70(95) NSR 0 (11) 8(A) , No pain 9:45:21 86 10 28.5 102/79(95) NSR 0 (11) 8(A) , No pain 9:49:25 86 11 32.3 111/76(88) NSR 0 (11) 8(A) , No pain Medications Time Medication Route Dose Verified Delivered Reason Notes Effectiveness by by 8:43:09 Lidocaine 1% added 20ml Shawn Escobar for local to vial Bandar Portillo anesthetic field MD HUNG 8:43:18 Heparin Flush added 2 Shawn Escobar used for Bag to bags Bandar Portillo procedure (1000units/500ml field MD HUNG NS) 8:50:30 Versed I.V. 1 mg Shawn Walter for sedation Bandar LYMAN MD RN 8:50:43 Fentanyl I.V. 50 Shawn Walter for sedation mcg Bandar LYMAN MD, RN 8:57:04 Heparin Bolus I.V. 4000 Shawn Walter for units Bandar ritter MD RN 9:29:16 Fentanyl I.V. 25 Shawn Polkr for sedation mcg Bandar LYMAN MD, RN 9:29:22 Versed I.V. 0.5 Shawn Walter for sedation mg Bandar LYMAN MD web retailer Log Time Note 7:58:04 Use device set IR Diagnostic 7:58:06 Bag Decanter () opened to sterile field. 7:58:06 Sterile Angiographic Pack opened to sterile field. 7:58:07 Tegaderm 4 x 4 (1626W) opened to sterile field. 7:58:09 Patient Height : 68 inches 7:58:10 Patient Weight : 230 lbs 7:59:00 CXI SUPPORT .035 135 CM STR catheter ([id number]) opened to sterile field. 7:59:00 ROADRUNNER FIRM 260CM glide wire ([id number]) opened to sterile field. 7:59:01 CHOICE PT Extra Support J 300cm guide wire ([id number]) opened to sterile field. 7:59:01 BENTSON 145cm wire ([id number]) opened to sterile field. 7:59:01 LOPES 260 wire (S35248) opened to sterile field. 7:59:02 MICROPUNCTURE 4FR Cook ([id number]) opened to sterile field. 7:59:03 SHEATH 5FR Wingate (PUM872) opened to sterile field. 8:13:03 8:13:11 Jose Angel LYMAN RN sent for patient. Start room use. 8:13:12 Time tracking: Regular hours (M-F 7:00 - 5:00) 8:13:17 Plan of Care:Hemodynamics will remain stable., Cardiac rhythm will remain stable., Comfort level will be maintained., Respiratory function will remain adequate., Patient/ family verbilizes understanding of procedure., Procedure tolerated without complication., Recovers from procedure without complications.. 8:13:23 Patient received from [employer] to Alert and oriented. Tansferred to table in Supine position. 8:13:26 Signed procedure consent form obtained from patient. 8:13:26 Warm blankets applied, and cruzito hugger turned on for patient comfort. 8:13:27 Correct patient and procedure confirmed by team. 8:13:28 ECG and BP/O2 sat monitors applied to patient. 8:14:16 8:14:38 H&P Date Dictated: 02/05/2020 Within 30 days and on chart.. 8:14:40 Pre-procedure instructions explained to patient. 8:14:40 Pre-op teaching completed and patient verbalized understanding. 8:14:43 Patient NPO since Midnight. 8:15:32 Patient allergic to Other allergyPCN, latex, baclofen, morphine,cephalexin 8:15:34 Is the patient allergic to Iodine/contrast media? No. 8:16:44 Is patient on blood thinner?Yes 8:16:52 ACC The patient was administered the following blood thiners within the last 24 hours: ACCLovenox 8:16:54 Patient diabetic? Yes. 8:16:55 If diabetic: On Metformin? No 8:16:57 8:16:59 ----Pre-sedation anethsthesia assessment.---- 8:17:03 Previous problem with sedation/anesthesia? No ? 8:17:05 Snore? Yes 8:17:07 Sleep apnea? No 8:17:08 Deviated septum? No 8:17:09 Opens mouth fully? Yes 8:17:10 Sticks out tongue? Yes 8:17:12 Airway obstruction? Yes copd 8:17:15 Dentures? No ? 8:17:16 8:37:31 A DIAGNOSTIC IMT 5Fr Catheter ([id number]) was opened to sterile field. 8:37:32 SHEATH 6FR Destination (RSR01) opened to sterile field. 8:37:59 IV patent on arrival in Lt subclavian with 0.9% NaCl at [facility]. 8:38:07 Right groin area was prepped with chlora-prep and draped in sterile fashion 8:38:09 Alarms reviewed by Lydia Lima 8:38:10 Sharps counted by scrub and verified by RAnuradha 8:38:11 8:43:09 Lidocaine 1% 20ml vial added to field was administered by Shawn Portillo MD; for local anesthetic; Verbal order read back and verified. 8:43:18 Heparin Flush Bag (1000units/500ml NS) 2 bags added to field was administered by Shawn Portillo MD; used for procedure; Verbal order read back and verified. 8:45:39 Physician arrived 8:46:17 --------ALL STOP TIME OUT------ 8:46:18 Final Timeout: patient, procedure, and site verified with staff and physician. All members of the team are in agreement. 8:46:20 Right groin site verified by team. 8:46:24 Fire Safety Assessment: A--An alcohol-based skin anteseptic being used preoperatively., C--Open oxygen or nitrous oxide is being used. 8:46:27 5) <15 or on dialysis Very severe, or end stage kidney failure. 8:46:42 Maximum allowable contrast dose (3.7 X eGFR X 0.75)22.2 ml. 8:46:47 Sedation plan: IV Moderate Sedation Medication:Versed, Fentanyl 8:47:56 Baseline sample Acquired. 8:47:58 Full Disclosure recording started 8:47:59 8:50:30 Versed 1 mg I.V. was administered by Jose Angel LYMAN RN; for sedation; Verbal order read back and verified. 8:50:41 Procedure started. 8:50:43 Fentanyl 50 mcg I.V. was administered by Jose Angel LYMAN RN; for sedation; Verbal order read back and verified. 8:50:57 Local anesthetic to right femoral artery with Lidocaine 1% by Shawn Portillo MD.INITIAL ACCESS ONLY 8:54:30 Access obtained with 4Fr micropunture. 8:57:04 Heparin Bolus 4000 units I.V. was administered by Jose Angel LYMAN RN; for anticoagulation; Verbal order read back and verified. 8:57:54 A 5 Fr sheath was inserted into the Right Femoral artery 9:00:32 INFLATOR BasixTOUCH ([id number]) opened to sterile field. 9:00:40 Sheath upsized to a 6 Fr Long. 9:02:41 Wit studio Medium Atherectomy System (H1-M) opened to sterile field. 9:29:02 Inflate balloon Inflation number: 1 A In.Pact Admiral 5 x 60 x 130 DCB ([id number]) was prepped and advanced across the Undefined1 , then inflated. 9:29:16 Fentanyl 25 mcg I.V. was administered by Jose Angel LYMAN RN; for sedation; Verbal order read back and verified. 9:29:22 Versed 0.5 mg I.V. was administered by Jose Angel LYMAN RN; for sedation; Verbal order read back and verified. 9:33:29 SHEATH 6FR Wingate (ZDB197) opened to sterile field. 9:33:49 Inflate balloon Inflation number: 1 A IN.PACT Admiral 6 x 120 x 130 DCB Balloon ([id number]) was prepped and advanced across the Undefined2 , then inflated. 9:45:52 Sheath upsized to a 6 Fr Short. 9:45:52 Sheath removed intact; hemostasis achieved with Mynx Juan 6Fr/7Fr to the Right Femoral artery. 9:48:36 Procedure ended.(Physican Out) 9:49:11 Fluoroscopy time 11.70 minutes. 9:49:15 Fluoroscopy dose: 134 mGy 9:49:15 Flurop Dose total: 134 9:49:18 Contrast amount:Isovue 300 55ml. 9:49:20 Maximum allowable dose exceeded? Yes. 9:49:21 Sharps counted by scrub and verified by R.N. 9:49:26 Post-op/insertion site Left Femoral artery dressed using a 4 x 4 and Tegaderm. 9:49:30 Post Procedure Pulses reassessed and unchanged 9:49:33 Post procedure instruction explained to patient.Patient verbalizes understanding. 9:50:44 Procedure and supply charges have been captured, reviewed, submitted and are correct. 9:50:50 Vital chart was stopped 9:50:52 Operative report dictated upon procedure completion. 9:50:54 See physician's report for complete and final results. 9:50:58 Patient transfered to [facility] with Bed. Intervention Summary Intervention Notes Time ActionType Lesion and Equipment Used Action# Pressure Duration Attributes 9:29:02 Inflate Undefined1 In.Pact 1 0 00:00 balloon Admiral 5 x 60 x 130 DCB ([id number]) 9:33:49 Inflate Undefined2 IN.PACT 1 0 00:00 balloon Admiral 6 x 120 x 130 DCB Balloon ([id number]) Device Usage Item Name Manufacture Quantity Catalog Number Hospital Part Current M inimal Lot# / Charge Number Stock Stock Serial# Code Bag Decanter Microtek 1 [id number] 13390 165950 5 () Medical Inc. Sterile Cardinal 1 [id number] 989959 872909 5 Angiographic Health Pack Tegaderm 4 x 4 3M 1 1626W 556684 321847 296072 5 (1626W) CXI SUPPORT [facility] 1 [id number] 775014 652830 [id number] 5 [id number] .035 135 CM STR catheter (T09653) ROADRUNNER [facility] 1 R51755 002384 906568 5 FIRM 260CM glide wire (M13746) CHOICE PT [place] 1 [id number] 377825 20190108 528428 5 Extra Support Scientific J 300cm guide wire ([id number]) BENTSON 145cm [facility] 1 G11036 686528 193252 5 wire (T96614) LOPES 260 wire [facility] 1 B27635 726934 33897 006610 5 ([id number]) MICROPUNCTURE [facility] 1 D87386 482598 357873 557410 5 4FR [employer] (B02629) SHEATH 5FR Terumo 1 CBV338 078605 373230 557510 5 Wingate (AEJ515) DIAGNOSTIC IMT [place] 1 [id number] 091419 337654 46850 5 5Fr Catheter [employer] ([id number]) SHEATH 6FR Terumo 1 RSR01 967685 65475 459176 5 Destination (RSR01) INFLATOR Merit 1 JO7174 934469 189924 373060 5 [employer] [place] Private ([id number]) Hawkone Medium Medtronic 1 H1-M 759777 11814534 5 Atherectomy System (H1-M) In.Pact Medtronic 1 [id number] 471424 254157 338136 5 Admiral 5 x 60 x 130 DCB ([id number]) SHEATH 6FR Terumo 1 YBH949 123205 457032 473620 4 0 Wingate (BJX001) IN.PACT Medtronic 1 [id number] 120751 103406 532484 5 Admiral 6 x 120 x 130 DCB Balloon ([id number]) Signature Audit [place] Stage Time Signature Unsigned Intra-Procedure 02/05/2020 JUAN MCPHERSON RT 9:51:29 AM (R) [facility] [address] [place] [address]
[~2020-01-27 10:58] MED LIST changes: +CLINDAMYCIN HC300 MG PO; +DIFLUCAN150 MG PO; -EMLA CREAM 30 G30 G1; +EMLA CREAM 30 G30 G1 TP; +VIBRAMYCIN 100100 MG PO
--- NOTE | 2020-01-27 13:48 | NUR ---
ATTEMPTED TO CALL REPORT. NURSE NOT AVAILABLE. NURSE TO CALL FOR REPORT WHEN AVAILABLE.
--- NOTE | 2020-01-27 14:09 | NUR ---
ATTEMPTED REPORT. NURSE NOT AVAILABLE.
[2020-01-27 15:04] LABS: BASOPHILS 0.3 % (0-2); EOSINOPHILS 0.4 % (0-7); HEMATOCRIT 47.9 % (36.0-48.0); HEMOGLOBIN 15.6 g/dL (12-16); IMMATURE GRANULOCYTES 0.3 % (0-5); LYMPHOCYTES 18.2 % (15-50); MCH 29.4 pg (26.0-34.0); MCHC 32.6 g/dL (31.0-37.0); MCV 90.2 fL (80.0-100.0); MEAN PLATELET VOLUME 9.9 fL (7.4-10.4); MONOCYTES 5.8 % (2-11); PLATELET COUNT 179 10x3/uL (130-400); RBC 5.31 10x6/uL (4.00-5.40); RDW 17.5 % (11.5-14.5)
[2020-01-27 15:45] LABS: ALBUMIN 2.7 g/dL (3.4-5.0); ANION GAP 13.1 mmol/L (8-16); BILIRUBIN - TOTAL 0.6 mg/dL (0.2-1.3); CARBON DIOXIDE 27.2 mmol/L (21.0-32.0); CREATININE - SERUM 6.2 mg/dL (0.6-1.3); POTASSIUM - SERUM 4.3 mmol/L (3.5-5.1); PROTEIN - SERUM 6.1 g/dL (6.4-8.2)
[2020-01-27 15:48] LABS: CALCIUM 6.8 mg/dL (8.5-10.1)
--- NOTE | 2020-01-27 16:05 | NUR ---
LT IJ LINE OK WITH BLOOD DRAW BUT DRAWS SLOWLY. FLUSHES WITHOUT DIFF. ERP DR. HIRSCH INFORMED. OK TO USE LT IJ.
--- NOTE | 2020-01-27 16:50 | NUR ---
ARRIVE TO ROOM VIA BED FROM IR. CVL TRIPLE LUMEN LT IJ PLACED. ALERT AND ORIENTED X4. REFUSE SCDs DUE TO CELLULITIS OF BILATERAL LOWER EXTREMITIES. TAKES ELIQUIS AT HOME. CONTINUE ADMISSION PROCESS AND SAFETY PRECAUTIONS.
[2020-01-28 00:30] VITALS: BP 91/55
--- NOTE | 2020-01-28 02:35 | NUR ---
I have reviewed this patient and I concur with the Shift Assessment completed by the Licensed Practical Nurse today this shift.
[2020-01-28 04:00] VITALS: BP 98/55
--- NOTE | 2020-01-28 07:20 | NUR ---
RECIEVE REPORT. ALERT AND ORIENTED X4. LAYING IN BED. DENIES ANY NEEDS. CONTINUE PLAN OF CARE AND SAFETY PRECAUTIONS.
[2020-01-28 08:49] VITALS: BP 97/66
[2020-01-28 10:49] VITALS: Ht 172.7 cm; Wt 106.1 kg
[2020-01-28 12:14] VITALS: BP 99/53
[2020-01-28 15:23] VITALS: BP 94/64
--- NOTE | 2020-01-28 19:02 | NUR ---
REPORT RECEIVED, WILL CONTINUE POC. PATIENT IS AAOX4, LYING IN SEMI-FOWLERS POSITION. NO S/S OF DISTRESS OBSERVED, RR EVEN AND UNLABORED ON ROOM AIR. PATIENT DENIES NEEDS AT THIS TIME. CL IN REACH, BED LOCKED AND LOWERED. WILL CTM.
[2020-01-28 20:00] VITALS: BP 100/68
[2020-01-29] VITALS: BP 94/63
[2020-01-29 04:00] VITALS: BP 92/68
--- NOTE | 2020-01-29 04:07 | NUR ---
I have reviewed this patient and I concur with the Shift Assessment completed by the Licensed Practical Nurse today this shift.
--- NOTE | 2020-01-29 07:42 | NUR ---
SPOKE WITH CHERYL MURILLO ABOUT PT'S PAST HEART HX AND PT IS ISAIAH FOR A RLE ARTERIOGRAM MONDAY AND PT NEEDS TELE. SHE STATES SOON SHE GETS A MONITOR SHE WILL PUT IT ON PT. I VERBALIZED UNDERSTANDING.
[2020-01-29 08:00] VITALS: BP 93/62
--- NOTE | 2020-01-29 08:15 | NUR ---
PT'S PANCREASE IS NOT IN THE PYXIS, FRIDGE OR CASSETTE. CALLED PHARMACY AND SPOKE WITH LJ AND SHE STATES SHE WILL BRING SOME MORE. I VERBALIZED UNDERSTANDING.
[2020-01-29 11:00] VITALS: BP 101/64
--- NOTE | 2020-01-29 11:47 | NUR ---
LEFT IJ TRIPLE LUMEN DRESSING CHANGED PER PTOCOL AND USING STERILE TECHNIQUE.
--- NOTE | 2020-01-29 13:39 | NUR ---
PT WANTED GABAPENTIN BEFORE DIALYSIS. GAVE GABAPENTIN. GOWN CHANGED. LIDOCIANE CREAM PLACED ON RIGHT ARM AND COVERED WITH TEGADERM. PT TAKEN DOWN TO DIALYSIS VIA BED.
--- NOTE | 2020-01-29 15:47 | NUR ---
I have reviewed this patient and I concur with the Shift Assessment completed by the Licensed Practical Nurse today this shift.
--- NOTE | 2020-01-29 18:35 | NUR ---
PT RETURNED FROM DIALYSIS VIA BED. TRISHA MIRANDA IN DIALYSIS STATES THEY REMOVED 3L. I VERBALIZED UNDERSTANDING.
--- NOTE | 2020-01-29 19:00 | NUR ---
REPORT RECEIVED, WILL CONTINUE POC. PATIENT IS AAOX4, LYING IN SEMI-FOWLERS POSITION. NO S/S OF DISTRESS OBSERVED, RR EVEN AND UNLABORED ON 3L O2 VIA NC. PATIENT DENIES NEEDS AT THIS TIME. CL IN REACH, BED LOCKED AND LOWERED. WILL CTM.
[2020-01-29 20:00] VITALS: BP 96/65
[2020-01-30] VITALS: BP 97/67
--- NOTE | 2020-01-30 03:39 | NUR ---
INFORMED BY VICE PRESIDENT OF FINANCE THAT PATIENT HAS CONVERTED TO CONTROLLED A-FIB HR 76
--- NOTE | 2020-01-30 03:53 | NUR ---
I have reviewed this patient and I concur with the Shift Assessment completed by the Licensed Practical Nurse today this shift.
[2020-01-30 04:00] VITALS: BP 93/58
[2020-01-30 09:00] VITALS: BP 92/59
[2020-01-30 11:00] VITALS: BP 101/66
--- NOTE | 2020-01-30 13:19 | NUR ---
Nutrition Follow-up: Eating well. HD yesterday. Noted NPO p [place] for arteriogram tomorrow. Diet: Renal ADA PO intake: 96% avg x 6 meals Wt: 229# (01/29); 219# (01/26) Last BM: 01/29 Labs noted: Glu 156 Meds noted: Lantus, Humulin, Sensipar, Renagel, Tums, Protonix, Pancrease -Monitor wt; noted daily wts ordered. -RD following.
--- NOTE | 2020-01-30 19:15 | NUR ---
RPEORT RECEIVED AND ROUNDING COMPLETE. PATIENT LAYING IN BED ON RIGHT SIDE EYES CLOSED BREATHING SHALLOW AND UNLABORED. NO DISTRESS NOTED, LEFT IJ DRESSING C/D/I. NASAL CANNULA WORN WITH O2 AT 3L. CALL LIGHT WITHIN REACH AND BED IN LOWEST LOCKED POSITION.
[2020-01-30 20:00] VITALS: BP 93/63
[2020-01-31] VITALS (12 sets, daily range): BP systolic 78–100; BP diastolic 50–63
--- NOTE | 2020-01-31 05:33 | NUR ---
WENT IN TO PULL MORNING LABS FROM PATIENT'S IJ, DISTAL LINE WILL NOT FLUSH OR DRAW BACK, THE OTHER TWO LINE WILL ONLY FLUSH AND NOT DRAW. PATIENT STATES THAT SHE IS CONSTIPATED AND HAD TO REACH INSIDE OF HER ANUS AND PULLED OUT HER FECAL MATTER. I TOLD PATIENT WE COULD GET HER SOMWTHING FOR THAT AND SHE STATES THAT SHE THINKS SHE IS GOOD NOW. WILL PASS ON TO DAY NURSE.
[2020-01-31 07:03] LABS: BASOPHILS 0.1 % (0-2); EOSINOPHILS 0.6 % (0-7); HEMOGLOBIN 13.9 g/dL (12-16); IMMATURE GRANULOCYTES 0.1 % (0-5); LYMPHOCYTES 25.8 % (15-50); MCH 29.1 pg (26.0-34.0); MCHC 31.6 g/dL (31.0-37.0); MCV 92.2 fL (80.0-100.0); MONOCYTES 6.3 % (2-11); NEUTROPHILS 67.1 % (40-80); PLATELET COUNT 134 10x3/uL (130-400); RBC 4.77 10x6/uL (4.00-5.40); RDW 17.6 % (11.5-14.5); WBC 6.7 10x3/uL (4.8-10.8)
[2020-01-31 07:11] LABS: INR 0.95 (0.85-1.17); PROTIME 12.6 SECONDS (11.6-15.0)
[2020-01-31 10:06] LABS: ANION GAP 15.6 mmol/L (8-16); CARBON DIOXIDE 24.2 mmol/L (21.0-32.0); CREATININE - SERUM 9.3 mg/dL (0.6-1.3); DIGOXIN 0.71 ng/mL (0.90-2.00); POTASSIUM - SERUM 5.8 mmol/L (3.5-5.1); VANCOMYCIN - RANDOM 11.9 ug/mL (10.0-20.0)
[2020-01-31 10:15] LABS: CALCIUM 6.5 mg/dL (8.5-10.1)
--- NOTE | 2020-01-31 11:54 | NUR ---
Dialysis Coordinator: [facility] MWF 5:45am. Pt to return to chronic unit at discharge. IRENE KIRK.
--- NOTE | 2020-01-31 12:36 | MORECARE ---
CASE MANAGEMENT DISCHARGE SUMMARY PATIENT: CASA SPENCER UNIT: [id number] ADM DATE: 01/27/20 AGE: 54 : 61 SEX: F ROOM/BED: D.8984 AUTHOR: VICTORIANO,DOC PHYSICIAN: REFERRING PHYSICIAN: NATHANIEL KIM MD DATE OF SERVICE: 01/31/20 Discharge Plan Patient Name: CASA SPENCER Facility: [facility]:Bruni : 1965 Planned Disposition: Home Health Service Anticipated Discharge Date: Discharge Date: Expected LOS: 0 Initial Reviewer: [email or web address] Initial Review Date: 01/27/2020 Generated: 01/31/20 1:36 pm Comments DCP- Discharge Planning Updated by [email or web address]: Rosi Cortés on 01/31/20 11:[address] DC Plans: Resume [facility], with nursing and PT. Patient's daughter agrees to wound care teaching. Request a wheelchair for home use. cM contacted [facility] [place] [facility], verifies patient is current. Faxed /HP. CM met with patient to discuss initial discharge planning. Patient is in agreement to proceed with the assessment. Patient reports that she lives at home independently with her daughter, Kim López ([phone]). Patient is alert/oriented. Stairs/steps: Ramp. PCP: La Banks. Pharmacy: [facility]. Patient states she has been able to obtain all of her prescribed medications. [facility]: [facility] (current, [phone]). DME: Stationary & portable O2, CPAP, glucometer, Nebs, Shower chair, BSC. Patient is Independent with all ADL's, medication management DOG OR HORSE RACING OFFICIAL. CM discussed the availability of HH, Rehab, SNF, OP Therapy, DME services. Patient's daughter agrees for [facility] to resume, states she wants "all the care to be done in home and mother will never go into a NH". Outside community services are with [facility] (daughter is her aide), meals on wheels from [facility]. Patient denies hospitalization within the past 30 days. Transportation at time of discharge: Daughter. DCPIA - Discharge Planning Initial Assessment Updated by [email or web address]: Rosi Cortés on 01/31/20 12:35 pm * Is the patient Alert and Oriented? Yes * How many steps to enter\\exit or inside your home? Ramp * PCP [facility] * [address] * Preadmission Environment Home with Family * ADLs Partial Dependent * Partial ADLs (Assistance needed) Ambulation Bathing Dressing Medication Management Transfers * Equipment Bedside Commode BIPAP Elevated [place] Seat Nebulizer Oxygen Rolling Walker Shower Chair Tub Bench Walker Wound Supplies * Other Equipment Nebulizer, Stationary & portable O2, Glucometer * List name and contact numbers for known caregivers / representatives who currently or will assist patient after discharge: Kim López (daughter) [phone] * Verbal permission to speak to the caregivers and representatives has been obtained from the patient. Yes * Community resources currently utilized Home Health Meals on Wheels * Please name any agencies selected above. [facility] * Additional services required to return to the preadmission environment? Yes * Can the patient safely return to the preadmission environment? Yes * Has this patient been hospitalized within the prior 30 days at any hospital? No Patient Name: CASA SPENCER Page [phone] at 1236 All edits/amendments must be made on the electronic document DICTATION DATE: 01/31/20 1236 EDUCATION MANAGERS: PAULA 01/31/20 1236 RPT#: [id number] DC DATE: STATUS: ADM IN [facility] [address] [place] [address] END OF REPORT
--- NOTE | 2020-01-31 12:44 | MORECARE ---
CASE MANAGEMENT DISCHARGE SUMMARY PATIENT: CASA SPENCER UNIT: [id number] ADM DATE: 01/27/20 AGE: 54 : 61 SEX: F ROOM/BED: D.4964 AUTHOR: VICTORIANO,DOC PHYSICIAN: REFERRING PHYSICIAN: NATHANIEL KIM MD DATE OF SERVICE: 01/31/20 Discharge Plan Patient Name: CASA SPENCER Facility: [facility]:Olga : 1965 Planned Disposition: Home Health Service Anticipated Discharge Date: Discharge Date: Expected LOS: 0 Initial Reviewer: [email or web address] Initial Review Date: 01/27/2020 Generated: 01/31/20 1:43 pm Comments DCP- Discharge Planning Updated by [email or web address]: Rosi Cortés on 01/31/20 11:[address] DC Plans: Resume [facility], with nursing and PT. Patient's daughter agrees to wound care teaching. Request a wheelchair for home use. cM contacted [facility] [facility], verifies patient is current. Faxed /HP. CM met with patient to discuss initial discharge planning. Patient is in agreement to proceed with the assessment. Patient reports that she lives at home independently with her daughter, Kim López ([phone]). Patient is alert/oriented. Stairs/steps: Ramp. PCP: La Banks. Pharmacy: [facility]. Patient states she has been able to obtain all of her prescribed medications. [facility]: [facility] (current, [phone]). DME: Stationary & portable O2, CPAP, glucometer, Nebs, Shower chair, BSC. Patient is Independent with all ADL's, medication management VIDEO PRODUCTION COORDINATOR. CM discussed the availability of HH, Rehab, SNF, OP Therapy, DME services. Patient's daughter agrees for [facility] to resume, states she wants "all the care to be done in home and mother will never go into a NH". Outside community services are with [facility] (daughter is her aide), meals on wheels from [employer]. Patient denies hospitalization within the past 30 days. Transportation at time of discharge: Daughter. DCPIA - Discharge Planning Initial Assessment Updated by [email or web address]: Rosi Cortés on 01/31/20 12:35 pm * Is the patient Alert and Oriented? Yes * How many steps to enter\\exit or inside your home? Ramp * PCP [facility] * [facility] [address] * Preadmission Environment Home with Family * ADLs Partial Dependent * Partial ADLs (Assistance needed) Ambulation Bathing Dressing Medication Management Transfers * Equipment Bedside Commode BIPAP Elevated [place] Seat Nebulizer Oxygen Rolling Walker Shower Chair Tub Bench Walker Wound Supplies * Other Equipment Nebulizer, Stationary & portable O2, Glucometer * List name and contact numbers for known caregivers / representatives who currently or will assist patient after discharge: Kim López (daughter) [phone] * Verbal permission to speak to the caregivers and representatives has been obtained from the patient. Yes * Community resources currently utilized Home Health Meals on Wheels * Please name any agencies selected above. [facility] * Additional services required to return to the preadmission environment? Yes * Can the patient safely return to the preadmission environment? Yes * Has this patient been hospitalized within the prior 30 days at any hospital? No External Providers External Provider: [facility] Next Contact Date: Service Request Date: Service Type: Resolution: Reviewer: Comments: Last DP export: 01/31/20 11:36 a Patient Name: CASA SPENCER Page [phone] at 1244 All edits/amendments must be made on the electronic document DICTATION DATE: 01/31/20 1243 PLANER OPERATOR: PAULA 01/31/20 1243 RPT#: [id number] DC DATE: STATUS: ADM IN [facility] [address] [place] [address] END OF REPORT
--- NOTE | 2020-01-31 15:49 | NUR ---
PATIENT RETURNED FRON PROCEDURE AT 1345 AND WAS PLACED ON FREQUENT VITAL SIGNS. RESULTS FOLLOWS, 92/60, 93/63, 93/57, 86/60, AT 15 MINUTE INTERVALS AND THEN 30 MINUTE INTERVALS FOLLOWS: 80/58, 79/57, 78/51. CALLED [facility] WITH NEPHROLOGY AND REPORTED VITALS AND THAT PATIENT HAD RECEIVED VERSED 2 MG AND FENTANYL 100 MG IN PROCEDURE. REPORTED THAT SHE AROUSES EASILY AND FALLS FALLS BACK TO SLEEP IMMEDIATELY AFTER VITAL SIGNS. INSTRUCTED TO TAKE VITAL SIGNS EVERY 15 MINUTES AND REPORT IF THEY FALL ANY LOWER.
--- NOTE | 2020-01-31 16:21 | NUR ---
RECEIVED PHONE CALL FROM DIALYSIS AND DISCUSSED BLOOD PRESSURES WITH THEM, THEY TOLD ME THEY WOULD CALL BACK. AFTER A FEW MINUTES DIALYSIS CALLED BACK AND SAID THEY HAD CALLED [facility] WITH NEPHROLOGY AND CLEARED FOR PATIENT TO COME FOR DIALYSIS, TRANSPORTED DOWN VIA BED.
--- NOTE | 2020-01-31 16:45 | MORECARE ---
CASE MANAGEMENT DISCHARGE SUMMARY PATIENT: CASA SPENCER UNIT: [id number] ADM DATE: 01/27/20 AGE: 54 : 61 SEX: F ROOM/BED: D.0438 AUTHOR: VICTORIANO,DOC PHYSICIAN: REFERRING PHYSICIAN: NATHANIEL KIM MD DATE OF SERVICE: 01/31/20 Discharge Plan Patient Name: CASA SPENCER Facility: [facility]:[place] : 1965 Planned Disposition: Home Health Service Anticipated Discharge Date: Discharge Date: Expected LOS: 0 Initial Reviewer: [email or web address] Initial Review Date: 01/27/2020 Generated: 01/31/20 5:45 pm Comments DCP- Discharge Planning Updated by [id number]: Rosi Cortés on 01/31/20 11:[address] DC Plans: Resume [facility], with nursing and PT. Patient's daughter agrees to wound care teaching. Request a wheelchair for home use. cM contacted Jinny Lettsworth [facility], verifies patient is current. Faxed /HP. CM met with patient to discuss initial discharge planning. Patient is in agreement to proceed with the assessment. Patient reports that she lives at home independently with her daughter, Kim López ([phone]). Patient is alert/oriented. Stairs/steps: Ramp. PCP: La Banks. Pharmacy: [facility] Patient states she has been able to obtain all of her prescribed medications. [facility]: [facility] (current, [phone]). DME: Stationary & portable O2, CPAP, glucometer, Nebs, Shower chair, BSC. 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 CM discussed the availability of HH, Rehab, SNF, OP Therapy, DME services. Patient's daughter agrees for [facility] to resume, states she wants "all the care to be done in home and mother will never go into a NH". Outside community services are with [facility] (daughter is her aide), meals on wheels from [facility]. Patient denies hospitalization within the past 30 days. Transportation at time of discharge: Daughter. DCPIA - Discharge Planning Initial Assessment Updated by [id number]: Rosi Cortés on 01/31/20 12:35 pm * Is the patient Alert and Oriented? Yes * How many steps to enter\\exit or inside your home? Ramp * PCP [facility] * [address] * Preadmission Environment Home with Family * ADLs Partial Dependent * Partial ADLs (Assistance needed) Ambulation Bathing Dressing Medication Management Transfers * Equipment Bedside Commode BIPAP Elevated [place] Seat Nebulizer Oxygen Rolling Walker Shower Chair Tub Bench Walker Wound Supplies * Other Equipment Nebulizer, Stationary & portable O2, Glucometer * List name and contact numbers for known caregivers / representatives who currently or will assist patient after discharge: Kim López (daughter) [phone] * Verbal permission to speak to the caregivers and representatives has been obtained from the patient. Yes * Community resources currently utilized Home Health Meals on Wheels * Please name any agencies selected above. [id number] * Additional services required to return to the preadmission environment? Yes * Can the patient safely return to the preadmission environment? Yes * Has this patient been hospitalized within the prior 30 days at any hospital? No Last DP export: 01/31/20 11:44 a Patient Name: CASA SPENCER Page [id number] at 1645 All edits/amendments must be made on the electronic document DICTATION DATE: 01/31/201644 ASSEMBLER DC FIELD RING: PAULA 01/31/201644 RPT#: [id number] DC DATE: STATUS: ADM IN [facility] [address] [place] [address] END OF REPORT
--- NOTE | 2020-01-31 19:17 | NUR ---
PATIENT IS IN DIALYSIS, WHITE BOARD UPDATED.
--- NOTE | 2020-01-31 20:07 | NUR ---
PATIENT BACK FROM DIALYSIS. ASSISTED TO BEDSIDE COMMODE.
--- NOTE | 2020-01-31 20:28 | NUR ---
PATIENT REFUSED FSBS SINCE SHE JUST GOT BACK FROM DIALYSIS AND IS EATING DINNER. PATIENT ASKED FOR HER SET LANTUS DOSE AND SAID IF SHE FEELS THAT NEED WE CAN RECHECK HER LATER.
[2020-02-01 00:48] VITALS: BP 96/63
[2020-02-01 04:46] VITALS: BP 98/56
[2020-02-01 05:12] LABS: BASOPHILS 0.3 % (0-2); EOSINOPHILS 0.7 % (0-7); HEMOGLOBIN 12.2 g/dL (12-16); IMMATURE GRANULOCYTES 0.1 % (0-5); LYMPHOCYTES 17.4 % (15-50); MCH 28.6 pg (26.0-34.0); MCHC 31.3 g/dL (31.0-37.0); MCV 91.3 fL (80.0-100.0); MEAN PLATELET VOLUME 9.8 fL (7.4-10.4); MONOCYTES 6.3 % (2-11); NEUTROPHILS 75.2 % (40-80); PLATELET COUNT 135 10x3/uL (130-400); RBC 4.27 10x6/uL (4.00-5.40); RDW 17.5 % (11.5-14.5); WBC 6.9 10x3/uL (4.8-10.8)
[2020-02-01 05:30] LABS: ANION GAP 10.7 mmol/L (8-16); CARBON DIOXIDE 29.4 mmol/L (21.0-32.0); CREATININE - SERUM 7.4 mg/dL (0.6-1.3); POTASSIUM - SERUM 5.1 mmol/L (3.5-5.1); VANCOMYCIN - RANDOM 26.6 ug/mL (10.0-20.0)
--- NOTE | 2020-02-01 10:25 | NUR ---
PT ALERT X 4. COURSE WHEEZES ON EXPIRATION TO ALL CHAPMAN. LEFT IJ CENTRAL LINE, DRESSING CDI. LEFT HEEL DRY AND CRACKING, PT REPORTING PAIN WITH TOUCH, APPLIED MEPILEX, PT REPORTED RELIEF. SORE TO TOES ON LEFT TOES. BED LOW, CALL LIGHT IN REACH. NO OTHER NEEDS AT THIS TIME.
[2020-02-01 10:58] VITALS: BP 90/53
[2020-02-01 15:27] VITALS: BP 94/64
--- NOTE | 2020-02-01 19:59 | NUR ---
REPORT RECEIVED AND ROUNDING COMPLETE. PATIENT LAYING IN BED ON LEFT SIDE, PATIENT STATES SHE THOUGHT SHE WAS GOING HOME TODAY. PATIENT STATES THAT HER RIGHT FOOT HURTS BADLY. WILL LOOK AT MAR FOR MEDICATIONS TO GIVE. NO DISTRESS NOTED, PATIENT WEARING NASAL CANNULA WITH O2 AT 4L. LEFT IJ SALINE LOCKED AT THIS TIME. NO NEEDS EXPRESSED AT THIS TIME. CALL LIGHT WITHIN REACH AND BED IN LOWEST LOCKED POSITION.
[2020-02-01 20:47] VITALS: BP 100/71
[2020-02-02 04:30] VITALS: BP 91/57
[2020-02-02 06:04] LABS: BASOPHILS 0.3 % (0-2); EOSINOPHILS 1.6 % (0-7); HEMATOCRIT 37.2 % (36.0-48.0); HEMOGLOBIN 11.8 g/dL (12-16); LYMPHOCYTES 20.1 % (15-50); MCH 28.6 pg (26.0-34.0); MCHC 31.7 g/dL (31.0-37.0); MCV 90.1 fL (80.0-100.0); MEAN PLATELET VOLUME 11.9 fL (7.4-10.4); MONOCYTES 8.5 % (2-11); NEUTROPHILS 68.5 % (40-80); PLATELET COUNT 155 10x3/uL (130-400); RBC 4.13 10x6/uL (4.00-5.40); RDW 17.3 % (11.5-14.5); WBC 7.1 10x3/uL (4.8-10.8)
[2020-02-02 06:33] LABS: CARBON DIOXIDE 23.1 mmol/L (21.0-32.0); CREATININE - SERUM 8.7 mg/dL (0.6-1.3); POTASSIUM - SERUM 5.1 mmol/L (3.5-5.1); VANCOMYCIN - RANDOM 17.2 ug/mL (10.0-20.0)
[2020-02-02 06:37] LABS: CALCIUM 6.5 mg/dL (8.5-10.1)
--- NOTE | 2020-02-02 08:42 | NUR ---
AM MEDS GIVEN AT THIS TIME. ALSO GAVE NORCO FOR PAIN LEVEL OF 9/10. PT A/O X4, RESP EVEN AND NONOLABORED ON 2.5 L NC. PT DENIES ANY OTHER NEEDS AT THIS TIME. CALL LIGHT IN REACH, BEDSIDE RAILS X2, NAD NOTED,W ILL CONTINUE TO MONITOR.
[2020-02-02 09:17] VITALS: BP 97/71
[2020-02-02 12:08] VITALS: BP 92/64
--- NOTE | 2020-02-02 16:46 | NUR ---
BLOOD SUGAR OF 124, NO COVERAGE NEEDED PER S/S. PT DENIES ANY OTHER NEEDS AT THIS TIME. CALL LIGHT IN REACH, NAD NOTED, WILL CONTINUE TO MONITOR.
[2020-02-02 17:11] VITALS: BP 94/62
--- NOTE | 2020-02-02 17:11 | NUR ---
Pt on phone, check pt's Accucheck, 124. Pt reports she feels refreshed after shower. Pt denies any pain at this time. Call light and personal items within reach on bedside table.
[2020-02-02 20:30] VITALS: BP 109/70
[2020-02-03 04:36] VITALS: BP 98/63
[2020-02-03 06:13] LABS: BASOPHILS 0.1 % (0-2); EOSINOPHILS 0.8 % (0-7); HEMATOCRIT 35.7 % (36.0-48.0); HEMOGLOBIN 11.4 g/dL (12-16); IMMATURE GRANULOCYTES 0.3 % (0-5); LYMPHOCYTES 22.8 % (15-50); MCH 28.9 pg (26.0-34.0); MCHC 31.9 g/dL (31.0-37.0); MCV 90.4 fL (80.0-100.0); MEAN PLATELET VOLUME 10.9 fL (7.4-10.4); MONOCYTES 9.7 % (2-11); NEUTROPHILS 66.3 % (40-80); PLATELET COUNT 155 10x3/uL (130-400); RBC 3.95 10x6/uL (4.00-5.40); WBC 7.7 10x3/uL (4.8-10.8)
[2020-02-03 06:23] LABS: CARBON DIOXIDE 24.9 mmol/L (21.0-32.0); CREATININE - SERUM 9.8 mg/dL (0.6-1.3); VANCOMYCIN - RANDOM 26.3 ug/mL (10.0-20.0)
[2020-02-03 06:26] LABS: ANION GAP 16.3 mmol/L (8-16); CALCIUM 6.5 mg/dL (8.5-10.1); POTASSIUM - SERUM 6.2 mmol/L (3.5-5.1)
--- NOTE | 2020-02-03 08:12 | NUR ---
CALLED PHARMACY AND SPOKE WITH LISA, INFORMED HER THAT I NEED EMLA CREAM FOR PT.
[2020-02-03 08:16] VITALS: BP 100/54
--- NOTE | 2020-02-03 09:12 | NUR ---
CALLED PHARMACY AGAIN AND SPOKE WITH LISA, INFORMED HER THAT I NEED THE EMLA CREAM FOR PT, DIALYSIS IS READY FOR HER TO COME DOWN.
--- NOTE | 2020-02-03 09:44 | NUR ---
PT TO DIALYSIS VIA WHEELCHAIR.
--- NOTE | 2020-02-03 11:45 | NUR ---
PAIN PILL TAKEN TO PT IN DIALYSIS FOR PAIN LEVEL OF 9/10. PT DENIES ANY OTHER NEEDS AT THIS TIME.
--- NOTE | 2020-02-03 14:30 | NUR ---
PT BACK FROM DIALYSIS NEUROTIN GIVEN SCHEDULED. PT WANTS MORE TUNA SALAD WITH CRACKERS, LEMON AND PICKLES. PT DENIES ANY OTHER NEEDS AT THIS TIME. CALL LIGHT IN REACH, NAD NOTED, WILL CONTINUE TO MONITOR.
[2020-02-03 17:01] VITALS: BP 98/66
--- NOTE | 2020-02-03 17:02 | NUR ---
BLOOD SUGAR OF 167, 2UNITS OF INSULIN GIVEN PER S/S. PT DENIES ANY NEEDS AT THIS TIME. CALL LIGHT IN REACH, NAD NOTED, WILL CONTINUE TO MONITOR.
--- NOTE | 2020-02-03 19:00 | NUR ---
EVENING ROUNDS COMPLETE. PT LAYING IN BED. NO SIGNS OF DISTRESS. PT DENIES ANY NEEDS AT THIS TIME. AAOX4. CL IN REACH, BED IN LOWEST POSITION.
[2020-02-03 20:21] VITALS: BP 99/65
[2020-02-04 00:33] VITALS: BP 102/65
[2020-02-04 04:33] LABS: BASOPHILS 0.4 % (0-2); EOSINOPHILS 0.7 % (0-7); HEMATOCRIT 36.8 % (36.0-48.0); HEMOGLOBIN 11.5 g/dL (12-16); IMMATURE GRANULOCYTES 0.3 % (0-5); LYMPHOCYTES 17.2 % (15-50); MCH 28.3 pg (26.0-34.0); MCHC 31.3 g/dL (31.0-37.0); MCV 90.6 fL (80.0-100.0); MEAN PLATELET VOLUME 10.9 fL (7.4-10.4); MONOCYTES 9.6 % (2-11); NEUTROPHILS 71.8 % (40-80); PLATELET COUNT 180 10x3/uL (130-400); RBC 4.06 10x6/uL (4.00-5.40); RDW 17.3 % (11.5-14.5)
[2020-02-04 05:48] VITALS: BP 97/64
[2020-02-04 08:00] VITALS: BP 104/72
[2020-02-04 09:06] LABS: ANION GAP 15.4 mmol/L (8-16); CARBON DIOXIDE 26.6 mmol/L (21.0-32.0); CREATININE - SERUM 7.4 mg/dL (0.6-1.3)
[2020-02-04 09:13] LABS: CALCIUM 6.7 mg/dL (8.5-10.1)
[2020-02-04 11:00] VITALS: BP 89/57
--- NOTE | 2020-02-04 11:17 | NUR ---
Nutrition Follow-up: Pt reports good appetite; ate 100% of breakfast this AM. Denies N/V/C/D. HD yesterday. Noted LLE arteriogram planned for tomorrow. Diet: Renal ADA PO intake: 93% avg x 7 meals Wt: 235.8# (02/03); 219# (01/26) Last BM: 02/03 Labs noted: Na 135, K+ 6.0, Ca 6.7 Meds noted: Colace, Tums, Phoslo, Sensipar, Humulin, Lantus, Protonix, Pancrease -Monitor wt; noted daily wts ordered. -RD following.
[2020-02-04] MEDS ORDERED: VELTASSA8.4 GM PO (11:20)
--- NOTE | 2020-02-04 12:22 | NUR ---
LEAVING FOR DIALYSIS BY W/C.
--- NOTE | 2020-02-04 13:19 | NUR ---
C/O NAUSEA. STEWART SALEH NOTIFIED. NEW ORDERS GIVEN. PHENERGAN 25 MG PO TAKEN TO DIALYSIS. WILL MONITOR.
[2020-02-04 15:00] VITALS: BP 100/66
--- NOTE | 2020-02-04 15:33 | NUR ---
BACK FROM DIALYSIS. B/P 85/60. DRSG CHANGED TO RIGHT FOOT ORDERED. WILL CONT PLAN OF CARE.
--- NOTE | 2020-02-04 16:25 | NUR ---
CONSENTS SIGNED FOR PROCEDURE.
--- NOTE | 2020-02-04 19:45 | NUR ---
PT A/O X4 RESTING IN BED. RR EVEN AND UNLABORED. NO S/S OF DISTRESS. PT TO NPO FOR PROCEDURE IN AM. PT DENIES IN FURTHER NEDS AT THIS TIME. BED LOW CALL LIGHT WITHIN REACH. WILL CONTINUE TO MONITOR.
--- NOTE | 2020-02-04 20:45 | NUR ---
PT HAVING PAIN REQUESTED PRN PAIN MEDICATION. PT COMPLAINED FOOT DRESSING WAS TO TIGHT. FOOT NOW REWRAPPED AND DRESSED. NO FURTHER COMPLAINS OR NEEDS AT THIS TIME. WILL CONTINUE TO MONITOR.
[2020-02-04 20:50] VITALS: BP 112/70
[2020-02-05 00:39] VITALS: BP 102/70
--- NOTE | 2020-02-05 03:16 | NUR ---
I have reviewed this patient and I concur with the Shift Assessment completed by the Licensed Practical Nurse today this shift.
[2020-02-05 04:33] LABS: BASOPHILS 0.3 % (0-2); EOSINOPHILS 0.5 % (0-7); HEMATOCRIT 36.4 % (36.0-48.0); HEMOGLOBIN 11.6 g/dL (12-16); IMMATURE GRANULOCYTES 0.5 % (0-5); LYMPHOCYTES 20.5 % (15-50); MCHC 31.9 g/dL (31.0-37.0); MEAN PLATELET VOLUME 10.2 fL (7.4-10.4); MONOCYTES 9.2 % (2-11); PLATELET COUNT 161 10x3/uL (130-400); WBC 7.5 10x3/uL (4.8-10.8)
[2020-02-05 04:42] LABS: APTT 30.1 SECONDS (22.8-39.4); INR 1.03 (0.85-1.17); PROTIME 13.4 SECONDS (11.6-15.0)
[2020-02-05 04:48] LABS: ALBUMIN 2.4 g/dL (3.4-5.0); ANION GAP 12.3 mmol/L (8-16); BILIRUBIN - TOTAL 0.42 mg/dL (0.2-1.3); CARBON DIOXIDE 27.4 mmol/L (21.0-32.0); CREATININE - SERUM 6.5 mg/dL (0.6-1.3); PHOSPHOROUS 3.8 mg/dL (2.5-4.9); PROTEIN - SERUM 6.6 g/dL (6.4-8.2); VANCOMYCIN - RANDOM 18.4 ug/mL (10.0-20.0)
--- NOTE | 2020-02-05 04:54 | NUR ---
PT PREPPED,CLIPPED, SHOWERED AND CLEANSED WITH READY PREP. PT A/O X4 VITALS STABLE. FOOD REDRESSED AND TRIAYLISIS DRESSING CHANDGED PER STERILE TECHNIQUE. WILL CONTINUE TO MONITOR.
[2020-02-05 05:02] LABS: POTASSIUM - SERUM 4.7 mmol/L (3.5-5.1)
[2020-02-05 05:13] VITALS: BP 88/57
--- NOTE | 2020-02-05 07:18 | NUR ---
DID WALKING ROUNDS, PT RESTING IN BED TALKING ON PHONE, PT AWARE OF BEING NPO FOR PROCEDURE THIS AM, PT DENIES PAIN OR NEEDS, BED LOW AND LOCKED, SR UP X2, WILL CONTINUE TO MONITOR, CALL LIGHT INREACH
--- NOTE | 2020-02-05 08:10 | NUR ---
PT BEING TAKEN DOWN FOR PROCEDURE
[2020-02-05 08:59] VITALS: BP 97/60
--- NOTE | 2020-02-05 10:15 | NUR ---
PT BACK TO ROOM, VITALS STABLE, PT AWARE SHE HAS TO LAY FLAT FOR 4 HOURS, RIGHT GROIN SITE DRY AND INTACT, NO S/S OF HEMATOMA NOTED, PT DENIES PAIN OR NEEDS, PT EATING BREAKFAST
--- NOTE | 2020-02-05 11:00 | NUR ---
Q 15 MIN VITALS COMPLETE, PT STILL LAYING FLAT, RT GROIN SITE DRY AND SECURE, NO S/S OF HEMATOMA, WILL MONITOR
--- NOTE | 2020-02-05 12:00 | NUR ---
Q 30 MIN VITALS COMPLETE, VITALS STABLE, RT GROIN SITE FREE FROM HEMATOMA AND BLEEDING, SITE DRY AND INTACT, PT DENIES NEEDS, PT LAYING FLAT
[2020-02-05 13:21] VITALS: BP 112/38
--- NOTE | 2020-02-05 13:51 | NUR ---
PT GOING TO DIALYSIS PER BED, RIGHT GROIN SITE DRY AND INTACT, NO S/S OF HEMATOMA, PT IS AWARE SHE IS TO LAY FLAT FOR ANOTHER HOUR
--- NOTE | 2020-02-05 16:52 | NUR ---
PT BACK IN ROOM FROM DIALYSIS, PT DENIES PAIN OR NEEDS,
[2020-02-05 20:00] VITALS: BP 107/75
[2020-02-06] VITALS: BP 101/69
[2020-02-06 04:00] VITALS: BP 99/51
[2020-02-06 06:28] LABS: BASOPHILS 0.3 % (0-2); EOSINOPHILS 0.8 % (0-7); HEMATOCRIT 37.5 % (36.0-48.0); HEMOGLOBIN 11.6 g/dL (12-16); LYMPHOCYTES 19.4 % (15-50); MCH 28.4 pg (26.0-34.0); MCHC 30.9 g/dL (31.0-37.0); MCV 91.7 fL (80.0-100.0); MEAN PLATELET VOLUME 10.9 fL (7.4-10.4); MONOCYTES 8.8 % (2-11); NEUTROPHILS 69.7 % (40-80); PLATELET COUNT 185 10x3/uL (130-400); RBC 4.09 10x6/uL (4.00-5.40); RDW 17.1 % (11.5-14.5); WBC 7.3 10x3/uL (4.8-10.8)
[2020-02-06] MEDS ORDERED: LEVOFLOXACIN500 MG PO (07:13)
--- NOTE | 2020-02-06 08:12 | MORECARE ---
CASE MANAGEMENT DISCHARGE SUMMARY PATIENT: CASA SPENCER UNIT: [id number] ADM DATE: 01/27/20 AGE: 54 : 61 SEX: F ROOM/BED: D.5416 AUTHOR: VICTORIANO,DOC PHYSICIAN: REFERRING PHYSICIAN: NATHANIEL KIM MD DATE OF SERVICE: 02/06/20 Discharge Plan Patient Name: CASA SPENCER Facility: [facility]:[place] : 1965 Planned Disposition: Home Health Service Anticipated Discharge Date: Discharge Date: Expected LOS: 0 Initial Reviewer: [email or web address] Initial Review Date: 01/27/2020 Generated: 02/06/20 9:12 am Comments DCP- Discharge Planning Updated by [id number]: Tiffany Leon on 02/06/20 7:[address] Patient Name: CASA SPENCER Encounter No: [id number] : 1965 Primary Insurance: MEDICARE A & B Anticipated DC Date: Planned Disposition: Home Health Service External Planned Provider: : DCP follow-up note: CM met with patient about final discharge plan.Patient and family in agreement with discharge plan to resume [facility]. CM spoke with Maci at [phone] and faxed clinicals. No changes to plan. DC IMM delivered, explained, signed by the patient, and placed in chart. Signed form also left with the patient. Patient states her nephew will pick her up today. Case management will follow and assist as needed. Tiffany Leon DCP- Discharge Planning Updated by [email or web address]: Rosi Cortés on 01/31/20 11:[address] DC Plans: Resume [facility], with nursing and PT. Patient's daughter agrees to wound care teaching. Request a wheelchair for home use. cM contacted [facility], verifies patient is current. Faxed /HP. CM met with patient to discuss initial discharge planning. Patient is in agreement to proceed with the assessment. Patient reports that she lives at home independently with her daughter, Kim López ([phone]). Patient is alert/oriented. Stairs/steps: Ramp. PCP: [facility]. Pharmacy: [address]. Patient states she has been able to obtain all of her prescribed medications. [facility]: [facility] (current, [phone]). DME: Stationary & portable O2, CPAP, glucometer, Nebs, Shower chair, BSC. 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 CM discussed the availability of HH, Rehab, SNF, OP Therapy, DME services. Patient's daughter agrees for [facility] to resume, states she wants "all the care to be done in home and mother will never go into a NH". Outside community services are with [facility] (daughter is her aide), meals on wheels from [facility]. Patient denies hospitalization within the past 30 days. Transportation at time of discharge: Daughter. DCPIA - Discharge Planning Initial Assessment Updated by [email or web address]: Rosi Cortés on 01/31/20 12:35 pm * Is the patient Alert and Oriented? Yes * How many steps to enter\\exit or inside your home? Ramp * PCP [facility] * Pharmacy [address] * Preadmission Environment Home with Family * ADLs Partial Dependent * Partial ADLs (Assistance needed) Ambulation Bathing Dressing Medication Management Transfers * Equipment Bedside Commode BIPAP Elevated [place] Seat Nebulizer Oxygen Rolling Walker Shower Chair Tub Bench Walker Wound Supplies * Other Equipment Nebulizer, Stationary & portable O2, Glucometer * List name and contact numbers for known caregivers / representatives who currently or will assist patient after discharge: Kim López (daughter) [phone] * Verbal permission to speak to the caregivers and representatives has been obtained from the patient. Yes * Community resources currently utilized Home Health Meals on Wheels * Please name any agencies selected above. [id number] * Additional services required to return to the preadmission environment? Yes * Can the patient safely return to the preadmission environment? Yes * Has this patient been hospitalized within the prior 30 days at any hospital? No Coverage Notice Reviewer: [id number] Tammy Leon Notice Issued Date-Time: 02/06/2020 8:00 Notice Type: IM Discharge Notice Notice Delivered To: Patient Relationship to Patient: Residential Appraiser Name: Delivery Method: HAND - Hand Delivered Sel[place] Days: Prior Verbal Notification: Recipient Understood Notice: Yes Recipient Signature: Yes Med Rec Note Co-signed by Attending: Coverage Notice Comment: DC IMM delivered, explained, signed by the patient, and placed in chart. Signed form also left with the patient. Last DP export: 01/31/20 3:45 p Patient Name: CASA SPENCER Page 23055 at 0812 All edits/amendments must be made on the electronic document DICTATION DATE: 02/06/20811 HOME THERAPY TEACHER: PAULA 02/06/20811 RPT#: [id number] DC DATE: STATUS: ADM IN [facility] [address] [place] [address] END OF REPORT
--- NOTE | 2020-02-06 09:24 | NUR ---
WRITTEN SCRIPT FOR NORCO 10 MG #30 AND XANAX 0.5 MG #60 GIVEN TO PATIENT AND COPY PLACED IN CHART.
--- NOTE | 2020-02-06 10:37 | NUR ---
PT AWAKE AND ORIENTED WHEN I ENTERED. TOOK ALL MEDICATIONS WITHOUT DIFFICULTY. CENTRAL LINE PULLED OUT BY RUBEN DAVILA. PT WAITED APPROPRIATE 30 MINUTES, SIGNED D/C PAPERWORK. ESCORTED OUT TO [facility], FRIEND DRIVING.
--- NOTE | 2020-02-07 13:37 | MORECARE ---
CASE MANAGEMENT DISCHARGE SUMMARY PATIENT: CASA SPENCER UNIT: [id number] ADM DATE: 01/27/20 AGE: 54 : 61 SEX: F ROOM/BED: D.8616 AUTHOR: VICTORIANO,DOC PHYSICIAN: REFERRING PHYSICIAN: NATHANIEL KIM MD DATE OF SERVICE: 02/07/20 Discharge Plan Patient Name: CASA SPENCER Facility: [facility]:[place] : 1965 Planned Disposition: Home Health Service Anticipated Discharge Date: 02/06/20 Discharge Date: 02/06/2020 Expected LOS: 10 Initial Reviewer: [email or web address] Initial Review Date: 01/27/2020 Generated: 02/07/20 2:36 pm Comments DCP- Discharge Planning Updated by [id number]: Tiffany Leon on 02/06/20 7:[address] Patient Name: CASA SPENCER Encounter No: [id number] : 1965 Primary Insurance: MEDICARE A & B Anticipated DC Date: Planned Disposition: Home Health Service External Planned Provider: : DCP follow-up note: CM met with patient about final discharge plan.Patient and family in agreement with discharge plan to resume [facility] . CM spoke with Maci at [phone] and faxed clinicals. No changes to plan. DC IMM delivered, explained, signed by the patient, and placed in chart. Signed form also left with the patient. Patient states her nephew will pick her up today. Case management will follow and assist as needed. Tiffany Leon DCP- Discharge Planning Updated by [id number]: Rosi Cortés on 01/31/20 11:[address] DC Plans: Resume [facility], with nursing and PT. Patient's daughter agrees to wound care teaching. Request a wheelchair for home use. cM contacted [facility], verifies patient is current. Faxed /HP. CM met with patient to discuss initial discharge planning. Patient is in agreement to proceed with the assessment. Patient reports that she lives at home independently with her daughter, Kim López ([phone]). Patient is alert/oriented. Stairs/steps: Ramp. PCP: [facility]. Pharmacy: [address]. Patient states she has been able to obtain all of her prescribed medications. [facility]: [facility] (current, [phone]). DME: Stationary & portable O2, CPAP, glucometer, Nebs, Shower chair, BSC. 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 CM discussed the availability of HH, Rehab, SNF, OP Therapy, DME services. Patient's daughter agrees for [facility] to resume, states she wants "all the care to be done in home and mother will never go into a NH". Outside community services are with [facility] (daughter is her aide), meals on wheels from [facility]. Patient denies hospitalization within the past 30 days. Transportation at time of discharge: Daughter. DCPIA - Discharge Planning Initial Assessment Updated by [id number]: Rosi Cortés on 01/31/20 12:35 pm * Is the patient Alert and Oriented? Yes * How many steps to enter\\exit or inside your home? Ramp * PCP [facility] * Pharmacy [address] * Preadmission Environment Home with Family * ADLs Partial Dependent * Partial ADLs (Assistance needed) Ambulation Bathing Dressing Medication Management Transfers * Equipment Bedside Commode BIPAP Elevated [place] Seat Nebulizer Oxygen Rolling Walker Shower Chair Tub Bench Walker Wound Supplies * Other Equipment Nebulizer, Stationary & portable O2, Glucometer * List name and contact numbers for known caregivers / representatives who currently or will assist patient after discharge: Kim López (daughter) [phone] * Verbal permission to speak to the caregivers and representatives has been obtained from the patient. Yes * Community resources currently utilized Home Health Meals on Wheels * Please name any agencies selected above. [id number]rs[facility] * Additional services required to return to the preadmission environment? Yes * Can the patient safely return to the preadmission environment? Yes * Has this patient been hospitalized within the prior 30 days at any hospital? No Coverage Notice Reviewer: [id number] Tammy Leon Notice Issued Date-Time: 02/06/2020 8:00 Notice Type: IM Discharge Notice Notice Delivered To: Patient Relationship to Patient: Water Sponger Name: Delivery Method: HAND - Hand Delivered Selma Days: Prior Verbal Notification: Recipient Understood Notice: Yes Recipient Signature: Yes Med Rec Note Co-signed by Attending: Coverage Notice Comment: DC IMM delivered, explained, signed by the patient, and placed in chart. Signed form also left with the patient. Last DP export: 02/06/20 7:13 a Patient Name: CASA SPENCER Page [phone] at 1337 All edits/amendments must be made on the electronic document DICTATION DATE: 02/07/206 TENNIS COACH: PAULA 02/07/20 1336 RPT#: [id number] DC DATE:02/06/20 STATUS: DIS IN [facility] [address] [place] [address] END OF REPORT
== END 2020-02-06 10:40 | disposition home health service (06) | DRG 270 ==
LOC: D.ER 10:58 → D.M2 13:09
PROVIDERS: Family Medicine; Internal Medicine Nephrology; Radiology Diagnostic Radiology; Radiology Vascular & Interventional Radiology; ADMIT Internal Medicine Nephrology; ATTEND Internal Medicine Nephrology
PROC: 5A1D70Z Performance of Urinary Filtration, Intermittent, Less than 6 Hours Per Day (ICD-10-PCS; 2020-01-29)
PROC: 047K3ZZ Dilation of Right Femoral Artery, Percutaneous Approach (ICD-10-PCS; 2020-01-31)
PROC: 047P3ZZ Dilation of Right Anterior Tibial Artery, Percutaneous Approach (ICD-10-PCS; 2020-01-31)
PROC: 047M3ZZ Dilation of Right Popliteal Artery, Percutaneous Approach (ICD-10-PCS; 2020-01-31)
PROC: 04CM3ZZ Extirpation of Matter from Right Popliteal Artery, Percutaneous Approach (ICD-10-PCS; 2020-01-31)
PROC: 04CP3ZZ Extirpation of Matter from Right Anterior Tibial Artery, Percutaneous Approach (ICD-10-PCS; 2020-01-31)
PROC: 04CK3ZZ Extirpation of Matter from Right Femoral Artery, Percutaneous Approach (ICD-10-PCS; principal; 2020-01-31 11:30)
PROC: 04CL3ZZ Extirpation of Matter from Left Femoral Artery, Percutaneous Approach (ICD-10-PCS; 2020-02-05)
PROC: 047L3Z1 Dilation of Left Femoral Artery using Drug-Coated Balloon, Percutaneous Approach (ICD-10-PCS; 2020-02-05)
DX: E11.51 Type 2 diabetes mellitus with diabetic peripheral angiopathy without gangrene (principal); N18.6 End stage renal disease; L03.116 Cellulitis of left lower limb; L03.115 Cellulitis of right lower limb; I48.20 Chronic atrial fibrillation, unspecified; E11.22 Type 2 diabetes mellitus with diabetic chronic kidney disease; I50.9 Heart failure, unspecified; Z68.33 Body mass index [BMI] 33.0-33.9, adult; E11.621 Type 2 diabetes mellitus with foot ulcer; L97.512 Non-pressure chronic ulcer of other part of right foot with fat layer exposed; E66.01 Morbid (severe) obesity due to excess calories; I95.9 Hypotension, unspecified; E83.51 Hypocalcemia; E87.5 Hyperkalemia

== ENCOUNTER 2020-04-02 04:09 | Emergency (ER) | payer MEDICARE ==
[~2020-04-02] VITALS: Ht 172.7 cm; Wt 97.9 kg
[~2020-04-02 04:09] MED LIST changes: +LEVOFLOXACIN500 MG PO; +VELTASSA8.4 GM PO
[2020-04-02 04:11] VITALS: Ht 172.7 cm; Wt 97.9 kg
[2020-04-02 05:15] LABS: BASOPHILS 0.1 % (0-2); EOSINOPHILS 0.4 % (0-7); HEMATOCRIT 41.1 % (36.0-48.0); HEMOGLOBIN 13.2 g/dL (12-16); IMMATURE GRANULOCYTES 0.2 % (0-5); LYMPHOCYTES 20.7 % (15-50); MCH 28.7 pg (26.0-34.0); MCHC 32.1 g/dL (31.0-37.0); MCV 89.3 fL (80.0-100.0); MEAN PLATELET VOLUME 9.7 fL (7.4-10.4); MONOCYTES 5.9 % (2-11); NEUTROPHILS 72.7 % (40-80); PLATELET COUNT 206 10x3/uL (130-400); RDW 16.3 % (11.5-14.5); WBC 9.3 10x3/uL (4.8-10.8)
[2020-04-02 05:38] LABS: ANION GAP 16.2 mmol/L (8-16); CARBON DIOXIDE 28.3 mmol/L (21.0-32.0); CREATININE - SERUM 7.3 mg/dL (0.6-1.3); POTASSIUM - SERUM 3.5 mmol/L (3.5-5.1)
[2020-04-02 05:44] LABS: ALBUMIN 2.7 g/dL (3.4-5.0); BILIRUBIN - TOTAL 0.39 mg/dL (0.2-1.3); MAGNESIUM - SERUM 2.1 mg/dL (1.8-2.4); PHOSPHOROUS 6.4 mg/dL (2.5-4.9); PROTEIN - SERUM 7.5 g/dL (6.4-8.2)
[2020-04-02] MEDS ORDERED: CLEOCIN HCL300 MG PO (06:31)
[2020-04-02 07:37] VITALS: BP 95/55
== END 2020-04-02 07:21 | disposition home or self-care (01) ==
LOC: D.ER 04:09
PROVIDERS: Family Medicine
DX: M79.604 Pain in right leg (principal); M79.605 Pain in left leg; L97.501 Non-pressure chronic ulcer of other part of unspecified foot limited to breakdown of skin; G89.29 Other chronic pain; Z99.2 Dependence on renal dialysis; N19 Unspecified kidney failure; G62.9 Polyneuropathy, unspecified; E11.9 Type 2 diabetes mellitus without complications; I50.9 Heart failure, unspecified; I48.91 Unspecified atrial fibrillation

== ENCOUNTER 2020-04-14 10:18 | Emergency (ER) | payer MEDICARE ==
[~2020-04-14] VITALS: Ht 172.7 cm; Wt 97.3 kg
[2020-04-14 10:21] VITALS: Ht 172.7 cm; Wt 97.3 kg
[2020-04-14] MEDS ORDERED: WELLBUTRIN XL150 M1 PO (10:44)
[2020-04-14] MEDS ORDERED: BYSTOLIC10 MG PO (10:44)
[2020-04-14] MEDS ORDERED: KENALOG 0.1 % O15 GM TOPICAL (10:45)
[2020-04-14 11:47] LABS: CALC OSMOLALITY 283 mosm/kg (275-300); CALCIUM 9.6 mg/dL (8.5-10.1); CARBON DIOXIDE 24.8 mmol/L (21.0-32.0); CHLORIDE - SERUM 93 mmol/L (98-107); CREATININE - SERUM 8.3 mg/dL (0.6-1.3); GLUCOSE 159 mg/dL (74-106); POTASSIUM - SERUM 4.8 mmol/L (3.5-5.1); SODIUM 137 mmol/L (136-145); UREA NITROGEN 33 mg/dL (7-18); eGFR NON AFRICAN AMERICAN 5 mL/min (90-120)
[2020-04-14 11:49] LABS: BASOPHILS 0.3 % (0-2); EOSINOPHILS 0.5 % (0-7); HEMATOCRIT 44.5 % (36.0-48.0); HEMOGLOBIN 14.3 g/dL (12-16); IMMATURE GRANULOCYTES 0.4 % (0-5); LYMPHOCYTES 20.9 % (15-50); MCH 28.6 pg (26.0-34.0); MCHC 32.1 g/dL (31.0-37.0); MEAN PLATELET VOLUME 10.3 fL (7.4-10.4); MONOCYTES 4.3 % (2-11); NEUTROPHILS 73.6 % (40-80); PLATELET COUNT 225 10x3/uL (130-400); RDW 16.3 % (11.5-14.5); WBC 9.3 10x3/uL (4.8-10.8)
[2020-04-14 11:53] LABS: ALBUMIN 3.3 g/dL (3.4-5.0); ALKALINE PHOSPHATASE 148 U/L (30-120); BILIRUBIN - TOTAL 0.59 mg/dL (0.2-1.3); PROTEIN - SERUM 8.7 g/dL (6.4-8.2)
[2020-04-14 11:54] LABS: ALT (SGPT) < 6 U/L (10-68)
[2020-04-14 12:45] VITALS: BP 102/67
== END 2020-04-14 12:45 | disposition home or self-care (01) ==
LOC: D.ER 10:18
PROVIDERS: Emergency Medicine
DX: T81.89XA Other complications of procedures, not elsewhere classified, initial encounter (principal); E11.22 Type 2 diabetes mellitus with diabetic chronic kidney disease; N18.6 End stage renal disease; I50.9 Heart failure, unspecified; J44.9 Chronic obstructive pulmonary disease, unspecified; K21.9 Gastro-esophageal reflux disease without esophagitis; Z99.81 Dependence on supplemental oxygen; E11.65 Type 2 diabetes mellitus with hyperglycemia; Z79.4 Long term (current) use of insulin